=== PATIENT | male | born 1940 | race Caucasian/White ===

== ENCOUNTER 2020-09-26 14:53 | Outpatient (REF) | payer MEDICARE, SELFPAY ==
[2020-09-26 16:48] LABS: MANUAL DIFF FLAG NO
[2020-09-26 16:51] LABS: Basophils Absolute Auto 0.1 X10*3/uL (0.0-0.2); Basophils Percent Auto 0.8 % (0-2); Eosinophils Absolute Auto 0.2 X10*3/uL (0.0-0.4); Hematocrit 45.6 % (42-52); Hemoglobin 14.9 g/dl (14.0-18.0); Imm Gran Abs Auto 0.01 X10*3/uL (0.00-0.03); Imm Gran Pct Auto 0.2 % (0.0-0.4); Lymphocytes Absolute Auto 2.2 X10*3/uL (1.2-4.9); Mean Corpuscular HGB Conc 32.7 g/dl (31.0-36.0); Mean Corpuscular Hemoglobin 32.6 pg (27.0-33.0); Mean Corpuscular Volume 99.8 fL (80-98); Mean Platelet Volume 9.1 fL (9.4-12.4); Monocytes Absolute Auto 0.6 X10*3/uL (0.1-1.2); Monocytes Percent Auto 9.2 % (2-11); Neutrophils Absolute Auto 3.1 X10*3/uL (2.0-8.3); Neutrophils Percent Auto 50.8 % (45-73); Platelet Count 224 X10*3/uL (160-400); Red Blood Count 4.57 X10*6/uL (4.60-5.80); Red Cell Distribution Width 12.8 % (11.0-16.0)
[2020-09-26 17:17] LABS: Alanine Aminotransferase 41 U/L (0-40); Albumin Level 4.3 g/dL (3.5-5.0); Alkaline Phosphatase 56 U/L (39-117); Anion Gap 11 (12-20); Aspartate Amino Transferase 32 U/L (5-37); Bilirubin Total 0.5 mg/dL (0.0-1.0); Blood Urea Nitrogen 21 mg/dL (9-16); Carbon Dioxide 29 mmol/L (22-29); Chloride 105 mmol/L (96-108); Estimated Glomerular Filt Rate > 60; Glucose Random 88 mg/dL (60-115); Potassium 4.4 mmol/l (3.3-5.1); Sodium 141 mmol/L (135-145); Total Protein 6.4 g/dL (6.5-8.0)
[2020-09-26 17:48] LABS: Calcium 9.1 mg/dL (8.4-10.2)
[2020-09-28 13:12] LABS: Free Prostate Spec Ag 1.1 ng/mL; Percent Free Prostate Spec Ag 15 % (calc) (>25); Prostate Specific Ag Total 7.2 ng/mL (< OR = 4.0)
== END 2020-09-26 14:54 | disposition home or self-care (01) ==
LOC: HO.HMGCLDS 14:53
PROVIDERS: PCP Internal Medicine Medical Oncology; Visit Provider Internal Medicine Medical Oncology
DX: E78.2 Mixed hyperlipidemia (principal); I10 Essential (primary) hypertension
CPT/HCPCS: 36415; 80053; 84153; 85025

== ENCOUNTER 2020-10-07 15:23 | Outpatient (REF) | payer MEDICARE, SELFPAY ==
[2020-10-07 17:13] LABS: Blood Urea Nitrogen 25 mg/dL (9-16); Estimated Glomerular Filt Rate > 60
== END 2020-10-07 15:24 | disposition home or self-care (01) ==
LOC: HO.LAB 15:23
PROVIDERS: PCP Internal Medicine Medical Oncology; Visit Provider Urology
DX: N26.1 Atrophy of kidney (terminal) (principal); R97.20 Elevated prostate specific antigen [PSA]; N40.2 Nodular prostate without lower urinary tract symptoms
CPT/HCPCS: 82565; 84520; 99202; 99212

== ENCOUNTER → 2020-10-20 15:26 | Outpatient (BNVA) | payer MEDICARE, SELFPAY | PROVIDERS: PCP Internal Medicine Medical Oncology; Visit Provider Urology | DX: R31.0 Gross hematuria (principal); R97.20 Elevated prostate specific antigen [PSA]; N40.2 Nodular prostate without lower urinary tract symptoms | CPT/HCPCS: 81002; 99212 ==

== ENCOUNTER 2020-11-08 11:26 | Outpatient (REF) | payer MEDICARE, SELFPAY ==
[2020-11-08 11:33] VITALS: BP 159/87; PULSE 76; RESP 16; TEMP 37.1; O2SAT 98
[2020-11-08 11:36] VITALS: BMI 24.3
--- NOTE | 2020-11-08 12:47 | PM.OP ---
Brief Operative Note Date of Service: 11/08/20 Pre-op diagnosis: Prostate Nodule Post-op diagnosis: same Procedure: US guided Measure prostate US duided prostate nerve block US guided prostate biopsy Surgeon: Juan Logan MD Anesthesia: local Estimated blood loss (mL): 0 Pathology: other (12 core biopsy) Condition: stable Disposition: same day
--- NOTE | 2020-11-08 12:49 | W.PM.OPN ---
Operative Note Operative Note Date of Service: 11/08/20 Narrative: Preoperative diagnosis: prostate nodule Postoperative diagnosis: prostate nodule Procedure: 1. transrectal ultrasound measurement of prostate 2. transrectal ultrasound-guided pudendal nerve block 3. transrectal ultrasound-guided prostate biopsy 12 core Surgeon: Dr. Juan Logan Anesthetic: Local Indications for procedure: prostate nodule Procedure: After informed consent was verified, the patient was brought into the procedure area and lay left-hand side down on the table. Patient identity confirmed. Perioperative antibiotics confirmed. Gel was placed per rectum Ultrasound probe was placed per rectum The prostate was measured in 3 dimensions Total volume equals 50 gm There were no cystic structures and no calcifications noted and the prostate was homogeneous in nature A ultrasound-guided pudendal nerve block was performed using 10 cc of 1% lidocaine. 8 cc was placed at the base and 2 cc of the apex. A 12 core biopsy was performed with 6 cores each side. Two cores were taken at the apex, mid and base. Cores were spaced between lateral and medial. He tolerated the procedure well. Was able to ambulate to bathroom after 5 minutes. Printed instructions regarding antibiotic use and common side effects such as low-grade temperature and bleeding were given.
[2020-11-08 12:58] VITALS: BP 143/81; PULSE 87; RESP 16; O2SAT 96
== END 2020-11-08 11:27 | disposition home or self-care (01) ==
LOC: HO.MS 11:26
PROVIDERS: PCP Internal Medicine Medical Oncology; Visit Provider Urology
PROC: (CPT 55700; principal; 2020-11-08 12:00)
DX: C61 Malignant neoplasm of prostate (principal)
CPT/HCPCS: 55700; 76942; 88305; 88344

== ENCOUNTER → 2020-11-17 09:11 | Outpatient (BNVA) | payer MEDICARE, SELFPAY | PROVIDERS: Visit Provider Urology | DX: C61 Malignant neoplasm of prostate (principal) | CPT/HCPCS: Q3014 ==

== ENCOUNTER → 2020-11-30 10:00 | Outpatient (REF) | payer MEDICARE, SELFPAY ==
--- NOTE | 2020-11-30 | NM_ITS ---
EXAMINATION: NM BONE SCAN OF THE WHOLE BODY CLINICAL INFORMATION: Prostate cancer. COMPARISON: None TECHNIQUE: Multiple gamma scintillation camera images of the whole body were performed 3 hours following the intravenous administration of 25 mCi Tc-99m MDP. FINDINGS: There is no abnormal radioisotope activity seen in the skull, neck, the entire spine, bony thorax, upper and lower extremity. There is mild activity seen in both kidneys and excreted urinary activity in the bladder. There is minimal focal activity seen in the left patellar region likely related to DJD. There is no abnormal metastatic activity seen on whole body bone scan. NM/NM bone scan whole body IMPRESSION: Unremarkable whole body bone scan. Especially, there is no abnormal activity seen in the axial or appendicular skeleton to suspect any metastatic disease.
== END ==
LOC: HO.NUCMED 10:00
PROVIDERS: Visit Provider Internal Medicine Medical Oncology
DX: C61 Malignant neoplasm of prostate (principal); M15.9 Polyosteoarthritis, unspecified
CPT/HCPCS: 78306; A9503

== ENCOUNTER → 2020-12-06 14:30 | Outpatient (BNVA) | payer MEDICARE, SELFPAY | PROVIDERS: PCP Internal Medicine Medical Oncology; Visit Provider Urology | DX: C61 Malignant neoplasm of prostate (principal) | CPT/HCPCS: 99212 ==

== ENCOUNTER → 2020-12-21 10:32 | Outpatient (BNVA) | payer MEDICARE, SELFPAY | PROVIDERS: PCP Internal Medicine Medical Oncology; Visit Provider Urology | DX: C61 Malignant neoplasm of prostate (principal) | CPT/HCPCS: 96402; 99212; J9217 ==

== ENCOUNTER → 2020-12-30 08:53 | Outpatient (BNVA) | payer MEDICARE, SELFPAY | PROVIDERS: PCP Internal Medicine Medical Oncology; Visit Provider Urology | DX: C61 Malignant neoplasm of prostate (principal) | CPT/HCPCS: Q3014 ==

== ENCOUNTER 2021-01-31 07:33 | Outpatient (REF) | payer MEDICARE, SELFPAY ==
[2021-01-31 07:40] VITALS: BMI 53.6
[2021-01-31 07:43] VITALS: BP 144/78; PULSE 81; RESP 16; TEMP 35.8; O2SAT 97
--- NOTE | 2021-01-31 08:29 | PM.OP ---
Brief Operative Note Date of Service: 01/31/21 Pre-op diagnosis: prostate cancer Post-op diagnosis: same Procedure: gold seed prostate marker Implants: gold seed marker Surgeon: Juan Logan MD Anesthesia: local Estimated blood loss (mL): 0 Pathology: none sent Condition: stable Disposition: same day
[2021-01-31 08:30] VITALS: BP 151/84; PULSE 76; RESP 16; O2SAT 97
--- NOTE | 2021-01-31 08:31 | W.PM.OPN ---
Operative Note Operative Note Date of Service: 01/31/21 Narrative: Preoperative diagnosis: Prostate cancer Postoperative diagnosis: Prostate cancer Procedure: 1. Transrectal ultrasound-guided pudendal nerve block 2. Transrectal ultrasound-guided gold seed placement Surgeon: Dr. Juan Logan Anesthetic: Local Indications for procedure: Prostate Cancer Procedure: After informed consent was verified, the patient was brought into the procedure area and lay left-hand side down on the table. Patient identity confirmed. Perioperative antibiotics confirmed. Gel was placed per rectum Ultrasound probe was placed per rectum A ultrasound-guided pudendal nerve block was performed using 10 cc of 1% lidocaine. 8 cc was placed at the base and 2 cc of the apex. 3 gold seed markers placed. 2 on the right, 1 on the left. The purpose is for triangulation. He tolerated the procedure well. Was able to ambulate to bathroom after 5 minutes. Printed instructions regarding antibiotic use and common side effects such as low-grade temperature and bleeding were given
== END 2021-01-31 07:34 | disposition home or self-care (01) ==
LOC: HO.MS 07:33
PROVIDERS: PCP Internal Medicine Medical Oncology; Visit Provider Urology
DX: C61 Malignant neoplasm of prostate (principal)
CPT/HCPCS: 55700; 55876

== ENCOUNTER 2021-03-18 10:07 | Outpatient (REF) | payer MEDICARE, SELFPAY ==
[2021-03-18 10:32] LABS: MANUAL DIFF FLAG NO
[2021-03-18 10:36] LABS: Basophils Percent Auto 0.6 % (0-2); Eosinophils Absolute Auto 0.1 X10*3/uL (0.0-0.4); Eosinophils Percent Auto 2.6 % (0-4); Hematocrit 44.4 % (42-52); Imm Gran Abs Auto 0.01 X10*3/uL (0.00-0.03); Imm Gran Pct Auto 0.2 % (0.0-0.4); Lymphocytes Absolute Auto 0.8 X10*3/uL (1.2-4.9); Lymphocytes Percent Auto 16.8 % (20-40); Mean Corpuscular HGB Conc 33.8 g/dl (31.0-36.0); Mean Corpuscular Hemoglobin 33.3 pg (27.0-33.0); Mean Corpuscular Volume 98.4 fL (80-98); Mean Platelet Volume 8.7 fL (9.4-12.4); Monocytes Absolute Auto 0.4 X10*3/uL (0.1-1.2); Monocytes Percent Auto 7.3 % (2-11); Neutrophils Absolute Auto 3.6 X10*3/uL (2.0-8.3); Neutrophils Percent Auto 72.5 % (45-73); Platelet Count 181 X10*3/uL (160-400); Red Blood Count 4.51 X10*6/uL (4.60-5.80); Red Cell Distribution Width 13.1 % (11.0-16.0); White Blood Count 4.9 X10*3/uL (4.8-10.8)
[2021-03-18 11:15] LABS: Alanine Aminotransferase 51 U/L (0-40); Albumin Level 4.7 g/dL (3.5-5.0); Alkaline Phosphatase 55 U/L (39-117); Anion Gap 13 (12-20); Aspartate Amino Transferase 26 U/L (5-37); Bilirubin Total 0.9 mg/dL (0.0-1.0); Blood Urea Nitrogen 21 mg/dL (9-16); Calcium 10.2 mg/dL (8.4-10.2); Carbon Dioxide 29 mmol/L (22-29); Chloride 106 mmol/L (96-108); Cholesterol 186 mg/dL; Estimated Glomerular Filt Rate > 60; Glucose Fasting 104 mg/dL (60-99); HDL Cholesterol 44 mg/dL; LDL Cholesterol Calculated 116 mg/dl; Potassium 4.8 mmol/L (3.3-5.1); Sodium 143 mmol/L (135-145); Total Protein 6.9 g/dL (6.5-8.0); Triglycerides 134 mg/dL
[2021-03-18 11:49] LABS: Free T4 (Free Thyroxine) 0.91 ng/dL (0.71-1.85); Thyroid Stimulating Hormone 0.58 uIU/mL (0.32-4.0)
[2021-03-18 12:57] LABS: Prostate Specific Antigen 0.33 ng/mL (<0.05-4.0)
== END 2021-03-18 10:08 | disposition home or self-care (01) ==
LOC: HO.LAB 10:07
PROVIDERS: Absent Provider Urology; PCP Internal Medicine Medical Oncology; Visit Provider Internal Medicine Medical Oncology
DX: Z12.5 Encounter for screening for malignant neoplasm of prostate (principal); C61 Malignant neoplasm of prostate; E78.2 Mixed hyperlipidemia; E03.9 Hypothyroidism, unspecified; N40.1 Benign prostatic hyperplasia with lower urinary tract symptoms; I10 Essential (primary) hypertension
CPT/HCPCS: 36415; 80053; 80061; 84153; 84439; 84443; 85025

== ENCOUNTER 2021-04-15 10:15 | Outpatient (REF) | payer MEDICARE, SELFPAY ==
[2021-04-15 10:53] LABS: Basophils Percent Auto 0.7 % (0-2); Eosinophils Absolute Auto 0.2 X10*3/uL (0.0-0.4); Eosinophils Percent Auto 4.2 % (0-4); Hematocrit 44.7 % (42-52); Imm Gran Abs Auto 0.01 X10*3/uL (0.00-0.03); Imm Gran Pct Auto 0.2 % (0.0-0.4); Lymphocytes Absolute Auto 0.7 X10*3/uL (1.2-4.9); Lymphocytes Percent Auto 14.9 % (20-40); MANUAL DIFF FLAG SCAN; Mean Corpuscular HGB Conc 33.6 g/dl (31.0-36.0); Mean Corpuscular Hemoglobin 33.3 pg (27.0-33.0); Mean Corpuscular Volume 99.3 fL (80-98); Mean Platelet Volume 8.6 fL (9.4-12.4); Monocytes Absolute Auto 0.3 X10*3/uL (0.1-1.2); Monocytes Percent Auto 6.5 % (2-11); Neutrophils Absolute Auto 3.3 X10*3/uL (2.0-8.3); Neutrophils Percent Auto 73.5 % (45-73); Platelet Count 192 X10*3/uL (160-400); Red Cell Distribution Width 13.3 % (11.0-16.0); SCAN SMEAR FLAG 1; White Blood Count 4.5 X10*3/uL (4.8-10.8)
[2021-04-15 11:22] LABS: Alanine Aminotransferase 52 U/L (0-40); Albumin Level 4.6 g/dL (3.5-5.0); Alkaline Phosphatase 57 U/L (39-117); Anion Gap 11 (12-20); Aspartate Amino Transferase 27 U/L (5-37); Blood Urea Nitrogen 18 mg/dL (9-16); Calcium 10.1 mg/dL (8.4-10.2); Carbon Dioxide 30 mmol/L (22-29); Chloride 106 mmol/L (96-108); Cholesterol 187 mg/dL; Estimated Glomerular Filt Rate > 60; Glucose Fasting 101 mg/dL (60-99); HDL Cholesterol 43 mg/dL; LDL Cholesterol Calculated 116 mg/dl; Potassium 4.9 mmol/L (3.3-5.1); Sodium 142 mmol/L (135-145); Total Protein 6.9 g/dL (6.5-8.0); Triglycerides 142 mg/dL
[2021-04-15 12:16] LABS: SLIDE REVIEW VERIFIED
[2021-04-19 18:12] LABS: Testosterone, Total 17 ng/dL (250-1100)
== END 2021-04-15 10:16 | disposition home or self-care (01) ==
LOC: HO.LAB 10:15
PROVIDERS: PCP Internal Medicine Medical Oncology; Visit Provider Internal Medicine Medical Oncology
DX: I10 Essential (primary) hypertension (principal); E78.2 Mixed hyperlipidemia; C61 Malignant neoplasm of prostate
CPT/HCPCS: 36415; 80053; 80061; 84403; 84439; 84443; 85025

== ENCOUNTER → 2021-06-02 10:56 | Outpatient (BNVA) | payer MEDICARE, SELFPAY | PROVIDERS: PCP Internal Medicine Medical Oncology; Visit Provider Urology | DX: C61 Malignant neoplasm of prostate (principal); N40.1 Benign prostatic hyperplasia with lower urinary tract symptoms; N52.9 Male erectile dysfunction, unspecified | CPT/HCPCS: 99212 ==

== ENCOUNTER → 2021-06-23 11:01 | Outpatient (BNVA) | payer MEDICARE, SELFPAY | PROVIDERS: PCP Internal Medicine Medical Oncology; Visit Provider Urology | DX: C61 Malignant neoplasm of prostate (principal) | CPT/HCPCS: 96402; J9217 ==

== ENCOUNTER 2021-08-29 15:03 | Outpatient (REF) | payer MEDICARE, SELFPAY ==
[2021-08-29 16:11] LABS: Prostate Specific Antigen 0.11 ng/mL (<0.05-4.0)
[2021-09-02 08:12] LABS: Testosterone, Total 15 ng/dL (250-1100)
== END 2021-08-29 15:04 | disposition home or self-care (01) ==
LOC: HO.LAB 15:03
PROVIDERS: Absent Provider Internal Medicine Medical Oncology; PCP Internal Medicine Medical Oncology; Visit Provider Urology
DX: Z12.5 Encounter for screening for malignant neoplasm of prostate (principal); C61 Malignant neoplasm of prostate
CPT/HCPCS: 36415; 84153; 84403

== ENCOUNTER → 2021-09-05 10:43 | Outpatient (BNVA) | payer MEDICARE, SELFPAY | PROVIDERS: PCP Internal Medicine Medical Oncology; Visit Provider Urology | DX: Z13.89 Encounter for screening for other disorder (principal) | CPT/HCPCS: Q3014 ==

== ENCOUNTER 2021-09-25 10:24 | Outpatient (REF) | payer MEDICARE, SELFPAY ==
[2021-09-25 11:27] LABS: MANUAL DIFF FLAG NO
[2021-09-25 11:36] LABS: Basophils Percent Auto 0.7 % (0-2); Eosinophils Absolute Auto 0.2 X10*3/uL (0.0-0.4); Eosinophils Percent Auto 3.7 % (0-4); Hematocrit 44.7 % (42-52); Hemoglobin 14.9 g/dl (14.0-18.0); Imm Gran Abs Auto 0.01 X10*3/uL (0.00-0.03); Imm Gran Pct Auto 0.2 % (0.0-0.4); Lymphocytes Absolute Auto 1.2 X10*3/uL (1.2-4.9); Lymphocytes Percent Auto 23.2 % (20-40); Mean Corpuscular HGB Conc 33.3 g/dl (31.0-36.0); Mean Corpuscular Hemoglobin 32.7 pg (27.0-33.0); Mean Platelet Volume 8.8 fL (9.4-12.4); Monocytes Absolute Auto 0.4 X10*3/uL (0.1-1.2); Neutrophils Absolute Auto 3.4 X10*3/uL (2.0-8.3); Neutrophils Percent Auto 64.2 % (45-73); Platelet Count 220 X10*3/uL (160-400); Red Blood Count 4.56 X10*6/uL (4.60-5.80); Red Cell Distribution Width 12.7 % (11.0-16.0); White Blood Count 5.4 X10*3/uL (4.8-10.8)
[2021-09-25 12:10] LABS: Alanine Aminotransferase 93 U/L (0-40); Albumin Level 4.4 g/dL (3.5-5.0); Alkaline Phosphatase 73 U/L (39-117); Anion Gap 12 (12-20); Aspartate Amino Transferase 42 U/L (5-37); Bilirubin Total 0.8 mg/dL (0.0-1.0); Blood Urea Nitrogen 15 mg/dL (9-16); Calcium 10.1 mg/dL (8.4-10.2); Carbon Dioxide 25 mmol/L (22-29); Chloride 109 mmol/L (96-108); Cholesterol 167 mg/dL; Estimated Glomerular Filt Rate > 60; Glucose Fasting 92 mg/dL (60-99); HDL Cholesterol 38 mg/dL; LDL Cholesterol Calculated 99 mg/dl; Potassium 4.2 mmol/L (3.3-5.1); Sodium 142 mmol/L (135-145); Total Protein 6.7 g/dL (6.5-8.0); Triglycerides 151 mg/dL
[2021-09-25 12:14] LABS: Free T4 (Free Thyroxine) 0.91 ng/dL (0.71-1.85); Thyroid Stimulating Hormone 1.83 uIU/mL (0.32-4.0)
== END 2021-09-25 10:25 | disposition home or self-care (01) ==
LOC: HO.HMGCLDS 10:24
PROVIDERS: PCP Internal Medicine Medical Oncology; Visit Provider Internal Medicine Medical Oncology
DX: C61 Malignant neoplasm of prostate (principal); E03.9 Hypothyroidism, unspecified; E78.2 Mixed hyperlipidemia
CPT/HCPCS: 36415; 80053; 80061; 84439; 84443; 85025

== ENCOUNTER 2021-12-08 14:59 | Outpatient (REF) | payer MEDICARE, SELFPAY ==
[2021-12-08 16:40] LABS: MANUAL DIFF FLAG NO
[2021-12-08 16:47] LABS: Basophils Percent Auto 0.8 % (0-2); Eosinophils Absolute Auto 0.1 X10*3/uL (0.0-0.4); Eosinophils Percent Auto 2.3 % (0-4); Hematocrit 43.5 % (42.0-52.0); Hemoglobin 14.1 g/dl (14.0-18.0); Imm Gran Abs Auto 0.01 X10*3/uL (0.00-0.03); Imm Gran Pct Auto 0.2 % (0.0-0.4); Lymphocytes Absolute Auto 1.1 X10*3/uL (1.2-4.9); Lymphocytes Percent Auto 20.4 % (20-40); Mean Corpuscular HGB Conc 32.4 g/dl (31.0-36.0); Mean Corpuscular Hemoglobin 32.4 pg (27.0-33.0); Mean Platelet Volume 8.8 fL (9.4-12.4); Monocytes Absolute Auto 0.4 X10*3/uL (0.1-1.2); Monocytes Percent Auto 6.7 % (2-11); Neutrophils Absolute Auto 3.6 x10*3/uL (2.0-8.3); Neutrophils Percent Auto 69.6 % (45-73); Platelet Count 225 X10*3/uL (160-400); Red Blood Count 4.35 X10*6/uL (4.60-5.80); Red Cell Distribution Width 12.8 % (11.0-16.0); White Blood Count 5.2 X10*3/uL (4.8-10.8)
[2021-12-08 17:06] LABS: Alanine Aminotransferase 52 U/L (0-40); Albumin Level 4.5 g/dL (3.5-5.0); Alkaline Phosphatase 68 U/L (39-117); Anion Gap 10 (12-20); Aspartate Amino Transferase 33 U/L (5-37); Bilirubin Total 0.7 mg/dL (0.0-1.0); Blood Urea Nitrogen 23 mg/dL (9-16); Calcium 10.1 mg/dL (8.4-10.2); Carbon Dioxide 29 mmol/L (22-29); Chloride 108 mmol/L (96-108); Estimated Glomerular Filt Rate > 60; Glucose Random 88 mg/dL (60-115); Potassium 4.4 mmol/L (3.3-5.1); Sodium 143 mmol/L (135-145); Total Protein 6.8 g/dL (6.5-8.0)
[2021-12-08 18:30] LABS: Prostate Specific Antigen 0.05 ng/mL (<0.05-4.0)
[2021-12-13 17:06] LABS: Testosterone, Total 7 ng/dL (250-1100)
== END 2021-12-08 15:00 | disposition home or self-care (01) ==
LOC: HO.HMGCLDS 14:59
PROVIDERS: Absent Provider Urology; PCP Internal Medicine Medical Oncology; Visit Provider Internal Medicine Medical Oncology
DX: Z12.5 Encounter for screening for malignant neoplasm of prostate (principal); C61 Malignant neoplasm of prostate; E78.2 Mixed hyperlipidemia
CPT/HCPCS: 36415; 80053; 84153; 84403; 85025

== ENCOUNTER → 2021-12-26 11:52 | Outpatient (BNVA) | payer MEDICARE, SELFPAY | PROVIDERS: PCP Internal Medicine Medical Oncology; Visit Provider Urology | DX: R39.15 Urgency of urination (principal); C61 Malignant neoplasm of prostate | CPT/HCPCS: 96402; 99212; J9217 ==

== ENCOUNTER 2022-01-12 08:48 | Outpatient (REF) | payer MEDICARE, SELFPAY ==
--- NOTE | ~2022-01-12 | MM_ITS ---
EXAMINATION: BONE DENSITOMETRY CLINICAL INDICATION: Osteopenia. COMPARISON: This is the patient's baseline examination. TECHNIQUE: Using a [employer] DXA System (software version: 13.1) manufactured by [employer], dual-energy x-ray absorptiometry was performed of the lumbar spine and left hip. The images are of good technical quality. Summary results are attached. FINDINGS: AP SPINE L1-L4: BMD 0.768 g/cm2, Z-score -3.0, T-score -3.8, osteoporosis. LEFT FEMUR, NECK: BMD 0.581 g/cm2, Z-score -2.2, T-score -3.8, osteoporosis. LEFT FEMUR, TOTAL: BMD 0.693 g/cm2, Z-score -1.6, T-score -2.8, osteoporosis. IDENTIFIED RISK FACTORS: Height loss, hypogonadism. HISTORY OF FRACTURE: None listed. MEDICATIONS: Calcium or multivitamin. Vitamin D. MM/XR DEXA axial skeleton IMPRESSION: 1. DIAGNOSIS: Osteoporosis based on the lowest T-score value of -3.8 in the lumbar spine and femur neck applying World Health Organization criteria. 2. 10-YEAR FRACTURE RISK PREDICTION, FRAX: Major osteoporotic fracture (clinical spine, forearm, hip or shoulder) 17.3%. Hip fracture 9.5%. 3. Treatment Recommendations: NOF guidelines recommend consideration for treatment in postmenopausal women and men age 50 and older presenting with the following: -A hip or vertebral (clinical or morphometric) fracture. -T-score less than or equal to -2.5 at the femoral neck or spine after appropriate evaluation to exclude secondary causes. -Low bone mass at the hip or spine and a 10-year fracture probability by FRAX of greater than or equal to 3% for hip fracture or greater than or equal to 20% for major osteoporotic fracture based on the [place] adapted WHO algorithm. 4. Other Recommendations: All treatment decisions require clinical judgment and consideration of individual patient factors, including patient preferences, comorbidities, previous drug use, risk factors not captured in the FRAX model (e.g. frailty, falls, vitamin D deficiency, increased bone turnover, interval significant decline in bone density) and possible under or overestimation of fracture risk by FRAX. Additional medical evaluation for secondary cause of low bone mineral density may be appropriate. FUTURE SCAN RECOMMENDATION: People with diagnosed cases of osteoporosis or at high risk for fracture should have regular bone mineral density tests. For patients eligible for Medicare, routine testing is allowed once every 2 years. The testing frequency can be increased to one year for patients who have rapidly progressing disease, those who are receiving or discontinuing medical therapy to restore bone mass, or have additional risk factors.
== END 2022-01-12 08:49 | disposition home or self-care (01) ==
LOC: HO.MAMMO 08:48
PROVIDERS: PCP Internal Medicine Medical Oncology; Visit Provider Internal Medicine Medical Oncology
DX: Z13.820 Encounter for screening for osteoporosis (principal); M85.89 Other specified disorders of bone density and structure, multiple sites; C61 Malignant neoplasm of prostate; E29.1 Testicular hypofunction; Z79.899 Other long term (current) drug therapy
CPT/HCPCS: 77080

== ENCOUNTER 2022-03-07 16:18 | Outpatient (REF) | payer MEDICARE, SELFPAY ==
[2022-03-07 16:37] LABS: MANUAL DIFF FLAG NO
[2022-03-07 17:30] LABS: Basophils Percent Auto 0.6 % (0-2); Eosinophils Absolute Auto 0.2 X10*3/uL (0.0-0.4); Eosinophils Percent Auto 3.6 % (0-4); Hematocrit 42.4 % (42.0-52.0); Hemoglobin 13.9 g/dl (14.0-18.0); Lymphocytes Absolute Auto 1.2 X10*3/uL (1.2-4.9); Lymphocytes Percent Auto 24.5 % (20-40); Mean Corpuscular HGB Conc 32.8 g/dl (31.0-36.0); Mean Corpuscular Hemoglobin 32.3 pg (27.0-33.0); Mean Corpuscular Volume 98.4 fL (80.0-98.0); Mean Platelet Volume 8.6 fL (9.4-12.4); Monocytes Absolute Auto 0.4 X10*3/uL (0.1-1.2); Monocytes Percent Auto 8.4 % (2-11); Neutrophils Absolute Auto 3.2 x10*3/uL (2.0-8.3); Neutrophils Percent Auto 62.9 % (45-73); Platelet Count 246 X10*3/uL (160-400); Red Blood Count 4.31 X10*6/uL (4.60-5.80); Red Cell Distribution Width 12.8 % (11.0-16.0)
[2022-03-07 17:48] LABS: Alanine Aminotransferase 52 U/L (0-40); Albumin Level 4.3 g/dL (3.5-5.0); Alkaline Phosphatase 71 U/L (39-117); Anion Gap 10 (12-20); Aspartate Amino Transferase 34 U/L (5-37); Bilirubin Total 0.6 mg/dL (0.0-1.0); Blood Urea Nitrogen 23 mg/dL (9-16); Calcium 9.9 mg/dL (8.4-10.2); Carbon Dioxide 27 mmol/L (22-29); Chloride 107 mmol/L (96-108); Estimated Glomerular Filt Rate > 60; Glucose Random 107 mg/dL (60-115); Potassium 4.3 mmol/L (3.3-5.1); Sodium 140 mmol/L (135-145); Total Protein 6.6 g/dL (6.5-8.0)
[2022-03-07 18:15] LABS: PSA,Total (Free>4and<10) < 0.05 ng/mL (0.00-4.00); Vitamin D 25-OH Total 52.1 ng/mL (>30)
[2022-03-14 12:05] LABS: Testosterone, Total 7 ng/dL (250-1100)
== END 2022-03-07 16:19 | disposition home or self-care (01) ==
LOC: HO.LAB 16:18
PROVIDERS: Absent Provider Internal Medicine Medical Oncology; PCP Internal Medicine Medical Oncology; Visit Provider Urology
DX: C61 Malignant neoplasm of prostate (principal); N40.1 Benign prostatic hyperplasia with lower urinary tract symptoms; N13.8 Other obstructive and reflux uropathy; M81.0 Age-related osteoporosis without current pathological fracture; Z12.5 Encounter for screening for malignant neoplasm of prostate
CPT/HCPCS: 36415; 80053; 82306; 84153; 84403; 85025

== ENCOUNTER → 2022-03-28 11:03 | Outpatient (BNVA) | payer MEDICARE, SELFPAY | PROVIDERS: PCP Internal Medicine Medical Oncology; Visit Provider Urology | DX: R31.0 Gross hematuria (principal); C61 Malignant neoplasm of prostate | CPT/HCPCS: 99212 ==

== ENCOUNTER → 2022-05-09 11:01 | Outpatient (BNVA) | payer MEDICARE, SELFPAY | PROVIDERS: PCP Internal Medicine Medical Oncology; Visit Provider Urology | DX: C61 Malignant neoplasm of prostate (principal); R31.0 Gross hematuria | CPT/HCPCS: 52000; 99212 ==

== ENCOUNTER 2022-06-15 16:04 | Outpatient (REF) | payer MEDICARE, SELFPAY ==
[2022-06-15 16:38] LABS: MANUAL DIFF FLAG NO
[2022-06-15 17:10] LABS: Basophils Percent Auto 0.8 % (0-2); Eosinophils Absolute Auto 0.2 X10*3/uL (0.0-0.4); Eosinophils Percent Auto 3.8 % (0-4); Hematocrit 40.5 % (42.0-52.0); Hemoglobin 13.5 g/dl (14.0-18.0); Imm Gran Abs Auto 0.02 X10*3/uL (0.00-0.03); Imm Gran Pct Auto 0.4 % (0.0-0.4); Lymphocytes Absolute Auto 1.2 X10*3/uL (1.2-4.9); Lymphocytes Percent Auto 24.1 % (20-40); Mean Corpuscular HGB Conc 33.3 g/dl (31.0-36.0); Mean Corpuscular Hemoglobin 32.8 pg (27.0-33.0); Mean Corpuscular Volume 98.5 fL (80.0-98.0); Mean Platelet Volume 8.7 fL (9.4-12.4); Monocytes Absolute Auto 0.5 X10*3/uL (0.1-1.2); Monocytes Percent Auto 10.1 % (2-11); Neutrophils Percent Auto 60.8 % (45-73); Platelet Count 230 X10*3/uL (160-400); Red Blood Count 4.11 X10*6/uL (4.60-5.80); Red Cell Distribution Width 13.5 % (11.0-16.0)
[2022-06-15 17:37] LABS: Alanine Aminotransferase 41 U/L (0-40); Albumin Level 4.3 g/dL (3.5-5.0); Alkaline Phosphatase 71 U/L (39-117); Anion Gap 12 (12-20); Aspartate Amino Transferase 29 U/L (5-37); Bilirubin Total 0.5 mg/dL (0.0-1.0); Blood Urea Nitrogen 22 mg/dL (9-16); Calcium 9.4 mg/dL (8.4-10.2); Carbon Dioxide 25 mmol/L (22-29); Chloride 109 mmol/L (96-108); Estimated Glomerular Filt Rate > 60; Glucose Random 120 mg/dL (60-115); Potassium 4.6 mmol/L (3.3-5.1); Sodium 141 mmol/L (135-145); Total Protein 6.5 g/dL (6.5-8.0)
[2022-06-15 18:06] LABS: Prostate Specific Antigen < 0.05 ng/mL (<0.05-4.0)
== END 2022-06-15 16:05 | disposition home or self-care (01) ==
LOC: HO.LAB 16:04
PROVIDERS: PCP Internal Medicine Medical Oncology; Visit Provider Internal Medicine Medical Oncology
DX: Z12.5 Encounter for screening for malignant neoplasm of prostate (principal); C61 Malignant neoplasm of prostate
CPT/HCPCS: 36415; 80053; 84153; 85025

== ENCOUNTER 2022-08-16 14:01 | Outpatient (REF) | payer MEDICARE, SELFPAY ==
[2022-08-16 14:25] LABS: MANUAL DIFF FLAG NO
[2022-08-16 14:45] LABS: Basophils Absolute Auto 0.1 X10*3/uL (0.0-0.2); Basophils Percent Auto 1.1 % (0-2); Eosinophils Absolute Auto 0.2 X10*3/uL (0.0-0.4); Eosinophils Percent Auto 3.4 % (0-4); Hematocrit 43.6 % (42.0-52.0); Hemoglobin 14.5 g/dl (14.0-18.0); Imm Gran Abs Auto 0.01 X10*3/uL (0.00-0.03); Imm Gran Pct Auto 0.2 % (0.0-0.4); Lymphocytes Absolute Auto 1.2 X10*3/uL (1.2-4.9); Mean Corpuscular HGB Conc 33.3 g/dl (31.0-36.0); Mean Corpuscular Volume 96.2 fL (80.0-98.0); Mean Platelet Volume 8.5 fL (9.4-12.4); Monocytes Absolute Auto 0.4 X10*3/uL (0.1-1.2); Monocytes Percent Auto 7.9 % (2-11); Neutrophils Absolute Auto 2.9 x10*3/uL (2.0-8.3); Neutrophils Percent Auto 61.4 % (45-73); Platelet Count 203 X10*3/uL (160-400); Red Blood Count 4.53 X10*6/uL (4.60-5.80); Red Cell Distribution Width 13.2 % (11.0-16.0); White Blood Count 4.7 X10*3/uL (4.8-10.8)
[2022-08-16 15:14] LABS: Alanine Aminotransferase 44 U/L (0-40); Albumin Level 4.3 g/dL (3.5-5.0); Alkaline Phosphatase 68 U/L (39-117); Anion Gap 12 (12-20); Aspartate Amino Transferase 30 U/L (5-37); Bilirubin Total 0.7 mg/dL (0.0-1.0); Blood Urea Nitrogen 19 mg/dL (9-16); Calcium 9.8 mg/dL (8.4-10.2); Carbon Dioxide 27 mmol/L (22-29); Chloride 106 mmol/L (96-108); Estimated Average Glucose 123 mg/dL; Estimated Glomerular Filt Rate > 60; Glucose Random 95 mg/dL (60-115); Hemoglobin A1c % 5.9 %; Potassium 4.4 mmol/L (3.3-5.1); Sodium 141 mmol/L (135-145); Total Protein 6.5 g/dL (6.5-8.0)
[2022-08-16 15:34] LABS: Prostate Specific Antigen < 0.05 ng/mL (<0.05-4.0)
[2022-08-21 15:32] LABS: Testosterone, Total 10 ng/dL (250-1100)
== END 2022-08-16 14:02 | disposition home or self-care (01) ==
LOC: HO.LAB 14:01
PROVIDERS: Absent Provider Internal Medicine Medical Oncology; PCP Internal Medicine Medical Oncology; Visit Provider Urology
DX: C61 Malignant neoplasm of prostate (principal); R31.0 Gross hematuria; N40.1 Benign prostatic hyperplasia with lower urinary tract symptoms; I10 Essential (primary) hypertension; R73.9 Hyperglycemia, unspecified
CPT/HCPCS: 36415; 80053; 83036; 84153; 84403; 85025

== ENCOUNTER → 2022-08-23 08:32 | Outpatient (BNVA) | payer MEDICARE, SELFPAY | PROVIDERS: PCP Internal Medicine Medical Oncology; Visit Provider Urology | DX: C61 Malignant neoplasm of prostate (principal); R39.12 Poor urinary stream; N32.0 Bladder-neck obstruction; R39.15 Urgency of urination; N40.1 Benign prostatic hyperplasia with lower urinary tract symptoms | CPT/HCPCS: Q3014 ==

== ENCOUNTER 2022-10-24 14:55 | Outpatient (REF) | payer MEDICARE, SELFPAY ==
[2022-10-24 15:12] LABS: MANUAL DIFF FLAG NO
[2022-10-24 15:20] LABS: Basophils Absolute Auto 0.1 X10*3/uL (0.0-0.2); Eosinophils Absolute Auto 0.2 X10*3/uL (0.0-0.4); Eosinophils Percent Auto 3.9 % (0-4); Hematocrit 44.9 % (42.0-52.0); Imm Gran Abs Auto 0.01 X10*3/uL (0.00-0.03); Imm Gran Pct Auto 0.2 % (0.0-0.4); Lymphocytes Absolute Auto 1.6 X10*3/uL (1.2-4.9); Lymphocytes Percent Auto 32.8 % (20-40); Mean Corpuscular HGB Conc 33.4 g/dl (31.0-36.0); Mean Corpuscular Hemoglobin 32.7 pg (27.0-33.0); Mean Corpuscular Volume 97.8 fL (80.0-98.0); Mean Platelet Volume 8.7 fL (9.4-12.4); Monocytes Absolute Auto 0.4 X10*3/uL (0.1-1.2); Monocytes Percent Auto 8.4 % (2-11); Neutrophils Absolute Auto 2.6 x10*3/uL (2.0-8.3); Neutrophils Percent Auto 53.7 % (45-73); Platelet Count 226 X10*3/uL (160-400); Red Blood Count 4.59 X10*6/uL (4.60-5.80); Red Cell Distribution Width 13.3 % (11.0-16.0); White Blood Count 4.9 X10*3/uL (4.8-10.8)
[2022-10-24 17:10] LABS: Alanine Aminotransferase 43 U/L (0-40); Albumin Level 4.5 g/dL (3.5-5.0); Alkaline Phosphatase 77 U/L (39-117); Anion Gap 14 (12-20); Aspartate Amino Transferase 32 U/L (5-37); Bilirubin Total 0.8 mg/dL (0.0-1.0); Blood Urea Nitrogen 25 mg/dL (9-16); Calcium 10.1 mg/dL (8.4-10.2); Carbon Dioxide 26 mmol/L (22-29); Chloride 107 mmol/L (96-108); Estimated Glomerular Filt Rate > 60; Glucose Random 99 mg/dL (60-115); Potassium 4.5 mmol/L (3.3-5.1); Prostate Specific Antigen < 0.10 ng/mL (<0.05-4.0); Sodium 142 mmol/L (135-145); Total Protein 6.8 g/dL (6.5-8.0)
[2022-10-29 10:37] LABS: Testosterone, Total 20 ng/dL (250-1100)
== END 2022-10-24 14:56 | disposition home or self-care (01) ==
LOC: HO.LAB 14:55
PROVIDERS: PCP Internal Medicine Medical Oncology; Referring Provider Urology; Visit Provider Internal Medicine Medical Oncology
DX: Z12.5 Encounter for screening for malignant neoplasm of prostate (principal); C61 Malignant neoplasm of prostate; N52.9 Male erectile dysfunction, unspecified
CPT/HCPCS: 36415; 80053; 84153; 84403; 85025

== ENCOUNTER 2022-12-21 14:45 | Outpatient (REF) | payer MEDICARE, SELFPAY ==
[2022-12-21 16:29] LABS: Prostate Specific Antigen < 0.10 ng/mL (<0.05-4.0)
[2022-12-27 13:54] LABS: Testosterone, Total 185 ng/dL (250-1100)
== END 2022-12-21 14:46 | disposition home or self-care (01) ==
LOC: HO.LAB 14:45
PROVIDERS: PCP Internal Medicine Medical Oncology; Visit Provider Urology
DX: Z12.5 Encounter for screening for malignant neoplasm of prostate (principal); C61 Malignant neoplasm of prostate
CPT/HCPCS: 36415; 84153; 84403

== ENCOUNTER → 2022-12-25 12:01 | Outpatient (BNVA) | payer MEDICARE, SELFPAY | PROVIDERS: PCP Internal Medicine Medical Oncology; Visit Provider Urology | DX: C61 Malignant neoplasm of prostate (principal) | CPT/HCPCS: Q3014 ==

== ENCOUNTER 2023-02-25 14:43 | Outpatient (REF) | payer MEDICARE, SELFPAY ==
[2023-02-25 14:54] LABS: MANUAL DIFF FLAG NO
[2023-02-25 15:37] LABS: Basophils Absolute Auto 0.1 X10*3/uL (0.0-0.2); Basophils Percent Auto 0.9 % (0-2); Eosinophils Absolute Auto 0.2 X10*3/uL (0.0-0.4); Eosinophils Percent Auto 3.4 % (0-4); Imm Gran Abs Auto 0.02 X10*3/uL (0.00-0.03); Imm Gran Pct Auto 0.4 % (0.0-0.4); Lymphocytes Absolute Auto 1.4 X10*3/uL (1.2-4.9); Lymphocytes Percent Auto 27.2 % (20-40); Mean Corpuscular HGB Conc 32.6 g/dl (31.0-36.0); Mean Corpuscular Hemoglobin 31.7 pg (27.0-33.0); Mean Corpuscular Volume 97.3 fL (80.0-98.0); Mean Platelet Volume 8.9 fL (9.4-12.4); Monocytes Absolute Auto 0.5 X10*3/uL (0.1-1.2); Monocytes Percent Auto 9.1 % (2-11); Neutrophils Absolute Auto 3.1 x10*3/uL (2.0-8.3); Platelet Count 212 X10*3/uL (160-400); Red Blood Count 4.73 X10*6/uL (4.60-5.80); Red Cell Distribution Width 13.2 % (11.0-16.0); White Blood Count 5.3 X10*3/uL (4.8-10.8)
[2023-02-25 16:20] LABS: Alanine Aminotransferase 35 U/L (0-40); Albumin Level 4.3 g/dL (3.5-5.0); Alkaline Phosphatase 61 U/L (39-117); Anion Gap 13 (12-20); Aspartate Amino Transferase 26 U/L (5-37); Bilirubin Total 0.6 mg/dL (0.0-1.0); Blood Urea Nitrogen 23 mg/dL (9-16); Carbon Dioxide 25 mmol/L (22-29); Chloride 108 mmol/L (96-108); Estimated Glomerular Filt Rate > 60; Glucose Random 97 mg/dL (60-115); Magnesium 2.1 mg/dL (1.6-2.6); Potassium 4.8 mmol/L (3.3-5.1); Sodium 141 mmol/L (135-145); Total Protein 6.4 g/dL (6.5-8.0)
[2023-02-25 16:33] LABS: Prostate Specific Antigen < 0.10 ng/mL (<0.05-4.0); Vitamin D 25-OH Total 53.6 ng/mL (>30)
== END 2023-02-25 14:44 | disposition home or self-care (01) ==
LOC: HO.XRAY 14:43
PROVIDERS: PCP Internal Medicine Medical Oncology; Visit Provider Internal Medicine Medical Oncology
DX: C61 Malignant neoplasm of prostate (principal); R00.2 Palpitations; N40.1 Benign prostatic hyperplasia with lower urinary tract symptoms; I10 Essential (primary) hypertension; E55.9 Vitamin D deficiency, unspecified; Z12.5 Encounter for screening for malignant neoplasm of prostate
CPT/HCPCS: 36415; 80053; 82306; 83735; 84153; 85025

== ENCOUNTER → 2023-03-04 10:06 | Outpatient (REF) | payer MEDICARE, SELFPAY ==
--- NOTE | 2023-03-04 10:10 | HM_ITS ---
* Total monitoring time 2 days. * Underlying rhythm is sinus. Average ventricular rate 72/Min. Range 48 to 98/Min. * Frequent premature ventricular contractions. Frequent trigeminy; some bigeminy; some couplets and triplets. Overall burden is 12.2%. * Very rare supraventricular ectopy. * No significant pauses or AV blocks. * No patient markers or events in diary. MTDD
== END ==
LOC: HO.CARD 10:06
PROVIDERS: PCP Internal Medicine Medical Oncology; Visit Provider Internal Medicine Medical Oncology
DX: R00.2 Palpitations (principal); I10 Essential (primary) hypertension
CPT/HCPCS: 93225

== ENCOUNTER 2023-04-15 15:12 | Outpatient (REF) | payer MEDICARE, SELFPAY ==
[2023-04-15 17:39] LABS: Prostate Specific Antigen < 0.10 ng/mL (<0.05-4.0)
[2023-04-20 15:29] LABS: Testosterone, Total 251 ng/dL (250-1100)
== END 2023-04-15 15:13 | disposition home or self-care (01) ==
LOC: HO.LAB 15:12
PROVIDERS: Visit Provider Urology
DX: C61 Malignant neoplasm of prostate (principal); Z12.5 Encounter for screening for malignant neoplasm of prostate
CPT/HCPCS: 36415; 84153; 84403

== ENCOUNTER → 2023-04-23 13:55 | Outpatient (REF) | payer MEDICARE, SELFPAY ==
--- NOTE | 2023-04-23 13:58 | CA_ITS ---
Transthoracic Echocardiogram Patient (Last, First, Middle): Juan White J Gender: Male Date of : 1940 Age: 82 Procedure Date: 04/23/2023 Procedure Type: Transthoracic Echocardiogram Location: OP Height: 170.18 cm Weight: 79.38 kg BSA: 1.91 m2 Heart Rate: 66 bpm BP: 124 / 80 mmHg Laborer/Grade Check: Referring MD: Neil Alcantara DO Symptoms: R06.02 SOB R00.2 PALPITATIONS Study Quality: Adequate ECG Rhythm: Sinus Conclusions: - The left ventricular systolic function is normal. The calculated ejection fraction is 61% by biplane method. - There is mildly increased left ventricular wall thickness. - Mildly increased right ventricular cavity size. - There is mild calcification of the aortic valve. - No obvious valvular pathology seen on this study. Findings Left Ventricle Normal left ventricular cavity size. There is mildly increased left ventricular wall thickness. The left ventricular systolic function is normal. The calculated ejection fraction is 61% by biplane method. There is no evidence of regional wall motion abnormalities. Diastolic function is normal for age. Right Ventricle Mildly increased right ventricular cavity size. There is normal right ventricular systolic function. Atria Both atria are normal in size. Aortic Valve The aortic valve was not well visualized. There is mild calcification of the aortic valve. There is no aortic valve stenosis. There is no aortic valve regurgitation. Mitral Valve The mitral valve appears normal. There is trace mitral valve regurgitation. There is no mitral valve stenosis. Pulmonic Valve The pulmonic valve is likely normal. Tricuspid Valve Normal tricuspid valve structure. There is trace tricuspid valve regurgitation. There is no evidence of pulmonary hypertension. Great Vessels The aorta was not well visualized. Venous The inferior vena cava is normal in size and collapses greater than 50% with inspiration. Pericardium/Pleural There is no evidence of pericardial effusion. Prior Study Comparison No prior study available for comparison. Recommendations, Care & Conclusions No obvious valvular pathology seen on this study. Measurements 2D Linear Measurements IVSd: 1.10 0.6-0.9/0.6-1.0 cm LVIDd: 3.21 3.9-5.3/4.2-5.9 cm LVIDd Index: 1.68 2.4-3.2/2.2-3.1 cm/m2 LVIDs: 2.15 2.0-3.6 cm LVPWd: 1.13 0.7-1.1 cm LA Diam: 3.50 2.7-3.8/3.0-4.0 cm LAIDs Index: 1.83 1.5-2.3 cm/m2 LV Mass: 133.03 67-162/88-224 g LV Mass Index: 69.65 43-95/49-115 g/m2 LVOT Diam: 2.00 3.0+(-)1.3 cm 2D Systolic Function EF 4C: 58.30 >55% EF 2C: 66.70 >55% EF BiP: 61.00 >55% Mitral Valve MV Pk E: 0.57 MV PK A: 0.87 MV Decel Time: 300.00 E/A: 0.70 E'Lateral: 6.96 E'Medial: 5.87 E/E' Med: 9.80 E/E' Lat: 8.20 PHT: 88.00 MVA PHT: 2.50 Decel Dooly: 1.91 Aortic Valve AoV Pk Javed: 1.46 AoV Mn Javed: 0.86 AoV VTI: 0.29 AoV Pk Grad: 9.00 Aov Mn Grad: 4.00 MARLENI Cont.VTI: 2.46 LVOT LVOT Pk Javed: 1.15 LVOT Mn Javed: 0.70 LVOT VTI: 0.23 LVOT Pk Grad: 5.00 LVOT Mn Grad: 2.00 LVOT Diam: 2.00 LVOT Area: 3.14 Diastolic Function MV Pk E: 0.57 MV Pk A: 0.87 E/A: 0.70 E'Medial: 5.87 E/E' Med: 9.80 E' Laterial: 6.96 E/E' Lat: 8.20 Right Ventricle TAPSE (mm): 22.60 TVS' Javed: 10.30 Tricuspid Valve TR Pk Javed: 2.29 TR Pk Grad: 21.00 RA Press: 8.00 RVSP: 29.00 Pulmonary Valve PV Pk Javed: 1.20 Peak PV Grad: 6.00 Updated in Other Vendor System with Status of Final Brad Banuelos MD electronically signed on 04/24/2023 12:32:22 PM with status of Final
== END ==
LOC: HO.CARD 13:55
PROVIDERS: PCP Internal Medicine Medical Oncology; Visit Provider Internal Medicine Cardiovascular Disease
DX: R00.2 Palpitations (principal); R06.02 Shortness of breath
CPT/HCPCS: 93306

== ENCOUNTER → 2023-04-30 10:31 | Outpatient (BNVA) | payer MEDICARE, SELFPAY | PROVIDERS: PCP Internal Medicine Medical Oncology; Visit Provider Urology | DX: C61 Malignant neoplasm of prostate (principal); N40.0 Benign prostatic hyperplasia without lower urinary tract symptoms | CPT/HCPCS: 51798; 99212 ==

== ENCOUNTER 2023-05-14 11:29 | Outpatient (REF) | payer MEDICARE, SELFPAY ==
[2023-05-14 11:49] LABS: MANUAL DIFF FLAG NO
[2023-05-14 11:55] LABS: Basophils Absolute Auto 0.1 X10*3/uL (0.0-0.2); Eosinophils Absolute Auto 0.2 X10*3/uL (0.0-0.4); Eosinophils Percent Auto 3.7 % (0-4); Hematocrit 45.8 % (42.0-52.0); Hemoglobin 15.2 g/dl (14.0-18.0); Imm Gran Abs Auto 0.01 X10*3/uL (0.00-0.03); Imm Gran Pct Auto 0.2 % (0.0-0.4); Lymphocytes Absolute Auto 1.6 X10*3/uL (1.2-4.9); Lymphocytes Percent Auto 32.7 % (20-40); Mean Corpuscular HGB Conc 33.2 g/dl (31.0-36.0); Mean Corpuscular Hemoglobin 32.6 pg (27.0-33.0); Mean Corpuscular Volume 98.3 fL (80.0-98.0); Mean Platelet Volume 8.5 fL (9.4-12.4); Monocytes Absolute Auto 0.4 X10*3/uL (0.1-1.2); Monocytes Percent Auto 8.9 % (2-11); Neutrophils Absolute Auto 2.6 x10*3/uL (2.0-8.3); Neutrophils Percent Auto 53.5 % (45-73); Platelet Count 206 X10*3/uL (160-400); Red Blood Count 4.66 X10*6/uL (4.60-5.80); Red Cell Distribution Width 13.4 % (11.0-16.0); White Blood Count 4.8 X10*3/uL (4.8-10.8)
[2023-05-14 12:29] LABS: Alanine Aminotransferase 35 U/L (0-40); Albumin Level 4.4 g/dL (3.5-5.0); Alkaline Phosphatase 46 U/L (39-117); Anion Gap 11 (12-20); Aspartate Amino Transferase 29 U/L (5-37); Bilirubin Total 1.2 mg/dL (0.0-1.0); Blood Urea Nitrogen 23 mg/dL (9-16); Calcium 9.7 mg/dL (8.4-10.2); Carbon Dioxide 27 mmol/L (22-29); Chloride 108 mmol/L (96-108); Cholesterol 167 mg/dL; Estimated Glomerular Filt Rate > 60; Glucose Random 100 mg/dL (60-115); HDL Cholesterol 42 mg/dL; LDL Cholesterol Calculated 106 mg/dl; Potassium 4.2 mmol/L (3.3-5.1); Sodium 142 mmol/L (135-145); Triglycerides 98 mg/dL
== END 2023-05-14 11:30 | disposition home or self-care (01) ==
LOC: HO.LAB 11:29
PROVIDERS: PCP Internal Medicine Medical Oncology; Visit Provider Internal Medicine Medical Oncology
DX: C61 Malignant neoplasm of prostate (principal); R97.20 Elevated prostate specific antigen [PSA]; E78.2 Mixed hyperlipidemia; N40.1 Benign prostatic hyperplasia with lower urinary tract symptoms; I10 Essential (primary) hypertension; E66.3 Overweight; I49.3 Ventricular premature depolarization
CPT/HCPCS: 36415; 80053; 80061; 85025

== ENCOUNTER 2023-07-23 10:59 | Outpatient (REF) | payer MEDICARE, SELFPAY ==
[2023-07-23 14:06] LABS: Prostate Specific Antigen < 0.10 ng/mL (<0.05-4.0)
== END 2023-07-23 11:00 | disposition home or self-care (01) ==
LOC: HO.HMGCLDS 10:59
PROVIDERS: PCP Internal Medicine Medical Oncology; Visit Provider Urology
DX: C61 Malignant neoplasm of prostate (principal); Z12.5 Encounter for screening for malignant neoplasm of prostate
CPT/HCPCS: 36415; 84153

== ENCOUNTER 2023-07-30 11:50 | Outpatient (AMB) | payer MEDICARE, SELFPAY ==
--- NOTE | 2023-07-30 11:51 | MHC.OFFVIS ---
Intake Intake Visit Reasons: 3m/PSA(set) Intake Note: Patient is present for Telephone Urology Med: Tolterodine Antibiotic Allergy: None Blood Thinner: None [facility] Allergies acetaminophen [Percocet] Allergy (Unknown, Verified 07/30/23 11:52) nausea and vomiting oxycodone Allergy (Unknown, Verified 07/30/23 11:52) nausea and vomiting Darvocet A500 Allergy (Unknown, Uncoded 07/30/23 11:52) nausea and vomiting Medication List - Last Reconciled 07/30/23 by Juan Logan MD atorvastatin 10 mg PO DAILY bupropion HCl (Wellbutrin SR) 100 mg PO DAILY famotidine 20 mg PO DAILY flu vacc [id number](65yr up)-PF mL IM levothyroxine 50 mcg PO DAILY lithium carbonate 300 mg PO BID omeprazole 20 mg PO DAILY tolterodine ER 4 mg PO DAILY 30 days tranexamic acid 650 mg PO DAILY 14 days HPI HPI Comments History of Present Illness Details Juan is a very pleasant male. He is a patient of Dr. Spaulding. He seen for the following urologic condition - Prostate cancer - hematuria - lower urinary tract symptoms - osteoporosis Telemedicine Evaluation 15 min Consultation [facility] Lidia Video attempted 2 years from intervention Labs - 04/23 PSA <0.1, T 251, 07/24 <0.1 Occasional blood in urine Persistent osteoporosis - Dr. Spaulding managing with Fosamax - Prior fracture Prostate cancer high grade, initial treatment external beam radiation with 18m hormonal therapy EXBRT at [facility] 04/21 PSA - 04/21 0.3, T 17, 08/22 0.11 T 15, 12/23 PSA <0.1, T 7, 03/23 <0.1 T 7, 08/23 <0.1 T 10, 12/24 <0.05 T 20, Adenocarcinoma of the prostate - T2c N? M0, Benjamín score 8, Grade Group 4, PSA at Diagnosis 8.0, NCCN high risk group Prostate cancer was diagnosed Dr Logan - needle biopsy November 2020, volume 70 cc Histologic type: Adenocarcinoma (acinar type) and focal intraductal carcinoma [place] score: 4+4=8 (left mid medial, right mid medial, right apex lateral); 3+4=7 (left base medial, right base lateral, right mid lateral) Tumor quantitation: Number cores positive: 6 Total number of cores: 12 15-20% of all tissue Periprostatic fat inv.: Present. Seminal vesicle inv.: Not identified. Perineural inv.: Present. LVI: Not identified The D'Cesia (NCCN) risk category is - High Risk (PSA > 20, Gl 8+, T3). Initial therapy included Primary treatment. -XRT with hormonal therapy XRT completed April 2021 [facility] - 7800 Gy 39 fractions GnRH administation - Last Shot - 12/23 Imaging included Initial Staging - 10/21 MRI showing PI-RADS lesion on right lateral side, question of 1.2 cm pelvic lymph node and question of L5 spinal lesion, no evidence for RAJIV - 11/20 bone scan reported as negative Associated conditions - erectile dysfunction yes Osteoporosis Evaluation - 01/23 DEXA scan osteoporosis - 10/23 DEXA osteoporosis Therapeutic plan: 4 month lab follow-up Lower urinary tract symptoms Had been on terazosin Ankle swelling Switched to alfuzosin [facility] Medical History Elevated PSA Enlarged prostate without lower urinary tract symptoms (luts) Hematuria Renal stones Thyroid disease Surgical History History of surgery Review of Systems Const All systems reviewed & are unremarkable except as noted in HPI and below Reports no additional complaints Resp Reports no additional complaints GI Reports no additional complaints Reports as per HPI Musc Reports no additional complaints Physical Exam Telemedicine evaluation Appropriate responses Regular breathing rate and rhythm HEENT Head: Yes normal to inspection Ears: hearing grossly normal bilaterally Eyes General: appearance normal, both eyes and all related structures Neck Neck: Yes normal visual inspection Chest Chest palpation & inspection: normal inspection of the chest Resp Effort & Inspection: normal respiratory effort and able to speak in complete sentences Assessment & Plan Assessment & Plan (1) Prostate cancer: Comment: High-grade treatment with external beam radiation hormones 11/20 Code(s): C61 - Malignant neoplasm of prostate (2) BPH loc w urin obs/LUTS: Code(s): N40.1 - Benign prostatic hyperplasia with lower urinary tract symptoms Plan 4m f/u labs tele Orders: Orders Prostate Specific Antigen 4 Months C61 - Malignant neoplasm of prostate Patient Instructions: Imaging studies, laboratory and physical exam results were discussed and reviewed in detail. No major barriers to patient understanding were identified. An opportunity to ask questions regarding the treatment plan was provided. All questions were answered. The patient expressed understanding and agreement with the above treatment plan. The patient is aware they should contact our office by phone for worsening of their current condition or the appearance of new urologic symptoms. Compliance is encouraged with any medications and followup testing that is ordered. It is a privilege to participate in the urologic care of your patient. If you have any questions or concerns regarding treatment for the above conditions, or other urologic issues, please do not hesitate to contact me. The office telephone contact is [phone]. This note is constructed using voice recognition software. While every effort has been made to ensure accuracy advertising assistant manager errors may have been included. Yours sincerely, Dr Juan Logan MD, [facility] - Urology Providers of Expert, Compassionate Care for the Genitourinary System Telehealth Telehealth Location of provider rendering services: practice address Location of patient: address on file Patient Identification confirmed using: Name, : Yes Telehealth method: video Patient verbally consented to treatment: Yes Patient verbally consented to billing insurance company: Yes Patient informed of any privacy concerns related to visit: Yes Coding Level of Care Code Tele Est Pt Level 3 (63858) Diagnoses Prostate cancer C61 BPH loc w urin obs/LUTS N40.1
== END 2023-07-30 14:56 | disposition home or self-care (01) ==
LOC: HO.HUSH 11:50
PROVIDERS: PCP Internal Medicine Medical Oncology; Visit Provider Urology
DX: C61 Malignant neoplasm of prostate (principal); N40.1 Benign prostatic hyperplasia with lower urinary tract symptoms
CPT/HCPCS: 99213

== ENCOUNTER → 2023-07-30 11:50 | Outpatient (BNVA) | payer MEDICARE, SELFPAY | PROVIDERS: PCP Internal Medicine Medical Oncology; Visit Provider Urology | DX: C61 Malignant neoplasm of prostate (principal); N40.1 Benign prostatic hyperplasia with lower urinary tract symptoms; N13.8 Other obstructive and reflux uropathy; M81.0 Age-related osteoporosis without current pathological fracture | CPT/HCPCS: Q3014 ==

== ENCOUNTER 2023-09-17 11:38 | Outpatient (AMB) | payer MEDICARE, SELFPAY ==
--- NOTE | 2023-09-17 11:39 | A.OFFVIS_ITS ---
Intake Intake Visit Reasons: recurrent hematuria Intake Note: Patient is present for Telephone Urology Med: Tolterodine Antibiotic Allergy: None Blood Thinner: None [facility] Tobacco Prevention Health Educator Required: No Accompanied by: Self / Same As Patient Allergies acetaminophen [Percocet] Allergy (Unknown, Verified 09/17/23 11:41) nausea and vomiting oxycodone Allergy (Unknown, Verified 09/17/23 11:41) nausea and vomiting Darvocet A500 Allergy (Unknown, Uncoded 09/17/23 11:41) nausea and vomiting Medication List - Last Reconciled 09/17/23 by Juan Logan MD atorvastatin 10 mg PO DAILY bupropion HCl (Wellbutrin SR) 100 mg PO DAILY famotidine 20 mg PO DAILY flu vacc [id number](65yr up)-PF mL IM levothyroxine 50 mcg PO DAILY lithium carbonate 300 mg PO BID omeprazole 20 mg PO DAILY tolterodine ER 4 mg PO DAILY 30 days HPI HPI Comments History of Present Illness Details Juan is a very pleasant male. He is a patient of Dr. Spaulding. He seen for the following urologic condition - Prostate cancer - hematuria - lower urinary tract symptoms - osteoporosis Telemedicine Evaluation 15 min Consultation [facility] [employer] [facility] Lidia Video attempted Persistent hematuria Improvement with tranexamic acid at once a day Trial of tranexamic acid 2x a day for 3 days Last cystoscopy 07/23 - neovacular at prostate Labs - 04/23 PSA <0.1, T 251, 07/24 <0.1 Occasional blood in urine - particularly with hematuria during exercise Persistent osteoporosis - Dr. Spaulding managing with Fosamax - Prior fracture Prostate cancer high grade, initial treatment external beam radiation with 18m hormonal therapy EXBRT at [facility] 04/21 PSA - 04/21 0.3, T 17, 08/22 0.11 T 15, 12/23 PSA <0.1, T 7, 03/23 <0.1 T 7, 08/23 <0.1 T 10, 12/24 <0.05 T 20, Adenocarcinoma of the prostate - T2c N? M0, [place] score 8, Grade Group 4, PSA at Diagnosis 8.0, NCCN high risk group Prostate cancer was diagnosed Dr Logan - needle biopsy November 2020, volume 70 cc Histologic type: Adenocarcinoma (acinar type) and focal intraductal carcinoma Benjamín score: 4+4=8 (left mid medial, right mid medial, right apex lateral); 3+4=7 (left base medial, right base lateral, right mid lateral) Tumor quantitation: Number cores positive: 6 Total number of cores: 12 15-20% of all tissue Periprostatic fat inv.: Present. Seminal vesicle inv.: Not identified. Tracy neural inv.: Present. LVI: Not identified The D'Cesia (NCCN) risk category is - High Risk (PSA > 20, Gl 8+, T3). Initial therapy included Primary treatment. -XRT with hormonal therapy XRT completed April 2021 [facility] - 7800 Gy 39 fractions GnRH administation - Last Shot - 12/23 Imaging included Initial Staging - 10/21 MRI showing PI-RADS lesion on ri ght lateral side, question of 1.2 cm pelvic lymph node and question of L5 spinal lesion, no evidence for RAJIV - 11/20 bone scan reported as negative Associated conditions - erectile dysfunction yes Osteoporosis Evaluation - 01/23 DEXA scan osteoporosis - 10/23 DEXA osteoporosis Therapeutic plan: Keep November appointment Lower urinary tract symptoms Had been on terazosin Ankle swelling Switched to alfuzosin [facility] Medical History Thyroid disease Hematuria Renal stones Elevated PSA Enlarged prostate without lower urinary tract symptoms (luts) Surgical History History of surgery Review of Systems Const All systems reviewed & are unremarkable except as noted in HPI and below Reports no additional complaints Resp Reports no additional complaints GI Reports no additional complaints Reports as per HPI Musc Reports no additional complaints Physical Exam Telemedicine evaluation Appropriate responses Regular breathing rate and rhythm HEENT Head: Yes normal to inspection Ears: hearing grossly normal bilaterally Eyes General: appearance normal, both eyes and all related structures Neck Neck: Yes normal visual inspection Chest Chest palpation & inspection: normal inspection of the chest Resp Effort & Inspection: normal respiratory effort and able to speak in complete sentences Assessment & Plan Assessment & Plan (1) Prostate cancer: Comment: High-grade treatment with external beam radiation hormones 11/20 Code(s): C61 - Malignant neoplasm of prostate (2) BPH loc w urin obs/LUTS: Code(s): N40.1 - Benign prostatic hyperplasia with lower urinary tract symptoms Plan Followup in November Medications: New tranexamic acid 650 mg PO BID 7 days 14 tabs 0RF N30.01 - Acute cystitis with hematuria Patient Instructions: Imaging studies, laboratory and physical exam results were discussed and reviewed in detail. No major barriers to patient understanding were identified. An opportunity to ask questions regarding the treatment plan was provided. All questions were answered. The patient expressed understanding and agreement with the above treatment plan. The patient is aware they should contact our office by phone for worsening of their current condition or the appearance of new urologic symptoms. Compliance is encouraged with any medications and followup testing that is ordered. It is a privilege to participate in the urologic care of your patient. If you have any questions or concerns regarding treatment for the above conditions, or other urologic issues, please do not hesitate to contact me. The office telephone contact is [phone]. This note is constructed using voice recognition software. While every effort has been made to ensure accuracy quilting supervisor errors may have been included. Yours sincerely, Dr Juan Logan MD, [facility] - Urology Providers of Expert, Compassionate Care for the Genitourinary System Telehealth Telehealth Location of provider rendering services: practice address Location of patient: address on file Patient Identification confirmed using: Name, : Yes Telehealth method: video Patient verbally consented to treatment: Yes Patient verbally consented to billing insurance company: Yes Patient informed of any privacy concerns related to visit: Yes Coding Level of Care Code Tele Est Pt Level 4 (59312) Diagnoses Prostate cancer C61 BPH loc w urin obs/LUTS N40.1
== END 2023-09-17 13:20 | disposition home or self-care (01) ==
LOC: HO.HUSH 11:38
PROVIDERS: PCP Internal Medicine Medical Oncology; Visit Provider Urology
DX: C61 Malignant neoplasm of prostate (principal); N40.1 Benign prostatic hyperplasia with lower urinary tract symptoms
CPT/HCPCS: 99442

== ENCOUNTER → 2023-09-17 11:38 | Outpatient (BNVA) | payer MEDICARE, SELFPAY | PROVIDERS: PCP Internal Medicine Medical Oncology; Visit Provider Urology ==

== ENCOUNTER 2023-10-08 09:19 | Outpatient (AMB) | payer MEDICARE, SELFPAY ==
--- NOTE | 2023-10-08 09:34 | MHC.OFFVIS ---
Intake Intake Visit Reasons: f/u- possible cysto Intake Note: Patient is present for possible cystoscopy Urology Medications: Tolterodine Antibiotic Allergy: None Blood Thinner: None Director Financial Systems Required: No Accompanied by: Spouse Allergies acetaminophen [Percocet] Allergy (Unknown, Verified 10/08/23 09:36) nausea and vomiting oxycodone Allergy (Unknown, Verified 10/08/23 09:36) nausea and vomiting Darvocet A500 Allergy (Unknown, Uncoded 10/08/23 09:36) nausea and vomiting HPI HPI Comments History of Present Illness Details Juan is a very pleasant male. He is a patient of Dr. Spaulding. He seen for the following urologic condition - Prostate cancer - hematuria - lower urinary tract symptoms - osteoporosis Persistent hematuria Improvement but not resolution with TXA Suggest repeat cystoscopy. May benefit from diode/greenlight laser Cystoscopy with bladder stone and neovascularity - recommend laser procedure Last cystoscopy 07/23 - neovacular at prostate Labs - 04/23 PSA <0.1, T 251, 07/24 <0.1 Occasional blood in urine - particularly with hematuria during exercise Persistent osteoporosis - Dr. 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 Seminal vesicle inv.: Not identified. Perineural inv.: Present. LVI: Not identified The D'Cesia (NCCN) risk category is - High Risk (PSA > 20, Gl 8+, T3). Initial therapy included Primary treatment. -XRT with hormonal therapy XRT completed April 2021 [facility] - 7800 Gy 39 fractions GnRH administation - Last Shot - 12/23 Imaging included Initial Staging - 10/21 MRI showing PI-RADS lesion on right lateral side, question of 1.2 cm pelvic lymph node and question of L5 spinal lesion, no evidence for RAJIV - 11/20 bone scan reported as negative Associated conditions - erectile dysfunction yes Osteoporosis Evaluation - 01/23 DEXA scan osteoporosis - 10/23 DEXA osteoporosis Therapeutic plan: Keep November appointment Lower urinary tract symptoms Had been on terazosin Ankle swelling Switched to alfuzosin [facility] Medical History Thyroid disease Hematuria Renal stones Elevated PSA Enlarged prostate without lower urinary tract symptoms (luts) Surgical History History of surgery Review of Systems Const Denies chills and Denies fever(s) Card Reports no additional complaints and Denies syncope Resp Denies cough GI Denies abdominal pain and Denies heartburn Reports as per HPI and Denies change in libido Neuro Denies syncope Psych Denies change in libido Endo Denies change in libido Physical Exam Const General: cooperative, healthy appearing, comfortable and no acute distress Orientation/consciousness: patient oriented x3 HEENT Face and sinus: Yes normal facial exam Mouth: moist mucous membranes Neck Neck: Yes normal visual inspection, Yes full ROM and Yes trachea midline Chest Chest palpation & inspection: normal inspection of the chest Resp Effort & Inspection: normal respiratory effort, able to speak in complete sentences and no respiratory distress GI Inspection: Yes normal to inspection Back/Spine/Pelvis Cervical Spine: normal cervical lordosis Thoracic/Lumbar Spine: thoracic and lumbar spine normal to inspection Skin General skin exam: no rashes or lesions noted Neuro General: patient oriented x3, gait normal, tone normal and moves all extremities Extrem General: Yes normal to inspection and Yes capillary refill normal Office Procedures Cystoscopy Consent Discussed risk and benefit or proposed procedure with the patient. Information consent for procedure given to the patient. Discussed technical aspects, risks, benefits and alternatives in full. Addressed all of the patient's questions and concerns regarding the procedure. The patient demonstrated knowledge and understanding. They wish to proceed with this procedure. Preparation The patient was prepped in the usual manner. A pattern filer was present and in the room. Genitalia was prepped with betadine solution in a sterile manner. Lidocaine Jelly 2% was placed into the urethra and 16Fr flexible Olympus cystoscope was inserted into the meatus after adequate lubrication. Procedure Meatus circumcised Urethra anterior posterior urethra normal Prostatic Urethra stone on right lobe prostate Bladder examination with retroflexion of cystoscope Bladder Orifices normal shape and position Bladder Capacity medium Trabeculations - Cellule Formation - Diverticulum Formation - Mucosal Erythema - Bladder Tumor - 44463-[id number] Procedure code (CPT) selection complete Office Meds lidocaine HCl 2 % mucosal jelly in applicator Performing Provider: KAY Horn Performing Location: [facility] [place] [facility] Documented (not given) by: Juan Logan MD on 10/08/23 10:19 Dose Route Admin Location Dispensed Lot Number Expiration Date NDC Freight Caller 10 mL intra-urethral mL nitrofurantoin monohydrate/macrocrystals 100 mg capsule Performing Provider: KAY Horn Performing Location: [facility] [place] [facility] Documented (not given) by: Juan Logan MD on 10/08/23 10:19 Dose Route Admin Location Dispensed Lot Number Expiration Date NDC Freight Caller 100 mg PO cap naproxen 500 mg tablet Performing Provider: KAY Horn Performing Location: [facility] [place] [facility] Documented (not given) by: Juan Logan MD on 10/08/23 10:19 Dose Route Admin Location Dispensed Lot Number Expiration Date NDC Freight Caller 500 mg PO tab Results AMB Urinalysis, Automated UA Leukoctes 15 Eliza/uL Last Edit by Jumana Fierro on 10/08/23 09:44 UA Nitrite Negative Last Edit by Jumana Fierro on 10/08/23 09:44 UA Urobilinogen 0.2 mg/dL Last Edit by Jumana Fierro on 10/08/23 09:44 UA Protein 30 mg/dL Last Edit by Jumana Fierro on 10/08/23 09:44 UA pH 6.0 Last Edit by Jumana Fierro on 10/08/23 09:44 UA Blood 200 Jose Daniel/uL Last Edit by Jumana Fierro on 10/08/23 09:44 UA Specific [place] 1.020 Last Edit by Wallyjuventinorosita Kleinjeison on 10/08/23 09:44 UA Ketone Negative Last Edit by Jumana Kleinjeison on 10/08/23 09:44 UA Bilirubin 0 mg/dL Last Edit by Wallyviolette Latoyajeison on 10/08/23 09:44 UA Glucose 0 mg/dL Last Edit by Wallyviolette Latoyajeison on 10/08/23 09:44 Results Reviewed Results Reviewed: Laboratory Last Values Urine pH (Auto) 6.0 10/08/23 09:37 Specific [place] (Auto) 1.020 10/08/23 09:37 Urine Protein (Auto) 30 mg/dL 10/08/23 09:37 Glucose (UA)(Auto) 0 mg/dL 10/08/23 09:37 Urine Ketones (Auto) Negative 10/08/23 09:37 Urine Blood (Auto) 200 Jose Daniel/uL 10/08/23 09:37 Urine Nitrite (Auto) Negative 10/08/23 09:37 Urine Bilirubin (Auto) 0 mg/dL 10/08/23 09:37 Urine Urobilinogen (Auto) 0.2 mg/dL 10/08/23 09:37 Leukocyte Esterase (Auto) 15 Eliza/uL 10/08/23 09:37 Assessment & Plan Assessment & Plan (1) Prostate cancer: Comment: High-grade treatment with external beam radiation hormones 11/20 Code(s): C61 - Malignant neoplasm of prostate (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 These include but are not limited to infection, bleeding, damage to local organs and tissues, need for further interventions. Anesthetic risks regarding cardiac arrhythmia, blood clots, and potential mortality were discussed. The patient understands the typical recovery time and the outpatient nature of the procedure. After consideration of these risks the patient gives full informed consent and they wish to move ahead with the procedure. Cystoscopy, bladder stone removal, laser neovascularity Orders: Orders AMB Urinalysis Automated Today Z13.9 - Encounter for screening, unspecified AMB Cystoscopy Today C61 - Malignant neoplasm of prostate Medications: New lidocaine HCl 2% 10 mL intra-urethral ONCE 10 mL 0RF C61 - Malignant neoplasm of prostate nitrofurantoin monohyd/m-cryst 100 mg 100 mg PO ONCE 1 cap 0RF C61 - Malignant neoplasm of prostate naproxen 500 mg PO ONCE 1 tab 0RF C61 - Malignant neoplasm of prostate Patient Instructions: Imaging studies, laboratory and physical exam results were discussed and reviewed in detail. No major barriers to patient understanding were identified. An opportunity to ask questions regarding the treatment plan was provided. All questions were answered. The patient expressed understanding and agreement with the above treatment plan. The patient is aware they should contact our office by phone for worsening of their current condition or the appearance of new urologic symptoms. Compliance is encouraged with any medications and followup testing that is ordered. It is a privilege to participate in the urologic care of your patient. If you have any questions or concerns regarding treatment for the above conditions, or other urologic issues, please do not hesitate to contact me. The office telephone contact is [phone]. This note is constructed using voice recognition software. While every effort has been made to ensure accuracy medical delivery driver errors may have been included. Yours sincerely, Dr Juan Logan MD, [facility] - Urology Providers of Expert, Compassionate Care for the Genitourinary System Coding Level of Care Code Est Pt Level 4 (97206) Diagnoses Prostate cancer C61 Radiation cystitis N30.40 Hemorrhagic cystitis N30.91 CPT Codes Cystoscopy - CPT: 70146-[id number] ([id number]) Time Spent (min) 45
== END 2023-10-08 10:24 | disposition home or self-care (01) ==
PROVIDERS: PCP Internal Medicine Medical Oncology; Visit Provider Nurse Practitioner Family
DX: C61 Malignant neoplasm of prostate (principal); N30.41 Irradiation cystitis with hematuria; Z13.9 Encounter for screening, unspecified
CPT/HCPCS: 52000; 99214

== ENCOUNTER 2023-10-08 09:19 | Outpatient (REF) | payer MEDICARE, SELFPAY ==
[2023-10-08 16:21] LABS: Urine Cytology See Pathology rpt
== END 2023-10-08 09:20 | disposition home or self-care (01) ==
LOC: HO.LNP 09:19
PROVIDERS: PCP Internal Medicine Medical Oncology; Visit Provider Nurse Practitioner Family
DX: R31.0 Gross hematuria (principal); C61 Malignant neoplasm of prostate; N30.40 Irradiation cystitis without hematuria; N30.91 Cystitis, unspecified with hematuria
CPT/HCPCS: 52000; 81003; 88112; 99212

== ENCOUNTER 2023-10-16 13:55 | Outpatient (AMB) | payer MEDICARE, SELFPAY ==
--- NOTE | 2023-10-16 15:10 | MHC.OFFVIS ---
Intake Intake Visit Reasons: Questions on procedure Intake Note: Patient is present for Telephone discussion on procedure Urology Medications: Tolterodine Antibiotic Allergy: None Blood Thinner: None Parking Enforcement Specialist Required: No Accompanied by: Spouse Allergies acetaminophen [Percocet] Allergy (Unknown, Verified 10/08/23 09:36) nausea and vomiting oxycodone Allergy (Unknown, Verified 10/08/23 09:36) nausea and vomiting Darvocet A500 Allergy (Unknown, Uncoded 10/08/23 09:36) nausea and vomiting HPI HPI Comments History of Present Illness Details Juan is a very pleasant male. He is a patient of Dr. Spaulding. He seen for the following urologic condition - Prostate cancer - hematuria - lower urinary tract symptoms - osteoporosis Telemedicine Evaluation 15 min Consultation [place] Lidia Video attempted Discussed upcoming procedure Questions answered 10/24 Cystoscopy with bladder stone and neovascularity - recommend laser procedure Recommend GreenLight laser of neovascularity on bladder strong and prostate. Removal of prostate stone Labs - 04/23 PSA <0.1, T 251, 07/24 <0.1 Occasional blood in urine - particularly with hematuria during exercise Persistent osteoporosis - Dr. Spaulding managing with Fosamax - Prior fracture Prostate cancer high grade, initial treatment external beam radiation with 18m hormonal therapy EXBRT at [facility] 04/21 PSA - 04/21 0.3, T 17, 08/22 0.11 T 15, 12/23 PSA <0.1, T 7, 03/23 <0.1 T 7, 08/23 <0.1 T 10, 12/24 <0.05 T 20, Adenocarcinoma of the prostate - T2c N? M0, Elsa score 8, Grade Group 4, PSA at Diagnosis 8.0, NCCN high risk group Prostate cancer was diagnosed Dr Logan - needle biopsy November 2020, volume 70 cc Histologic type: Adenocarcinoma (acinar type) and focal intraductal carcinoma Benjamín score: 4+4=8 (left mid medial, right mid medial, right apex lateral); 3+4=7 (left base medial, right base lateral, right mid lateral) Tumor quantitation: Number cores positive: 6 Total number of cores: 12 15-20% of all tissue Periprostatic fat inv.: Present. Seminal vesicle inv.: Not identified. Perineural inv.: Present. LVI: Not identified The D'Cesia (NCCN) risk category is - High Risk (PSA > 20, Gl 8+, T3). Initial therapy included Primary treatment. -XRT with hormonal therapy XRT completed April 2021 [facility] - 7800 Gy 39 fractions GnRH administation - Last Shot - 12/23 Imaging included Initial Staging - 10/21 MRI showing PI-RADS lesion on right lateral side, question of 1.2 cm pelvic lymph node and question of L5 spinal lesion, no evidence for RAJIV - 11/20 bone scan reported as negative Associated conditions - erectile dysfunction yes Osteoporosis Evaluation - 01/23 DEXA scan osteoporosis - 10/23 DEXA osteoporosis Therapeutic plan: Keep November appointment Lower urinary tract symptoms Had been on terazosin Ankle swelling Switched to alfuzosin Prior laser and diode procedure to 2018 - does not tolerate catheter well [facility] Medical History Thyroid disease Hematuria Renal stones Elevated PSA Enlarged prostate without lower urinary tract symptoms (luts) Surgical History History of surgery Review of Systems Const All systems reviewed & are unremarkable except as noted in HPI and below Reports no additional complaints Resp Reports no additional complaints GI Reports no additional complaints Reports as per HPI Musc Reports no additional complaints Physical Exam Telemedicine evaluation Appropriate responses Regular breathing rate and rhythm HEENT Head: Yes normal to inspection Ears: hearing grossly normal bilaterally Eyes General: appearance normal, both eyes and all related structures Neck Neck: Yes normal visual inspection Chest Chest palpation & inspection: normal inspection of the chest Resp Effort & Inspection: normal respiratory effort and able to speak in complete sentences Assessment & Plan Assessment & Plan (1) Prostate cancer: Comment: High-grade treatment with external beam radiation hormones 11/20 Code(s): C61 - Malignant neoplasm of prostate (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 These include but are not limited to infection, bleeding, damage to local organs and tissues, need for further interventions. Anesthetic risks regarding cardiac arrhythmia, blood clots, and potential mortality were discussed. The patient understands the typical recovery time and the outpatient nature of the procedure. After consideration of these risks the patient gives full informed consent and they wish to move ahead with the procedure. Patient Instructions: Imaging studies, laboratory and physical exam results were discussed and reviewed in detail. No major barriers to patient understanding were identified. An opportunity to ask questions regarding the treatment plan was provided. All questions were answered. The patient expressed understanding and agreement with the above treatment plan. The patient is aware they should contact our office by phone for worsening of their current condition or the appearance of new urologic symptoms. Compliance is encouraged with any medications and followup testing that is ordered. It is a privilege to participate in the urologic care of your patient. If you have any questions or concerns regarding treatment for the above conditions, or other urologic issues, please do not hesitate to contact me. The office telephone contact is [phone]. This note is constructed using voice recognition software. While every effort has been made to ensure accuracy window installer errors may have been included. Yours sincerely, Dr Juan Logan MD, [facility] - Urology Providers of Expert, Compassionate Care for the Genitourinary System Telehealth Telehealth Location of provider rendering services: practice address Location of patient: address on file Patient Identification confirmed using: Name, : Yes Telehealth method: video Patient verbally consented to treatment: Yes Patient verbally consented to billing insurance company: Yes Patient informed of any privacy concerns related to visit: Yes Coding Level of Care Code Tele Est Pt Level 3 (16038) Diagnoses Prostate cancer C61 Radiation cystitis N30.40
== END 2023-10-16 16:20 | disposition home or self-care (01) ==
LOC: HO.HUSH 13:55
PROVIDERS: PCP Internal Medicine Medical Oncology; Visit Provider Urology
DX: C61 Malignant neoplasm of prostate (principal); N30.40 Irradiation cystitis without hematuria
CPT/HCPCS: 99213

== ENCOUNTER → 2023-10-16 13:55 | Outpatient (BNVA) | payer MEDICARE, SELFPAY | PROVIDERS: PCP Internal Medicine Medical Oncology; Visit Provider Urology ==

== ENCOUNTER 2023-11-11 07:02 | Day surgery (SDC) | payer MEDICARE, SELFPAY ==
[2023-11-07 10:58] VITALS: BMI 26.0
--- NOTE | 2023-11-08 10:50 | P.CONAN_ITS ---
Documented by User: Rosie Perla NP 11/08/23 10:52 HPI - Anesthesia Eval Consult details Narrative: 83yo M for Laser Ablation Prostate w/Green Light,with stone removeal PMFSH Active Problems Active Problems: All Active Problems (Updated 11/07/23 @ 11:02 by Natty Santillan, REBECA) Hemorrhagic cystitis (Acute) Radiation cystitis (Acute) Urinary urgency (Acute) Prostate cancer (Acute) Gross hematuria (Acute) Elevated PSA (Acute) Prostate nodule (Acute) BPH loc w urin obs/LUTS (Acute) Past Medical History Medical History (Updated 11/11/23 @ 07:13 by Janine Dietz, REBECA) Osteoarthritis Depression HTN (hypertension) BPH (benign prostatic hyperplasia) Hearing loss Elevated cholesterol Prostate cancer Thyroid disease Hematuria Renal stones Elevated PSA Enlarged prostate without lower urinary tract symptoms (luts) Surgical History Surgical History (Updated 11/11/23 @ 07:18 by Janine Dietz, REBECA) Hx of right knee surgery Hx of prostate biopsy Hx of hernia repair Hx of cystoscopy Hx of vasectomy Social History Social History Patient Tobacco Use Status: Former Tobacco user Quit Date: age 30 Use of substances other than those prescribed or required for medical reasons: No Are you DNR?: No Advance Directives: No Advance Directives Information Provided: Yes Meds Allergies Allergy/AdvReac Type Severity Reaction Status Date / Time acetaminophen Allergy Intermediate Nausea and Verified 11/07/23 10:54 [From Darvocet-N] Vomiting oxycodone Allergy Intermediate nausea and Verified 11/07/23 10:54 vomiting propoxyphene Allergy Intermediate Nausea and Verified 11/07/23 10:54 [From Darvocet-N] Vomiting Home Medications Medication Instructions Recorded Confirmed Last Taken Type atorvastatin 10 mg tablet 10 mg PO DAILY 10/07/20 11/07/23 Unknown History bupropion HCl 100 mg tablet,12 hr 100 mg PO DAILY 10/07/20 11/07/23 Unknown History sustained-release (Wellbutrin SR) levothyroxine 50 mcg tablet 50 mcg PO DAILY 10/07/20 11/07/23 Unknown History omeprazole 20 mg capsule,delayed 20 mg PO DAILY PRN Gastric Reflux 10/07/20 11/07/23 Unknown History release famotidine 20 mg tablet 20 mg PO BEDTIME 12/26/21 11/11/23 Unknown History Fish Oil 11/11/23 10/28/23 History Exam Height,Weight and Vital Signs: Height 5 ft 8 in Weight 77.564 kg Narrative Narrative: ECHO 04/2023 Conclusions: - The left ventricular systolic function is normal. The calculated ejection fraction is 61% by biplane method. - There is mildly increased left ventricular wall thickness. - Mildly increased right ventricular cavity size. - There is mild calcification of the aortic valve. - No obvious valvular pathology seen on this study. Assessment and Plan Assessment Anesthesia Assessment: Chart Reviewed Documented by User: La José MD 11/11/23 07:45 [facility] Past Medical History Medical History (Updated 11/11/23 @ 07:13 by Janine Dietz RN) Osteoarthritis Depression HTN (hypertension) BPH (benign prostatic hyperplasia) Hearing loss Elevated cholesterol Prostate cancer Thyroid disease Hematuria Renal stones Elevated PSA Enlarged prostate without lower urinary tract symptoms (luts) Family History Family history of problems with anesthesia: No Surgical History Surgical History (Updated 11/11/23 @ 07:18 by Janine Dietz RN) Hx of right knee surgery Hx of prostate biopsy Hx of hernia repair Hx of cystoscopy Hx of vasectomy History of Problems with Anesthesia: No Social History Social History Patient Tobacco Use Status: Former Tobacco user Quit Date: age 30 Use of substances other than those prescribed or required for medical reasons: No Are you DNR?: No Advance Directives: No Advance Directives Information Provided: Yes Meds Allergies Allergy/AdvReac Type Severity Reaction Status Date / Time acetaminophen Allergy Intermediate Nausea and Verified 11/07/23 10:54 [From Darvocet-N] Vomiting oxycodone Allergy Intermediate nausea and Verified 11/07/23 10:54 vomiting propoxyphene Allergy Intermediate Nausea and Verified 11/07/23 10:54 [From Darvocet-N] Vomiting Home Medications Medication Instructions Recorded Confirmed Last Taken Type atorvastatin 10 mg tablet 10 mg PO DAILY 10/07/20 11/07/23 Unknown History bupropion HCl 100 mg tablet,12 hr 100 mg PO DAILY 10/07/20 11/07/23 Unknown History sustained-release (Wellbutrin SR) levothyroxine 50 mcg tablet 50 mcg PO DAILY 10/07/20 11/07/23 Unknown History omeprazole 20 mg capsule,delayed 20 mg PO DAILY PRN Gastric Reflux 10/07/20 11/07/23 Unknown History release famotidine 20 mg tablet 20 mg PO BEDTIME 12/26/21 11/11/23 Unknown History Fish Oil 11/11/23 10/28/23 History Exam Airway Mallampati Class: II (caps laterally ) TM Dist: >3cm Neck ROM: Full Heart: rrr Lungs: cta Assessment and Plan Assessment Anesthesia Assessment: Anesthesia Plan Discussed Final Anesthetic Review Family History of Problems with Anesthesia: No History of Problems with Anesthesia: No NPO: No ASA Class: II Final Preanesthetic Review: No Changes in Pt Med Stat, Meds/Allgs Chart Reviewed and Consent Obtained/Reviewed Patient Risk: Intermediate Procedure Risk: Intermediate Anesthetic Plan Anesthetic Plan: GA Disposition: Standard PACU
[2023-11-11 07:19] VITALS: BMI 25.5
[2023-11-11 07:37] VITALS: BP 173/94; PULSE 78; RESP 16; TEMP 36.7; O2SAT 95
[2023-11-11] MEDS: Lactated Ringers 1,000 ML 100 ML IVCONT (08:02)
--- NOTE | 2023-11-11 09:10 | MHC.SHP ---
Pre-Procedural Eval Section A Date of Service: 11/11/23 The patient is an INPATIENT: No Changes since office visit: No Cold of Flu in the past 2 weeks, No New Medical Problems, No Changes in Medication and No Patient answered all questions The History & Physical has been completed within 30 days and I have reviewed it.: Yes Section B Chief Complaint: Irradiation cystitis without hematuria,prostatic h Details of Present Illness: prostate stone Relevant Social History: None Present Medications: see Short Stay Collaborative assessment Medical History: No relevant PMH History of Previous Operations: Relevant previous surgery/procedure and date(s) Allergies: Allergies Allergy/AdvReac Type Severity Reaction Status Date / Time acetaminophen Allergy Intermediate Nausea and Verified 11/11/23 08:13 [From Darvocet-N] Vomiting oxycodone Allergy Intermediate nausea and Verified 11/11/23 08:13 vomiting propoxyphene Allergy Intermediate Nausea and Verified 11/11/23 08:13 [From Darvocet-N] Vomiting Review of Systems Sugical H&P ROS: Negative: Constitution, Cardiovascular, Respiratory, Neurological, Psychiatric, Hem-Onc, Allergic/Immunologic, Gastrointestinal, Genitourinary, Musculoskeletal, Integumentary, Endocrine and Eyes/Ears/Nose/Throat Exam Surgical H&P Exam: Normal: HEENT, Normal: Heart, Normal: Lungs, Normal: Extremities, Normal: Abdomen, Normal: Skin and Normal: Neurological Plan Diagnosis/Plan: Unchanged I have reviewed the history and physical and performed a pertinent physical examination on my patient. No changes have occurred unless specified. Time Spent With Patient Time: Total time managing care of this patient today ____ minutes.
[2023-11-11 09:45] VITALS: BP 136/80; PULSE 67; RESP 16; TEMP 36.4; O2SAT 97
[2023-11-11 09:50] VITALS: BP 144/74; PULSE 61; RESP 16; O2SAT 98
[2023-11-11 09:55] VITALS: BP 138/76; PULSE 64; RESP 16; O2SAT 97
[2023-11-11 10:00] VITALS: BP 134/79; PULSE 73; RESP 20; TEMP 36.5; O2SAT 96
[2023-11-11] MEDS: traMADoL HCL 50 MG TABLET PO (10:09)
[2023-11-11 10:15] VITALS: BP 130/88; PULSE 67; RESP 20; TEMP 36.4; O2SAT 98
--- NOTE | 2024-01-24 16:52 | W.PM.OPN ---
Operative Note Operative Note Date of Service: 11/11/23 Narrative: PreOperative Diagnosis: Bladder outlet obstruction with bladder stone Post Operative Diagnosis: Bladder outlet obstruction with bladder stone Procedure: GreenLight Laser Enucleation of the prostate CPT 84623 Surgeon: Dr Juan Logan Anesthesia: General History of bladder outlet obstruction. Treated with alpha-dixon and other medications. Still with symptoms. On cystoscopy in office has bladder stone on prosthetic fossa. Recommendation for prostate procedure with laser enucleation of prostate. Risks and benefits have been discussed. Focus was placed on development of retrograde ejaculation which is a normal part of this procedure. Procedure: After informed consent was verified the patient was brought to the operating room and placed in a supine position. Anesthesia was administered per protocol. Patient was placed in modified dorsal lithotomy position and prepped and draped in a sterile fashion. Safety pause time-out was confirmed. Antibiotics have been given. A Twenty-four Tanz[place] laser cystoscope was inserted per urethra. No abnormalities were found of the anterior and bulbar urethra. The bladder was examined and both ureteric orifices were seen in their normal positions away from the area of interest. The stones on the edge of the prostate were knocked off and removed Using a GreenLight laser with settings of 80 w incisions were made at the 5 and 7 o'clock position. The incisions were taken down from the bladder neck down to the level of the veru. These were gradually deepened in order to define the lateral aspects of the median lobe area. Once clearly defined they will also extended in the lateral directions in order to create a deep groove. The median lobe was then ablated and enucleated tissue released into the bladder with the laser power increased to 120 W. Once the median lobe area had been cleared attention was directed to the lateral lobes. Starting with the patient's left lateral lobe. First the 05:00 o'clock groove was further developed. This was moved in the lateral direction to undermine the tissue on the lateral side running from the bladder neck to the prostate apex. Focus was then placed on the laser at the 1 o'clock position to developing a secondary groove down to the level of bladder fibers. The creation of a second deep groove defined a segment of intervening tissue similar to a slice of orange. At the apex of the prostate the 2 grooves were linked the us releasing the intervening tissue. This tissue was then removed with a combination of enucleation and ablation working from the apex toward the bladder neck. A similar procedure was repeated on the patient's right-hand side. The only differences being the position of the lateral groove at he 7 'oclock positioin and the secondary groove at the 11 o'clock position, Otherwise the procedure was developed in a mirror fashion. After the majority of tissue had been debulked remnant tissue was ablated with the side fire laser and the curve of the prostate followed up each side wall clearly defining the anterior remnant strip that remained between the 11 and 1 o'clock positions. When this was had been completed debris and pieces of prostate were removed from the bladder with irrigation. Both ureteric orifices were reviewed again in shown to be patent in away from any areas of energy damage. The apical area was reviewed in any stray ooze was controlled. A 22 [place] 30 cc balloon Snow catheter was placed over a stylet into the bladder. Clear efflux was obtained upopn irrigation with a Jose L piston syringe. 30 cc was placed in the balloon and gentle traction was placed. A snap was used to hold tension on the catheter to control bleeding during patient moved and transported. A drainage bag was placed. Once transportation is complete to the PACU the snap will be removed. The patient tolerated the procedure well, he was extubated in the operating and transferred in a stable condition to the recovery area. Total Power 132 kW Lasing time 22 min Pathology: Prostate tissue Drains: Snow catheter
== END 2023-11-11 11:34 | disposition home or self-care (01) ==
PROVIDERS: PCP Internal Medicine Medical Oncology; Visit Provider Urology
PROC: (CPT 52648; principal; 2023-11-11 08:30)
DX: N30.40 Irradiation cystitis without hematuria (principal); N40.1 Benign prostatic hyperplasia with lower urinary tract symptoms; N32.0 Bladder-neck obstruction; N21.0 Calculus in bladder; Z85.46 Personal history of malignant neoplasm of prostate; I10 Essential (primary) hypertension; E78.5 Hyperlipidemia, unspecified; E07.9 Disorder of thyroid, unspecified; Z87.442 Personal history of urinary calculi; R39.15 Urgency of urination; Z79.899 Other long term (current) drug therapy; Z79.02 Long term (current) use of antithrombotics/antiplatelets; Z87.891 Personal history of nicotine dependence
CPT/HCPCS: 52649; 88300; J1956; J2704; J3010

== ENCOUNTER → 2023-11-11 07:02 | Outpatient (BNV) | payer MEDICARE, SELFPAY | PROVIDERS: PCP Internal Medicine Medical Oncology; Visit Provider Urology | DX: N40.1 Benign prostatic hyperplasia with lower urinary tract symptoms (principal); N21.0 Calculus in bladder | CPT/HCPCS: 52649 ==

== ENCOUNTER → 2023-11-14 08:51 | Outpatient (BNVA) | payer MEDICARE, SELFPAY | PROVIDERS: PCP Internal Medicine Medical Oncology; Visit Provider Urology | DX: N40.1 Benign prostatic hyperplasia with lower urinary tract symptoms (principal); N30.91 Cystitis, unspecified with hematuria | CPT/HCPCS: 51700; 51798 ==

== ENCOUNTER 2023-12-12 10:26 | Outpatient (REF) | payer MEDICARE, SELFPAY ==
[2023-12-12 10:52] LABS: MANUAL DIFF FLAG NO
[2023-12-12 11:02] LABS: Basophils Percent Auto 0.7 % (0-2); Eosinophils Absolute Auto 0.2 X10*3/uL (0.0-0.4); Eosinophils Percent Auto 2.8 % (0-4); Hematocrit 48.7 % (42.0-52.0); Hemoglobin 16.3 g/dl (14.0-18.0); Imm Gran Abs Auto 0.02 X10*3/uL (0.00-0.03); Imm Gran Pct Auto 0.3 % (0.0-0.4); Lymphocytes Absolute Auto 1.5 X10*3/uL (1.2-4.9); Lymphocytes Percent Auto 25.1 % (20-40); Mean Corpuscular HGB Conc 33.5 g/dl (31.0-36.0); Mean Corpuscular Hemoglobin 32.5 pg (27.0-33.0); Mean Corpuscular Volume 97.2 fL (80.0-98.0); Mean Platelet Volume 8.4 fL (9.4-12.4); Monocytes Absolute Auto 0.5 X10*3/uL (0.1-1.2); Monocytes Percent Auto 7.6 % (2-11); Neutrophils Absolute Auto 3.9 x10*3/uL (2.0-8.3); Neutrophils Percent Auto 63.5 % (45-73); Platelet Count 205 X10*3/uL (160-400); Red Blood Count 5.01 X10*6/uL (4.60-5.80); Red Cell Distribution Width 13.3 % (11.0-16.0); White Blood Count 6.1 X10*3/uL (4.8-10.8)
[2023-12-12 11:48] LABS: Alanine Aminotransferase 28 U/L (0-40); Albumin Level 4.6 g/dL (3.5-5.0); Alkaline Phosphatase 44 U/L (39-117); Anion Gap 11 (12-20); Aspartate Amino Transferase 24 U/L (5-37); Bilirubin Total 0.9 mg/dL (0.0-1.0); Blood Urea Nitrogen 18 mg/dL (9-16); Calcium 10.3 mg/dL (8.4-10.2); Carbon Dioxide 29 mmol/L (22-29); Chloride 107 mmol/L (96-108); Cholesterol 188 mg/dL (<200); Estimated Glomerular Filt Rate > 60; Glucose Fasting 101 mg/dL (60-99); HDL Cholesterol 41 mg/dL (>40); LDL Cholesterol Calculated 124 mg/dL (<100); Potassium 4.9 mmol/L (3.3-5.1); Sodium 142 mmol/L (135-145); Total Protein 7.4 g/dL (6.5-8.0); Triglycerides 115 mg/dL (<150)
[2023-12-12 12:07] LABS: Free T4 (Free Thyroxine) 0.92 ng/dL (0.71-1.85); Thyroid Stimulating Hormone 1.07 uIU/mL (0.32-4.0)
[2023-12-12 12:10] LABS: Prostate Specific Antigen < 0.10 ng/mL (<0.05-4.0)
== END 2023-12-12 10:27 | disposition home or self-care (01) ==
LOC: HO.LAB 10:26
PROVIDERS: PCP Internal Medicine Medical Oncology; Visit Provider Internal Medicine Medical Oncology
DX: C61 Malignant neoplasm of prostate (principal); N40.1 Benign prostatic hyperplasia with lower urinary tract symptoms; N13.8 Other obstructive and reflux uropathy; E66.3 Overweight; E03.9 Hypothyroidism, unspecified; Z12.5 Encounter for screening for malignant neoplasm of prostate
CPT/HCPCS: 36415; 80053; 80061; 84153; 84439; 84443; 85025

== ENCOUNTER 2023-12-24 09:30 | Outpatient (AMB) | payer MEDICARE, SELFPAY ==
--- NOTE | 2023-12-24 09:30 | A.OFFVIS_ITS ---
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 Required: No Accompanied by: Self / Same As Patient Allergies acetaminophen [From Darvocet-N] Allergy (Intermediate, Verified 12/24/23 09:36) Nausea and Vomiting oxycodone Allergy (Intermediate, Verified 12/24/23 09:36) nausea and vomiting propoxyphene [From Darvocet-N] Allergy (Intermediate, Verified 12/24/23 09:36) Nausea and Vomiting Medication List - Last Reconciled 12/24/23 by Juan Logan MD [Anti-Gas PO DAILY PRN] ascorbic acid (vitamin C) (Vitamin C) 500 mg PO DAILY atorvastatin 10 mg PO DAILY bupropion HCl (Wellbutrin SR) 100 mg PO DAILY cholecalciferol (vitamin D3) (Vitamin D3) 125 mcg PO DAILY famotidine 20 mg PO BEDTIME [Fish Oil ] lactobacillus comb no.10 (Probiotic) 20,000 mmu cells PO DAILY levothyroxine 50 mcg PO DAILY magnesium glycinate 100 mg PO BEDTIME multivitamin 1 tab PO DAILY [Neuriva Original PO DAILY] omeprazole 20 mg PO DAILY PRN ubiquinol-pyrroloquin quinone 100-10 mg caps PO BEDTIME HPI HPI Comments History of Present Illness Details Juan is a very pleasant male. He is a patient of Dr. Spaulding. He seen for the following urologic condition - Prostate cancer - hematuria - lower urinary tract symptoms - osteoporosis Significant improvement voiding PSA remains low 11/23 Cystoscopy with bladder stone and neovascularity - laser Labs - 04/23 PSA <0.1, T 251, 07/24 <0.1, 12/25 <0.1 Occasional blood in urine - particularly with hematuria during exercise Persistent osteoporosis - Dr. Spaulding managing with Fosamax - Prior fracture Prostate cancer high grade, initial treatment external beam radiation with 18m hormonal therapy EXBRT at 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 Seminal vesicle inv.: Not identified. Perineural inv.: Present. LVI: Not identified The [place] (NCCN) risk category is - High Risk (PSA > 20, Gl 8+, T3). Initial therapy included Primary treatment. -XRT with hormonal therapy XRT completed April 2021 [facility] - 7800 Gy 39 fractions GnRH administation - Last Shot - 12/23 Imaging included Initial Staging - 10/21 MRI showing PI-RADS lesion on ri ght lateral side, question of 1.2 cm pelvic lymph node and question of L5 spinal lesion, no evidence for RAJIV - 11/20 bone scan reported as negative Associated conditions - erectile dysfunction yes Osteoporosis Evaluation - 01/23 DEXA scan osteoporosis - 10/23 DEXA osteoporosis Therapeutic plan: Keep November appointment Lower urinary tract symptoms Had been on terazosin Ankle swelling Switched to alfuzosin Prior laser and diode procedure to 2018 - does not tolerate catheter well PFSH Medical History Osteoarthritis Depression HTN (hypertension) BPH (benign prostatic hyperplasia) Hearing loss Elevated cholesterol Prostate cancer Thyroid disease Hematuria Renal stones Elevated PSA Enlarged prostate without lower urinary tract symptoms (luts) Surgical History Hx of right knee surgery Hx of prostate biopsy Hx of hernia repair Hx of cystoscopy Hx of vasectomy Social History Patient Tobacco Use Status: Former Tobacco user Quit Date: age 30 Review of Systems Const Denies chills and Denies fever(s) Card Reports no additional complaints and Denies syncope Resp Denies cough GI Denies abdominal pain and Denies heartburn Reports as per HPI and Denies change in libido Neuro Denies syncope Psych Denies change in libido Endo Denies change in libido Physical Exam Const General: cooperative, healthy appearing, comfortable and no acute distress Orientation/consciousness: patient oriented x3 HEENT Face and sinus: Yes normal facial exam Mouth: moist mucous membranes Neck Neck: Yes normal visual inspection, Yes full ROM and Yes trachea midline Chest Chest palpation & inspection: normal inspection of the chest Resp Effort & Inspection: normal respiratory effort, able to speak in complete sentences and no respiratory distress GI Inspection: Yes normal to inspection Back/Spine/Pelvis Cervical Spine: normal cervical lordosis Thoracic/Lumbar Spine: thoracic and lumbar spine normal to inspection Skin General skin exam: no rashes or lesions noted Neuro General: patient oriented x3, gait normal, tone normal and moves all extremities Extrem General: Yes normal to inspection and Yes capillary refill normal Office Procedures Post Void Residual Post Residual Void Post Void Residual (PVR): 68 [id number] Void Residual by ultrasound Results AMB Urinalysis, Automated UA Leukoctes 15 Eliza/uL Last Edit by Rosemarie Pelaez CMA on 12/24/23 09:50 UA Nitrite Negative Last Edit by Rosemarie Pelaez CMA on 12/24/23 09: 50 UA Urobilinogen 0.2 mg/dL Last Edit by Rosemarie Pelaez CMA on 4 09:50 UA Protein 30 mg/dL Last Edit by Rosemarie Pelaez CMA on 12/24/23 09:5 0 UA pH 6.0 Last Edit by Rosemarie Pelaez CMA on 12/24/23 09:50 UA Blood 80 Jose Daniel/uL Last Edit by Rosemarie Pelaez CMA on 12/24/23 09:50 UA Specific [place] 1.025 Last Edit by Rosemarie Pelaez CMA on 09:50 UA Ketone Negative Last Edit by Rosemarie Pelaez CMA on 12/24/23 09:5 0 UA Bilirubin 0 mg/dL Last Edit by Rosemarie Pelaez CMA on 12/24/23 09: 50 UA Glucose 0 mg/dL Last Edit by Rosemarie Pelaez CMA on 12/24/23 09:50 Results Reviewed Results Reviewed: Laboratory Last Values Urine pH (Auto) 6.0 12/24/23 09:48 Specific [place] (Auto) 1.025 12/24/23 09:48 Urine Protein (Auto) 30 mg/dL 12/24/23 09:48 Glucose (UA)(Auto) 0 mg/dL 12/24/23 09:48 Urine Ketones (Auto) Negative 12/24/23 09:48 Urine Blood (Auto) 80 Jose Daniel/uL 12/24/23 09:48 Urine Nitrite (Auto) Negative 12/24/23 09:48 Urine Bilirubin (Auto) 0 mg/dL 12/24/23 09:48 Urine Urobilinogen (Auto) 0.2 mg/dL 12/24/23 09:48 Leukocyte Esterase (Auto) 15 Eliza/uL 12/24/23 09:48 Assessment & Plan Assessment & Plan (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 cystitis without hematuria (2) Prostate cancer: Comment: High-grade treatment with external beam radiation hormones 11/20 Code(s): C61 - Malignant neoplasm of prostate (3) Urinary urgency: Code(s): R39.15 - Urgency of urination (4) Hemorrhagic cystitis: Code(s): N30.91 - Cystitis, unspecified with hematuria Plan Four month follow-up PSA Orders: Orders AMB Urinalysis Automated 12/24/23 R33.9 - Retention of urine, unspecified AMB Post Void Residual by ultrasound 12/24/23 R33.9 - Retention of urine, unspecified Prostate Specific Antigen 4 Months C61 - Malignant neoplasm of prostate Patient Instructions: Imaging studies, laboratory and physical exam results were discussed and reviewed in detail. No major barriers to patient understanding were identified. An opportunity to ask questions regarding the treatment plan was provided. All questions were answered. The patient expressed understanding and agreement with the above treatment plan. The patient is aware they should contact our office by phone for worsening of their current condition or the appearance of new urologic symptoms. Compliance is encouraged with any medications and followup testing that is ordered. It is a privilege to participate in the urologic care of your patient. If you have any questions or concerns regarding treatment for the above conditions, or other urologic issues, please do not hesitate to contact me. The office telephone contact is [phone]. This note is constructed using voice recognition software. While every effort has been made to ensure accuracy cutter operator helper errors may have been included. Yours sincerely, Dr Juan Logan MD, [facility] - Urology Providers of Expert, Compassionate Care for the Genitourinary System Coding Level of Care Code Est Pt Level 3 (28161) Diagnoses Radiation cystitis N30.40 Prostate cancer C61 Urinary urgency R39.15 Hemorrhagic cystitis N30.91 CPT Codes Post Residual Void - PVR CPT Code: 68400-Jrlr Void Residual by ultrasound ([id number])
== END 2023-12-24 10:00 | disposition home or self-care (01) ==
LOC: HO.HUSH 09:30
PROVIDERS: PCP Internal Medicine Medical Oncology; Visit Provider Urology
DX: N30.40 Irradiation cystitis without hematuria (principal); C61 Malignant neoplasm of prostate; R39.15 Urgency of urination; N30.91 Cystitis, unspecified with hematuria
CPT/HCPCS: 99213

== ENCOUNTER → 2023-12-24 09:30 | Outpatient (BNVA) | payer MEDICARE, SELFPAY | PROVIDERS: PCP Internal Medicine Medical Oncology; Visit Provider Urology | DX: N30.41 Irradiation cystitis with hematuria (principal); C61 Malignant neoplasm of prostate; R39.15 Urgency of urination | CPT/HCPCS: 51798; 81003; 99212 ==

== ENCOUNTER 2024-04-08 09:11 | Outpatient (REF) | payer MEDICARE, SELFPAY ==
[2024-04-08 09:30] LABS: MANUAL DIFF FLAG NO
[2024-04-08 10:01] LABS: Basophils Absolute Auto 0.1 X10*3/uL (0.0-0.2); Basophils Percent Auto 0.7 % (0-2); Eosinophils Absolute Auto 0.2 X10*3/uL (0.0-0.4); Eosinophils Percent Auto 2.3 % (0-4); Hematocrit 48.2 % (42.0-52.0); Hemoglobin 16.4 g/dl (14.0-18.0); Imm Gran Abs Auto 0.01 X10*3/uL (0.00-0.03); Imm Gran Pct Auto 0.1 % (0.0-0.4); Lymphocytes Absolute Auto 1.6 X10*3/uL (1.2-4.9); Lymphocytes Percent Auto 21.6 % (20-40); Mean Corpuscular Hemoglobin 34.1 pg (27.0-33.0); Mean Corpuscular Volume 100.2 fL (80.0-98.0); Mean Platelet Volume 8.6 fL (9.4-12.4); Monocytes Absolute Auto 0.5 X10*3/uL (0.1-1.2); Monocytes Percent Auto 6.6 % (2-11); Neutrophils Absolute Auto 5.1 x10*3/uL (2.0-8.3); Neutrophils Percent Auto 68.7 % (45-73); Platelet Count 235 X10*3/uL (160-400); Red Blood Count 4.81 X10*6/uL (4.60-5.80); Red Cell Distribution Width 13.2 % (11.0-16.0); White Blood Count 7.4 X10*3/uL (4.8-10.8)
[2024-04-08 10:51] LABS: Alanine Aminotransferase 40 U/L (0-40); Albumin Level 4.4 g/dL (3.5-5.0); Alkaline Phosphatase 54 U/L (39-117); Anion Gap 14 (12-20); Aspartate Amino Transferase 26 U/L (5-37); Bilirubin Total 0.9 mg/dL (0.0-1.0); Blood Urea Nitrogen 18 mg/dL (9-16); Calcium 10.5 mg/dL (8.4-10.2); Carbon Dioxide 26 mmol/L (22-29); Chloride 107 mmol/L (96-108); Cholesterol 156 mg/dL (<200); Estimated Glomerular Filt Rate > 60; Free T4 (Free Thyroxine) 0.97 ng/dL (0.71-1.85); Glucose Fasting 96 mg/dL (60-99); HDL Cholesterol 41 mg/dL (>40); LDL Cholesterol Calculated 97 mg/dL (<100); Potassium 4.6 mmol/L (3.3-5.1); Sodium 142 mmol/L (135-145); Total Protein 7.1 g/dL (6.5-8.0); Triglycerides 93 mg/dL (<150)
[2024-04-08 10:59] LABS: Prostate Specific Antigen < 0.10 ng/mL (<0.05-4.0)
== END 2024-04-08 09:12 | disposition home or self-care (01) ==
LOC: HO.LAB 09:11
PROVIDERS: Absent Provider Urology; PCP Internal Medicine Medical Oncology; Visit Provider Internal Medicine Medical Oncology
DX: C61 Malignant neoplasm of prostate (principal); E03.9 Hypothyroidism, unspecified; N40.1 Benign prostatic hyperplasia with lower urinary tract symptoms; E66.3 Overweight; Z12.5 Encounter for screening for malignant neoplasm of prostate
CPT/HCPCS: 36415; 80053; 80061; 84153; 84439; 85025

== ENCOUNTER 2024-04-24 14:45 | Outpatient (AMB) | payer MEDICARE, SELFPAY ==
--- NOTE | 2024-04-24 14:58 | A.OFFVIS_ITS ---
Intake Visit Reasons: 4m/PSA(set) Intake Note: Patient is Present for Follow Up psa RESULTS Urology Medication:None Antibiotic Allergies: None Blood Thinners: None Datawarehouse Developer Required: No Accompanied by: Self / Same As Patient Allergies acetaminophen [From Darvocet-N] Allergy (Intermediate, Verified 12/24/23 09:36) Nausea and Vomiting oxycodone Allergy (Intermediate, Verified 12/24/23 09:36) nausea and vomiting propoxyphene [From Darvocet-N] Allergy (Intermediate, Verified 12/24/23 09:36) Nausea and Vomiting HPI Comments Details: Juan is a very pleasant male. He is a patient of Dr. Spaulding. He seen for the following urologic condition - Prostate cancer - hematuria - lower urinary tract symptoms - osteoporosis PSA remains low Continue to follow q.6 months 11/23 Cystoscopy with bladder stone and neovascularity - laser Labs - 04/23 PSA <0.1, T 251, 07/24 <0.1, 12/25 <0.1, 04/24 <0.1 Occasional blood in urine - particularly with hematuria during exercise Persistent osteoporosis - Dr. 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 Seminal vesicle inv.: Not identified. Perineural inv.: Present. LVI: Not identified The D'Cesia (NCCN) risk category is - High Risk (PSA > 20, Gl 8+, T3). Initial therapy included Primary treatment. -XRT with hormonal therapy XRT completed April 2021 [facility] - 7800 Gy 39 fractions GnRH administation - Last Shot - 12/23 Imaging included Initial Staging - 10/21 MRI showing PI-RADS lesion on right lateral side, question of 1.2 cm pelvic lymph node and question of L5 spinal lesion, no evidence for RAJIV - 11/20 bone scan reported as negative Associated conditions - erectile dysfunction yes Osteoporosis Evaluation - 01/23 DEXA scan osteoporosis - 10/23 DEXA osteoporosis Therapeutic plan: Keep November appointment Lower urinary tract symptoms Had been on terazosin Ankle swelling Switched to alfuzosin Prior laser and diode procedure to 2019 - does not tolerate catheter well [facility] Medical History Osteoarthritis Depression HTN (hypertension) BPH (benign prostatic hyperplasia) Hearing loss Elevated cholesterol Prostate cancer Thyroid disease Hematuria Renal stones Elevated PSA Enlarged prostate without lower urinary tract symptoms (luts) Surgical History Hx of right knee surgery Hx of prostate biopsy Hx of hernia repair Hx of cystoscopy Hx of vasectomy Social History Patient Tobacco Use Status: Former Tobacco user Quit Date: age 30 Review of Systems Const Denies chills and Denies fever(s) Card Reports no additional complaints and Denies syncope Resp Denies cough GI Denies abdominal pain and Denies heartburn Reports as per HPI and Denies change in libido Neuro Denies syncope Psych Denies change in libido Endo Denies change in libido Physical Exam Const General: cooperative, healthy appearing, comfortable and no acute distress Orientation/consciousness: patient oriented x3 HEENT Face and sinus: Yes normal facial exam Mouth: moist mucous membranes Neck Neck: Yes normal visual inspection, Yes full ROM and Yes trachea midline Chest Chest palpation & inspection: normal inspection of the chest Resp Effort & Inspection: normal respiratory effort, able to speak in complete sentences and no respiratory distress GI Inspection: Yes normal to inspection Back/Spine/Pelvis Cervical Spine: normal cervical lordosis Thoracic/Lumbar Spine: thoracic and lumbar spine normal to inspection Skin General skin exam: no rashes or lesions noted Neuro General: patient oriented x3, gait normal, tone normal and moves all extremities Extrem General: Yes normal to inspection and Yes capillary refill normal Assessment & Plan Assessment & Plan (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 No major barriers to patient understanding were identified. An opportunity to ask questions regarding the treatment plan was provided. All questions were answered. The patient expressed understanding and agreement with the above treatment plan. The patient is aware they should contact our office by phone for worsening of their current condition or the appearance of new urologic symptoms. Compliance is encouraged with any medications and followup testing that is ordered. It is a privilege to participate in the urologic care of your patient. If you have any questions or concerns regarding treatment for the above conditions, or other urologic issues, please do not hesitate to contact me. The office telephone contact is [phone]. This note is constructed using voice recognition software. While every effort has been made to ensure accuracy motocross racer errors may have been included. Yours sincerely, Dr Juan Logan MD, [facility] - Urology Providers of Expert, Compassionate Care for the Genitourinary System Coding Level of Care Code Est Pt Level 3 (83470) Diagnoses Radiation cystitis N30.40 Prostate cancer C61
== END 2024-04-24 15:16 | disposition home or self-care (01) ==
LOC: HO.HUSH 14:45
PROVIDERS: PCP Internal Medicine Medical Oncology; Visit Provider Urology
DX: N30.40 Irradiation cystitis without hematuria (principal); C61 Malignant neoplasm of prostate
CPT/HCPCS: 99213

== ENCOUNTER → 2024-04-24 14:45 | Outpatient (BNVA) | payer MEDICARE, SELFPAY | PROVIDERS: PCP Internal Medicine Medical Oncology; Visit Provider Urology | DX: C61 Malignant neoplasm of prostate (principal); N30.40 Irradiation cystitis without hematuria | CPT/HCPCS: 99212 ==

== ENCOUNTER 2024-08-12 10:51 | Outpatient (REF) | payer MEDICARE, SELFPAY ==
[2024-08-12 13:57] LABS: MANUAL DIFF FLAG NO
[2024-08-12 14:02] LABS: Basophils Absolute Auto 0.1 X10*3/uL (0.0-0.2); Eosinophils Absolute Auto 0.2 X10*3/uL (0.0-0.4); Eosinophils Percent Auto 3.7 % (0-4); Hematocrit 49.2 % (42.0-52.0); Hemoglobin 16.4 g/dl (14.0-18.0); Imm Gran Abs Auto 0.02 X10*3/uL (0.00-0.03); Imm Gran Pct Auto 0.3 % (0.0-0.4); Lymphocytes Absolute Auto 1.5 X10*3/uL (1.2-4.9); Lymphocytes Percent Auto 23.4 % (20-40); Mean Corpuscular HGB Conc 33.3 g/dl (31.0-36.0); Mean Platelet Volume 8.8 fL (9.4-12.4); Monocytes Absolute Auto 0.5 X10*3/uL (0.1-1.2); Neutrophils Percent Auto 63.6 % (45-73); Platelet Count 238 X10*3/uL (160-400); Red Blood Count 4.97 X10*6/uL (4.60-5.80); Red Cell Distribution Width 12.9 % (11.0-16.0); White Blood Count 6.2 X10*3/uL (4.8-10.8)
[2024-08-12 14:56] LABS: Alanine Aminotransferase 38 U/L (0-40); Albumin Level 4.4 g/dL (3.5-5.0); Alkaline Phosphatase 52 U/L (39-117); Anion Gap 12 (12-20); Aspartate Amino Transferase 31 U/L (5-37); Bilirubin Total 0.8 mg/dL (0.0-1.0); Blood Urea Nitrogen 19 mg/dL (9-16); Calcium 10.1 mg/dL (8.4-10.2); Carbon Dioxide 27 mmol/L (22-29); Chloride 108 mmol/L (96-108); Cholesterol 161 mg/dL (<200); Estimated Glomerular Filt Rate > 60; Free T4 (Free Thyroxine) 0.83 ng/dL (0.71-1.85); Glucose Fasting 95 mg/dL (60-99); HDL Cholesterol 35 mg/dL (>40); LDL Cholesterol Calculated 99 mg/dL (<100); Magnesium 2.3 mg/dL (1.6-2.6); Potassium 4.6 mmol/L (3.3-5.1); Sodium 142 mmol/L (135-145); Thyroid Stimulating Hormone 1.45 uIU/mL (0.32-4.0); Triglycerides 136 mg/dL (<150)
[2024-08-12 15:17] LABS: Prostate Specific Antigen 0.13 ng/mL (<0.05-4.0)
== END 2024-08-12 10:52 | disposition home or self-care (01) ==
LOC: HO.HMGCLDS 10:51
PROVIDERS: PCP Internal Medicine Medical Oncology; Referring Provider Urology; Visit Provider Internal Medicine Medical Oncology
DX: Z00.00 Encounter for general adult medical examination without abnormal findings (principal); E03.9 Hypothyroidism, unspecified; E78.2 Mixed hyperlipidemia; E66.3 Overweight; R97.20 Elevated prostate specific antigen [PSA]; Z12.5 Encounter for screening for malignant neoplasm of prostate
CPT/HCPCS: 36415; 80053; 80061; 83735; 84153; 84439; 84443; 85025

== ENCOUNTER 2024-10-21 14:09 | Outpatient (REF) | payer MEDICARE, SELFPAY ==
[2024-10-21 17:16] LABS: Prostate Specific Antigen 0.13 ng/mL (<0.05-4.0)
== END 2024-10-21 14:10 | disposition home or self-care (01) ==
LOC: HO.HMGCLDS 14:09
PROVIDERS: PCP Internal Medicine Medical Oncology; Visit Provider Urology
DX: C61 Malignant neoplasm of prostate (principal); Z12.5 Encounter for screening for malignant neoplasm of prostate
CPT/HCPCS: 36415; 84153

== ENCOUNTER 2024-10-27 15:44 | Outpatient (AMB) | payer MEDICARE, SELFPAY ==
--- NOTE | 2024-10-27 15:47 | MHC.OFFVIS ---
Intake Visit Reasons: 6m/PSA(set) Intake Note: Patient is present for 6M/PSA Urology Medication:NONE Antibiotic Allergy:NONE Blood Thinner:NONE [facility] [employer] [facility] Required: No Allergies acetaminophen [From Darvocet-N] Allergy (Intermediate, Verified 10/27/24 15:48) Nausea and Vomiting oxycodone Allergy (Intermediate, Verified 10/27/24 15:48) nausea and vomiting propoxyphene [From Darvocet-N] Allergy (Intermediate, Verified 10/27/24 15:48) Nausea and Vomiting HPI Comments Details: Juan is a very pleasant male. He is a patient of Dr. Spaulding. He seen for the following urologic condition - Prostate cancer - hematuria - lower urinary tract symptoms - osteoporosis Slight PSA rise, would indicate testosterone recovery 11/23 Cystoscopy with bladder stone and neovascularity - laser Labs - 04/23 PSA <0.1, T 251, 07/24 <0.1, 12/25 <0.1, 04/24 <0.1, 10/25 0.13 Occasional blood in urine - particularly with hematuria during exercise Persistent osteoporosis - Dr. 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 Seminal vesicle inv.: Not identified. Perineural inv.: Present. LVI: Not identified The D'Cesia (NCCN) risk category is - High Risk (PSA > 20, Gl 8+, T3). Initial therapy included Primary treatment. -XRT with hormonal therapy XRT completed April 2021 [facility] - 7800 Gy 39 fractions GnRH administation - Last Shot - 12/23 Imaging included Initial Staging - 10/21 MRI showing PI-RADS lesion on right lateral side, question of 1.2 cm pelvic lymph node and question of L5 spinal lesion, no evidence for RAJIV - 11/20 bone scan reported as negative Associated conditions - erectile dysfunction yes Osteoporosis Evaluation - 01/23 DEXA scan osteoporosis - 10/23 DEXA osteoporosis Therapeutic plan: Keep November appointment Lower urinary tract symptoms Had been on terazosin Ankle swelling Switched to alfuzosin Prior laser and diode procedure to 2019 - does not tolerate catheter well [facility] Medical History Osteoarthritis Depression HTN (hypertension) BPH (benign prostatic hyperplasia) Hearing loss Elevated cholesterol Prostate cancer Thyroid disease Hematuria Renal stones Elevated PSA Enlarged prostate without lower urinary tract symptoms (luts) Surgical History Hx of right knee surgery Hx of prostate biopsy Hx of hernia repair Hx of cystoscopy Hx of vasectomy Social History Patient Tobacco Use Status: Former Tobacco user Results AMB Urinalysis, Automated UA Leukoctes 0 Eliza/uL Last Edit by ANNY Bean on 10/27/24 16:00 UA Nitrite Negative Last Edit by ANNY Bean on 10/27/24 16:00 UA Urobilinogen 0.2 mg/dL Last Edit by ANNY Bean on 10/27/24 16:00 UA Protein 15 mg/dL Last Edit by ANNY Bean on 10/27/24 16:00 UA pH 6.0 Last Edit by ANNY Bean on 10/27/24 16:00 UA Blood 0 Jose Daniel/uL Last Edit by ANNY Bean on 10/27/24 16:00 UA Specific Beulah 1.020 Last Edit by ANNY Bean on 10/27/24 16:00 UA Ketone Negative Last Edit by ANNY Bean on 10/27/24 16:00 UA Bilirubin 0 mg/dL Last Edit by ANNY Bean on 10/27/24 16:00 UA Glucose 0 mg/dL Last Edit by ANNY Bean on 10/27/24 16:00 Results Reviewed Results Reviewed: Laboratory Last Values Urine pH (Auto) 6.0 10/27/24 16:00 Specific Beulah (Auto) 1.020 10/27/24 16:00 Urine Protein (Auto) 15 mg/dL 10/27/24 16:00 Glucose (UA)(Auto) 0 mg/dL 10/27/24 16:00 Urine Ketones (Auto) Negative 10/27/24 16:00 Urine Blood (Auto) 0 Jose Daniel/uL 10/27/24 16:00 Urine Nitrite (Auto) Negative 10/27/24 16:00 Urine Bilirubin (Auto) 0 mg/dL 10/27/24 16:00 Urine Urobilinogen (Auto) 0.2 mg/dL 10/27/24 16:00 Leukocyte Esterase (Auto) 0 Eliza/uL 10/27/24 16:00 Assessment & Plan Assessment & Plan Orders: Orders AMB Urinalysis Automated Today Z13.9 - Encounter for screening, unspecified Coding
== END 2024-10-27 16:30 ==
PROVIDERS: PCP Internal Medicine Medical Oncology; Visit Provider Urology
DX: Z13.9 Encounter for screening, unspecified (principal)

== ENCOUNTER → 2024-10-27 15:44 | Outpatient (BNVA) | payer MEDICARE, SELFPAY | PROVIDERS: PCP Internal Medicine Medical Oncology; Visit Provider Urology | DX: C61 Malignant neoplasm of prostate (principal); N30.40 Irradiation cystitis without hematuria; N52.9 Male erectile dysfunction, unspecified | CPT/HCPCS: 81003; 99212 ==

== ENCOUNTER 2024-12-14 11:29 | Outpatient (REF) | payer MEDICARE, SELFPAY ==
[2024-12-14 13:07] LABS: MANUAL DIFF FLAG NO
[2024-12-14 13:22] LABS: Basophils Absolute Auto 0.1 X10*3/uL (0.0-0.2); Basophils Percent Auto 1.4 % (0-2); Eosinophils Absolute Auto 0.3 X10*3/uL (0.0-0.4); Eosinophils Percent Auto 4.3 % (0-4); Hematocrit 47.4 % (42.0-52.0); Hemoglobin 15.9 g/dl (14.0-18.0); Imm Gran Abs Auto 0.02 X10*3/uL (0.00-0.03); Imm Gran Pct Auto 0.3 % (0.0-0.4); Lymphocytes Absolute Auto 1.5 X10*3/uL (1.2-4.9); Lymphocytes Percent Auto 26.6 % (20-40); Mean Corpuscular HGB Conc 33.5 g/dl (31.0-36.0); Mean Corpuscular Volume 98.3 fL (80.0-98.0); Mean Platelet Volume 8.9 fL (9.4-12.4); Monocytes Absolute Auto 0.5 X10*3/uL (0.1-1.2); Monocytes Percent Auto 8.8 % (2-11); Neutrophils Absolute Auto 3.4 x10*3/uL (2.0-8.3); Neutrophils Percent Auto 58.6 % (45-73); Platelet Count 231 X10*3/uL (160-400); Red Blood Count 4.82 X10*6/uL (4.60-5.80); Red Cell Distribution Width 12.6 % (11.0-16.0); White Blood Count 5.8 X10*3/uL (4.8-10.8)
--- OUTSIDE RECORDS SUMMARY | 2024-12-14 13:35 | XMS_ITS ---
Author Organization Frederick Spaulding III, MD Address [address] [place] [address] Care Team Providers Care Energy Attorney Name Role Phone Frederick Spaulding Primary Care Provider Allergies Allergen (clinical drug [...] Date Provider Diagnosis Frederick Spaulding III, MD [address] [place] [address] [facility] [place] [address] 04/14/2024 Frederick Spaulding Prostate cancer C61 ; [...] Up: 4 Months, Reason: OV Provider Name:Frederick Spaulding, 12/18/2024 02:15:00 PM, [address] [place] [address] [address], [address], Provider Name:Frederick Spualding, 04/19/2025 03:00:00 PM, [address] [place] [address] [place], [address], Progress Notes * Juan DELGADO: [birth year] (83 yo M)Acc No.[id number]:04/14/2024 Progress Notes Patient:?Juan Delgado Provider:?Frederick Spaulding MD :1940???Age:83 Y???Sex:Male Curt e:04/14/2024 Address:[address] [place] [address] , [address] [facility], [id number] Subjective: * Chief Complaints: * ???Annual Exam * HPI: ???Depression Screening:? He returns to the office at the [...] is no longer receiving injections of Eligard. ?PHQ-9?Little interest or pleasure in doing things?Not at all ?Feeling down, depressed, or hopeless?Not at all ?Trouble falling or staying asleep, or sleeping too much?Not at all ?Feeling tired or having little energy?Not at all ?Poor appetite or overeating?Not at all ?Feeling bad about yourself or that you are a failure, or have let yourself or your family down?Not at all ?Trouble concentrating on things, such as reading the newspaper or watching television?Not at all ?Moving or speaking so slowly that other people could have noticed; or the opposite, being so fidgety or restless that you have been moving around a lot more than usual?Not at all ?Thoughts that you would be better off or of hurting yourself in some way?Not at all ?Total Score?0 ???COVID-19 Screening:?Questions?Have you experienced fever, chills, cough, sore throat, shortness of breath, difficulty breathing, muscle aches, loss of taste or smell??No ?Have you been exposed to the virus within the last 10 days??No ?Have you travelled internationally in the last 10 days??No ?Have you been exposed to COVID-19 in the past??No ???SDOH Questions:?SDOH Questions?In the past year have you been worried about losing your housing??No ?In the past year have you or any family members you live with been unable to get any of the following when it was really needed? Check all that apply:?Decline to answer * ROS:?General/Constitutional:?pain?numb heels, otherwise only normal aches and pains.?Chills?denies.?Fatigue?admits.?Fever?denies.?ENT:?Decreased hearing?in both ears.?Respiratory:?Cough?denies.?Cardiovascular:?Chest pain with exertion?denies.?Dyspnea on exertion?denies.?Shortness of breath?denies.?Gastrointestinal:?Constipation?occasional.?Decreased appetite?that is not associated with weight loss.?Diarrhea?denies.?Heartburn?denies.?Nausea?denies.?Rectal bleeding?denies.?Vomiting?denies.?Hematology:?bruising?denies.?petechiae?denies.?Swollen glands?none have been noted.?Genitourinary:?Frequent urination?three times a night.?Musculoskeletal:?Muscle aches?denies.?Painful joints?denies.?Sciatica?denies.?Weakness?denies.?Skin:?Itching?denies.?Rash?denies.?Skin lesion(s)?denies.?Neurologic:?Difficulty speaking?denies.?Dizziness?denies.?Headache?denies.?Low back pain?denies.?Psychiatric:?Depressed mood?which is moderate.? * Medical History:? * Surgical History:?inguinal h ernia repair bilateral direct 09/1987minimal left direct inguinal hernia repair 06/1994vasectomy 1970colonoscopy, ,normal 10/2018knee surgery right 08/2019Molar removed 08/2023 * Hospitalization/Major Diagno stic Procedure:?Denies Past Hospitalization * Family History:?Father: dece ased 57 yrs, Childhood rheumatic fever, coronary artery disease, diagnosed with CVD.?Mother: 92 yrs, Dementia, adult-onset diabetes, myocardial infarction, stroke, diagnosed with CVD, DM.?2 brother(s) - healthy. 1 son(s) , 1 daughter(s) - healthy. .? He has a son and a daughter who are alive and well. He has 3 grandchildren alive and well. The old records indicate today. Daughter had breast cancer. His 1 brothers are healthy and well. Second oldest have Prostate Cancer. He is not aware of any family history of substance use disorder or addiction or mental illness. 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 He was exposed to solvents but not to benzene. He has been to [place] since 1960. He lives in [place], [place]. * Medications:?TakingMagnesium Glycinate 100 MG Capsule as directed Orally [...] reviewed and reconciled with the patient * Allergies:?Simvastatin: body ache - AllergyPercocet: nausea - Allergyno[Allergies Verified] Objective: * Vitals:?Ht: 68, Wt:165, BMI: 25.09, BP:142/82, HR:66, Temp:99.9, Wt-k.84. * ???Past Orders: Lab:Complete Blood Count Aut o Diff [...] (Ref Range: 42.0-52.0 %) Mean Corpuscular Volume 100.2?H (Ref Range: 80.0-98.0 fL) 97.2 (Ref Range: 80.0-98.0 fL) 98.3?H (Ref Range: 80.0-98.0 fL) Mean Corpuscular Hemoglobin 34.1?H (Ref Range: 27.0-33.0 pg) 32.5 (Ref Range: [...] (Ref Range: 160-400 X10*3/uL) Mean Platelet Volume 8.6?L (Ref Range: 9.4-12.4 fL) 8.4?L (Ref Range: 9.4-12.4 fL) 8.5?L (Ref Range: 9.4-12.4 fL) Neutrophils Percent Auto [...] 5-37 U/L) 24 (Ref Range: 5-37 U/L) 42?H (Ref Range: 5-37 U/L) Alanine Aminotransferase 40 (Ref Range: 0-40 U/L) 28 (Ref Range: 0-40 U/L) 93?H (Ref Range: 0-40 U/L) Total Protein 7.1 [...] 96-108 mmol/L) 107 (Ref Range: 96-108 mmol/L) 109?H (Ref Range: 96-108 mmol/L) Carbon Dioxide 26 (Ref Range: 22-29 mmol/L) 29 (Ref Range: 22-29 mmol/L) 25 (Ref Range: 22-29 mmol/L) Anion Gap 14 (Ref Range: 12-20) 11?L (Ref Range: 12-20) 12 (Ref Range: 12-20) Blood Urea Nitrogen 18?H (Ref Range: 9-16 mg/dL) 18?H (Ref Range: 9-16 mg/dL) 15 (Ref Range: 9-16 mg/dL) Creatinine 1.01 (Ref Range: 0.5-1.4 mg/dL) 0.92 (Ref Range: 0.5-1.4 mg/dL) 0.95 (Ref Range: 0.5-1.4 mg/dL) Estimated Glomerular Filt Rate > 60 > 60 > 60 Glucose Fasting 96 (Ref Range: 60-99 mg/dL) 101?H (Ref Range: 60-99 mg/dL) 92 (Ref Range: 60-99 mg/dL) Calcium 10.5?H (Ref Range: 8.4-10.2 mg/dL) 10.3?H (Ref Range: 8.4-10.2 mg/dL) 10.1 (Ref Range: [...] Cholesterol Calculated 97 (Ref Range: <100 mg/dL) 124?H (Ref Range: <100 mg/dL) 106 (Ref Range: mg/dl) HDL Cholesterol 41 (Ref Range: >40 mg/dL) 41 (Ref Range: >40 mg/dL) 42 (Ref Range: mg/dL) * Examination: ???General Examination: ?GENERAL APPEARANCE:?pleasant, well nourished, well developed, in no acute distress, calm and relaxed.?HEAD:?atraumatic, normocephalic.?EYES:?eomi, perrla, anicteric, conjugate.?EARS:?normal.?NOSE:?septum intact.?ORAL CAVITY:?normal, unremarkable.?NECK/THYROID:?no jugular venous distention, no carotid bruit, thyroid normal.?LYMPH NODES:?no enlarged lymph nodes,spleen normal.?SKIN:?no suspicious lesions, anicteric.?HEART:?no clicks, gallops, murmurs, or rubs, regular rhythm, S1, S2 normal, no s3, or vascular bruits.?LUNGS:?clear to auscultation .?BREASTS:??no masses palpable bilaterally.?ABDOMEN:?bowel sounds normal, no ascites, no organomegaly, no mass.?RECTAL EXAM:?not examined.?MUSCULOSKELETAL:?extremities unremarkable, no clubbing, cyanosis or edema.?PERIPHERAL PULSES:?normal.?NEUROLOGIC:?alert and oriented, cranial nerves 2-12 grossly intact, deep tendon reflexes 2+ symmetrical, motor strength normal upper and lower extremities, sensory exam intact.?PSYCH:?alert, oriented.? Assessment: * Assessment: 1.?Acquired hypothyroidism - E03.9, He has been compliant with his medication. Comprehensive blood work with a TSH has been ordered prior to his next visit.?2.?Prostate cancer - C61, His PSA remains undetectable and his testosterone is in the appropriate low level. He testosterone value is not at castrate levels, however. He is going to see his urologist and discuss this in the near future. No change in his regimen was made today.?3.?Mixed hyperlipidemia - E78.2, His lipid values are in their target range and his risk is low.?4.?Overweight - E66.3, He is very slightly overweight. No change in his diet was recommended. I recommended he keep his weight at this level.?5.?Elevated PSA - R97.20, The elevated PSA of 7- lead to a diagnosis of prostate cancer 4+4 equals 8 treated with radiation therapy. He remains in remission at this time.?6.?Hypertension - I10, His blood pressure today was 142/82 and no change in his regimen was necessary today. He will come to the office next visit to have his vital signs measured.?7.?Former smoker - Z87.891, He is highly motivated not to smoke. We discussed gusto plan to prevent relapse in times of stress and illness.?8.?History of depression - Z86.59, He is now on lithium and bupropion. His renal function will be followed.?9.?Osteoporosis, unspecified osteoporosis type, unspecified pathological fracture presence - M81.0, He will stop the alendronate until the issue of the jaw pain is clarified.? Plan: * Treatment: 2.?Prostate cancer? Continue Vitamin D Tablet, 1000 UNIT, 1 tablet, Orally, Once a day;?Continue Vitamin C Capsule, 500 MG, Orally;?Continue Famotidine Tablet, 20 MG, 1 tablet at bedtime, Orally, Once a day; Continue Fish Oil Capsule, 1200 MG, 1 capsule, Orally, Once a day;?Continue Omeprazole Capsule Delayed Release, 20 MG, 1 capsule, Orally, Once a day;?Continue buPROPion HCl Tablet, 100 MG, 1 tablet, Orally, every 3rd day;?Continue Alendronate Sodium Tablet, 70 MG, 1 tablet 30 minutes before the first food, beverage or medicine of the day with plain water, Orally, Once a week.?? 3.?Mixed hyperlipidemia?LAB: PROFILE, FASTING (COMPREHENSIVE METABOLIC) ?LAB: TSH (THYROID STIMULATING HORMONE) ?LAB: PSA, TOTAL ?LAB: CBC WITH AUTO DIFF ?LAB: Magnesium ?LAB: Lipid Panel ?LAB: Free T4 (Free Thyroxine) 4.?Overweight?LAB: PROFILE, FASTING (COMPREHENSIVE METABOLIC) ?LAB: TSH (THYROID STIMULATING HORMONE) ?LAB: PSA, TOTAL ?LAB: CBC WITH AUTO DIFF ?LAB: Magnesium ?LAB: Lipid Panel ?LAB: Free T4 (Free Thyroxine) 5.?Elevated PSA?LAB: PROFILE, FASTING (COMPREHENSIVE METABOLIC) ?LAB: TSH (THYROID STIMULATING HORMONE) ?LAB: PSA, TOTAL ?LAB: CBC WITH AUTO DIFF ?LAB: Magnesium ?LAB: Lipid Panel ?LAB: Free T4 (Free Thyroxine) 6.?Others? Continue Atorvastatin Calcium Tablet, 10 MG, TAKE 1 TABLET BY MOUTH DAILY;?Continue Magnesium Glycinate Capsule, 100 MG, as directed, Orally;?Continue Levothyroxine Sodium Tablet, 50 MCG, TAKE 1 TABLET BY MOUTH IN THE MORNING ON AN EMPTY STOMACH;?Continue buPROPion HCl ER (SR) Tablet Extended Release 12 Hour, 100 MG, 2 tablets, Orally, Once a day.?? * Labs:? * ?Lab: URINE DIP STICK ? Value Reference Range ?SG 1.010 1.005 - 1.025 * ?pH 6.0 5.0 - 9.0 * ?RACHELE Negative Negative - * ?NIT Negative Negative - * ?PRO 15 Negative - Trac e * ?GLU Negative Negative - * ?KET Negative Negative - * ?UBG 0.2 0.1 - 1.8 * ?GRAHAM Negative 0.2 - 1.3 * ?BLD Positive Negative - * Procedure Codes:?05121 URINE -NO MICRO * Preventive Medicine:? ??Counseling:?Care goal follow-up plan:?Counseling for abnormal BMI given?Yes ?Above Normal BMI Follow-up?Dietary management education, guidance, and counseling ?Smoking/Tobacco Use?Patient counseled on the dangers of tobacco use and urged to quit.?04/13/2024 * Follow Up:?4 Months (Reason: OV) * Images: * Sign off status: Completed true * Provider:?Frederick Spaulding MD Date:?04/01 Generated for Printi ng/Maynorg/eTransmitting on:?12/14/2024 01:35 PM EST History and Physical Notes * [...] days?: No Have you travelled internationally in last 10 days?: No Have you been [...]
--- OUTSIDE RECORDS SUMMARY | 2024-12-14 13:35 | XMS_ITS | Patient Health Record ---
Author Organization Frederick Spaulding III, MD Address [address] [facility] [place] [address] Care Team Providers Care Perch Machine Inspector Name Role Phone Frederick Spaulding Primary Care [...] 0.2 - 1.3 BLD Positive Negative - Complete Blood Count Auto Di ff Reviewed date:04/12/2024 06:46:44 AM Interpretation: Performing Lab:[facility], [address] [place] [phone] Notes/Report: White Blood Count 7.4 4.8-10.8 X10*3/uL Red Blood Count 4.81 4.60-5.80 X10*6/uL Hemoglobin 16.4 14.0-18.0 g/dl Hematocrit 48.2 42.0-52.0 % Mean Corpuscular Volume 100.2 80.0-98.0 fL Mean Corpuscular Hemoglobin 34.1 27.0-33.0 pg Mean Corpuscular HGB Conc 34.0 31.0-36.0 g/dl Red Cell Distribution Width 13.2 11.0-16.0 % Platelet Count 235 160-400 X10*3/uL Mean Platelet Volume 8.6 9.4-12.4 fL Neutrophils Percent Auto 68.7 45-73 % Imm Gran Pct Auto 0.1 0.0-0.4 % Lymphocytes Percent Auto 21.6 20-40 % Monocytes Percent Auto 6.6 2-11 % Eosinophils Percent Auto 2.3 0-4 % Basophils Percent Auto 0.7 0-2 % NRBC Pct Auto 0.0 0.0-0.2 /100WBC Neutrophils Absolute Auto 5.1 2.0-8.3 x10*3/u L Imm Gran Abs Auto 0.01 0.00-0.03 X10*3/uL Lymphocytes Absolute Auto 1.6 1.2-4.9 X10*3/u L Monocytes Absolute Auto 0.5 0.1-1.2 X10*3/uL Eosinophils Absolute Auto 0.2 0.0-0.4 X10*3/u L Basophils Absolute Auto 0.1 0.0-0.2 X10*3/uL NRBC Abs Auto 0.000 0.0-0.012 X10*3/uL Comprehensive [place]. Panel Fa st Reviewed date:04/12/2024 06:46:44 AM Interpretation: Performing Lab:[facility], [address] [place] [phone] Notes/Report: Sodium 142 135-145 mmol/L Potassium 4.6 3.3-5.1 mmol/L Chloride 107 96-108 mmol/L Carbon Dioxide 26 22-29 mmol/L Anion Gap 14 12-20 Blood Urea Nitrogen 18 9-16 mg/dL Creatinine 1.01 0.5-1.4 mg/dL Estimated Glomerular Filt Rate > 60 NOTE: For -[place]ian individuals, multiply the result by 1.210. Chronic Kidney Disease: Estimated GFR < 60 mL/min/1.73m2 Severe Kidney Disease: Estimated GFR < 15 mL/min/1.73m2 Glucose Fasting 96 60-99 mg/dL Calcium 10.5 8.4-10.2 mg/dL Bilirubin Total 0.9 0.0-1.0 mg/dL Aspartate Amino Transferase 26 5-37 U/L Alanine Aminotransferase 40 0-40 U/L Total Protein 7.1 6.5-8.0 g/dL Albumin Level 4.4 3.5-5.0 g/dL Alkaline Phosphatase 54 39-117 U/L Lipid Panel Reviewed date:04/12/2024 06:46:44 AM Interpretation: Performing Lab:[facility], [address] [place] [phone] Notes/Report: Triglycerides 93 <150 mg/dL Desirable Triglyceride: less than 150 mg/dL Borderline High Triglyceride 150-199 mg/dL High Triglyceride: 200-499 mg/dL Very High Triglyceride: greater than or equal to 5OO mg/dL Cholesterol 156 <200 mg/dL Desirable Cholesterol: less than 200 mg/dL Borderline High Cholesterol: 200-239 mg/dL High Cholesterol: greater than 239 mg/dL LDL Cholesterol Calculated 97 <100 mg/dL Desirable LDL: less than 100 mg/dL Near Optimal/Above Optimal LDL: 110-129 mg/dL Borderline High LDL: 130-159 mg/dL High LDL: 160-189 mg/dL Very High LDL: greater than or equal to 190 mg/dL HDL Cholesterol 41 >40 mg/dL Desirable HDL: greater than 40 mg/dL Note: This HDL assay may give artificially low results in patients with liver disease. Prostate Specific Antigen Reviewed date:04/12/2024 06:46:44 AM Interpretation: Performing Lab:[address] [phone] Notes/Report: Prostate Specific Antigen < 0.10 <0.05-4.0 ng/mL PSA methodology: [employer] i Chemiluminescent Microparticle Immunoassay (CMIA) Free T4 (Free Thyroxine) Reviewed date:04/12/2024 06:46:44 AM Interpretation: Performing Lab:[facility], [address] [place] [phone] Notes/Report: Free T4 (Free Thyroxine) 0.97 0.71-1.85 ng/dL Complete Blood Count Auto Di ff Reviewed date:08/13/2024 06:56:54 AM Interpretation: Performing Lab:[facility], [address] [place] [phone] Notes/Report: White Blood Count 6.2 4.8-10.8 X10*3/uL Red Blood Count 4.97 4.60-5.80 X10*6/uL Hemoglobin 16.4 14.0-18.0 g/dl Hematocrit 49.2 42.0-52.0 % Mean Corpuscular Volume 99.0 80.0-98.0 fL Mean Corpuscular Hemoglobin 33.0 27.0-33.0 pg Mean Corpuscular HGB Conc 33.3 31.0-36.0 g/dl Red Cell Distribution Width 12.9 11.0-16.0 % Platelet Count 238 160-400 X10*3/uL Mean Platelet Volume 8.8 9.4-12.4 fL Neutrophils Percent Auto 63.6 45-73 % Imm Gran Pct Auto 0.3 0.0-0.4 % Lymphocytes Percent Auto 23.4 20-40 % Monocytes Percent Auto 8.0 2-11 % Eosinophils Percent Auto 3.7 0-4 % Basophils Percent Auto 1.0 0-2 % NRBC Pct Auto 0.0 0.0-0.2 /100WBC Neutrophils Absolute Auto 4.0 2.0-8.3 x10*3/u L Imm Gran Abs Auto 0.02 0.00-0.03 X10*3/uL Lymphocytes Absolute Auto 1.5 1.2-4.9 X10*3/u L Monocytes Absolute Auto 0.5 0.1-1.2 X10*3/uL Eosinophils Absolute Auto 0.2 0.0-0.4 X10*3/u L Basophils Absolute Auto 0.1 0.0-0.2 X10*3/uL NRBC Abs Auto 0.000 0.0-0.012 X10*3/uL Comprehensive [place]. Panel Fa st Reviewed date:08/13/2024 06:56:54 AM Interpretation: Performing Lab:[facility], [address] [place] [phone] Notes/Report: Sodium 142 135-145 mmol/L Potassium 4.6 3.3-5.1 mmol/L Chloride 108 96-108 mmol/L Carbon Dioxide 27 22-29 mmol/L Anion Gap 12 12-20 Blood Urea Nitrogen 19 9-16 mg/dL Creatinine 1.04 0.5-1.4 mg/dL Estimated Glomerular Filt Rate > 60 NOTE: For -Jordanian individuals, multiply the result by 1.210. Chronic Kidney Disease: Estimated GFR < 60 mL/min/1.73m2 Severe Kidney Disease: Estimated GFR < 15 mL/min/1.73m2 Glucose Fasting 95 60-99 mg/dL Calcium 10.1 8.4-10.2 mg/dL Bilirubin Total 0.8 0.0-1.0 mg/dL Aspartate Amino Transferase 31 5-37 U/L Alanine Aminotransferase 38 0-40 U/L Total Protein 7.0 6.5-8.0 g/dL Albumin Level 4.4 3.5-5.0 g/dL Alkaline Phosphatase 52 39-117 U/L Magnesium Reviewed date:08/13/2024 06:56:54 AM Interpretation: Performing Lab:[facility], [address] [place] [phone] Notes/Report: Magnesium 2.3 1.6-2.6 mg/dL Lipid Panel Reviewed date:08/13/2024 06:56:54 AM Interpretation: Performing Lab:[facility], [address] [place] [phone] Notes/Report: Triglycerides 136 <150 mg/dL Desirable Triglyceride: less than 150 mg/dL Borderline High Triglyceride 150-199 mg/dL High Triglyceride: 200-499 mg/dL Very High Triglyceride: greater than or equal to 5OO mg/dL Cholesterol 161 <200 mg/dL Desirable Cholesterol: less than 200 mg/dL Borderline High Cholesterol: 200-239 mg/dL High Cholesterol: greater than 239 mg/dL LDL Cholesterol Calculated 99 <100 mg/dL Desirable LDL: less than 100 mg/dL Near Optimal/Above Optimal LDL: 110-129 mg/dL Borderline High LDL: 130-159 mg/dL High LDL: 160-189 mg/dL Very High LDL: greater than or equal to 190 mg/dL HDL Cholesterol 35 >40 mg/dL Desirable HDL: greater than 40 mg/dL Note: This HDL assay may give artificially low results in patients with liver disease. Prostate Specific Antigen Reviewed date:08/13/2024 06:56:54 AM Interpretation: Performing Lab:[facility], [address] [place] [phone] Notes/Report: Prostate Specific Antigen 0.13 <0.05-4.0 ng/mL PSA methodology: [employer] i Chemiluminescent Microparticle Immunoassay (CMIA) Free T4 (Free Thyroxine) Reviewed date:08/13/2024 06:56:54 AM Interpretation: Performing Lab:[facility], [address] [place] [phone] Notes/Report: Free T4 (Free Thyroxine) 0.83 0.71-1.85 ng/dL Thyroid Stimulating Hormone Reviewed date:08/13/2024 06:56:54 AM Interpretation: Performing Lab:[facility], [address] [place] [phone] Notes/Report: Thyroid Stimulating Hormone 1.45 0.32-4.0 uIU/ mL TSH 3rd Generation ([employer]) Prostate Specific Antigen Reviewed date:10/22/2024 05:05:16 AM Interpretation: Performing Lab:[facility], [address] [place] [phone] Notes/Report: Prostate Specific Antigen 0.13 <0.05-4.0 ng/mL PSA methodology: [employer] i Chemiluminescent Microparticle Immunoassay (CMIA) Complete Blood Count Auto Di ff (Not yet reviewed by provider) Interpretation: Performing Lab:[facility], [address] [place] [phone] Notes/Report: White Blood Count 5.8 4.8-10.8 X10*3/uL Red Blood Count 4.82 4.60-5.80 X10*6/uL Hemoglobin 15.9 14.0-18.0 g/dl Hematocrit 47.4 42.0-52.0 % Mean Corpuscular Volume 98.3 80.0-98.0 fL Mean Corpuscular Hemoglobin 33.0 27.0-33.0 pg Mean Corpuscular HGB Conc 33.5 31.0-36.0 g/dl Red Cell Distribution Width 12.6 11.0-16.0 % Platelet Count 231 160-400 X10*3/uL Mean Platelet Volume 8.9 9.4-12.4 fL Neutrophils Percent Auto 58.6 45-73 % Imm Gran Pct Auto 0.3 0.0-0.4 % Lymphocytes Percent Auto 26.6 20-40 % Monocytes Percent Auto 8.8 2-11 % Eosinophils Percent Auto 4.3 0-4 % Basophils Percent Auto 1.4 0-2 % NRBC Pct Auto 0.0 0.0-0.2 /100WBC Neutrophils Absolute Auto 3.4 2.0-8.3 x10*3/u L Imm Gran Abs Auto 0.02 0.00-0.03 X10*3/uL Lymphocytes Absolute Auto 1.5 1.2-4.9 X10*3/u L Monocytes Absolute Auto 0.5 0.1-1.2 X10*3/uL Eosinophils Absolute Auto 0.3 0.0-0.4 X10*3/u L Basophils Absolute Auto 0.1 0.0-0.2 X10*3/uL NRBC Abs Auto 0.000 0.0-0.012 X10*3/uL Reason For Referral No Information Medications Medication SIG (Take, Route, Frequency, Duration) Notes Start Date End Date Status buPROPion HCl ER (SR) 100 MG 2 [...] at bedtime Orally Once a day Active Magnesium Glycinate 100 MG as directed Orally Active Atorvastatin Calcium 10 MG TAKE 1 TABLET BY MOUTH DAILY Active Vitamin C 500 MG Orally Act renay Vitamin D 1000 UNIT 1 tablet Orally Once a day Active Immunizations Vaccine Route Administration Date Status Comme nts Influenza no Preserv 3 and > Unknown 09/05/2020 Administered Varicella Unknown 06/03/2023 Administered Given [facility] Social History Tobacco Use: Social History Observation Description Date Details (start date - stop date) Former Smoker NA - NA Sex Assigned At : Social History Observation Description Sex Assigned At Male Tobacco Use/Smoking Question Answer Notes Patient is a former smoker How long has it been since you last smoked? > 10 years Additional Findings: Tobacco Non-User Ex-cigaret te smoker Alcohol Screen Question Answer Notes Did you have a drink containing alcohol in the p ast year? No Points 0 Interpretation Negative Problems Problem Type SNOMED Code ICD Code Onset Dates Problem Status W/U Status Risk Notes Problem 3110130 Former smoker (Z87.891) Active confirmed He is highly motivated not to smoke. We discussed gusto plan to prevent relapse in times of stress and illness. Problem 399510152 Overweight (BMI 25.0-29.9) (E66.3) Active confirmed He is very slightly overweight at the age of 83. We will stabilize his weight at this level and continue to consume a healthy Mediterranean diet. Problem 480341823 Overweight (E66.3) Active confirmed He is very slightly overweight. No change in his diet was recommended. I recommended he keep his weight at this level. Problem Hypertension (94891637) Hypertension (I10) Active confirmed His blood pressure today was 142/82 and no change in his regimen was necessary today. He will come to the office next visit to have his vital signs measured. Problem Malignant tumor of prostate (954953147) Prostate cancer (C61) Active confirmed He reports he has finished his Lupron. His PSA has risen to 0.13 but is still less than 1.0. Problem 600550213 Mixed hyperlipidemia (E78.2) Active confirmed His lipids are currently stable and no change in his regimen as needed. Problem 013467428 Acquired hypothyroidism (E03.9) Active confirmed He has been compliant with his medication. Comprehensive blood work with a TSH shows normal thyroid function. 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 He has significant ventricular ectopy including some doublets and triplets. The underlying rhythm was sinus. The average heart rate was 72 with a range of 48-98. The overall burden was 12%. He will see a business unit controller for consultation. Problem 007104520 Benign prostatic hyperplasia with lower urinary tract symptoms (N40.1) Active confirmed He arises from sleep once or twice a night to urinate. We had discussed lifestyle modification as a way to reduce nocturia. Problem 528696886 History of inguinal hernia (Z87.19) Active confirmed There is no sign of inguinal herniation today. Problem 273186105 History of depression (Z86.59) Active confirmed He is now on lithium and bupropion. His renal function will be followed. Problem 643172229 Elevated PSA (R97.20) Active confirmed The elevated PSA of 7-lead to a diagnosis of prostate cancer 4+4 equals 8 treated with radiation therapy. He remains in remission at this time. Problem 792180977 Adenomatous polyps (D36.9) Active confirmed He will continue to have periodic colonoscopies. 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 He is able to accomplish all of the activities of daily living. His current regimen was continued. Problem 37044027 Osteoporosis, unspecified osteoporosis type, unspecified pathological fracture presence (M81.0) Active confirmed He was continued on his current treatment. 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 He purchased his hearing aids at [employer]. He is concerned that his hearing is worse in one year then the other. I have referred him to ENT for evaluation and management. Vital Signs Heart Rate 68 /min 08/18/2024 Temperature 98.6 degrees Fahrenheit 08/18/2024 Blood pressure diastolic 75 mm Hg 08/18/2024 Height 68 in 08/18/2024 Blood pressure systolic 139 mm Hg 08/18/2024 Weight 168 lbs 08/18/2024 BMI 25.54 kg/m2 08/18/2024 Encounters Encounter Location Date Provider Diagnosis Frederick Spaulding III, MD [address] [place] [address] [place] [phone] 02/10/2024 Frederick Spaulding Prostate cancer C61 ; Acquired hypothyroidism E03.9 ; Mixed hyperlipidemia E78.2 ; Benign prostatic hyperplasia with lower urinary tract symptoms N40.1 and Overweight (BMI 25.0-29.9) E66.3 Frederick Spaulding III, MD [address] [place] [address] [place] [phone] 04/14/2024 Frederick Spaulding Prostate cancer C61 ; Acquired hypothyroidism E03.9 ; Mixed hyperlipidemia E78.2 ; Overweight E66.3 ; Elevated PSA R97.20 ; Hypertension I10 ; Former smoker Z87.891 ; History of depression Z86.59 and Osteoporosis, unspecified osteoporosis type, unspecified pathological fracture presence M81.0 Frederick Spaulding III, MD [address] [place] [address] [place] [phone] 08/18/2024 Frederick Spaulding Prostate cancer C61 ; Mixed hyperlipidemia E78.2 ; Overweight (BMI 25.0-29.9) E66.3 ; Osteoporosis, unspecified osteoporosis type, unspecified pathological fracture presence M81.0 ; Acquired hypothyroidism E03.9 ; History of depression Z86.59 and Former smoker Z87.891 Frederick Spaulding III, MD [address] [place] [address] DR [place], [place] [phone] 08/24/2024 Frederick Spaulding Assessments Encounter Date Diagnosis (ICD Code) Assessment Notes Treat ment Notes Treatment Clinical Notes 02/10/2024 Prostate cancer (ICD-10 - C61) His PSA remains undetectable and his testosterone is in the appropriate low level. He testosterone value is not at castrate levels, however. He is going to see his urologist and discuss this in the near future. No change in his regimen was made today. 02/10/2024 Acquired hypothyroidism (ICD-10 - E03.9) He appears to be euthyroid. He is compliant with medications. No changes were made today. 04/14/2024 Prostate cancer (ICD-10 - C61) His [...] been ordered prior to his next visit. 08/18/2024 Prostate cancer (ICD-10 - C61) He reports he has finished his Lupron. His PSA has risen to 0.13 but is still less than 1.0. 08/18/2024 Mixed hyperlipidemia (ICD-10 - E78.2) His lipids are currently stable and no change in his regimen as needed. 02/10/2024 Mixed hyperlipidemia (ICD-10 - E78.2) His lipids are stable. No change in his regimen was made. 04/14/2024 Mixed hyperlipidemia (ICD-10 - E78.2) His lipid values are in their target range and his risk is low. 08/18/2024 Overweight (BMI 25.0-29.9) (ICD-10 - E66.3) He is very slightly overweight at the age of 83. We will stabilize his weight at this level and continue to consume a healthy Mediterranean diet. 02/10/2024 Benign prostatic hyperplasia with lower urinary tract symptoms (ICD-10 - N40.1) He arises from sleep once or twice a night to urinate. We had discussed lifestyle modification as a way to reduce nocturia. 04/14/2024 Overweight (ICD-10 - E66.3) He is very slightly overweight. No change in his diet was recommended. I recommended he keep his weight at this level. 08/18/2024 Osteoporosis, unspecified osteoporosis type, unspecified pathological fracture presence (ICD-10 - M81.0) He was continued on his current treatment. 02/10/2024 Overweight (BMI 25.0-29.9) (ICD-10 - E66.3) He is very slightly overweight. I recommended that he stabilize his weight at this level and and gradually reduce it until his body mass index is 23. 04/14/2024 Elevated PSA (ICD-10 - R97.20) The elevated PSA of 7-lead to a diagnosis of prostate cancer 4+4 equals 8 treated with radiation therapy. He remains in remission at this time. 08/18/2024 Acquired hypothyroidism (ICD-10 - E03.9) He has been compliant with his medication. Comprehensive blood work with a TSH shows normal thyroid function. 04/14/2024 Hypertension (ICD-10 - I10) His blood pressure today was 142/82 and no change in his regimen was necessary today. He will come to the office next visit to have his vital signs measured. 08/18/2024 History of depressio n (ICD-10 - Z86.59) He is now on lithium and bupropion. His renal function will be followed. 04/14/2024 Former smoker (ICD-1 0 - Z87.891) He is highly motivated not to smoke. We discussed gusto plan to prevent relapse in times of stress and illness. 08/18/2024 Former smoker (ICD-1 0 - Z87.891) [...] jaw pain is clarified. Plan Of Treatment Pending Test Test Name Order Date PROFILE, FASTING (COMPREHENSIVE METABOLI C) 09/13/2023 PROFILE, FASTING (COMPREHENSIVE METABOLI C) 07/03/2021 PROFILE, FASTING (COMPREHENSIVE METABOLI C) 02/04/2020 PROFILE, FASTING (COMPREHENSIVE METABOLI C) 10/16/2019 PROFILE, FASTING (COMPREHENSIVE METABOLI C) 05/17/2023 PROFILE, FASTING (COMPREHENSIVE METABOLI C) 03/15/2023 PROFILE, FASTING (COMPREHENSIVE METABOLI C) 08/18/2024 PROFILE, RANDOM (COMPREHENSIVE METABOLIC ) 01/29/2022 PROFILE, RANDOM (COMPREHENSIVE METABOLIC ) 07/01/2020 PROFILE, RANDOM (COMPREHENSIVE METABOLIC ) 12/07/2022 PROFILE, RANDOM (COMPREHENSIVE METABOLIC ) 08/28/2022 PROFILE, RANDOM (COMPREHENSIVE METABOLIC ) 06/19/2022 PROFILE, RANDOM (COMPREHENSIVE METABOLIC ) 02/25/2023 PROFILE, RANDOM (COMPREHENSIVE METABOLIC ) 12/13/2021 PROFILE, RANDOM (COMPREHENSIVE METABOLIC ) 03/20/2022 PROFILE, RANDOM (COMPREHENSIVE METABOLIC ) 10/02/2021 HEMOGLOBIN A1C (GLYCOHEMOGLOBIN) 022 CALCIUM 02/25/2023 MAGNESIUM 02/25/2023 LIPID PANEL 07/03/2021 LIPID PANEL 12/07/2022 LIPID PANEL 02/04/2020 LIPID PANEL 10/16/2019 LIPID PANEL 01/09/2021 LIPID PANEL 03/15/2023 FREE T4 (FT4) 07/03/2021 FREE T4 (FT4) 12/07/2022 FREE T4 (FT4) 10/16/2019 TSH (THYROID STIMULATING HORMONE) 2022 TSH (THYROID STIMULATING HORMONE) 2020 TSH (THYROID STIMULATING HORMONE) 2022 TSH (THYROID STIMULATING HORMONE) 2018 PSA, TOTAL 03/20/2022 PSA, TOTAL 12/07/2022 PSA, TOTAL 03/15/2023 PSA, TOTAL 02/10/2024 PSA, TOTAL 10/02/2021 PSA, TOTAL 01/29/2022 PSA, TOTAL 09/13/2023 PSA, TOTAL 08/28/2022 PSA, TOTAL 02/04/2020 PSA, TOTAL 06/19/2022 PSA, TOTAL 02/25/2023 PSA, TOTAL+FREE 07/01/2020 PSA, TOTAL+FREE 12/13/2021 CBC w DIFF 02/25/2023 CBC w DIFF 10/16/2019 CBC w DIFF 03/20/2022 CBC w DIFF 12/07/2022 CBC w DIFF 03/15/2023 CBC w DIFF 10/02/2021 CBC w DIFF 01/29/2022 CBC w DIFF 07/01/2020 CBC w DIFF 05/17/2023 CBC w DIFF 08/28/2022 CBC w DIFF 07/03/2021 CBC w DIFF 01/09/2021 CBC w DIFF 12/13/2021 CBC w DIFF 02/04/2020 CBC w DIFF 06/19/2022 TESTOSTERONE, TOTAL 06/19/2022 TESTOSTERONE, TOTAL 08/28/2022 BONE DENSITY DEXA 08/28/2022 BONE DENSITY DEXA 08/18/2024 Holter Monitor 02/25/2023 VITAMIN D 25-OH TOTAL 02/25/2023 VITAMIN D 25-OH TOTAL 01/29/2022 CBC WITH AUTO DIFF 08/18/2024 CBC WITH AUTO DIFF 02/10/2024 CBC WITH AUTO DIFF 09/13/2023 Complete Blood Count Auto Diff Lipid Panel 08/18/2024 Lipid Panel 02/10/2024 Lipid Panel 09/13/2023 Lipid Panel 05/17/2023 Vitamin D 25-OH Total 08/18/2024 Free T4 (Free Thyroxine) 02/10/2024 Free T4 (Free Thyroxine) 09/13/2023 Next Appt Details Provider Name:Frederick Spaulding, 12/18/2024 02:15:00 PM, [address] [facility] [place], [place], [phone], Provider Name:Frederick Spaulding, 04/19/2025 03:00:00 PM, [address] [facility] [place], [place], [phone], Insurance Providers Payer Name Payer Address Payer Phone Subscriber Number Group Number Insured Name Patient Relationship to Insured Coverage Start Date Coverage End Date MEDICARE NGS [address] [place] [phone] [id number] CindyJuan Self - patient is the insured [facility] [address] [place], [place] [id number] [phone] [id number] Juan White Self - patient is the insured Medical (General) History Medical History History ICD Code hearing loss-sensorineural Raynauds disease Bursitis right shoulder BPH Hypothroidism irritable bowel syndrome osteoarthritis colonic polyps depression, on lithium 2003 bilateral inguinal hernias former smoker acquired hypothyroidism right shoulder pain Premature ventricular contractions January 2023 Surgical History Surgery Date(Month/Year) Molar removed 08/2023 knee surgery right 08/2019 colonoscopy, ,normal 10/2018 vasectomy 1970 minimal left direct inguinal hernia repa ir 06/1994 inguinal hernia repair bilateral direct 09/1987
--- OUTSIDE RECORDS SUMMARY | 2024-12-14 13:35 | XMS_ITS ---
Author Organization Frederick Spaulding III, MD Address [address] [place] [address] Care Team Providers Care Clinical Project Assistant Name Role Phone Frederick Spaulding Primary Care Provider [phone] Allergies Allergen (clinical drug ingredient) Drug/Non Drug [...] Date Provider Diagnosis Frederick Spaulding III, MD [address] [place] [address] [place] [address] 08/18/2024 Frederick Spaulding Prostate cancer C61 ; [...] day Pending Test Test Name Order Date PROFILE, FASTING (COMPREHENSIVE METABOLI C) 08/18/2024 BONE DENSITY DEXA 08/18/2024 CBC WITH AUTO DIFF 08/18/2024 Lipid Panel 08/18/2024 Vitamin D 25-OH Total 08/18/2024 Next Appt Details Follow Up: 3 Months, Reason: OV Provider Name:Frederick Spaulding, 12/18/2024 02:15:00 PM, [address] [place] [address] [address], [place], [address], Provider Name:Frederick Spaulding, 04/19/2025 03:00:00 PM, [address] [place] [address] [address], [place], [address], Progress Notes * Juan DELGADODOB: [birth year] (83 yo M)Acc No.[id number]:08/18/2024 Progress Notes Patient:?Juan Delgado Virgie Provider:?Frederick Spaulding MD :[id number]???Age:83 Y???Sex:Male Curt e:08/18/2024 Address:[address] [place] [address] , [place] [place]-[id number] Subjective: * Chief Complaints: * ???OverweightHypothyroidHype rlipidemiaHearing lossBPHAnxiety and depressionHypertensionProstate cancerOsteoporosis * HPI: ???COVID-19 Screening:? He returns for medical management of his [...] is up-to-date with his visits to urology. ?Questions?Have you experienced fever, chills, cough, sore throat, shortness of breath, difficulty breathing, muscle aches, loss of taste or smell??No ?Have you been exposed to the virus within the last 10 days??No ?Have you travelled internationally in the last 10 days??No ?Have you been exposed to COVID-19 in the past??No * ROS:?General/Constitutional:?pain?only normal aches and pains.?Chills?denies.?Fatigue?admits.?Fever?denies.?ENT:?Decreased hearing?in both ears.?Respiratory:?Cough?denies.?Cardiovascular:?Chest pain with exertion?denies.?Dyspnea on exertion?denies.?Shortness of breath?denies.?Gastrointestinal:?Constipation?occasional.?Decreased appetite?denies.?Diarrhea?denies.?Heartburn?occasional.?Nausea?denies.?Rectal bleeding?denies.?Vomiting?denies.?Hematology:?bruising?denies.?petechiae?denies.?Swollen glands?none have been noted.?Genitourinary:?Frequent urination?twice a night.?Musculoskeletal:?Muscle aches?denies.?Painful joints?denies.?Sciatica?denies.?Weakness?denies.?Skin:?Itching?denies.?Rash?denies.?Skin lesion(s)?denies.?Neurologic:?Difficulty speaking?denies.?Dizziness?denies.?Headache?denies.?Low back [...] diabetes, myocardial infarction, stroke, diagnosed with DM, CVD.?2 brother(s) - healthy. 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 He was exposed to solvents but not to benzene. He has been to [place] since 1960. He lives in [place], [place]. * Medications:?TakingAtorvasta tin Calcium 10 MG Tablet TAKE 1 TABLET [...] - Allergyno[Allergies Verified] Objective: * Vitals:?Ht: 68, Wt:168, BMI: 25.54, BP:139/75, HR:68, Temp:98.6, Wt-k.2. * ???Past Orders: Lab:Magnesium * Order Date 08/12/2024 02/25/2023 Magnesium 2.3 (Ref Range: 1.6-2.6 mg/dL) 2.1 (Ref Range: 1.6-2.6 mg/dL) * Lab:Comprehensive [place]. Pane l Fast * Order Date 08/12/2024 [...] (Ref Range: 12-20) 14 (Ref Range: 12-20) 11?L (Ref Range: 12-20) Blood Urea Nitrogen 19?H (Ref Range: 9-16 mg/dL) 18?H (Ref Range: 9-16 mg/dL) 18?H (Ref Range: 9-16 mg/dL) Creatinine 1.04 (Ref Range: 0.5-1.4 mg/dL) 1.01 (Ref Range: 0.5-1.4 mg/dL) 0.92 (Ref Range: 0.5-1.4 mg/dL) Estimated Glomerular Filt Rate > 60 > 60 > 60 Glucose Fasting 95 (Ref Range: 60-99 mg/dL) 96 (Ref Range: 60-99 mg/dL) 101?H (Ref Range: 60-99 mg/dL) Calcium 10.1 (Ref Range: 8.4-10.2 mg/dL) 10.5?H (Ref Range: 8.4-10.2 mg/dL) 10.3?H (Ref Range: 8.4-10.2 mg/dL) * Lab:Thyroid Stimulating [...] (Ref Range: 42.0-52.0 %) Mean Corpuscular Volume 99.0?H (Ref Range: 80.0-98.0 fL) 100.2?H (Ref Range: 80.0-98.0 fL) 97.2 (Ref Range: 80.0-98.0 fL) Mean Corpuscular Hemoglobin 33.0 (Ref Range: 27.0-33.0 pg) 34.1?H (Ref Range: 27.0-33.0 pg) 32.5 (Ref [...] (Ref Range: 160-400 X10*3/uL) Mean Platelet Volume 8.8?L (Ref Range: 9.4-12.4 fL) 8.6?L (Ref Range: 9.4-12.4 fL) 8.4?L (Ref Range: 9.4-12.4 fL) Neutrophils Percent Auto [...] - 08/12/2024) (Collection Date - 08/12/2024) ?ValueReference Range?Pohdefmyhysvh595<150 - mg/dL ?Jlgtzjykfbl809<200 - mg/dL?LDL Cholesterol Dflovzvsex44<100 - mg/dL?HDL Twcvnaxogrk87C>40 - mg/dL * Examination: ???General Examination: ?GENERAL APPEARANCE:?pleasant, well nourished, well developed, in no acute distress, calm and relaxed , overweight , elderly man.?HEAD:?atraumatic, normocephalic.?EYES:?eomi, perrla, anicteric, conjugate.?EARS:?normal.?NOSE:?septum intact.?ORAL CAVITY:?normal, unremarkable.?NECK/THYROID:?no jugular venous distention, no carotid bruit, thyroid normal.?LYMPH NODES:?no enlarged lymph nodes,spleen normal.?SKIN:?no suspicious lesions, anicteric.?HEART:?no clicks, gallops, murmurs, or rubs, regular rhythm, S1, S2 normal, no s3, or vascular bruits.?LUNGS:?clear to auscultation .?BREASTS:??no masses palpable bilaterally.?ABDOMEN:?bowel sounds normal, no ascites, no organomegaly, no mass , overweight.?RECTAL EXAM:?not examined.?MUSCULOSKELETAL:?extremities unremarkable, no clubbing, cyanosis or edema, Arthritic changes hands and fingers.?PERIPHERAL PULSES:?normal.?NEUROLOGIC:?alert and oriented, cranial nerves 2-12 grossly intact, deep tendon reflexes 2+ symmetrical, motor strength normal upper and lower extremities, sensory exam intact.?PSYCH:?alert, oriented , anxious appearing , mood depressed.? Assessment: * Assessment: 1.?Prostate cancer - C61 (Pr brooke), He reports he has finished his Lupron. His PSA has risen to 0.13 but is still less than 1.0.?2.?Mixed hyperlipidemia - E78.2, His lipids are currently stable and no change in his regimen as needed.?3.?Overweight (BMI 25.0-29.9) - E66.3, He is very slightly overweight at the age of 83. We will stabilize his weight at this level and continue to consume a healthy Mediterranean diet.?4.?Osteoporosis, unspecified osteoporosis type, unspecified pathological fracture presence - M81.0, He was continued on his current treatment. 5.?Acquired hypothyroidism - E03.9, He has been compliant with his medication. Comprehensive blood work with a TSH shows normal thyroid function.?6.?History of depression - Z86.59, He is now on lithium and bupropion. His renal function will be followed.?7.?Former smoker - Z87.891, He is highly motivated not to smoke. We discussed gusto plan to prevent relapse in times of stress and illness.? Plan: * Treatment: 2.?Mixed hyperlipidemia?LAB: PROFILE, FASTING (COMPREHENSIVE METABOLIC) ?LAB: CBC WITH AUTO DIFF ?LAB: Lipid Panel ?LAB: Vitamin D 25-OH Total 3.?Overweight (BMI 25.0-29.9 )?LAB: PROFILE, FASTING (COMPREHENSIVE METABOLIC) ?LAB: CBC WITH AUTO DIFF ?LAB: Lipid Panel ?LAB: Vitamin D 25-OH Total 4.?Osteoporosis, unspecified osteoporosis type, unspecified pathological fracture presence?LAB: Vitamin D 25-OH Total ?Imaging: BONE DENSITY DEXA 5.?Others? Continue Levothyroxine Sodium Tablet, 50 MCG, TAKE 1 TABLET BY MOUTH IN THE MORNING ON AN EMPTY STOMACH;?Continue Atorvastatin Calcium Tablet, 10 MG, TAKE 1 TABLET BY MOUTH DAILY;?Continue Magnesium Glycinate Capsule, 100 MG, as directed, Orally;?Continue buPROPion HCl ER (SR) Tablet Extended Release 12 Hour, 100 MG, 2 tablets, Orally, Once a day.?? * Procedure Codes:? * Preventive Medicine:? ??Counseling:?Care goal follow-up plan:?Counseling for abnormal BMI given?Yes ?Above Normal BMI Follow-up?Dietary needs education ?Smoking/Tobacco Use?Patient counseled on the dangers of tobacco use and urged to quit.?08/18/2024 * Follow Up:?3 Months (Reason: OV) * Images: * Sign off status: Completed true * Provider:?Frederick Spaulding MD Date:?08/02 Generated for Printi ng/Fadeacong/eTransmitting on:?12/14/2024 01:35 PM EST History and Physical Notes * HPI (History of Present Illness) Category Sub-Category Detail Notes COVID-19 Screening Questions Have you had any new onset fever, chills, cough, congestion, sore throat, shortness of breath, muscle aches?: No Have you been exposed to the virus withi n the last 10 days?: No Have you travelled internationally in [facility] last 10 days?: No Have you been [...]
[2024-12-14 14:00] LABS: Alanine Aminotransferase 42 U/L (0-40); Albumin Level 4.5 g/dL (3.5-5.0); Alkaline Phosphatase 49 U/L (39-117); Anion Gap 9 (12-20); Aspartate Amino Transferase 33 U/L (5-37); Bilirubin Total 0.7 mg/dL (0.0-1.0); Blood Urea Nitrogen 23 mg/dL (9-16); Calcium 9.8 mg/dL (8.4-10.2); Carbon Dioxide 30 mmol/L (22-29); Chloride 108 mmol/L (96-108); Cholesterol 163 mg/dL (<200); Estimated Glomerular Filt Rate > 60; Glucose Fasting 89 mg/dL (60-99); HDL Cholesterol 38 mg/dL (>40); LDL Cholesterol Calculated 102 mg/dL (<100); Potassium 4.2 mmol/L (3.3-5.1); Sodium 143 mmol/L (135-145); Total Protein 7.1 g/dL (6.5-8.0); Triglycerides 117 mg/dL (<150)
[2024-12-14 14:17] LABS: Vitamin D 25-OH Total 78.8 ng/mL (>30)
== END 2024-12-14 11:30 | disposition home or self-care (01) ==
LOC: HO.HMGCLDS 11:29
PROVIDERS: PCP Internal Medicine Medical Oncology; Visit Provider Internal Medicine Medical Oncology
DX: E78.2 Mixed hyperlipidemia (principal); E66.3 Overweight; M81.0 Age-related osteoporosis without current pathological fracture
CPT/HCPCS: 36415; 80053; 80061; 82306; 85025

== ENCOUNTER 2025-04-23 14:43 | Outpatient (REF) | payer MEDICARE, SELFPAY ==
--- OUTSIDE RECORDS SUMMARY | 2025-04-23 14:45 | XMS_ITS ---
Author Organization Frederick Spaulding III, MD Address [address] [place] [address] Care Team Providers Care Wet Inspector Optical Glass Name Role Phone Frederick Spaulding Primary Care Provider [phone] Allergies Allergen (clinical drug ingredient) Drug/Non Drug Allergy documented on EMR Reaction Allergy Type Onset Date Status Simvastatin body ache Drug Allergy Activ e acetaminophen / oxycodone Percocet nausea Drug Allergy [...] 2 tablets Orally Once a day Active Triana Carbonate 150 MG 1 capsule Orall y [...] Date Provider Diagnosis Frederick Spaulding III, MD [address] [place] [address] [address] [place], [place] [address] 04/19/2025 Frederick Spaulding Prostate cancer C61 ; [...] loss. He purchased his hearing aids at [employer]. He is concerned that his hearing is [...] MG 2 tablets Orally Once a day Triana Carbonate 150 MG 1 capsule Orally Twice [...] Up: 3 Months, Reason: OV Provider Name:Frederick Goncalvesrne, 07/20/2025 02:15:00 PM, [address] [facility] [place], [place], [address], Provider Name:Frederick Goncalvesrne, 04/20/2026 03:00:00 PM, [address] [facility] [place], [address], Progress Notes * Juan DELGADODOB: [birth year] (84 yo M)Acc No.[id number]:04/19/2025 Progress Notes Patient:?Juan DELGADO Provider:?Frederick Spaulding MD :1940???Age:84 Y???Sex:Male Curt e:04/19/2025 Address:[address] [place] [address] , [facility] [id number] Subjective: * Chief Complaints: * ???Annual Exam * HPI: ???Depression Screening:?PHQ-9?Little interest or pleasure in doing things?Not at all ?Feeling down, depressed, or hopeless?Not at all ?Trouble falling or staying asleep, or sleeping too much?Several days ?Feeling tired or having little energy?Not at [...] yourself in some way?Not at all ?Total Score?1 ?Interpretation?Minimal Depression ?He returns to the office at the age of 84 for his annual physical examination.? On April 07, 2025.? He had a fall at home and landed on his face.? He had some significant pain in his left anterior chest but that has now resolved.? I have refilled his alendronate.? I have answered all of their questions he had at length.? On examination, he has had a couple of premature ventricular contractions.? His testosterone level is 200 at the urologist. ???COVID-19 Screening:?Questions?Have you had any new onset fever, chills, cough, congestion, sore throat, shortness of breath, muscle aches??No ???SDOH Questions:?SDOH Questions?In the past year have you been worried about losing your housing??No ?In the past year have you or any family members you live with been unable to get any of the following when it was really needed? Check all that apply:?None ???Fall Risk Screening:?Fall History?Have you had any falls with injury in the past year??No ?Have you had two or more falls in the past year??No ?Fall Risk Assessment:?One fall without injury in the past year * ROS:?General/Constitutional:?pain?only normal aches and pains.?Chills?denies.?Fatigue?admits.?Fever?denies.?ENT:?Decreased hearing?mild.?Respiratory:?Cough?denies.?Cardiovascular:?Chest pain with exertion?denies.?Dyspnea on exertion?denies.?Shortness of breath?denies.?Gastrointestinal:?Constipation?denies.?Decreased appetite?denies.?Diarrhea?denies.?Heartburn?denies.?Nausea?denies.?Rectal bleeding?denies.?Vomiting?denies.?Hematology:?bruising?denies.?petechiae?denies.?Swollen glands?none have been noted.?Genitourinary:?Frequent urination?twice a night.?Musculoskeletal:?Muscle aches?denies.?Painful joints?denies.?Sciatica?denies.?Weakness?denies.?Skin:?Itching?denies.?Rash?denies.?Skin lesion(s)?denies.?Neurologic:?Difficulty speaking?denies.?Dizziness?denies.?Headache?denies.?Low back pain?denies.?Psychiatric:?Depressed mood?denies.? * Medical History:? * Surgical History:?inguinal h ernia repair bilateral direct 09/1987minimal left direct inguinal hernia repair 06/1994vasectomy 1970colonoscopy, ,normal 10/2018knee surgery right 08/2019Molar removed 08/2023No history * Hospitalization/Major Diagno stic Procedure:?No history * Family History:?Father: dece ased 57 yrs, Childhood rheumatic fever, coronary artery disease, diagnosed with CVD.?Mother: 92 yrs, Dementia, adult-onset diabetes, myocardial infarction, stroke, diagnosed with CVD, DM.?Son(s): alive.?Siblings: alive.?2 brother(s) - healthy. 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 He worked in [employer] for [employer]. He was exposed to solvents but not to benzene. He has been to [employer] since 1960. He lives in [place], [place]. * Medications:?TakingAlendrona te Sodium 70 MG Tablet 1 tablet 30 [...] Hour 2 tablets Orally Once a day Triana Carbonate 150 MG Capsule 1 capsule Orally [...] 2 tablets Orally Once a day Taking Triana Carbonate 150 MG Capsule 1 capsule Orally [...] - Allergyno[Allergies Verified] Objective: * Vitals:?Ht: 68, Wt:167, BMI: 25.39, BP:131/67, HR:66, Temp:97.9, Wt-k.75. * Examination: ???General Examination: ?GENERAL APPEARANCE:?pleasant, well nourished, well developed, in no acute distress, calm and relaxed, overweight, man.?HEAD:?atraumatic, normocephalic.?EYES:?eomi, perrla, anicteric, conjugate.?EARS:?Normal anatomy with bilateral hearing loss.?NOSE:?septum intact.?ORAL CAVITY:?normal, unremarkable.?NECK/THYROID:?no jugular venous distention, no carotid bruit, thyroid normal.?LYMPH NODES:?no enlarged lymph nodes,spleen normal.?SKIN:?no suspicious lesions, anicteric.?HEART:?no clicks, gallops, murmurs, or rubs, regular rhythm, S1, S2 normal, no s3, or vascular bruits.?LUNGS:?clear to auscultation .?BREASTS:??no masses palpable bilaterally.?ABDOMEN:?bowel sounds normal, no ascites, no organomegaly, no mass, overweight, Right inguinal herniorrhaphy scar.?RECTAL EXAM:?not examined.?MUSCULOSKELETAL:?extremities unremarkable, no clubbing, cyanosis or edema.?PERIPHERAL PULSES:?normal.?NEUROLOGIC:?alert and oriented, cranial nerves 2-12 grossly intact, deep tendon reflexes 2+ symmetrical, motor strength normal upper and lower extremities, sensory exam intact.?PSYCH:?alert, oriented.? Assessment: * Assessment: 1.?Prostate cancer - C61 (Pr brooke)???Notes :He reports he has finished his Lupron. His PSA has risen to 0.13 but is still less than 1.0.It has remained low. The value will be followed periodically. He will continue with urology.???2.?Acquired hypothyroidism - E03.9???Notes :He has been compliant with his medication. Comprehensive blood work with a TSH shows normal thyroid function.???3.?Mixed hyperlipidemia - E78.2???Notes :His lipids are currently stable and no change in his regimen as needed.His total cholesterol is 163.???4.?Sensorineural hearing loss (SNHL) of both ears - H90.3???Notes :He has progressive high frequency hearing loss. He purchased his hearing aids at [employer]. He is concerned that his hearing is worse in one year then the other. I have referred him to ENT for evaluation and management.???5.?Benign prostatic hyperplasia with lower urinary tract symptoms - N40.1???Notes :He arises from sleep once or twice a night to urinate. We had discussed lifestyle modification as a way to reduce nocturia.???6.?History of depression - Z86.59???Notes :He is now on lithium and bupropion. His renal function will be followed.???7.?Osteoarthritis involving multiple joints on both sides of body - M15.9???Notes :He continues to have mild shoulder pain and occasional hip and knee pain. He is able to accomplish all of the activities of daily living. His current regimen was continued.???8.?Former smoker - Z87.891???Notes :He is highly motivated not to smoke. We discussed gusto plan to prevent relapse in times of stress and illness.???9.?History of inguinal hernia - Z87.19???Notes :There is no sign of inguinal herniation today.???10.?Overweight - E66.3???Notes :He is very slightly overweight. No change in his diet was recommended. I recommended he keep his weight at this level.??? Plan: * Treatment: 2.?Others? Continue Atorvastatin Calcium Tablet, 10 MG, TAKE 1 TABLET BY MOUTH DAILY;?Continue Levothyroxine Sodium Tablet, 50 MCG, TAKE 1 TABLET BY MOUTH IN THE MORNING ON AN EMPTY STOMACH;?Continue Magnesium Glycinate Capsule, 100 MG, as directed, Orally;?Continue buPROPion HCl ER (SR) Tablet Extended Release 12 Hour, 100 MG, 2 tablets, Orally, Once a day.?? * Procedure Codes:? * Preventive Medicine:? ??Counseling:?Care goal follow-up plan:?Counseling for abnormal BMI given?Yes ?Above Normal BMI Follow-up?Dietary management education, guidance, and counseling, Dietary needs education ?Smoking/Tobacco Use?Patient counseled on the dangers of tobacco use and urged to quit.?04/19/2025 * Follow Up:?3 Months (Reason: OV) * Images: * Sign off status: Completed true * Provider:?Frederick Spaulding MD Date:?04/01 Generated for Nabil clarke/Elizabeth/Bayitting on:?04/23/2025 02:45 PM EDT History and Physical Notes * HPI (History [...]
[2025-04-30 14:54] LABS: Testosterone, Free 23.3 pg/mL (30.0-135.0); Testosterone, Total 338 ng/dL (250-1100)
== END 2025-04-23 14:44 | disposition home or self-care (01) ==
LOC: HO.LAB 14:43
PROVIDERS: PCP Internal Medicine Medical Oncology; Visit Provider Urology
DX: C61 Malignant neoplasm of prostate (principal); Z12.5 Encounter for screening for malignant neoplasm of prostate
CPT/HCPCS: 36415; 84153; 84402; 84403

== ENCOUNTER 2025-04-27 13:33 | Outpatient (AMB) | payer MEDICARE, SELFPAY ==
--- OUTSIDE RECORDS SUMMARY | 2025-04-27 13:40 | XMS_ITS ---
Author Organization Frederick Spaulding III, MD Address [address] [place] [address] Care Team Providers Care Events Associate Name Role Phone Frederick Spaulding Primary Care Provider [phone] Allergies Allergen (clinical drug ingredient) Drug/Non Drug [...] 2 tablets Orally Once a day Active Wyatt Carbonate 150 MG 1 capsule Orall y [...] Date Provider Diagnosis Frederick Spaulding III, MD [address] [place] [address] [address] [place], [place] [address] 04/19/2025 Frederick Spaulding Prostate cancer C61 ; [...] loss. He purchased his hearing aids at [employer]. He is concerned that his hearing is [...] MG 2 tablets Orally Once a day Wyatt Carbonate 150 MG 1 capsule Orally Twice [...] Provider Name:Frederick Goncalvesrne, 07/20/2025 02:15:00 PM, [address] [facility] [place], [place], [address], Provider Name:Frederick Goncalvesrne, 04/20/2026 03:00:00 PM, [address] [facility] [place], [address], Progress Notes * Juan DELGADODOB: [birth year] (84 yo M)Acc No.[id number]:04/19/2025 Progress Notes Patient:?Juan DELGADO Provider:?Frederick Spaulding MD :1940???Age:84 Y???Sex:Male Curt e:04/19/2025 Address:[address] [place] [address] , [facility] [id number] Subjective: * Chief Complaints: * ???Annual Exam [...] Tobacco Non-User?Ex-cigarette smoker ???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 He worked in [employer] for [employer] He was exposed to solvents but not to benzene. He has been to [place] since 1960. He lives in [place], [place]. * Medications:?TakingAlendrona te Sodium 70 MG [...] Hour 2 tablets Orally Once a day Wyatt Carbonate 150 MG Capsule 1 capsule Orally [...] 2 tablets Orally Once a day Taking Wyatt Carbonate 150 MG Capsule 1 capsule Orally [...] loss. He purchased his hearing aids at [employer]. He is concerned that his hearing is [...] Spaulding MD Date:?04/01 Generated for Nabil clarke/Elizabeth/Bayitting on:?04/27/2025 01:40 PM EDT History and Physical Notes * [...] all Thoughts that you would be b setffanie off or of hurting yourself in some [...]
--- NOTE | 2025-04-27 13:51 | MHC.OFFVIS ---
Intake Visit Reasons: 6m/LABS(LABS?) Intake Note: Patient is present for 6M/PSA Urology Medication:NONE Antibiotic Allergy:NONE Blood Thinner:NONE Cadmium Liquor Maker Required: No Allergies acetaminophen [From Darvocet-N] Allergy (Intermediate, Verified 04/27/25 13:51) Nausea and Vomiting oxycodone Allergy (Intermediate, Verified 04/27/25 13:51) nausea and vomiting propoxyphene [From Darvocet-N] Allergy (Intermediate, Verified 04/27/25 13:51) Nausea and Vomiting HPI Comments Details: Juan is a very pleasant male. He is a patient of Dr. Spaulding. He seen for the following urologic condition - Prostate cancer - hematuria - lower urinary tract symptoms - osteoporosis - nephrolithiasis Telemedicine Evaluation 15 min Consultation [facility] Lidia Video Good urine control No episodes of blood Discussed current results 11/23 Cystoscopy with bladder stone and neovascularity - laser Labs - 04/23 PSA <0.1, T 251, 07/24 <0.1, 12/25 <0.1, 04/24 <0.1, 10/25 0.13, 04/25 0.20 testosterone pending Occasional blood in urine - particularly with hematuria during exercise Persistent osteoporosis - Dr. 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 Seminal vesicle inv.: Not identified. Perineural inv.: Present. LVI: Not identified The [place] (NCCN) risk category is - High Risk (PSA > 20, Gl 8+, T3). Initial therapy included Primary treatment. -XRT with hormonal therapy XRT completed April 2021 [facility] - 7800 Gy 39 fractions GnRH administation - Last Shot - 12/23 Imaging included Initial Staging - 10/21 MRI showing PI-RADS lesion on right lateral side, question of 1.2 cm pelvic lymph node and question of L5 spinal lesion, no evidence for RAJVI - 11/20 bone scan reported as negative Associated conditions - erectile dysfunction yes Osteoporosis Evaluation - 01/23 DEXA scan osteoporosis - 10/23 DEXA osteoporosis Lower urinary tract symptoms - Greenlight incision 01/25 Had been on terazosin Ankle swelling Switched to alfuzosin Prior laser and diode procedure to 2018 - does not tolerate catheter well Greenlight 01/25 PFS Medical History Osteoarthritis Depression HTN (hypertension) BPH (benign prostatic hyperplasia) Hearing loss Elevated cholesterol Prostate cancer Thyroid disease Hematuria Renal stones Elevated PSA Enlarged prostate without lower urinary tract symptoms (luts) Surgical History Hx of right knee surgery Hx of prostate biopsy Hx of hernia repair Hx of cystoscopy Hx of vasectomy Social History Patient Tobacco Use Status: Former Tobacco user Review of Systems Const All systems reviewed & are unremarkable except as noted in HPI and below Reports no additional complaints Resp Reports no additional complaints GI Reports no additional complaints Reports as per HPI Musc Reports no additional complaints Physical Exam Telemedicine evaluation Appropriate responses Regular breathing rate and rhythm HEENT Head: Yes normal to inspection Ears: hearing grossly normal bilaterally Eyes General: appearance normal, both eyes and all related structures Neck Neck: Yes normal visual inspection Chest Chest palpation & inspection: normal inspection of the chest Resp Effort & Inspection: normal respiratory effort and able to speak in complete sentences Telehealth Telehealth Telehealth Platform: Telephone Location of provider rendering services: practice address Location of patient: address on file Patient Identification confirmed using: Name, : Yes Telehealth method: voice only Patient verbally consented to treatment: Yes Patient verbally consented to billing insurance company: Yes Patient informed of any privacy concerns related to visit: Yes Assessment & Plan Assessment & Plan (1) BPH loc w urin obs/LUTS: Code(s): N40.1 - Benign prostatic hyperplasia with lower urinary tract symptoms Category: Medical (2) Prostate cancer: Comment: High-grade treatment with external beam radiation hormones 11/20 Code(s): C61 - Malignant neoplasm of prostate Category: Medical (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 While every effort has been made to ensure accuracy equity sales assistant errors may have been included. Imaging studies, laboratory and physical exam results were discussed and reviewed in detail. No major barriers to patient understanding were identified. An opportunity to ask questions regarding the treatment plan was provided. All questions were answered. The patient expressed understanding and agreement with the above treatment plan. The patient is aware they should contact our office by phone for worsening of their current condition or the appearance of new urologic symptoms. Compliance is encouraged with any medications and followup testing that is ordered. It is a privilege to participate in the urologic care of your patient. If you have any questions or concerns regarding treatment for the above conditions, or other urologic issues, please do not hesitate to contact me. The office telephone contact is [phone]. 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
== END 2025-04-27 14:38 | disposition home or self-care (01) ==
LOC: HO.HUSH 13:33
PROVIDERS: PCP Internal Medicine Medical Oncology; Visit Provider Urology
DX: N40.1 Benign prostatic hyperplasia with lower urinary tract symptoms (principal); C61 Malignant neoplasm of prostate; N30.40 Irradiation cystitis without hematuria
CPT/HCPCS: 99213; G2211

== ENCOUNTER → 2025-04-27 13:33 | Outpatient (BNVA) | payer MEDICARE, SELFPAY | PROVIDERS: PCP Internal Medicine Medical Oncology; Visit Provider Urology ==

== ENCOUNTER 2025-07-14 11:57 | Outpatient (REF) | payer MEDICARE, SELFPAY ==
--- OUTSIDE RECORDS SUMMARY | 2025-03-01 10:27 | XMS_ITS ---
Author Organization Frederick Spaulding III, MD Address [address] [place] [address] [place] [address] Care Team Providers Care Dead Mail Checker Name Role Phone Frederick Spaulding Primary Care Provider [phone] REASON FOR VISIT Restarting Alendronate Sodium 70mg tablet Social History Sex Assigned At : Social History Observation Description Sex Assigned At Male Encounters Encounter Location Date Provider Diagnosis Frederick Spaulding III, MD [address] [place] [address] [place] [address] 03/01/2025 Frederick Spaulding Plan Of Treatment Next Appt Details Provider Name:Frederick Spaulding, 07/20/2025 02:15:00 PM, [address] [place] [address] [place], [address], Provider Name:Frederick Spaulding, 04/20/2026 03:00:00 PM, [address] [place] [address] [place], [address], Progress Notes * Juan DELGADODOB: [birth year] (84 yo M)Acc No.[id number]:03/01/2025 Patient: Juan JORDAN :1940 A ge:84 Y S ex:Male Address:[address] [place] [address] [address] [place], [phone] * true * Date: Generated for Printi ng/Faxing/eTransmitting on: 0 07/14/2025 12:46 PM EDT
[2025-07-14 12:12] LABS: MANUAL DIFF FLAG NO
[2025-07-14 12:33] LABS: Hematocrit 44.5 % (42.0-52.0); Hemoglobin 15.1 g/dl (14.0-18.0); Imm Gran Abs Auto 0.02 X10*3/uL (0.00-0.03); Imm Gran Pct Auto 0.3 % (0.0-0.4); Lymphocytes Absolute Auto 1.3 X10*3/uL (1.2-4.9); Mean Corpuscular HGB Conc 33.9 g/dl (31.0-36.0); Mean Corpuscular Hemoglobin 32.3 pg (27.0-33.0); Mean Corpuscular Volume 95.3 fL (80.0-98.0); NRBC Abs Auto 0.000 X10*3/uL (0.0-0.012); NRBC Pct Auto 0.0 /100WBC (0.0-0.2); Platelet Count 226 X10*3/uL (160-400); Red Blood Count 4.67 X10*6/uL (4.60-5.80); White Blood Count 6.0 X10*3/uL (4.8-10.8)
--- OUTSIDE RECORDS SUMMARY | 2025-07-14 12:46 | XMS_ITS | Encounter Summary ---
Author Organization [facility] Address [address] [facility] [address] [place] [address] Phone Care Team Providers Care Cardiovascular Radiologic Technologist Name Role Phone Frederick Spaulding MD Primary Care Provider [phone] Encounter Details Date Type Department Care Team (Late st Contact Info) Description 12/14/2020 Ancillary Orders [facility] [place],Outside Imaging [address] [place] [address] System, Provider Not In, PhD [address] [address] Social History Tobacco Use Types Packs/Day Years Used Date Smoking Tobacco: Never Assessed Sex and Gender Information Value Date Recorded Sex Assigned at Male 04/11/2023 2:47 PM EDT Legal Sex Male 10:12 PM EDT Gender Identity Male 04/11/2023 2:47 PM EDT Sexual Orientation Not on file documented as of this encounter Plan of Treatment Upcoming Encounters Date Type Department Care Team (Late st Contact Info) Description 06/07/2026 1:45 PM EDT Office Visit [facility] [address] [facility] [address] Floor, [address] [place], [place] [id number] Neil Alcantara DO [address] [facility] [address] [place] [id number] [email or web address] documented as of this encounter Results * NM Bone Outside (No Interpretation) (11/30/2020 12:00 AM EST) Narrative SYSTEMGENERATED, DOCUMENTATION - 12/14/2020 11:00 AM EST This study is for PACS storage only and not for interpretation. us Provider Not In System PhD IMG OUTSIDE IMAGING W /OUT INTERPRETATION Final Result * US Pelvis Outside (No Interpretation) (11/08/2020 12:00 AM EST) Narrative SYSTEMGENERATED, DOCUMENTATION - 12/14/2020 11:01 AM EST This study is for PACS storage only and not for interpretation. us Provider Not In System PhD IMG OUTSIDE IMAGING W /OUT INTERPRETATION Final Result documented in this encounter Visit Diagnoses Not on filedocumented in this encounter Care Teams Cardiovascular Radiologic Technologist Relationship Specialty Start Date End Date Frederick Spaulding MD [address] [place] [address] PCP - General Medical Oncology 12/09/20 documented as of this encounter Additional Source Comments The information contained in this document represents components of the legal health record. It is not the complete legal health record.[facility]
[2025-07-14 12:58] LABS: Alanine Aminotransferase 48 U/L (0-40); Albumin Level 4.7 g/dL (3.5-5.0); Alkaline Phosphatase 45 U/L (39-117); Anion Gap 11 (12-20); Aspartate Amino Transferase 36 U/L (5-37); Blood Urea Nitrogen 24 mg/dL (9-16); Calcium 9.5 mg/dL (8.4-10.2); Carbon Dioxide 27 mmol/L (22-29); Chloride 110 mmol/L (96-108); Cholesterol 177 mg/dL (<200); Estimated Glomerular Filt Rate > 60; HDL Cholesterol 44 mg/dL (>40); Potassium 4.8 mmol/L (3.3-5.1); Sodium 143 mmol/L (135-145); Total Protein 7.0 g/dL (6.5-8.0); Triglycerides 80 mg/dL (<150)
[2025-07-14 13:18] LABS: Prostate Specific Antigen 0.21 ng/mL (<0.05-4.0)
== END 2025-07-14 11:58 | disposition home or self-care (01) ==
LOC: HO.LAB 11:57
PROVIDERS: Visit Provider Internal Medicine Medical Oncology
DX: C61 Malignant neoplasm of prostate (principal); Z13.6 Encounter for screening for cardiovascular disorders; Z12.5 Encounter for screening for malignant neoplasm of prostate
CPT/HCPCS: 36415; 80053; 80061; 84153; 85025

== ENCOUNTER 2025-10-06 16:37 | Outpatient (REF) | payer MEDICARE, SELFPAY ==
--- OUTSIDE RECORDS SUMMARY | 2024-04-14 10:00 | XMS_ITS ---
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 Frederick Spaulding III Primary Care Provider Allergies Allergen (clinical drug ingredient) Drug/Non Drug Allergy documented on EMR Reaction Allergy Type Onset Date Status simvastatin Simvastatin body ache Drug Allergy Act renay acetaminophen / oxycodone Percocet nausea Drug Allergy Active Results Component Value Reference Range Notes URINE DIP STICK Reviewed date:04/14/2024 03:07:19 PM Interpretation: Performing Lab: Notes/Report: SG 1.010 1.005 - 1.025 pH 6.0 5.0 - 9.0 RACHELE Negative Negative - NIT Negative Negative - PRO 15 Negative - Trace GLU Negative Negative - KET Negative Negative - UBG 0.2 0.1 - 1.8 GRAHAM Negative 0.2 - 1.3 BLD Positive Negative - REASON FOR VISIT Annual Exam Medications Medication SIG (Take, Route, Frequency, Duration) Notes Start Date End Date Status Alendronate Sodium 70 MG 1 tablet 30 min utes before the first food, beverage or medicine of the day with plain water Orally Once a week 11/07/2022 Active Levothyroxine Sodium 50 MCG TAKE 1 TABLE T BY MOUTH IN THE MORNING ON AN EMPTY STOMACH Active Omeprazole 20 MG 1 capsule Orally Onc e a day Active buPROPion HCl 100 MG 1 tablet Orally rosanna ry 3rd day Active buPROPion HCl ER (SR) 100 MG 2 tablets O rally Once a day Active Famotidine 20 MG 1 tablet at bedtime Orally Once a day Active Fish Oil 1200 MG 1 capsule Orally Onc e a day Active Vitamin D 1000 UNIT 1 tablet Orally Once a day Active Vitamin C 500 MG Orally Act renay Magnesium Glycinate 100 MG as directed Orally Active Atorvastatin Calcium 10 MG TAKE 1 TABLET BY MOUTH DAILY Active Social History Tobacco Use: Social History Observation Description Date Details (start date - stop date) Former Smoker NA - NA Sex Assigned At : Social History Observation Description Sex Assigned At Male Tobacco Use/Smoking Question Answer Notes Patient is a former smoker How long has it been since you last smoked? > 10 years Additional Findings: Tobacco Non-User Ex-cigaret te smoker Vital Signs Temperature 99.9 degrees Fahrenheit 04/14/20 24 Blood pressure systolic 142 mm Hg 04/14/20 24 Blood pressure diastolic 82 mm Hg 024 Heart Rate 66 /min 04/14/2024 Height 68 in 04/14/2024 Weight 165 lbs 04/14/2024 BMI 25.09 kg/m2 04/14/2024 Encounters Encounter Location Date Provider Diagnosis Frederick Spaulding III, MD [address] [place] [address] [place] [id number] 04/14/2024 Frederick Spaulding Prostate cancer C61 ; Acquired hypothyroidism E03.9 ; Mixed hyperlipidemia E78.2 ; Overweight E66.3 ; Elevated PSA R97.20 ; Hypertension I10 ; Former smoker Z87.891 ; History of depression Z86.59 and Osteoporosis, unspecified osteoporosis type, unspecified pathological fracture presence M81.0 Assessments Encounter Date Diagnosis (ICD Code) Assessment Notes Treat ment Notes Treatment Clinical Notes 04/14/2024 Prostate cancer (ICD-10 - C61) His PSA remains undetectable and his testosterone is in the appropriate low level. He testosterone value is not at castrate levels, however. He is going to see his urologist and discuss this in the near future. No change in his regimen was made today. 04/14/2024 Acquired hypothyroidism (ICD-10 - E03.9) He has been compliant with his medication. Comprehensive blood work with a TSH has been ordered prior to his next visit. 04/14/2024 Mixed hyperlipidemia (ICD-10 - E78.2) His lipid values are in their target range and his risk is low. 04/14/2024 Overweight (ICD-10 - E66.3) He is very slightly overweight. No change in his diet was recommended. I recommended he keep his weight at this level. 04/14/2024 Elevated PSA (ICD-10 - R97.20) The elevated PSA of 7-lead to a diagnosis of prostate cancer 4+4 equals 8 treated with radiation therapy. He remains in remission at this time. 04/14/2024 Hypertension (ICD-10 - I10) His blood pressure today was 142/82 and no change in his regimen was necessary today. He will come to the office next visit to have his vital signs measured. 04/14/2024 Former smoker (ICD-1 0 - Z87.891) He is highly motivated not to smoke. We discussed gusto plan to prevent relapse in times of stress and illness. 04/14/2024 History of depressio n (ICD-10 - Z86.59) He is now on lithium and bupropion. His renal function will be followed. 04/14/2024 Osteoporosis, unspecified osteoporosis type, unspecified pathological fracture presence (ICD-10 - M81.0) He will stop the alendronate until the issue of the jaw pain is clarified. Plan Of Treatment Medication Medication Name Sig Start Date Stop Date Notes Alendronate Sodium 70 MG 1 tablet 30 min utes before the first food, beverage or medicine of the day with plain water Orally Once a week 11/07/2022 Levothyroxine Sodium 50 MCG TAKE 1 TABLE T BY MOUTH IN THE MORNING ON AN EMPTY STOMACH Omeprazole 20 MG 1 capsule Orally Once a day buPROPion HCl 100 MG 1 tablet Orally every 3rd day buPROPion HCl ER (SR) 100 MG 2 tablets Orally Once a day Famotidine 20 MG 1 tablet at bedtime Orally Once a day Fish Oil 1200 MG 1 capsule Orally Once a day Vitamin D 1000 UNIT 1 tablet Orally Once a day Vitamin C 500 MG Orally Magnesium Glycinate 100 MG as directed Orally Atorvastatin Calcium 10 MG TAKE 1 TABLET BY MOUTH DAILY Next Appt Details Follow Up: 4 Months, Reason: OV Provider Name:Frederick Spaulding , 11/03/2025 02:00:00 PM, [address] [place] [address] [address], [place], [id number], Provider Name:Frederick Spaulding , 04/20/2026 03:00:00 PM, [address] [place] [address] [address], [place], [phone], Progress Notes * Juan DELGADO JDOB: [birth year] (83 yo M)Acc No.[id number]:04/14/2024 Progress Notes Patient: Juan Colon Provider: Sinai Spaulding MD :1940 A ge:83 Y S ex:Male Date:04/14/2024 Address:[address] [place] [address] , [facility], [id number] Subjective: * Chief Complaints: * A nnual Exam * HPI: D epression Screening: He returns to the office at the age of 83, for his annual physical examination. He looks and feels well today. In November of 2023. He had a another laser prostatectomy and was slow to recover. He still urinates 2 or 3 times a night but does not have a catheter. His anxiety and depression have iimproved. His psychiatrist has discontinued the liithium. His had no bleeding or chest pain.His hearing loss is unchanged. His depression is sttable. His arthritis is stable and he is not smoking. His blood pressure was normal today. He has been compliant with all of his medications. He says he is no longer receiving injections of Eligard. PHQ-9 L ittle interest or pleasure in doing things?Not at all F eeling down, depressed, or hopeless N ot at all T rouble falling or staying asleep, or sleeping too much N ot at all F eeling tired or having little energy N ot at all P oor appetite or overeating N ot at all F eeling bad about yourself or that you are a failure, or have let yourself or your family down N ot at all T rouble concentrating on things, such as reading the newspaper or watching television N ot at all M oving or speaking so slowly that other people could have noticed; or the opposite, being so fidgety or restless that you have been moving around a lot more than usual N ot at all T houghts that you would be better off or of hurting yourself in some way N ot at all T otal Score 0 C OVID-19 Screening: Questions H ave you experienced fever, chills, cough, sore throat, shortness of breath, difficulty breathing, muscle aches, loss of taste or smell? N o H ave you been exposed to the virus within the last 10 days? N o H ave you travelled internationally in the last 10 days? N o H ave you been exposed to COVID-19 in the past? N o S [place] Questions: SDOH Questions I n the past year have you been worried about losing your housing? N o I n the past year have you or any family members you live with been unable to get any of the following when it was really needed? Check all that apply: D ecline to answer * ROS: G eneral/Constitutional: pain n umb heels, otherwise only normal aches and pains.?Chills d enies. F atigue a dmits. F ever d enies. E NT: Decreased hearing i n both ears. R espiratory: Cough d enies. C ardiovascular: Chest pain with exertion d enies. D yspnea on exertion?denies. S hortness of breath d enies. G astrointestinal: Constipation o ccasional. D ecreased appetite t hat is not associated with weight loss. D iarrhea d enies. H eartburn d enies. N ausea d enies. R ectal bleeding d enies. V omiting d enies. H ematology: bruising d enies. p etechiae d enies. S wollen glands n one have been noted. G enitourinary: Frequent urination t hree times a night. M usculoskeletal: Muscle aches d enies. P ainful joints d enies. S ciatica d enies. W eakness d enies. S kin: Itching d enies. R june d enies. S kin lesion(s)?denies. N eurologic: Difficulty speaking d enies. D izziness d enies.?Headache d enies. L ow back pain d enies. P sychiatric: Depressed mood w hich is moderate. * Medical History: * Surgical History: i nguinal hernia repair bilateral direct 09/1987minimal left direct inguinal hernia repair 06/1994vasectomy 1970colonoscopy, ,normal 10/2018knee surgery right 08/2019Molar removed 08/2023 * Hospitalization/Major Diagno stic Procedure: D enmarisol Past Hospitalization * Family History: F ather: 57 yrs, Childhood rheumatic fever, coronary artery disease, diagnosed with CVD. M other: 92 yrs, Dementia, adult-onset diabetes, myocardial infarction, stroke, diagnosed with CVD, DM. 2 brother(s) - healthy. 1 son(s) , 1 daughter(s) - healthy. . He has a son and a daughter who are alive and well. He has 3 grandchildren alive and well. The old records indicate today. Daughter had breast cancer. His 1 brothers are healthy and well. Second oldest have Prostate Cancer. He is not aware of any family history of substance use disorder or addiction or mental illness. 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 He worked in [employer] and [employer] for [employer]. He was exposed to solvents but not to benzene. He has been to [place] since 1960. He lives in [place], [place]. * Medications: T akingMagnesium Glycinate 100 MG Capsule as directed Orally Vitamin D 1000 UNIT Tablet 1 tablet Orally Once a dayVitamin C 500 MG Capsule Orally Famotidine 20 MG Tablet 1 tablet at bedtime Orally Once a dayFish Oil 1200 MG Capsule 1 capsule Orally Once a dayOmeprazole 20 MG Capsule Delayed Release 1 capsule Orally Once a daybuPROPion HCl 100 MG Tablet 1 tablet Orally every 3rd dayAlendronate Sodium 70 MG Tablet 1 tablet 30 minutes before the first food, beverage or medicine of the day with plain water Orally Once a weekLevothyroxine Sodium 50 MCG Tablet TAKE 1 TABLET BY MOUTH IN THE MORNING ON AN EMPTY STOMACH buPROPion HCl ER (SR) 100 MG Tablet Extended Release 12 Hour 2 tablets Orally Once a dayAtorvastatin Calcium 10 MG Tablet TAKE 1 TABLET BY MOUTH DAILY Medication List reviewed and reconciled with the patientTaking Magnesium Glycinate 100 MG Capsule as directed Orally Taking Vitamin D 1000 UNIT Tablet 1 tablet Orally Once a dayTaking Vitamin C 500 MG Capsule Orally Taking Famotidine 20 MG Tablet 1 tablet at bedtime Orally Once a dayTaking Fish Oil 1200 MG Capsule 1 capsule Orally Once a dayTaking Omeprazole 20 MG Capsule Delayed Release 1 capsule Orally Once a dayTaking buPROPion HCl 100 MG Tablet 1 tablet Orally every 3rd dayTaking Alendronate Sodium 70 MG Tablet 1 tablet 30 minutes before the first food, beverage or medicine of the day with plain water Orally Once a weekTaking Levothyroxine Sodium 50 MCG Tablet TAKE 1 TABLET BY MOUTH IN THE MORNING ON AN EMPTY STOMACH Taking buPROPion HCl ER (SR) 100 MG Tablet Extended Release 12 Hour 2 tablets Orally Once a dayTaking Atorvastatin Calcium 10 MG Tablet TAKE 1 TABLET BY MOUTH DAILY Medication List reviewed and reconciled with the patient * Allergies: S imvastatin: body ache - AllergyPercocet: nausea - Allergyno[Allergies Verified] Objective: * Vitals: H t: 68, Wt:165, BMI:25.09, BP:142/82, HR:66, Temp:99.9, Wt-k.84. * P ast Orders: Lab:Complete Blood Count Aut o Diff * Order Date 04/08/2024 12/12/2023 05/14/2023 White Blood Count 7.4 (Ref Range: 4.8-10.8 X10*3/uL) 6.1 (Ref Range: 4.8-10.8 X10*3/uL) 4.8 (Ref Range: 4.8-10.8 X10*3/uL) Red Blood Count 4.81 (Ref Range: 4.60-5.80 X10*6/uL) 5.01 (Ref Range: 4.60-5.80 X10*6/uL) 4.66 (Ref Range: 4.60-5.80 X10*6/uL) Hemoglobin 16.4 (Ref Range: 14.0-18.0 g/dl) 16.3 (Ref Range: 14.0-18.0 g/dl) 15.2 (Ref Range: 14.0-18.0 g/dl) Hematocrit 48.2 (Ref Range: 42.0-52.0 %) 48.7 (Ref Range: 42.0-52.0 %) 45.8 (Ref Range: 42.0-52.0 %) Mean Corpuscular Volume 100.2 H (Ref Range: 80.0-98.0 fL) 97.2 (Ref Range: 80.0-98.0 fL) 98.3 H (Ref Range: 80.0-98.0 fL) Mean Corpuscular Hemoglobin 34.1 H (Ref Range: 27.0-33.0 pg) 32.5 (Ref Range: 27.0-33.0 pg) 32.6 (Ref Range: 27.0-33.0 pg) Mean Corpuscular HGB Conc 34.0 (Ref Range: 31.0-36.0 g/dl) 33.5 (Ref Range: 31.0-36.0 g/dl) 33.2 (Ref Range: 31.0-36.0 g/dl) Red Cell Distribution Width 13.2 (Ref Range: 11.0-16.0 %) 13.3 (Ref Range: 11.0-16.0 %) 13.4 (Ref Range: 11.0-16.0 %) Platelet Count 235 (Ref Range: 160-400 X10*3/uL) 205 (Ref Range: 160-400 X10*3/uL) 206 (Ref Range: 160-400 X10*3/uL) Mean Platelet Volume 8.6 L (Ref Range: 9.4-12.4 fL) 8.4 L (Ref Range: 9.4-12.4 fL) 8.5 L (Ref Range: 9.4-12.4 fL) Neutrophils Percent Auto 68.7 (Ref Range: 45-73 %) 63.5 (Ref Range: 45-73 %) 53.5 (Ref Range: 45-73 %) Imm Gran Pct Auto 0.1 (Ref Range: 0.0-0.4 %) 0.3 (Ref Range: 0.0-0.4 %) 0.2 (Ref Range: 0.0-0.4 %) Lymphocytes Percent Auto 21.6 (Ref Range: 20-40 %) 25.1 (Ref Range: 20-40 %) 32.7 (Ref Range: 20-40 %) Monocytes Percent Auto 6.6 (Ref Range: 2-11 %) 7.6 (Ref Range: 2-11 %) 8.9 (Ref Range: 2-11 %) Eosinophils Percent Auto 2.3 (Ref Range: 0-4 %) 2.8 (Ref Range: 0-4 %) 3.7 (Ref Range: 0-4 %) Basophils Percent Auto 0.7 (Ref Range: 0-2 %) 0.7 (Ref Range: 0-2 %) 1.0 (Ref Range: 0-2 %) NRBC Pct Auto 0.0 (Ref Range: 0.0-0.2 /100WBC) 0.0 (Ref Range: 0.0-0.2 /100WBC) 0.0 (Ref Range: 0.0-0.2 /100WBC) Neutrophils Absolute Auto 5.1 (Ref Range: 2.0-8.3 x10*3/uL) 3.9 (Ref Range: 2.0-8.3 x10*3/uL) 2.6 (Ref Range: 2.0-8.3 x10*3/uL) Imm Gran Abs Auto 0.01 (Ref Range: 0.00-0.03 X10*3/uL) 0.02 (Ref Range: 0.00-0.03 X10*3/uL) 0.01 (Ref Range: 0.00-0.03 X10*3/uL) Lymphocytes Absolute Auto 1.6 (Ref Range: 1.2-4.9 X10*3/uL) 1.5 (Ref Range: 1.2-4.9 X10*3/uL) 1.6 (Ref Range: 1.2-4.9 X10*3/uL) Monocytes Absolute Auto 0.5 (Ref Range: 0.1-1.2 X10*3/uL) 0.5 (Ref Range: 0.1-1.2 X10*3/uL) 0.4 (Ref Range: 0.1-1.2 X10*3/uL) Eosinophils Absolute Auto 0.2 (Ref Range: 0.0-0.4 X10*3/uL) 0.2 (Ref Range: 0.0-0.4 X10*3/uL) 0.2 (Ref Range: 0.0-0.4 X10*3/uL) Basophils Absolute Auto 0.1 (Ref Range: 0.0-0.2 X10*3/uL) 0.0 (Ref Range: 0.0-0.2 X10*3/uL) 0.1 (Ref Range: 0.0-0.2 X10*3/uL) NRBC Abs Auto 0.000 (Ref Range: 0.0-0.012 X10*3/uL) 0.000 (Ref Range: 0.0-0.012 X10*3/uL) 0.000 (Ref Range: 0.0-0.012 X10*3/uL) * Lab:[facility]. Ricardo l Fast * Order Date 04/08/2024 12/12/2023 09/25/2021 Sodium 142 (Ref Range: 135-145 mmol/L) 142 (Ref Range: 135-145 mmol/L) 142 (Ref Range: 135-145 mmol/L) Bilirubin Total 0.9 (Ref Range: 0.0-1.0 mg/dL) 0.9 (Ref Range: 0.0-1.0 mg/dL) 0.8 (Ref Range: 0.0-1.0 mg/dL) Aspartate Amino Transferase 26 (Ref Range: 5-37 U/L) 24 (Ref Range: 5-37 U/L) 42 H (Ref Range: 5-37 U/L) Alanine Aminotransferase 40 (Ref Range: 0-40 U/L) 28 (Ref Range: 0-40 U/L) 93 H (Ref Range: 0-40 U/L) Total Protein 7.1 (Ref Range: 6.5-8.0 g/dL) 7.4 (Ref Range: 6.5-8.0 g/dL) 6.7 (Ref Range: 6.5-8.0 g/dL) Albumin Level 4.4 (Ref Range: 3.5-5.0 g/dL) 4.6 (Ref Range: 3.5-5.0 g/dL) 4.4 (Ref Range: 3.5-5.0 g/dL) Alkaline Phosphatase 54 (Ref Range: 39-117 U/L) 44 (Ref Range: 39-117 U/L) 73 (Ref Range: 39-117 U/L) Potassium 4.6 (Ref Range: 3.3-5.1 mmol/L) 4.9 (Ref Range: 3.3-5.1 mmol/L) 4.2 (Ref Range: 3.3-5.1 mmol/L) Chloride 107 (Ref Range: 96-108 mmol/L) 107 (Ref Range: 96-108 mmol/L) 109 H (Ref Range: 96-108 mmol/L) Carbon Dioxide 26 (Ref Range: 22-29 mmol/L) 29 (Ref Range: 22-29 mmol/L) 25 (Ref Range: 22-29 mmol/L) Anion Gap 14 (Ref Range: 12-20) 11 L (Ref Range: 12-20) 12 (Ref Range: 12-20) Blood Urea Nitrogen 18 H (Ref Range: 9-16 mg/dL) 18 H (Ref Range: 9-16 mg/dL) 15 (Ref Range: 9-16 mg/dL) Creatinine 1.01 (Ref Range: 0.5-1.4 mg/dL) 0.92 (Ref Range: 0.5-1.4 mg/dL) 0.95 (Ref Range: 0.5-1.4 mg/dL) Estimated Glomerular Filt Rate > 60 > 60 > 60 Glucose Fasting 96 (Ref Range: 60-99 mg/dL) 101 H (Ref Range: 60-99 mg/dL) 92 (Ref Range: 60-99 mg/dL) Calcium 10.5 H (Ref Range: 8.4-10.2 mg/dL) 10.3 H (Ref Range: 8.4-10.2 mg/dL) 10.1 (Ref Range: 8.4-10.2 mg/dL) * Lab:Prostate Specific Antige n * Order Date 04/08/2024 12/12/2023 07/23/2023 Prostate Specific Antigen < 0.10 (Ref Range: <0.05-4.0 ng/mL) < 0.10 (Ref Range: <0.05-4.0 ng/mL) < 0.10 (Ref Range: <0.05-4.0 ng/mL) * Lab:Free T4 (Free Thyroxine) * Order Date 04/08/2024 12/12/2023 09/25/2021 Free T4 (Free Thyroxine) 0.97 (Ref Range: 0.71-1.85 ng/dL) 0.92 (Ref Range: 0.71-1.85 ng/dL) 0.91 (Ref Range: 0.71-1.85 ng/dL) * Lab:Lipid Panel * Order Date 04/08/2024 12/12/2023 05/14/2023 Triglycerides 93 (Ref Range: <150 mg/dL) 115 (Ref Range: <150 mg/dL) 98 (Ref Range: mg/dL) Cholesterol 156 (Ref Range: <200 mg/dL) 188 (Ref Range: <200 mg/dL) 167 (Ref Range: mg/dL) LDL Cholesterol Calculated 97 (Ref Range: <100 mg/dL) 124 H (Ref Range: <100 mg/dL) 106 (Ref Range: mg/dl) HDL Cholesterol 41 (Ref Range: >40 mg/dL) 41 (Ref Range: >40 mg/dL) 42 (Ref Range: mg/dL) * Examination: G eneral Examination: GENERAL APPEARANCE: p leasant, well nourished, well developed, in no acute distress, calm and relaxed. HEAD: a traumatic, normocephalic. EYES: e francine, perrla, anicteric, conjugate. EARS: n ormal. NOSE: s eptum intact. ORAL CAVITY: n ormal, unremarkable. NECK/THYROID: n o jugular venous distention, no carotid bruit, thyroid normal. LYMPH NODES: n o enlarged lymph nodes,spleen normal. SKIN: n o suspicious lesions, anicteric. HEART: n o clicks, gallops, murmurs, or rubs, regular rhythm, S1, S2 normal, no s3, or vascular bruits. LUNGS: c lear to auscultation . BREASTS: no masses palpable bilaterally. ABDOMEN: b owel sounds normal, no ascites, no organomegaly, no mass. RECTAL EXAM: n ot examined. MUSCULOSKELETAL: e xtremities unremarkable, no clubbing, cyanosis or edema. PERIPHERAL PULSES: n ormal. NEUROLOGIC: a lert and oriented, cranial nerves 2-12 grossly intact, deep tendon reflexes 2+ symmetrical, motor strength normal upper and lower extremities, sensory exam intact. PSYCH: a lert, oriented. Assessment: * Assessment: 1. A cquired hypothyroidism - E03.9, He has been compliant with his medication. Comprehensive blood work with a TSH has been ordered prior to his next visit. 2 . P rostate cancer - C61, His PSA remains undetectable and his testosterone is in the appropriate low level. He testosterone value is not at castrate levels, however. He is going to see his urologist and discuss this in the near future. No change in his regimen was made today. 3 . M ixed hyperlipidemia - E78.2, His lipid values are in their target range and his risk is low. 4 . O verweight - E66.3, He is very slightly overweight. No change in his diet was recommended. I recommended he keep his weight at this level. 5 . E levated PSA - R97.20, The elevated PSA of 7-lead to a diagnosis of prostate cancer 4+4 equals 8 treated with radiation therapy. He remains in remission at this time. 6 .?Hypertension - I10, His blood pressure today was 142/82 and no change in his regimen was necessary today. He will come to the office next visit to have his vital signs measured. 7 . F ormer smoker - Z87.891, He is highly motivated not to smoke. We discussed josemanuelo plan to prevent relapse in times of stress and illness. 8 . H istory of depression - Z86.59, He is now on lithium and bupropion. His renal function will be followed. 9 . O steoporosis, unspecified osteoporosis type, unspecified pathological fracture presence - M81.0, He will stop the alendronate until the issue of the jaw pain is clarified. Plan: * Treatment: 2. P rostate cancer Continue Vitamin D Tablet, 1000 UNIT, 1 tablet, Orally, Once a day; C ontinue Vitamin C Capsule, 500 MG, Orally; C ontinue Famotidine Tablet, 20 MG, 1 tablet at bedtime, Orally, Once a day; Continue Fish Oil Capsule, 1200 MG, 1 capsule, Orally, Once a day; C ontinue Omeprazole Capsule Delayed Release, 20 MG, 1 capsule, Orally, Once a day; C ontinue buPROPion HCl Tablet, 100 MG, 1 tablet, Orally, every 3rd day; C ontinue Alendronate Sodium Tablet, 70 MG, 1 tablet 30 minutes before the first food, beverage or medicine of the day with plain water, Orally, Once a week.? 3. M ixed hyperlipidemia L AB: PROFILE, FASTING (COMPREHENSIVE METABOLIC) L AB: TSH (THYROID STIMULATING HORMONE) L AB: PSA, TOTAL L AB: CBC WITH AUTO DIFF L AB: Magnesium L AB: Lipid Panel L AB: Free T4 (Free Thyroxine) 4. O verweight L AB: PROFILE, FASTING (COMPREHENSIVE METABOLIC) L AB: TSH (THYROID STIMULATING HORMONE) L AB: PSA, TOTAL L AB: CBC WITH AUTO DIFF L AB: Magnesium L AB: Lipid Panel L AB: Free T4 (Free Thyroxine) 5. E levated PSA L AB: PROFILE, FASTING (COMPREHENSIVE METABOLIC) L AB: TSH (THYROID STIMULATING HORMONE) L AB: PSA, TOTAL L AB: CBC WITH AUTO DIFF L AB: Magnesium L AB: Lipid Panel L AB: Free T4 (Free Thyroxine) 6. O thers Continue Atorvastatin Calcium Tablet, 10 MG, TAKE 1 TABLET BY MOUTH DAILY; C ontinue Magnesium Glycinate Capsule, 100 MG, as directed, Orally; C ontinue Levothyroxine Sodium Tablet, 50 MCG, TAKE 1 TABLET BY MOUTH IN THE MORNING ON AN EMPTY STOMACH; C ontinue buPROPion HCl ER (SR) Tablet Extended Release 12 Hour, 100 MG, 2 tablets, Orally, Once a day. * Labs: * L ab: URINE DIP STICK Value Reference Range S G 1.010 1.005 - 1.025 * p H 6.0 5.0 - 9.0 * L EU Negative Negative - * N IT Negative Negative - * P RO 15 Negative - Trace * G MELO Negative Negative - * K ET Negative Negative - * U BG 0.2 0.1 - 1.8 * B IL Negative 0.2 - 1.3 * B LD Positive Negative - * Procedure Codes: 8 1002 URINE-NO MICRO * Preventive Medicine: Counseling: C are goal follow-up plan: Counseling for abnormal BMI given Y es Above Normal BMI Follow-up D ietary management education, guidance, and counseling S moking/Tobacco Use Patient counseled on the dangers of tobacco use and urged to quit. 0 04/13/2024 * Follow Up: 4 Months (Reason: OV) * Images: * Sign off status: Completed true * Provider: Sinai Spaulding MD Date: 0 04/14/2024 Generated for Nabil clarke/Elizabeth/Quynh on: 12/06/2024 07:06 PM EST History and Physical Notes * HPI (History of Present Illness) Category Sub-Category Detail Notes Depression Screening PHQ-9 Little inte rest or pleasure in doing things: Not at all Feeling down, depressed, or hopeless: No t at all Trouble falling or staying asleep, or sl eeping too much: Not at all Feeling tired or having little energy: N ot at all Poor appetite or overeating: Not at all Feeling bad about yourself o r that you are a failure, or have let yourself or your family down: Not at all Trouble concentrating on thi ngs, such as reading the newspaper or watching television: Not at all Moving or speaking so slowly that other people could have noticed; or the opposite, being so fidgety or restless that you have been moving around a lot more than usual: Not at all Thoughts that you would be b steffanie off or of hurting yourself in some way: Not at all Total Score: 0 COVID-19 Screening Questions Have you had any new onset fever, chills, cough, congestion, sore throat, shortness of breath, muscle aches?: No Have you been exposed to the virus with n the last 10 days?: No Have you travelled internationally in [facility] hospital last 10 days?: No Have you been exposed to COVID-19 in the past?: No SDOH Questions SDOH Questions In the past year have you been worried about losing your housing?: No In the past year have you or any family members you live with been unable to get any of the following when it was really needed? Check all that apply:: Decline to answer Examination Category Sub-Category Detail Notes General Examination GENERAL APPEARANCE: pleasant , well nourished, well developed, in no acute distress, calm and relaxed HEAD: atraumatic, normocep halic EYES: eomi, perrla, anicte cheng, conjugate EARS: normal NOSE: septum intact NECK/THYROID: no jugular venous di stention, no carotid bruit, thyroid normal HEART: no clicks, gallops, murmurs, or rubs, regular rhythm, S1, S2 normal, no s3, or vascular bruits LUNGS: clear to auscultatio n ABDOMEN: bowel sounds normal, no ascites, no organomegaly, no mass NEUROLOGIC: alert and oriented, cranial nerves 2-12 grossly intact, deep tendon reflexes 2+ symmetrical, motor strength normal upper and lower extremities, sensory exam intact SKIN: no suspicious lesion s, anicteric PERIPHERAL PULSES: normal BREASTS: no masses palpable b ilaterally MUSCULOSKELETAL: extremities unremark able, no clubbing, cyanosis or edema LYMPH NODES: no enlarged lymph no krish,spleen normal RECTAL EXAM: not examined PSYCH: alert, oriented ORAL CAVITY: normal, unremarkable
--- OUTSIDE RECORDS SUMMARY | 2024-08-18 09:30 | XMS_ITS ---
Author Organization Frederick Spaulding III, MD Address [address] [place] [address] Care Team Providers Care Soa Architect Name Role Phone Dr. Frederick Spaulding III Primary Care Provider [phone] Allergies Allergen (clinical drug ingredient) Drug/Non Drug Allergy documented on EMR Reaction Allergy Type Onset Date Status simvastatin Simvastatin body ache Drug Allergy Act renay acetaminophen / oxycodone Percocet nausea Drug Allergy Active REASON FOR [...] Date Provider Diagnosis Frederick Spaulding III, MD [address] [place] [address] [place] [address] 08/18/2024 Frederick Spaulding Prostate cancer C61 ; [...] Provider Name:Frederick Spaulding , 11/03/2025 02:00:00 PM, [address] [place] [address] [address], [place], [address], Provider Name:Frederick Spaulding , 04/20/2026 03:00:00 PM, [address] [place] [address] [address], [place], [address], Progress Notes * SANDYJuanDOB: [birth year] (83 yo M)Acc No.[id number]:08/18/2024 Progress Notes Patient: Juan Colon Provider: Sinai Spaulding MD :1940 A ge:83 Y S ex:Male Date:08/18/2024 Address:[address] [place] [address] , [address], [id number] Subjective: * Chief Complaints: * O verweightHypothyroidHyperlipidemiaHearing [...] x-cigarette smoker 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 He worked in [employer] and [employer] for [employer]. He was exposed to solvents but not to benzene. He has been to [employer] since 1960. He lives in [place], [place]. * Medications: T akingAtorvastatin Calcium 10 [...] 2.1 (Ref Range: 1.6-2.6 mg/dL) * Lab:Comprehensive [place]. Pane l Fast * Order Date 08/12/2024 [...] - 08/12/2024) (Collection Date - 08/12/2024) ?ValueReference Range?Tkqzjwgigcfab021<150 - mg/dL ?Rxvhijfkwzh980<200 - mg/dL?LDL Cholesterol Jicfbbdvor61<100 - mg/dL?HDL Qoylykmtyue64X>40 - mg/dL * Examination: G eneral Examination: [...] Sign off status: Completed true * Provider: Sniai Spaulding MD Date: 0 08/18/2024 Generated for Printi ng/Maynorg/eTransmitting on: 1 12/06/2024 07:06 PM EST History and Physical Notes * HPI (History of Present Illness) Category Sub-Category Detail Notes COVID-19 Screening Questions Have you had any new onset fever, chills, cough, congestion, sore throat, shortness of breath, muscle aches?: No Have you been exposed to the virus withi n the last 10 days?: No Have you travelled internationally in [facility] last 10 days?: No Have you [...]
--- OUTSIDE RECORDS SUMMARY | 2024-08-24 10:47 | XMS_ITS ---
Author Organization Frederick Spaulding III, MD Address [address] [place] [address] [place] [address] Care Team Providers Care Select Banker Name Role Phone Dr. Frederick Spaulding III Primary Care Provider [phone] REASON FOR VISIT Message Social History Sex Assigned At : Social History Observation Description Sex Assigned At Male Encounters Encounter Location Date Provider Diagnosis Frederick Spaulding III, MD [address] [place] [address] [place] [address] 08/24/2024 Frederick Spaulding Plan Of Treatment Next Appt Details Provider Name:Frederick Spaulding , 11/03/2025 02:00:00 PM, [address] [place] [address] [place], [address], Provider Name:Frederick Spaulding , 04/20/2026 03:00:00 PM, [address] [place] [address] [place], [address], Progress Notes * Juan DELGADODOB: [birth year] (83 yo M)Acc No.[id number]:08/24/2024 Patient: Juan Colon :1940 A ge:83 Y S ex:Male Address:[address] [place] [address] [address] [place], [phone] * true * Date: Generated for Printi ng/Faxing/eTransmitting on: 12/06/2024 07:05 PM EST
--- OUTSIDE RECORDS SUMMARY | 2024-12-18 09:15 | XMS_ITS ---
Author Organization Frederick Spaulding III, MD Address [address] [place] [address] Care Team Providers Care Yacht Captain Name Role Phone Dr. Frederick Spaulding III [...] capsule Orally Onc e a day Active Parlier Carbonate 150 MG 1 capsule Orall y [...] Date Provider Diagnosis Frederick Spaulding III, MD [address] [place] [address] [place] [address] 12/18/2024 Frederick Spaulding Prostate cancer C61 ; [...] MG 1 capsule Orally Once a day Parlier Carbonate 150 MG 1 capsule Orally Twice a day Omeprazole 20 MG 1 capsule Orally Once a day Vitamin C 500 MG Orally Famotidine 20 MG 1 tablet at bedtime Orally Once a day Next Appt Details Follow Up: As Scheduled, Renée son: OV, Annual Exam Provider Name:Frederick Spaulding , 11/03/2025 02:00:00 PM, [address] [place] [address] [address], [place], [address], Provider Name:Frederick Spaulding , 04/20/2026 03:00:00 PM, [address] [place] [address] [address], [facility], [address], Progress Notes * Juan DELGADODOB: [birth year] (84 yo M)Acc No.[id number]:12/18/2024 Progress Notes Patient: Juan JORDAN Provider: Sinai Spaulding MD :1940 A ge:84 Y S ex:Male Date:12/18/2024 Address:[address] [place] [address] , [address] [place] [id number] Subjective: * Chief Complaints: * D epressionProstate [...] smoker 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 He was exposed to solvents but not to benzene. He has been to [employer] since 1960. He lives in [place], [place]. * Medications: T akingLithium Carbonate 150 [...] List reviewed and reconciled with the patientTaking Parlier Carbonate 150 MG Capsule 1 capsule Orally [...] 0.000 (Ref Range: 0.0-0.012 X10*3/uL) * Lab:Quinton JiménezAnnalise pretty Fast * Collection Date 12/14/2024 08/12/2024 04/08/2024 [...] Spaulding MD Date: 0 12/18/2024 Generated for Nabil clarke/Elizabeth/Quynh on: 12/06/2024 07:07 PM EST History and Physical Notes * [...]
--- OUTSIDE RECORDS SUMMARY | 2025-03-01 09:27 | XMS_ITS ---
Author Organization Frederick Spaulding III, MD Address [address] [place] [address] [place] [address] Care Team Providers Care Oceanographic Meteorologist Name Role Phone Dr. Frederick Spaulding III Primary Care Provider REASON FOR VISIT Restarting Alendronate Sodium 70mg tablet Social History Sex Assigned At : Social History Observation Description Sex Assigned At Male Encounters Encounter Location Date Provider Diagnosis Frederick Spaulding III, MD [address] [place] [address] [place] [address] 03/01/2025 Frederick Spaulding Plan Of Treatment Next Appt Details Provider Name:Frederick Spaulding , 11/03/2025 02:00:00 PM, [address] [place] [address] [place], [address], Provider Name:Frederick Spaulding , 04/20/2026 03:00:00 PM, [address] [place] [address] [place], [address], Progress Notes * Juan DELGADODOB: [birth year] (84 yo M)Acc No.[id number]:03/01/2025 Patient: Donovan MARRYJuan ANTON :1940 A ge:84 Y S ex:Male Address:[address] [place] [address] [facility] [place], [address] * true * Date: Generated for Printi ng/Faxing/eTransmitting on: 12/06/2024 07:04 PM EST
--- OUTSIDE RECORDS SUMMARY | 2025-04-19 10:00 | XMS_ITS ---
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 Frederick Spaulding III Primary Care Provider [phone] Allergies Allergen (clinical drug ingredient) Drug/Non Drug Allergy documented on EMR Reaction Allergy Type Onset Date Status simvastatin Simvastatin body ache Drug Allergy Act renay acetaminophen / oxycodone Percocet nausea Drug Allergy Active REASON FOR VISIT Annual Exam Medications Medication SIG (Take, Route, Frequency, Duration) Notes Start Date End Date Status Alendronate Sodium 70 MG 1 tablet 30 min utes before the first food, beverage or medicine of the day with plain water Orally weekly for 90 days 04/19/2025 04/14/2026 Active Atorvastatin Calcium 10 MG TAKE 1 TABLET BY MOUTH DAILY Active Alendronate Sodium 70 MG 1 tablet 30 min utes before the first food, beverage or medicine of the day with plain water Orally once a week Active Co Q 10 100 MG as directed Orally Active Famotidine 20 MG 1 tablet at bedtime Orally Once a day Active Fish Oil 1200 MG 1 capsule Orally Onc e a day Active Omeprazole 20 MG 1 capsule Orally Onc e a day Active buPROPion HCl ER (SR) 100 MG 2 tablets Orally Once a day Active Rosenberg Carbonate 150 MG 1 capsule Orall y Twice a day Active Magnesium Glycinate 100 MG as directed Orally Active Vitamin D 1000 UNIT 1 tablet Orally Once a day Active Vitamin C 500 MG Orally Act renay Levothyroxine Sodium 50 MCG TAKE 1 TABLE T BY MOUTH IN THE MORNING ON AN EMPTY STOMACH Active Social History Tobacco Use: Social History [...] Non-User Ex-cigaret te smoker Vital Signs Temperature 97.9 degrees Fahrenheit 04/19/20 25 Blood pressure systolic 131 mm Hg 04/19/20 25 Blood pressure diastolic 67 mm Hg 025 Heart Rate 66 /min 04/19/2025 Height 68 in 04/19/2025 Weight 167 lbs 04/19/2025 BMI 25.39 kg/m2 04/19/2025 Encounters Encounter Location Date Provider Diagnosis Frederick Spaulding III, MD [address] [place] [address] [place] [address] 04/19/2025 Frederick Spaulding Prostate cancer C61 ; Acquired hypothyroidism E03.9 ; Mixed hyperlipidemia E78.2 ; 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 His PSA has risen to 0.13 but is still less than 1.0.It has remained low. The value will be followed periodically. He will continue with urology. 04/19/2025 Acquired hypothyroidism (ICD-10 - E03.9) He has been compliant with his medication. Comprehensive blood work with a TSH shows normal thyroid function. 04/19/2025 Mixed hyperlipidemia (ICD-10 - E78.2) His lipids are currently stable and no change in his regimen as needed.His total cholesterol is 163. 04/19/2025 Sensorineural hearin g loss (SNHL) of both ears (ICD-10 - H90.3) He has progressive high frequency hearing loss. He purchased his hearing aids at [employer]. He is concerned that his hearing is worse in one year then the other. I have referred him to ENT for evaluation and management. 04/19/2025 Benign prostatic hyperplasia with lower urinary tract symptoms (ICD-10 - N40.1) He arises from sleep once or twice a night to urinate. We had discussed lifestyle modification as a way to reduce nocturia. 04/19/2025 History of depressio n (ICD-10 - Z86.59) He is now on lithium and bupropion. His renal function will be followed. 04/19/2025 Osteoarthritis involving multiple joints on both sides of body (ICD-10 - M15.9) He continues to have mild shoulder pain and occasional hip and knee pain. He is able to accomplish all of the activities of daily living. His current regimen was continued. 04/19/2025 Former smoker (ICD-1 0 - Z87.891) He is highly motivated not to smoke. We discussed gusto plan to prevent relapse in times of stress and illness. 04/19/2025 History of inguinal hernia (ICD-10 - Z87.19) There is no sign of inguinal herniation today. 04/19/2025 Overweight (ICD-10 - E66.3) He is very slightly overweight. No change in his diet was recommended. I recommended he keep his weight at this level. Plan Of Treatment Medication Medication Name Sig Start Date Stop Date Notes Alendronate Sodium 70 MG 1 tablet 30 min utes before the first food, beverage or medicine of the day with plain water Orally weekly for 90 days 04/19/2025 04/14/2026 Atorvastatin Calcium 10 MG TAKE 1 TABLET BY MOUTH DAILY Alendronate Sodium 70 MG 1 tablet 30 min utes before the first food, beverage or medicine of the day with plain water Orally once a week Co Q 10 100 MG as directed Orally Famotidine 20 MG 1 tablet at bedtime Orally Once a day Fish Oil 1200 MG 1 capsule Orally Once a day Omeprazole 20 MG 1 capsule Orally Once a day buPROPion HCl ER (SR) 100 MG 2 tablets Orally Once a day Rosenberg Carbonate 150 MG 1 capsule Orally Twice a day Magnesium Glycinate 100 MG as directed Orally Vitamin D 1000 UNIT 1 tablet Orally Once a day Vitamin C 500 MG Orally Levothyroxine Sodium 50 MCG TAKE 1 TABLE T BY MOUTH IN THE MORNING ON AN EMPTY STOMACH Pending Test Test Name Order Date PROFILE, FASTING (COMPREHENSIVE METABOLI C) 04/19/2025 PSA, TOTAL 04/19/2025 CBC w DIFF 04/19/2025 Lipid Panel 04/19/2025 Next Appt Details Follow Up: 3 Months, Reason: OV Provider Name:Frederick Goncalvesrne , 11/03/2025 02:00:00 PM, [address] [facility] [address], [place], [address], Provider Name:Frederick Gandara Jasson , 04/20/2026 03:00:00 PM, [address] [facility] [address] [place], [place], [address], Progress Notes * Juan DELGADO VirgieDOB: [birth year] (84 yo M)Acc No.[id number]:04/19/2025 Progress Notes Patient: Juan JORDAN Provider: Sinai Spaulding MD :1940 A ge:84 Y S ex:Male Date:04/19/2025 Address:[address] [place] [address] , [facility] [place], [id number] Subjective: * Chief Complaints: * A nnual Exam * HPI: D epression Screening: PHQ-9 L ittle interest or pleasure in doing things?Not at all F eeling down, depressed, or hopeless N ot at all T rouble falling or staying asleep, or sleeping too much S everal days F eeling tired or having little energy [...] N ot at all T otal Score 1 I nterpretation M inimal Depression H rosita returns to the office at the age of 84 for his annual physical examination. On April 07, 2025. He had a fall at home and landed on his face. He had some significant pain in his left anterior chest but that has now resolved. I have refilled his alendronate. I have answered all of their questions he had at length. On examination, he has had a couple of premature ventricular contractions. His testosterone level is 200 at the urologist. C OVID-19 Screening: Questions H ave you had any new onset fever, chills, cough, congestion, sore throat, shortness of breath, muscle aches? N o S LASHELL Questions: SDOH Questions I n the past year have you been worried about losing your housing? N o I n the past year have you or any family members you live with been unable to get any of the following when it was really needed? Check all that apply: N one F all Risk Screening: Fall History H ave you had any falls with injury in the past year? N o H ave you had two or more falls in the past year? N o F all Risk Assessment: O ne fall without injury in the past year * ROS: G eneral/Constitutional: pain o nly normal aches and pains. C hills d enies.?Fatigue a dmits. F ever d enies. E NT: Decreased hearing m ild. R espiratory: Cough d enies. C ardiovascular: Chest pain with exertion d enies. D yspnea on exertion?denies. S hortness of breath d enies. G astrointestinal: Constipation d enies. D ecreased appetite d enies.?Diarrhea d enies. H eartburn d enies. N ausea d enies. R ectal bleeding?denies. V omiting d enies. H ematology: bruising [...] pain d enies. P sychiatric: Depressed mood d enies. * Medical History: * Surgical History: i [...] myocardial infarction, stroke, diagnosed with CVD, DM. S on(s): alive. S iblings: alive. 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 He was exposed to solvents but not to benzene. He has been to [place] since 1960. He lives in [place], [place]. * Medications: T akingAlendronate Sodium 70 MG Tablet 1 tablet 30 minutes before the first food, beverage or medicine of the day with plain water Orally once a week Co Q 10 100 MG Capsule as directed Orally Levothyroxine Sodium 50 MCG Tablet TAKE 1 TABLET BY MOUTH IN THE MORNING ON AN EMPTY STOMACH Vitamin D 1000 UNIT Tablet 1 tablet [...] Hour 2 tablets Orally Once a day Rosenberg Carbonate 150 MG Capsule 1 capsule Orally Twice a day Atorvastatin Calcium 10 MG Tablet 1/2 tab daily Orally Once a day Taking Alendronate Sodium 70 MG Tablet 1 tablet 30 minutes before the first food, beverage or medicine of the day with plain water Orally once a week Taking Co Q 10 100 MG Capsule as directed Orally Taking Levothyroxine Sodium 50 MCG Tablet TAKE 1 TABLET BY MOUTH IN THE MORNING ON AN EMPTY STOMACH Taking Vitamin D 1000 UNIT Tablet 1 [...] Hour 2 tablets Orally Once a day Taking Rosenberg Carbonate 150 MG Capsule 1 capsule Orally Twice a day Taking Atorvastatin Calcium 10 MG Tablet 1/2 tab daily Orally Once a day DiscontinuedMagnesium Glycinate 100 MG Capsule as directed Orally Medication List reviewed and reconciled with the patientDiscontinued Magnesium Glycinate 100 MG Capsule as directed Orally Medication List reviewed and reconciled with the patient * Allergies: S imvastatin: body ache - AllergyPercocet: nausea - Allergyno[Allergies Verified] Objective: * Vitals: H t: 68, Wt:167, BMI:25.39, BP:131/67, HR:66, Temp:97.9, Wt-k.75. * Examination: G eneral Examination: GENERAL APPEARANCE: p leasant, well nourished, well developed, in no acute distress, calm and relaxed, overweight, man. HEAD: a traumatic, normocephalic. EYES: e [...] normal, no ascites, no organomegaly, no mass, overweight, Right inguinal herniorrhaphy scar. RECTAL EXAM: n ot examined. MUSCULOSKELETAL: e xtremities unremarkable, no clubbing, cyanosis or edema. PERIPHERAL PULSES: n ormal. NEUROLOGIC: a lert and oriented, cranial nerves 2-12 grossly intact, deep tendon reflexes 2+ symmetrical, motor strength normal upper and lower extremities, sensory exam intact. PSYCH: a lert, oriented. Assessment: * Assessment: 1. P rostate cancer - C61 (Primary) N otes :He reports he has finished his Lupron. His PSA has risen to 0.13 but is still less than 1.0.It has remained low. The value will be followed periodically. He will continue with urology. 2 . A cquired hypothyroidism - E03.9 N otes :He has been compliant with his medication. Comprehensive blood work with a TSH shows normal thyroid function. 3 . M ixed hyperlipidemia - E78.2 N otes :His lipids are currently stable and no change in his regimen as needed.His total cholesterol is 163. 4 . S ensorineural hearing loss (SNHL) of both ears - H90.3 N otes :He has progressive high frequency hearing loss. He purchased his hearing aids at [employer]. He is concerned that his hearing is worse in one year then the other. I have referred him to ENT for evaluation and management. 5 . B enign prostatic hyperplasia with lower urinary tract symptoms - N40.1? Notes :He arises from sleep once or twice a night to urinate. We had discussed lifestyle modification as a way to reduce nocturia. 6 . H istory of depression - Z86.59 N otes :He is now on lithium and bupropion. His renal function will be followed. 7 . O steoarthritis involving multiple joints on both sides of body - M15.9? Notes :He continues to have mild shoulder pain and occasional hip and knee pain. He is able to accomplish all of the activities of daily living. His current regimen was continued. 8 . F ormer smoker - Z87.891 N otes :He is highly motivated not to smoke. We discussed gusto plan to prevent relapse in times of stress and illness. 9 . H istory of inguinal hernia - Z87.19 N otes :There is no sign of inguinal herniation today. 1 0. O verweight - E66.3 N otes :He is very slightly overweight. No change in his diet was recommended. I recommended he keep his weight at this level. Plan: * Treatment: 2. O thers Continue Atorvastatin Calcium Tablet, 10 MG, TAKE 1 TABLET BY MOUTH DAILY; C ontinue Levothyroxine Sodium Tablet, 50 MCG, TAKE 1 TABLET BY MOUTH IN THE MORNING ON AN EMPTY STOMACH; C ontinue Magnesium Glycinate Capsule, 100 MG, [...] tobacco use and urged to quit. 0 04/19/2025 * Follow Up: 3 Months (Reason: OV) * Images: * Sign off status: Completed true * Provider: Sinai Spaulding MD Date: 0 04/19/2025 Generated for Nabil clarke/Elizabeth/Anjelicasmitting on: 1 12/06/2024 07:05 PM EST History and Physical Notes * HPI (History of Present Illness) Category Sub-Category Detail Notes Depression Screening PHQ-9 Little inte rest or pleasure in doing things: Not at all Feeling down, depressed, or hopeless: No t at all Trouble falling or staying asleep, or sl eeping too much: Several days Feeling tired or having little energy: N [...] some way: Not at all Total Score: 1 Interpretation: Minimal Depression Fall Risk Screening Fall History Have you had any falls with injury in the past year?: No Have you had two or more falls in the st year?: No Fall Risk Assessment:: One fall without injury in the past year COVID-19 Screening Questions Have you had any new onset fever, chills, cough, congestion, sore throat, shortness of breath, muscle aches?: No SDOH Questions SDOH Questions In the past year have you been worried about losing your housing?: No In the past year have you or any family members you live with been unable to get any of the following when it was really needed? Check all that apply:: None Examination Category Sub-Category Detail Notes General Examination GENERAL APPEARANCE: pleasant , well nourished, well developed, in no acute distress, calm and relaxed, overweight, man HEAD: atraumatic, normocep halic EYES: eomi, [...] normal, no ascites, no organomegaly, no mass, overweight, Right inguinal herniorrhaphy scar NEUROLOGIC: alert and oriented, cranial nerves 2-12 [...]
--- OUTSIDE RECORDS SUMMARY | 2025-07-20 09:15 | XMS_ITS ---
Author Organization Frederick Spaulding III, MD Address [address] [place] [address] Care Team Providers Care Equities Trader Name Role Phone Dr. Frederick Spaulding III Primary Care Provider Allergies Allergen (clinical drug ingredient) Drug/Non Drug Allergy documented on EMR Reaction Allergy Type Onset Date Status simvastatin Simvastatin body ache Drug Allergy Act renay acetaminophen / oxycodone Percocet nausea Drug Allergy Active REASON FOR VISIT Recent falls, Unsteadiness, Prostate cancer, Hypothyroid, Hyperlipidemia, Hearing loss, Depression,Benign prostatic hypertrophy, Hypertension, Osteoporosis Medications Medication SIG (Take, Route, Frequency, Duration) Notes Start Date End Date Status Alendronate Sodium 70 MG 1 tablet 30 min utes before the first food, beverage or medicine of the day with plain water Orally weekly 04/19/2025 Active Alendronate Sodium 70 MG 1 tablet 30 min utes before the first food, beverage or medicine of the day with plain water Orally once a week Active Co Q 10 100 MG as directed Orally Active buPROPion HCl ER (SR) 100 MG 2 tablets O rally Once a day Active [place] Carbonate 150 MG 1 capsule Orall y Twice a day Active Vitamin D 1000 UNIT 1 tablet Orally Once a day Active Fish Oil 1200 MG 1 capsule Orally Onc e a day Active Omeprazole 20 MG 1 capsule Orally Onc e a day Active Vitamin C 500 MG Orally Act renay Famotidine 20 MG 1 tablet at bedtime Orally Once a day Active Atorvastatin Calcium 10 MG TAKE 1 TABLET BY MOUTH DAILY Active Magnesium Glycinate 100 MG as directed Orally Active Levothyroxine Sodium 50 MCG 1 tablet rosanna ry morning on an empty stomach Orally Once a day Active Social History [...] Non-User Ex-cigaret te smoker Vital Signs Temperature 99 degrees Fahrenheit 07/20/2025 Blood pressure systolic 140 mm Hg 07/20/20 25 Blood pressure diastolic 74 mm Hg 025 Heart Rate 69 /min 07/20/2025 Height 68 in 07/20/2025 Weight 170 lbs 07/20/2025 BMI 25.85 kg/m2 07/20/2025 Encounters Encounter Location Date Provider Diagnosis Frederick Spaulding III, MD [address] [place] [address] [place] [address] 07/20/2025 Frederick Spaulding Prostate cancer C61 ; Former smoker Z87.891 ; Overweight E66.3 ; Acquired hypothyroidism E03.9 ; Mixed hyperlipidemia E78.2 ; 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 The value will be followed periodically. He will continue with urology. 07/20/2025 Former smoker (ICD-1 0 - Z87.891) He is highly motivated not to smoke. We discussed gusto plan to prevent relapse in times of stress and illness. 07/20/2025 Overweight (ICD-10 - E66.3) He is very slightly overweight. No change in his diet was recommended. I recommended he keep his weight at this level. 07/20/2025 Acquired hypothyroidism (ICD-10 - E03.9) He has been compliant with his medication. Comprehensive blood work with a TSH shows normal thyroid function. 07/20/2025 Mixed hyperlipidemia (ICD-10 - E78.2) His lipids are currently stable and no change in his regimen as needed.His total cholesterol is 163. 07/20/2025 Sensorineural hearin g loss (SNHL) of both ears (ICD-10 - H90.3) He has progressive high frequency hearing loss. He purchased his hearing aids at [employer]. He is concerned that his hearing is worse in one year then the other. I have referred him to ENT for evaluation and management. 07/20/2025 Benign prostatic hyperplasia with lower urinary tract symptoms (ICD-10 - N40.1) He arises from sleep once or twice a night to urinate. We had discussed lifestyle modification as a way to reduce nocturia. 07/20/2025 History of depressio n (ICD-10 - Z86.59) He is now on lithium and bupropion. His renal function will be followed. 07/20/2025 Osteoporosis, unspecified osteoporosis type, unspecified pathological fracture presence (ICD-10 - M81.0) He was continued on his current treatment.His recent bone density test shows a 3% improvement. Current therapy was ccontinued. 07/20/2025 Hypertension (ICD-10 - I10) His blood pressure today was 140/76 and no change in his regimen was necessary today. He will come to the office next visit to have his vital signs measured.His blood pressure remains at 140 systolic he will have the option of taking more medication. Plan Of Treatment Medication Medication Name Sig Start Date Stop Date Notes Alendronate Sodium 70 MG 1 tablet 30 min utes before the first food, beverage or medicine of the day with plain water Orally weekly 04/19/2025 Alendronate Sodium 70 MG 1 tablet 30 min utes before the first food, beverage or medicine of the day with plain water Orally once a week Co Q 10 100 MG as directed Orally buPROPion HCl ER (SR) 100 MG 2 tablets Orally Once a day [place] Carbonate 150 MG 1 capsule Orally Twice a day Vitamin D 1000 UNIT 1 tablet Orally Once a day Fish Oil 1200 MG 1 capsule Orally Once a day Omeprazole 20 MG 1 capsule Orally Once a day Vitamin C 500 MG Orally Famotidine 20 MG 1 tablet at bedtime Orally Once a day Atorvastatin Calcium 10 MG TAKE 1 TABLET BY MOUTH DAILY Magnesium Glycinate 100 MG as directed Orally Levothyroxine Sodium 50 MCG 1 tablet rosanna morning on an empty stomach Orally Once a day Next Appt Details Follow Up: 1 Week, Reason: O V Provider Name:Frederick Spaulding , 11/03/2025 02:00:00 PM, [address] [place] [address] [address], [place], [address], Provider Name:Frederick Spaulding , 04/20/2026 03:00:00 PM, [address] [place] [address] [address], [place], [address], Progress Notes * Juan DELGADODOB: [birth year] (84 yo M)Acc No.[id number]:07/20/2025 Progress Notes Patient: Juan JORDAN Provider: Sinai Spaulding MD :1940 A ge:84 Y S ex:Male Date:07/20/2025 Address:[address] [place] [address] , [id number] Subjective: * Chief Complaints: * R ecent fallsUnsteadinessProstate cancerHypothyroidHyperlipidemiaHearing lossDepressionBenign prostatic hypertrophyHypertensionOsteoporosis * HPI: C OVID-19 Screening: He returns to the office for routine scheduled medical management. He has been feeling unsteady lately. He had a fall recently when getting out of bed and bruised several toes on his left foot but did not fracture a bone. This has happened only once. He says he is developing upper body weakness for 6 months. He has begun to exercise. He is taking alendronate for his osteoporosis with vitamin D and calcium. His examination today was unremarkable.? His gait was intact and he walked without a device. His neurologic examination was unremarkable. His anxiety is unchanged. Questions H ave you had any new onset fever, chills, cough, congestion, sore throat, shortness of breath, muscle aches? N o * ROS: G eneral/Constitutional: pain B ruised toes. C hills d enies. F atigue?admits. F ever d enies. E NT: Decreased hearing d enies. R espiratory: Cough d enies. C ardiovascular: [...] have been noted. G enitourinary: Frequent urination o nce a night. M usculoskeletal: Muscle aches d [...] PhD in physical chemistry. He worked in [employer] for a [employer]. He was exposed to solvents but not to benzene. He has been to [employer] since 1960. He lives in [place], [place]. * Medications: T akingAtorvastatin Calcium 10 [...] Hour 2 tablets Orally Once a day [place] Carbonate 150 MG Capsule 1 capsule Orally Twice a day Alendronate Sodium 70 MG Tablet 1 tablet 30 minutes before the first food, beverage or medicine of the day with plain water Orally weekly , stop date 04/14/2026lendronate Sodium 70 MG Tablet 1 tablet 30 minutes before the first food, beverage or medicine of the day with plain water Orally once a week Co Q 10 100 MG Capsule as directed Orally Levothyroxine Sodium 50 MCG Tablet 1 tablet every morning on an empty stomach Orally Once a day Medication List reviewed and reconciled with the patientTaking Atorvastatin Calcium 10 MG Tablet TAKE 1 [...] 2 tablets Orally Once a day Taking [place] Carbonate 150 MG Capsule 1 capsule Orally Twice a day Taking Alendronate Sodium 70 MG Tablet 1 tablet 30 minutes before the first food, beverage or medicine of the day with plain water Orally weekly , stop date 04/14/2026Taking Alendronate Sodium 70 MG Tablet 1 tablet 30 minutes before the first food, beverage or medicine of the day with plain water Orally once a week Taking Co Q 10 100 MG Capsule as directed Orally Taking Levothyroxine Sodium 50 MCG Tablet 1 tablet every morning on an empty stomach Orally Once a day Medication List reviewed and reconciled with the patient * Allergies: S imvastatin: body ache - AllergyPercocet: nausea - Allergyno[Allergies Verified] Objective: * Vitals: H t: 68, Wt:170, BMI:25.85, BP:140/74, HR:69, Temp:99, Wt-k.11. * P ast Orders: Lab:Prostate Specific Antige n * Collection Date 07/14/2025 04/23/2025 10/21/2024 Collection Time 12:10 PM 03:03 PM 02:12 PM Order Date 07/14/2025 04/23/2025 10/21/2024 Prostate Specific Antigen 0.21 (Ref Range: <0.05-4.0 ng/mL) 0.20 (Ref Range: <0.05-4.0 ng/mL) 0.13 (Ref Range: <0.05-4.0 ng/mL) * Lab:Complete Blood Count Aut o Diff * Collection Date 07/14/2025 12/14/2024 08/12/2024 Collection Time 12:10 PM 11:32 AM 11:00 AM Order Date 07/14/2025 12/14/2024 08/12/2024 White Blood Count 6.0 (Ref Range: 4.8-10.8 X10*3/uL) 5.8 (Ref Range: 4.8-10.8 X10*3/uL) 6.2 (Ref Range: 4.8-10.8 X10*3/uL) Red Blood Count 4.67 (Ref Range: 4.60-5.80 X10*6/uL) 4.82 (Ref Range: 4.60-5.80 X10*6/uL) 4.97 (Ref Range: 4.60-5.80 X10*6/uL) Hemoglobin 15.1 (Ref Range: 14.0-18.0 g/dl) 15.9 (Ref Range: 14.0-18.0 g/dl) 16.4 (Ref Range: 14.0-18.0 g/dl) Hematocrit 44.5 (Ref Range: 42.0-52.0 %) 47.4 (Ref Range: 42.0-52.0 %) 49.2 (Ref Range: 42.0-52.0 %) Mean Corpuscular Volume 95.3 (Ref Range: 80.0-98.0 fL) 98.3 H (Ref Range: 80.0-98.0 fL) 99.0 H (Ref Range: 80.0-98.0 fL) Mean Corpuscular Hemoglobin 32.3 (Ref Range: 27.0-33.0 pg) 33.0 (Ref Range: 27.0-33.0 pg) 33.0 (Ref Range: 27.0-33.0 pg) Mean Corpuscular HGB Conc 33.9 (Ref Range: 31.0-36.0 g/dl) 33.5 (Ref Range: 31.0-36.0 g/dl) 33.3 (Ref Range: 31.0-36.0 g/dl) Red Cell Distribution Width 13.1 (Ref Range: 11.0-16.0 %) 12.6 (Ref Range: 11.0-16.0 %) 12.9 (Ref Range: 11.0-16.0 %) Platelet Count 226 (Ref Range: 160-400 X10*3/uL) 231 (Ref Range: 160-400 X10*3/uL) 238 (Ref Range: 160-400 X10*3/uL) Mean Platelet Volume 8.5 L (Ref Range: 9.4-12.4 fL) 8.9 L (Ref Range: 9.4-12.4 fL) 8.8 L (Ref Range: 9.4-12.4 fL) Neutrophils Percent Auto 67.5 (Ref Range: 45-73 %) 58.6 (Ref Range: 45-73 %) 63.6 (Ref Range: 45-73 %) Imm Gran Pct Auto 0.3 (Ref Range: 0.0-0.4 %) 0.3 (Ref Range: 0.0-0.4 %) 0.3 (Ref Range: 0.0-0.4 %) Lymphocytes Percent Auto 22.3 (Ref Range: 20-40 %) 26.6 (Ref Range: 20-40 %) 23.4 (Ref Range: 20-40 %) Monocytes Percent Auto 6.4 (Ref Range: 2-11 %) 8.8 (Ref Range: 2-11 %) 8.0 (Ref Range: 2-11 %) Eosinophils Percent Auto 2.7 (Ref Range: 0-4 %) 4.3 H (Ref Range: 0-4 %) 3.7 (Ref Range: 0-4 %) Basophils Percent Auto 0.8 (Ref Range: 0-2 %) 1.4 (Ref Range: 0-2 %) 1.0 (Ref Range: 0-2 %) NRBC Pct Auto 0.0 (Ref Range: 0.0-0.2 /100WBC) 0.0 (Ref Range: 0.0-0.2 /100WBC) 0.0 (Ref Range: 0.0-0.2 /100WBC) Neutrophils Absolute Auto 4.0 (Ref Range: 2.0-8.3 x10*3/uL) 3.4 (Ref Range: 2.0-8.3 x10*3/uL) 4.0 (Ref Range: 2.0-8.3 x10*3/uL) Imm Gran Abs Auto 0.02 (Ref Range: 0.00-0.03 X10*3/uL) 0.02 (Ref Range: 0.00-0.03 X10*3/uL) 0.02 (Ref Range: 0.00-0.03 X10*3/uL) Lymphocytes Absolute Auto 1.3 (Ref Range: 1.2-4.9 X10*3/uL) 1.5 (Ref Range: 1.2-4.9 X10*3/uL) 1.5 (Ref Range: 1.2-4.9 X10*3/uL) Monocytes Absolute Auto 0.4 (Ref Range: 0.1-1.2 X10*3/uL) 0.5 (Ref Range: 0.1-1.2 X10*3/uL) 0.5 (Ref Range: 0.1-1.2 X10*3/uL) Eosinophils Absolute Auto 0.2 (Ref Range: 0.0-0.4 X10*3/uL) 0.3 (Ref Range: 0.0-0.4 X10*3/uL) 0.2 (Ref Range: 0.0-0.4 X10*3/uL) Basophils Absolute Auto 0.1 (Ref Range: 0.0-0.2 X10*3/uL) 0.1 (Ref Range: 0.0-0.2 X10*3/uL) 0.1 (Ref Range: 0.0-0.2 X10*3/uL) NRBC Abs Auto 0.000 (Ref Range: 0.0-0.012 X10*3/uL) 0.000 (Ref Range: 0.0-0.012 X10*3/uL) 0.000 (Ref Range: 0.0-0.012 X10*3/uL) * Lab:[facility] Jim[facility]nez. Ricardo l Fast * Collection Date 07/14/2025 12/14/2024 08/12/2024 Collection Time 12:10 PM 11:32 AM 11:00 AM Order Date 07/14/2025 12/14/2024 08/12/2024 Sodium 143 (Ref Range: 135-145 mmol/L) 143 (Ref Range: 135-145 mmol/L) 142 (Ref Range: 135-145 mmol/L) Bilirubin Total 0.8 (Ref Range: 0.0-1.0 mg/dL) 0.7 (Ref Range: 0.0-1.0 mg/dL) 0.8 (Ref Range: 0.0-1.0 mg/dL) Aspartate Amino Transferase 36 (Ref Range: 5-37 U/L) 33 (Ref Range: 5-37 U/L) 31 (Ref Range: 5-37 U/L) Alanine Aminotransferase 48 H (Ref Range: 0-40 U/L) 42 H (Ref Range: 0-40 U/L) 38 (Ref Range: 0-40 U/L) Total Protein 7.0 (Ref Range: 6.5-8.0 g/dL) 7.1 (Ref Range: 6.5-8.0 g/dL) 7.0 (Ref Range: 6.5-8.0 g/dL) Albumin Level 4.7 (Ref Range: 3.5-5.0 g/dL) 4.5 (Ref Range: 3.5-5.0 g/dL) 4.4 (Ref Range: 3.5-5.0 g/dL) Alkaline Phosphatase 45 (Ref Range: 39-117 U/L) 49 (Ref Range: 39-117 U/L) 52 (Ref Range: 39-117 U/L) Potassium 4.8 (Ref Range: 3.3-5.1 mmol/L) 4.2 (Ref Range: 3.3-5.1 mmol/L) 4.6 (Ref Range: 3.3-5.1 mmol/L) Chloride 110 H (Ref Range: 96-108 mmol/L) 108 (Ref Range: 96-108 mmol/L) 108 (Ref Range: 96-108 mmol/L) Carbon Dioxide 27 (Ref Range: 22-29 mmol/L) 30 H (Ref Range: 22-29 mmol/L) 27 (Ref Range: 22-29 mmol/L) Anion Gap 11 L (Ref Range: 12-20) 9 L (Ref Range: 12-20) 12 (Ref Range: 12-20) Blood Urea Nitrogen 24 H (Ref Range: 9-16 mg/dL) 23 H (Ref Range: 9-16 mg/dL) 19 H (Ref Range: 9-16 mg/dL) Creatinine 0.82 (Ref Range: 0.5-1.4 mg/dL) 0.92 (Ref Range: 0.5-1.4 mg/dL) 1.04 (Ref Range: 0.5-1.4 mg/dL) Estimated Glomerular Filt Rate > 60 > 60 > 60 Glucose Fasting 100 H (Ref Range: 60-99 mg/dL) 89 (Ref Range: 60-99 mg/dL) 95 (Ref Range: 60-99 mg/dL) Calcium 9.5 (Ref Range: 8.4-10.2 mg/dL) 9.8 (Ref Range: 8.4-10.2 mg/dL) 10.1 (Ref Range: 8.4-10.2 mg/dL) * Lab:Lipid Panel * Collection Date 07/14/2025 12/14/2024 08/12/2024 Collection Time 12:10 PM 11:32 AM 11:00 AM Order Date 07/14/2025 12/14/2024 08/12/2024 Triglycerides 80 (Ref Range: <150 mg/dL) 117 (Ref Range: <150 mg/dL) 136 (Ref Range: <150 mg/dL) Cholesterol 177 (Ref Range: <200 mg/dL) 163 (Ref Range: <200 mg/dL) 161 (Ref Range: <200 mg/dL) LDL Cholesterol Calculated 117 H (Ref Range: <100 mg/dL) 102 H (Ref Range: <100 mg/dL) 99 (Ref Range: <100 mg/dL) HDL Cholesterol 44 (Ref Range: >40 mg/dL) 38 L (Ref Range: >40 mg/dL) 35 L (Ref Range: >40 mg/dL) * Examination: G eneral Examination: GENERAL APPEARANCE: p martin, well nourished, well developed, in no acute distress, calm and relaxed: overweight: man. HEAD: a traumatic, normocephalic. EYES: e francine, perrla, anicteric, conjugate. EARS: : Normal anatomy with bilateral hearing loss. NOSE: s [...] sounds normal, no ascites, no organomegaly, no mass: overweight. RECTAL EXAM: n ot examined. MUSCULOSKELETAL: e xtremities unremarkable, no clubbing, cyanosis or edema. PERIPHERAL PULSES: n ormal. NEUROLOGIC: a lert and oriented, cranial nerves 2-12 grossly intact, deep tendon reflexes 2+ symmetrical, motor strength normal upper and lower extremities, sensory exam intact. PSYCH: a lert, oriented. Assessment: * Assessment: 1. P rostate cancer - C61 (Primary) N otes :His PSA remains low at 0.23. The value will be followed periodically. He will continue with urology. 2 . F ormer smoker - Z87.891 N otes :He is highly motivated not to smoke. We discussed gusto plan to prevent relapse in times of stress and illness. 3 . O verweight - E66.3 N otes :He is very slightly overweight. No change in his diet was recommended. I recommended he keep his weight at this level. 4 . A cquired hypothyroidism - E03.9 N otes :He has been compliant with his medication. Comprehensive blood work with a TSH shows normal thyroid function. 5 . M ixed hyperlipidemia - E78.2 N otes :His lipids are currently stable and no change in his regimen as needed.His total cholesterol is 163. 6 . S ensorineural hearing loss (SNHL) of both ears - H90.3 N otes :He has progressive high frequency hearing loss. He purchased his hearing aids at [employer]. He is concerned that his hearing is worse in one year then the other. I have referred him to ENT for evaluation and management. 7 . B enign prostatic hyperplasia with lower urinary tract symptoms - N40.1? Notes :He arises from sleep once or twice a night to urinate. We had discussed lifestyle modification as a way to reduce nocturia. 8 . H istory of depression - Z86.59 N otes :He is now on lithium and bupropion. His renal function will be followed. 9 . O steoporosis, unspecified osteoporosis type, unspecified pathological fracture presence - M81.0 N otes :He was continued on his current treatment.His recent bone density test shows a 3% improvement. Current therapy was ccontinued. 1 0. H ypertension - I10 N otes :His blood pressure today was 140/76 and no change in his regimen was necessary today. He will come to the office next visit to have his vital signs measured.His blood pressure remains at 140 systolic he will have the option of taking more medication. Plan: * Treatment: 2. O thers Continue Levothyroxine Sodium Tablet, 50 MCG, 1 tablet every morning on an empty stomach, Orally, Once a day; C ontinue Atorvastatin Calcium Tablet, 10 MG, [...] tobacco use and urged to quit. 0 07/20/2025 * Follow Up: 1 Week (Reason: OV) * Images: * Sign off status: Completed true * Provider: Sinai Spaulding MD Date: 0 07/20/2025 Generated for Santai tricia/Elizabeth/eTransmitting on: 1 12/06/2024 07:04 PM EST History and Physical Notes * HPI (History of Present Illness) Category Sub-Category Detail Notes COVID-19 Screening Questions Have you had any new onset fever, chills, cough, congestion, sore throat, shortness of breath, muscle aches?: No Examination Category Sub-Category Detail Notes General Examination GENERAL APPEARANCE: pleasant , well nourished, well developed, in no acute distress, calm and relaxed: overweight: man HEAD: atraumatic, normocep halic EYES: eomi, perrla, anicte cheng, conjugate EARS: : Normal anatomy wit h bilateral hearing loss NOSE: septum intact NECK/THYROID: no jugular venous di stention, no carotid bruit, thyroid normal HEART: no clicks, gallops, murmurs, or rubs, regular rhythm, S1, S2 normal, no s3, or vascular bruits LUNGS: clear to auscultatio n ABDOMEN: bowel sounds normal, no ascites, no organomegaly, no mass: overweight NEUROLOGIC: alert and oriented, cranial nerves [...]
--- OUTSIDE RECORDS SUMMARY | 2025-07-30 08:30 | XMS_ITS ---
Author Organization Frederick Spaulding III, MD Address [address] [place] [address] Care Team Providers Care Compound Specialist Name Role Phone Dr. Frederick Spaulding III [...] empty stomach Orally Once a day Active [employer] Carbonate 150 MG 1 capsule Orall y [...] Problem Status W/U Status Risk Notes Problem [id number] Synovial cyst of left popliteal space (M71.22) Active confirmed Vital Signs Temperature 100.8 degrees Fahrenheit 025 Blood pressure systolic 139 mm Hg 07/30/20 25 Blood pressure diastolic 66 mm Hg 025 Heart Rate 74 /min 07/30/2025 Height 68 in 07/30/2025 Weight 171 lbs 07/30/2025 BMI 26 kg/m2 07/30/2025 Encounters Encounter Location Date Provider Diagnosis Frederick Spaulding III, MD [address] [place] [address] [place] [address] 07/30/2025 Frederick Spaulding Prostate cancer C61 ; [...] an empty stomach Orally Once a day [employer] Carbonate 150 MG 1 capsule Orally Twice a day buPROPion HCl ER (SR) 100 MG 2 tablets Orally Once a day Omeprazole 20 MG 1 capsule Orally Once a day Fish Oil 1200 MG 1 capsule Orally Once a day Pending Test Test Name Order Date PROFILE, FASTING (COMPREHENSIVE METABOLI C) 07/30/2025 PSA, TOTAL 07/30/2025 CBC w DIFF 07/30/2025 Lipid Panel 07/30/2025 [employer] 07/30/2025 Next Appt Details Follow Up: 3 Months, Reason: OV Provider Name:Frederick Spaulding , 11/03/2025 02:00:00 PM, [address] [place] [address] [address], [place], [id number], Provider Name:Frederick Spaulding , 04/20/2026 03:00:00 PM, [address] [place] [address] [address] [place], [phone], Progress Notes * Juan DELGADODOB: [birth year] (84 yo M)Acc No.[id number]:07/30/2025 Progress Notes Patient: Donovan TUTTLEJuan Provider: Sinai Spaulding MD :1940 A ge:84 Y S ex:Male Date:07/30/2025 Address:[address] [place] [address] , [id number] Subjective: * Chief Complaints: * L eft [...] seen an orthopedist in the past at [facility] but did not wish a referral at [...] enies. S kin: Itching d enies. R juen d enies. S kin lesion(s)?denies. 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 He was exposed to solvents but not to benzene. He has been to [place] since 1960. He lives in [place], [place]. * Medications: T akingLevothyroxine Sodium 50 [...] Hour 2 tablets Orally Once a day [employer] Carbonate 150 MG Capsule 1 capsule Orally [...] 2 tablets Orally Once a day Taking [employer] Carbonate 150 MG Capsule 1 capsule Orally [...] a day. * Labs: * L ab: [employer] * Procedure Codes: * Preventive Medicine: Counseling: [...] MD Date: 0 07/30/2025 Generated for Nabil clarke/Elizabeth/Quynh on: 12/06/2024 07:06 [...]
[2025-10-06 17:29] LABS: Prostate Specific Antigen 0.20 ng/mL (<0.05-4.0)
--- OUTSIDE RECORDS SUMMARY | 2025-10-06 19:05 | XMS_ITS | Encounter Summary ---
Author Organization [facility] Address [address] [facility] [address] [place] [address] Phone Care Team Providers Care Technology Services Manager Name Role Phone Frederick Spaulding MD Primary Care Provider +1- [phone] Encounter Details Date Type Department Care Team (Late st Contact Info) Description 12/14/2020 Ancillary Orders [facility],Outside Imaging [address] [place] [address] System, Provider Not In, PhD [address] [address] Social History Tobacco Use Types Packs/Day Years [...] Description 06/07/2026 1:45 PM EDT Office Visit [facility] [address] [facility] [address] Floor, [address] [place], [place] [id number] Neil Alcantara DO [address] [facility] [address] [place] [address] [email or web address] documented as of this encounter Results * [...] on filedocumented in this encounter Care Teams Technology Services Manager Relationship Specialty Start Date End Date Frederick Spaulding MD [address] [place] [address] [place] [address] PCP - General Medical Oncology 12/09/20 documented as of this encounter Additional Source Comments The information contained in this document represents components of the legal health record. It is not the complete legal health record.[facility]
--- OUTSIDE RECORDS SUMMARY | 2025-10-06 19:05 | XMS_ITS | Encounter Summary ---
Author Organization [facility] Address [address] [facility] [address] [place] [address] Phone Care Team Providers Care Tub Rider Name Role Phone Frederick Spaulding MD Primary Care Provider +1- [phone] Encounter Details Date Type Department Care Team (Late Contact Info) Description 09/06/2022 Transcribe Orders Virtual Department [address] [place] [address] Frederick Spaulding MD [address] [place] [address] [place] [address] Osteoporosis, unspecified osteoporosis type, unspecified pathological fracture presence (Primary Dx) Social History Tobacco Use Types Packs/Day Years Used Date Smoking Tobacco: Never Smokeless Tobacco: Never Sex and Gender Information Value Date Recorded Sex Assigned at Male 04/11/2023 2:47 PM EDT Legal Sex Male 10:12 PM EDT Gender Identity Male 04/11/2023 2:47 PM EDT Sexual Orientation Not on file documented as of this encounter Plan of Treatment Upcoming Encounters Date Type Department Care Team (Late Contact Info) Description 06/07/2026 1:45 PM EDT Office Visit [facility] [address] [facility] 3rd Floor, [address] [place] [address] Neil Alcantara DO [address] [facility] [address] [place] [address] [email or web address] documented as of this encounter Visit Diagnoses Diagnosis Osteoporosis, unspecified osteoporosis type, unspecified pathological fracture presence- Primary documented in this encounter Care Teams Tub Rider Relationship Specialty Start Date End Date Frederick Spaulding MD [address] [place] [address] [place] [address] PCP - General Medical Oncology 12/09/20 documented as of this encounter Additional Source Comments The information contained in this document represents components of the legal health record. It is not the complete legal health record.[facility]
--- OUTSIDE RECORDS SUMMARY | 2025-10-06 19:07 | XMS_ITS | Patient Health Record ---
Author Organization Frederick Spaulding III, MD Address [address] [place] [address] Care Team Providers Care Building Appraiser Name Role Phone Dr. rFederick Spaulding III Primary Care Provider [phone] Allergies Allergen (clinical drug ingredient) Drug/Non Drug Allergy documented on EMR Reaction Allergy Type Onset Date Status simvastatin Simvastatin body ache Drug Allergy Act renay acetaminophen / oxycodone Percocet nausea Drug Allergy Active Results Component Value Reference Range Notes Prostate Specific Antigen Reviewed date:10/22/2024 05:05:16 AM Interpretation: Performing Lab:[address] [address] Notes/Report: Prostate Specific Antigen 0.13 <0.05-4.0 ng/mL PSA methodology: Medeiros Alinity i Chemiluminescent Microparticle Immunoassay (CMIA) Complete Blood Count Auto Di ff Reviewed date:12/17/2024 01:30:12 PM Interpretation: Performing Lab:[facility], [address] [place] [phone] Notes/Report: White Blood Count 5.8 4.8-10.8 X10*3/uL [...] NRBC Abs Auto 0.000 0.0-0.012 X10*3/uL Comprehensive [place]. Panel Fa st Reviewed date:12/17/2024 01:30:12 PM Interpretation: Performing Lab:[facility], [address] [place] [phone] Notes/Report: Sodium 143 135-145 mmol/L Potassium 4.2 3.3-5.1 mmol/L Chloride 108 96-108 mmol/L Carbon Dioxide 30 22-29 mmol/L Anion Gap 9 12-20 Blood Urea Nitrogen 23 9-16 mg/dL Creatinine 0.92 0.5-1.4 mg/dL Estimated Glomerular Filt Rate > 60 Chronic Kidney Disease: Estimated GFR < 60 mL/min/1.73m2 Severe Kidney Disease: Estimated GFR < 15 mL/min/1.73m2 Glucose Fasting 89 60-99 mg/dL Calcium 9.8 8.4-10.2 mg/dL Bilirubin Total 0.7 0.0-1.0 mg/dL Aspartate Amino Transferase 33 5-37 U/L Alanine Aminotransferase 42 0-40 U/L Total Protein 7.1 6.5-8.0 g/dL Albumin Level 4.5 3.5-5.0 g/dL Alkaline Phosphatase 49 39-117 U/L Lipid Panel Reviewed date:12/17/2024 01:30:12 PM Interpretation: Performing Lab:[address] [phone] Notes/Report: Triglycerides 117 <150 mg/dL Desirable Triglyceride: less than 150 mg/dL Borderline High Triglyceride 150-199 mg/dL High Triglyceride: 200-499 mg/dL Very High Triglyceride: greater than or equal to 5OO mg/dL Cholesterol 163 <200 mg/dL Desirable Cholesterol: less than 200 mg/dL Borderline High Cholesterol: 200-239 mg/dL High Cholesterol: greater than 239 mg/dL LDL Cholesterol Calculated 102 <100 mg/dL Desirable LDL: less than 100 mg/dL Near Optimal/Above Optimal LDL: 110-129 mg/dL Borderline High LDL: 130-159 mg/dL High LDL: 160-189 mg/dL Very High LDL: greater than or equal to 190 mg/dL HDL Cholesterol 38 >40 mg/dL Desirable HDL: greater than 40 mg/dL Note: This HDL assay may give artificially low results in patients with liver disease. Vitamin D 25-OH Total Reviewed date:12/17/2024 01:30:12 PM Interpretation: Performing Lab:[address] [phone] Notes/Report: Vitamin D 25-OH Total 78.8 >30 ng/mL Health Based Reference Values* < 20 ng/mL Deficient 20-30 ng/mL Insufficient > 30 ng/mL Sufficient *Gilson NAVA. N Engl J Med. 2007;357:266-280 Care must be taken in interpreting Vitamin D results from different laboratories and methodologies. Published data demonstrated that results from patients undergoing hemodialysis may show a negative bias when tested with various automated 25-OH vitamin D assays when compared to LC-MS/MS. When testing samples from patients whose predominant form of Vitamin D is Vitamin D2, such as patients receiving Vitamin D2 supplementation, results that are subtherapeutic should be confirmed with another method such as LC-MS/MS. Prostate Specific Antigen Reviewed date:04/27/2025 05:07:33 PM Interpretation: Performing Lab:[address] [phone] Notes/Report: Prostate Specific Antigen 0.20 <0.05-4.0 ng/mL PSA methodology: Medeiros Alinity i Chemiluminescent Microparticle Immunoassay (CMIA) Complete Blood Count Auto Di ff Reviewed date:07/20/2025 02:31:02 PM Interpretation: Performing Lab:[address] [phone] Notes/Report: White Blood Count 6.0 4.8-10.8 X10*3/uL Red Blood Count 4.67 4.60-5.80 X10*6/uL Hemoglobin 15.1 14.0-18.0 g/dl Hematocrit 44.5 42.0-52.0 % Mean Corpuscular Volume 95.3 80.0-98.0 fL Mean Corpuscular Hemoglobin 32.3 27.0-33.0 pg Mean Corpuscular HGB Conc 33.9 31.0-36.0 g/dl Red Cell Distribution Width 13.1 11.0-16.0 % Platelet Count 226 160-400 X10*3/uL Mean Platelet Volume 8.5 9.4-12.4 fL Neutrophils Percent Auto 67.5 45-73 % Imm Gran Pct Auto 0.3 0.0-0.4 % Lymphocytes Percent Auto 22.3 20-40 % Monocytes Percent Auto 6.4 2-11 % Eosinophils Percent Auto 2.7 0-4 % Basophils Percent Auto 0.8 0-2 % NRBC Pct Auto 0.0 0.0-0.2 /100WBC Neutrophils Absolute Auto 4.0 2.0-8.3 x10*3/u L Imm Gran Abs Auto 0.02 0.00-0.03 X10*3/uL Lymphocytes Absolute Auto 1.3 1.2-4.9 X10*3/u L Monocytes Absolute Auto 0.4 0.1-1.2 X10*3/uL Eosinophils Absolute Auto 0.2 0.0-0.4 X10*3/u L Basophils Absolute Auto 0.1 0.0-0.2 X10*3/uL NRBC Abs Auto 0.000 0.0-0.012 X10*3/uL Comprehensive [place]. Panel Fa st Reviewed date:07/20/2025 02:31:02 PM Interpretation: Performing Lab:[facility], [address] [place] [phone] Notes/Report: Sodium 143 135-145 mmol/L Potassium 4.8 3.3-5.1 mmol/L Chloride 110 96-108 mmol/L Carbon Dioxide 27 22-29 mmol/L Anion Gap 11 12-20 Blood Urea Nitrogen 24 9-16 mg/dL Creatinine 0.82 0.5-1.4 mg/dL Estimated Glomerular Filt Rate > 60 Chronic Kidney Disease: Estimated GFR < 60 mL/min/1.73m2 Severe Kidney Disease: Estimated GFR < 15 mL/min/1.73m2 Glucose Fasting 100 60-99 mg/dL A fasting glucose from 100-125 mg/dl is considered impaired (pre-diabetes). Calcium 9.5 8.4-10.2 mg/dL Bilirubin Total 0.8 0.0-1.0 mg/dL Aspartate Amino Transferase 36 5-37 U/L Alanine Aminotransferase 48 0-40 U/L Total Protein 7.0 6.5-8.0 g/dL Albumin Level 4.7 3.5-5.0 g/dL Alkaline Phosphatase 45 39-117 U/L Lipid Panel Reviewed date:07/20/2025 02:31:02 PM Interpretation: Performing Lab:[address] [phone] Notes/Report: Triglycerides 80 <150 mg/dL Desirable Triglyceride: less than 150 mg/dL Borderline High Triglyceride 150-199 mg/dL High Triglyceride: 200-499 mg/dL Very High Triglyceride: greater than or equal to 5OO mg/dL Cholesterol 177 <200 mg/dL Desirable Cholesterol: less than 200 mg/dL Borderline High Cholesterol: 200-239 mg/dL High Cholesterol: greater than 239 mg/dL LDL Cholesterol Calculated 117 <100 mg/dL Desirable LDL: less than 100 mg/dL Near Optimal/Above Optimal LDL: 110-129 mg/dL Borderline High LDL: 130-159 mg/dL High LDL: 160-189 mg/dL Very High LDL: greater than or equal to 190 mg/dL HDL Cholesterol 44 >40 mg/dL Desirable HDL: greater than 40 mg/dL Note: This HDL assay may give artificially low results in patients with liver disease. Prostate Specific Antigen Reviewed date:07/20/2025 02:31:02 PM Interpretation: Performing Lab:[address] [phone] Notes/Report: Prostate Specific Antigen 0.21 <0.05-4.0 ng/mL PSA methodology: Medeiros Alinity i Chemiluminescent Microparticle Immunoassay (CMIA) Prostate Specific Antigen (N ot yet reviewed by provider) Interpretation: Performing Lab:[facility], [address] [place] [address] Notes/Report: Prostate Specific Antigen 0.20 <0.05-4.0 ng/mL PSA methodology: Medeiros Alinity i Chemiluminescent Microparticle Immunoassay (CMIA) Reason For Referral No Information Medications Medication [...] empty stomach Orally Once a day Active [place] Carbonate 150 MG 1 capsule Orall y Twice a day Active buPROPion HCl ER (SR) 100 MG 2 tablets O rally Once a day Active Omeprazole 20 MG 1 capsule Orally Onc e a day Active Fish Oil 1200 MG 1 capsule Orally Onc e a day Active Famotidine 20 MG 1 tablet at bedtime Orally Once a day Active Immunizations Vaccine Route Administration Date Status Comme nts Influenza no Preserv 3 and > Unknown 09/05/2020 Administered Varicella Unknown 06/03/2023 Administered Given by [facility] Social History Tobacco Use: Social History Observation [...] Problem Status W/U Status Risk Notes Problem 5641360 Former smoker (Z87.891) Active confirmed He is highly motivated not to smoke. We discussed gusto plan to prevent relapse in times of stress and illness. Problem 814174116 Overweight (E66.3) Active confirmed He is slightly overweight. I recommended stabilizing his weight at this level followed by the consumption healthy low-sodium Mediterranean diet Problem Hypertension (94835430) Hypertension (I10) Active confirmed His blood pressure today was 140/76 and no change in his regimen was necessary today. He will come to the office next visit to have his vital signs measured.His blood pressure remains at 140 systolic he will have the option of taking more medication. Problem Malignant tumor of prostate (113141216) Prostate cancer (C61) Active confirmed His PSA remains low at 0.21. The value will be followed periodically. He will continue with urology. Problem 735586695 Mixed hyperlipidemia (E78.2) Active confirmed His lipids are currently stable and on target. No change in his regimen as needed. Problem 378241025 Acquired hypothyroidism (E03.9) Active confirmed He has been compliant with his medication. Comprehensive blood work with a TSH shows normal thyroid function. Problem Erectile dysfunction (240599563) Erectile dysfunction (N52.9) Active confirmed Problem 685937046 Benign prostatic hyperplasia with lower urinary tract symptoms (N40.1) Active confirmed Has been rising from sleep to urinate about once a night. We discussed modifications in his life so that he could make that would reduce nocturia. Problem 992408916 History of inguinal hernia (Z87.19) Active confirmed There is no sign of inguinal herniation today. Problem 012847619 History of depression (Z86.59) Active confirmed He is now on lithium and bupropion. His renal function will be followed. Problem 951733575 Adenomatous polyps (D36.9) Active confirmed He will continue to have periodic colonoscopies. Problem 396561372 Osteoarthritis involving multiple joints on both sides of body (M15.9) Active confirmed He continues to have mild shoulder pain and occasional hip and knee pain. He is able to accomplish all of the activities of daily living. His current regimen was continued. Problem 88158151 Osteoporosis, unspecified osteoporosis type, unspecified pathological fracture presence (M81.0) Active confirmed He was continued on his current treatment.His recent bone density test shows a 3% improvement. Current therapy was ccontinued. Problem 712511886 Sensorineural hearing loss (SNHL) of both ears (H90.3) Active confirmed He has progressive high frequency hearing loss. He purchased his hearing aids at [employer]. He is concerned that his hearing is worse in one year then the other. I have referred him to ENT for evaluation and management. Problem 5247202852 Synovial cyst of left popliteal space (M71.22) Active confirmed Vital Signs Heart Rate 74 /min 07/30/2025 Temperature 100.8 degrees Fahrenheit 07/30/2025 Blood pressure diastolic 66 mm Hg 07/30/2025 Height 68 in 07/30/2025 Blood pressure systolic 139 mm Hg 07/30/2025 Weight 171 lbs 07/30/2025 BMI 26 kg/m2 07/30/2025 Encounters Encounter Location Date Provider Diagnosis Frederick Spaulding III, MD [address] [place] [address] [address] [place] [phone] 12/18/2024 Frederick Spaulding Prostate cancer C61 ; Hypertension I10 ; Benign prostatic hyperplasia with lower urinary tract symptoms N40.1 ; Former smoker Z87.891 ; History of depression Z86.59 ; Mixed hyperlipidemia E78.2 ; Osteoporosis, unspecified osteoporosis type, unspecified pathological fracture presence M81.0 and Overweight E66.3 Frederick Spaulding III, MD [address] [place] [address] [place] [address] 04/19/2025 Frederick Spaulding Prostate cancer C61 ; Acquired hypothyroidism E03.9 ; Mixed hyperlipidemia E78.2 ; Sensorineural hearing loss (SNHL) of both ears H90.3 ; Benign prostatic hyperplasia with lower urinary tract symptoms N40.1 ; History of depression Z86.59 ; Osteoarthritis involving multiple joints on both sides of body M15.9 ; Former smoker Z87.891 ; History of inguinal hernia Z87.19 and Overweight E66.3 Frederick Spaulding III, MD [address] [place] [address] [place] [address] 07/20/2025 Frederick Spaulding Prostate cancer C61 ; Former smoker Z87.891 ; Overweight E66.3 ; Acquired hypothyroidism E03.9 ; Mixed hyperlipidemia E78.2 ; Sensorineural hearing loss (SNHL) of both ears H90.3 ; Benign prostatic hyperplasia with lower urinary tract symptoms N40.1 ; History of depression Z86.59 ; Osteoporosis, unspecified osteoporosis type, unspecified pathological fracture presence M81.0 and Hypertension I10 Frederick Spaulding III, MD [address] [place] [address] [address] [place] [address] 07/30/2025 Frederick Spaulding Prostate cancer C61 ; Mixed hyperlipidemia E78.2 ; Overweight E66.3 ; Benign prostatic hyperplasia with lower urinary tract symptoms N40.1 and Former smoker Z87.891 Frederick Spaulding III, MD [address] [place] [address] [address] [place] [address] 03/01/2025 Frederick Spaulding Assessments Encounter Date Diagnosis (ICD Code) Assessment Notes Treat ment Notes Treatment Clinical Notes 12/18/2024 Hypertension (ICD-10 - I10) His blood pressure today was 140/76 and no change in his regimen was necessary today. He will come to the office next visit to have his vital signs measured.His blood pressure remains at 140 systolic he will have the option of taking more medication. 12/18/2024 Prostate cancer (ICD-10 - C61) He reports he has finished his Lupron. His PSA has risen to 0.13 but is still less than 1.0.It has remained low. The value will be followed periodically. He will continue with urology. 04/19/2025 Prostate cancer (ICD-10 - C61) He reports he has finished his Lupron. His PSA has risen to 0.13 but is still less than 1.0.It has remained low. The value will be followed periodically. He will continue with urology. 04/19/2025 Acquired hypothyroidism (ICD-10 - E03.9) He has been compliant with his medication. Comprehensive blood work with a TSH shows normal thyroid function. 07/20/2025 Former smoker (ICD-1 0 - Z87.891) He is highly motivated not to smoke. We discussed gusto plan to prevent relapse in times of stress and illness. 07/20/2025 Prostate cancer (ICD-10 - C61) His PSA remains low at 0.23. The value will be followed periodically. He will continue with urology. 07/30/2025 Prostate cancer (ICD-10 - C61) His PSA remains low at 0.21. The value will be followed periodically. He will continue with urology. 07/30/2025 Mixed hyperlipidemia (ICD-10 - E78.2) His lipids are currently stable and on target. No change in his regimen as needed. 12/18/2024 Benign prostatic hyperplasia with lower urinary tract symptoms (ICD-10 - N40.1) He arises from sleep once or twice a night to urinate. We had discussed lifestyle modification as a way to reduce nocturia. 04/19/2025 Mixed hyperlipidemia (ICD-10 - E78.2) His lipids are currently stable and no change in his regimen as needed.His total cholesterol is 163. 07/20/2025 Overweight (ICD-10 - E66.3) He is very slightly overweight. No change in his diet was recommended. I recommended he keep his weight at this level. 07/30/2025 Overweight (ICD-10 - E66.3) He is slightly overweight. I recommended stabilizing his weight at this level followed by the consumption healthy low-sodium Mediterranean diet 12/18/2024 Former smoker (ICD-1 0 - Z87.891) He is highly motivated not to smoke. We discussed gusto plan to prevent relapse in times of stress and illness. 04/19/2025 Sensorineural hearin g loss (SNHL) of both ears (ICD-10 - H90.3) He has progressive high frequency hearing loss. He purchased his hearing aids at [employer]. He is concerned that his hearing is worse in one year then the other. I have referred him to ENT for evaluation and management. 07/20/2025 Acquired hypothyroidism (ICD-10 - E03.9) He has been compliant with his medication. Comprehensive blood work with a TSH shows normal thyroid function. 07/30/2025 Benign prostatic hyperplasia with lower urinary tract symptoms (ICD-10 - N40.1) Has been rising from sleep to urinate about once a night. We discussed modifications in his life so that he could make that would reduce nocturia. 12/18/2024 History of depressio n (ICD-10 - Z86.59) He is now on lithium and bupropion. His renal function will be followed. 04/19/2025 Benign prostatic hyperplasia with lower urinary tract symptoms (ICD-10 - N40.1) He arises from sleep once or twice a night to urinate. We had discussed lifestyle modification as a way to reduce nocturia. 07/20/2025 Mixed hyperlipidemia (ICD-10 - E78.2) His lipids are currently stable and no change in his regimen as needed.His total cholesterol is 163. 07/30/2025 Former smoker (ICD-1 0 - Z87.891) He is highly motivated not to smoke. We discussed gusto plan to prevent relapse in times of stress and illness. 12/18/2024 Mixed hyperlipidemia (ICD-10 - E78.2) His lipids are currently stable and no change in his regimen as needed.His total cholesterol is 163. 04/19/2025 History of depressio n (ICD-10 - Z86.59) He is now on lithium and bupropion. His renal function will be followed. 07/20/2025 Sensorineural hearin g loss (SNHL) of both ears (ICD-10 - H90.3) He has progressive high frequency hearing loss. He purchased his hearing aids at [employer]. He is concerned that his hearing is worse in one year then the other. I have referred him to ENT for evaluation and management. 12/18/2024 Osteoporosis, unspecified osteoporosis type, unspecified pathological fracture presence (ICD-10 - M81.0) He was continued on his current treatment.His recent bone density test shows a 3% improvement. Current therapy was ccontinued. 04/19/2025 Osteoarthritis involving multiple joints on both sides of body (ICD-10 - M15.9) He continues to have mild shoulder pain and occasional hip and knee pain. He is able to accomplish all of the activities of daily living. His current regimen was continued. 07/20/2025 Benign prostatic hyperplasia with lower urinary tract symptoms (ICD-10 - N40.1) He arises from sleep once or twice a night to urinate. We had discussed lifestyle modification as a way to reduce nocturia. 12/18/2024 Overweight (ICD-10 - E66.3) He is very slightly overweight. No change in his diet was recommended. I recommended he keep his weight at this level. 04/19/2025 Former smoker (ICD-1 0 - Z87.891) He is highly motivated not to smoke. We discussed gusto plan to prevent relapse in times of stress and illness. 07/20/2025 History of depressio n (ICD-10 - Z86.59) He is now on lithium and bupropion. His renal function will be followed. 04/19/2025 History of inguinal hernia (ICD-10 - Z87.19) There is no sign of inguinal herniation today. 07/20/2025 Osteoporosis, unspecified osteoporosis type, unspecified pathological fracture presence (ICD-10 - M81.0) He was continued on his current treatment.His recent bone density test shows a 3% improvement. Current therapy was ccontinued. 04/19/2025 Overweight (ICD-10 - E66.3) He is very slightly overweight. No change in his diet was recommended. I recommended he keep his weight at this level. 07/20/2025 Hypertension (ICD-10 - I10) His blood pressure today was 140/76 and no change in his regimen was necessary today. He will come to the office next visit to have his vital signs measured.His blood pressure remains at 140 systolic he will have the option of taking more medication. Plan Of Treatment Pending Test Test Name Order Date PROFILE, FASTING (COMPREHENSIVE METABOLI C) 02/04/2020 PROFILE, FASTING (COMPREHENSIVE METABOLI C) 10/16/2019 PROFILE, FASTING (COMPREHENSIVE METABOLI C) 05/17/2023 PROFILE, FASTING (COMPREHENSIVE METABOLI C) 03/15/2023 PROFILE, FASTING (COMPREHENSIVE METABOLI C) 07/30/2025 PROFILE, FASTING (COMPREHENSIVE METABOLI C) 09/13/2023 PROFILE, FASTING (COMPREHENSIVE METABOLI C) 07/03/2021 PROFILE, FASTING (COMPREHENSIVE METABOLI C) 04/19/2025 PROFILE, RANDOM (COMPREHENSIVE METABOLIC ) 12/07/2022 PROFILE, RANDOM (COMPREHENSIVE METABOLIC ) 08/28/2022 PROFILE, RANDOM (COMPREHENSIVE METABOLIC ) 06/19/2022 PROFILE, RANDOM (COMPREHENSIVE METABOLIC ) 02/25/2023 PROFILE, RANDOM (COMPREHENSIVE METABOLIC ) 12/13/2021 PROFILE, RANDOM (COMPREHENSIVE METABOLIC ) 03/20/2022 PROFILE, RANDOM (COMPREHENSIVE METABOLIC ) 10/02/2021 PROFILE, RANDOM (COMPREHENSIVE METABOLIC ) 01/29/2022 PROFILE, RANDOM (COMPREHENSIVE METABOLIC ) 07/01/2020 HEMOGLOBIN A1C (GLYCOHEMOGLOBIN) 022 CALCIUM 02/25/2023 MAGNESIUM 02/25/2023 LIPID PANEL 07/03/2021 LIPID PANEL 12/07/2022 LIPID PANEL 02/04/2020 LIPID PANEL 10/16/2019 LIPID PANEL 01/09/2021 LIPID PANEL 03/15/2023 FREE T4 (FT4) 07/03/2021 FREE T4 (FT4) 12/07/2022 FREE T4 (FT4) 10/16/2019 TSH (THYROID STIMULATING HORMONE) 2022 TSH (THYROID STIMULATING HORMONE) 2020 TSH (THYROID STIMULATING HORMONE) 2022 TSH (THYROID STIMULATING HORMONE) 2018 PSA, TOTAL 02/10/2024 PSA, TOTAL 10/02/2021 PSA, TOTAL 04/19/2025 PSA, TOTAL 01/29/2022 PSA, TOTAL 09/13/2023 PSA, TOTAL 08/28/2022 PSA, TOTAL 02/04/2020 PSA, TOTAL 06/19/2022 PSA, TOTAL 02/25/2023 PSA, TOTAL 07/30/2025 PSA, TOTAL 03/20/2022 PSA, TOTAL 12/07/2022 PSA, TOTAL 03/15/2023 PSA, TOTAL+FREE 07/01/2020 PSA, TOTAL+FREE 12/13/2021 CBC w DIFF 02/25/2023 CBC w DIFF 10/16/2019 CBC w DIFF 03/20/2022 CBC w DIFF 12/07/2022 CBC w DIFF 03/15/2023 CBC w DIFF 07/30/2025 CBC w DIFF 10/02/2021 CBC w DIFF 04/19/2025 CBC w DIFF 01/29/2022 CBC w DIFF 07/01/2020 CBC w DIFF 05/17/2023 CBC w DIFF 08/28/2022 CBC w DIFF 07/03/2021 CBC w DIFF 01/09/2021 CBC w DIFF 12/13/2021 CBC w DIFF 02/04/2020 CBC w DIFF 06/19/2022 TESTOSTERONE, TOTAL 06/19/2022 TESTOSTERONE, TOTAL 08/28/2022 BONE DENSITY DEXA 08/18/2024 BONE DENSITY DEXA 08/28/2022 Holter Monitor 02/25/2023 VITAMIN D 25-OH TOTAL 02/25/2023 VITAMIN D 25-OH TOTAL 01/29/2022 CBC WITH AUTO DIFF 02/10/2024 CBC WITH AUTO DIFF 09/13/2023 Lipid Panel 07/30/2025 Lipid Panel 02/10/2024 Lipid Panel 04/19/2025 Lipid Panel 09/13/2023 Lipid Panel 05/17/2023 Prostate Specific Antigen 10/06/2025 Free T4 (Free Thyroxine) 02/10/2024 Free T4 (Free Thyroxine) 09/13/2023 [place] 07/30/2025 Next Appt Details Provider Name:Frederick Spaulding , 11/03/2025 02:00:00 PM, [address] [facility] [place], [place], [address], Provider Name:Frederick Spaulding , 04/20/2026 03:00:00 PM, [address] [place] [address] [place], [place], [address], Insurance Providers Payer Name Payer Address Payer Phone Subscriber Number Group Number Insured Name Patient Relationship to Insured Coverage Start Date Coverage End Date MEDICARE NGS [address] [place] [address] [id number] Juan White Self - patient is the insured [facility] [address] [place], [place] [id number] Juan White Self - patient is the insured Medical (General) History Medical History History ICD Code hearing loss-sensorineural Raynauds disease Bursitis right shoulder BPH Hypothroidism irritable bowel syndrome osteoarthritis colonic polyps depression, on lithium 2003 bilateral inguinal hernias former smoker acquired hypothyroidism right shoulder pain Premature ventricular contractions January 2023 Left popliteal cyst Surgical History Surgery Date(Month/Year) No history Molar removed 08/2023 knee surgery right 08/[address] ,normal 10/2018 vasectomy 1970 minimal left direct inguinal hernia repa ir 06/1994 inguinal hernia repair bilateral direct 09/1987 Hospitalization History Reason Date(Month/Year) No history
--- OUTSIDE RECORDS SUMMARY | 2025-10-06 19:07 | XMS_ITS | Clinical Summary ---
Author Organization [facility] Address [address] [place] [address] Phone Care Team Providers Care Hotel Services Sales Representative Name Role Phone Frederick Spaulding MD Primary Care Provider +1- [phone] Allergies Active Allergy Reactions Criticality Noted Date Comments Propoxyphene N-Acetaminophen 021 Oxycodone 12/21/2020 Oxycodone-Acetaminophen 12/21/2020 Simvastatin 06/02/2024 Other Reaction(s): body ache Medications levothyroxine (SYNTHROID, LEVOTHROID) 50 MCG tablet Take 50 mcg by mouth every morning. Active famotidine (PEPCID) 20 MG tablet Take 20 mg by mouth nightly at bedtime as needed for heartburn. Active ibuprofen (ADVIL,MOTRIN) 200 MG tablet Take 200 mg by mouth every 6 (six) hours as needed for pain (specific location in comments). Active lactobacillus rhamnosus GG-inulin (CULTURELLE PROBIOTIC) 10 billion cell -200 mg CpSP Take 200 mg by mouth daily. Active cholecalcifero l (VITAMIN D3) 2,000 unit capsule Take 2,000 Units by mouth daily. Active ascorbic acid, vitamin C, (VITAMIN C) 500 MG tablet Take 500 mg by mouth daily. Active atorvastatin (LIPITOR) 10 MG tablet Take 0.5 tablets by mouth daily. Active buPROPion (WELLBUTRIN SR) 100 MG SR 12 hr tablet 1-2 tablets depending on season Active lithium carbonate 150 mg capsule Take 100 mg by mouth every morning. 1-2 tablets depending on the season 05/04/20 24 Active alendronate (FOSAMAX) 70 MG tablet 04/19/20 25 Active omeprazole (PRILOSEC) 20 MG capsuleIndicat ions:Gastroeso phageal reflux disease TAKE 1 CAPSULE BY MOUTH ONCE DAILY 90 capsule 3 09/21/20 25 Active omeprazole (PRILOSEC) 20 MG capsule Take 20 mg by mouth daily. 025 Discontinued Active Problems Problem Noted Date Diagnosed Date Varicose veins of bilateral lower extremities with other complications 06/09/2025 Assessment & Plan (06/09/2025 1:49 PM EDT): Really no symptoms to speak of I will just follow-up in a year Shortness of breath 04/12/2023 Assessment & Plan (06/02/2024 12:48 PM EDT): Currently asymptomatic Assessment & Plan (08/27/2023 12:01 PM EDT): Completely asymptomatic with no shortness of breath he has no structural heart disease by echo Palpitations 04/12/2023 Assessment & Plan (06/09/2025 1:48 PM EDT): Currently asymptomatic from a PVC standpoint Assessment & Plan (06/02/2024 12:48 PM EDT): No more complaints of PVCs ECG today shows no evidence of premature beats at all Assessment & Plan (04/12/2023 9:42 AM EDT): A monitor for 48 hours showed 12% PVCs I have ordered him a longer monitor and asked him to carry out usual activities I also ordered him an echo to ensure he has not had any cardiomyopathy from it Localized edema 04/12/2023 Assessment & Plan (06/02/2024 12:48 PM EDT): He has significant reflux in the left great saphenous vein but this does not bother him so we will treat this conservatively. Assessment & Plan (08/27/2023 12:01 PM EDT): He has 5 seconds of reflux in the left great saphenous vein but this is not that symptomatic I will reevaluate when I see him next Assessment & Plan (04/12/2023 9:42 AM EDT): This patient is developing significant varicose veins I ordered him a venous reflux study I will see him thereafter in follow-up. Benign essential hypertension 04/12/2023 Assessment & Plan (06/09/2025 1:49 PM EDT): His blood pressure was minimally elevated today but recheck was normal goal should be less than 130 mmHg Assessment & Plan (08/27/2023 12:01 PM EDT): Probably not adequately controlled if this is elevated when he sees you next I would escalate his antihypertensive medications which can be done in a variety of ways which I am sure you are aware of Assessment & Plan (04/12/2023 9:41 AM EDT): As mentioned we will reevaluate this next visit if it is still high more than likely we will start a beta-dixon and have him create a blood pressure log Gross hematuria 04/19/2022 S/P TURP (transurethral resection of prostate) 0 04/19/2022 Prostate cancer 12/23/2020 Assessment & Plan (06/09/2025 1:48 PM EDT): This was treated Assessment & Plan (04/12/2023 9:41 AM EDT): He was undergoing active therapy for this Encounters Date Type Department Care Team Description 09/21/2025 Refill [facility] [address] [place] [address] Pablo Shine MD Medication Refill from Last 3 Months Social History Tobacco Use Types Packs/Day Years Used Date Smoking Tobacco: Never Smokeless Tobacco: Never Tobacco Cessation:Counseling Given: Not Answered Education Answer Date Recorded Are you interested in more education? Not on slaas e 03/29/2023 Are you concerned about learning? Not on file 03/29/2023 No 03/29/2023 No 03/29/2023 Digital Access Answer Date Recorded No 04/29/2023 No 04/29/2023 Reliable internet access at home? Not on file 04/29/2023 Device with a working camera? Not on file Sex and Gender Information Value Date Recorded Sex Assigned at Male 04/11/2023 2:47 PM EDT Legal Sex Male 10:12 PM EDT Gender Identity Male 04/11/2023 2:47 PM EDT Sexual Orientation Not on file Last Filed Vital Signs Vital Sign Reading Time Taken Comments Blood Pressure 142/76 06/09/2025 1:36 PM EDT Pulse 71 06/09/2025 1:36 PM EDT Temperature 36.7 C (98.1 F) 12/22/2020 2:06 PM EST Respiratory Rate - - Oxygen Saturation 98% 04/12/2023 9:29 AM EDT Inhaled Oxygen Concentration - - Weight 76.2 kg (168 lb) 06/09/2025 1:36 PM EDT Height 172.7 cm (5' 7.99 ) 06/09/2025 1:36 PM ED T Body Mass Index 25.55 06/09/2025 1:36 PM EDT Plan of Treatment Upcoming Encounters Date Type Department Care Team (Late st Contact Info) Description 06/07/2026 1:45 PM EDT Office Visit [facility] [address] [place] [address] [address]rd [facility], [address] [place] [address] Neil Alcantara DO [address] [place] [address] [email or web address] Health Maintenance Due Date Last Done Comments Adult Td,Tdap Booster 1940 CREATININE LEVEL 1940 LITHIUM LEVEL 1940 TSH LEVEL 1940 DEPRESSION SCREENING 1952 ZOSTER VACCINES (1 of 2) 08/08/2013 06/13/2013 RSV VACCINE (1 - 1-dose 75+ series) 2015 PNEUMOCOCCAL VACCINES (50+ years) (2 of 2 - PPSV23) 06/20/2019 04/25/2019 INFLUENZA VACCINE (#1) 2025 , 09/05/2020, 09/20/2019, Additional history exists COVID-19 VACCINE ( season) 2025 08/26/2021 BLOOD PRESSURE 12/10/2025 06/09/2025 HEPATITIS A VACCINES Aged Out No long er eligible based on patient's age to complete this topic HIB VACCINES Aged Out No longer eligi ble based on patient's age to complete this topic MENINGOCOCCAL VACCINES (ACWY) Aged Out No longer eligible based on patient's age to complete this topic MENINGOCOCCAL VACCINES (B) Aged Out N o longer eligible based on patient's age to complete this topic Medical Devices Not [place] [address] MEDICARE PART A & B [facility] [place] [address] MEDICARE PART A & B Member Subscriber Plan / Payer (Ef fective 2005-) Name:Minerva Delgado Member ID:[id number] Relation to Subscriber:Self Name:Minerva Delgado Subscriber ID:[id number] Payer ID:[id number] Group ID:Not on file Type:Medicare Address: [facility] [employer]Box [address] [employer] [place] [address] MEDICARE PART A & B [employer] MEDEX SUPPLEMENT MEDICARE PART A & B [employer] MEDEX SUPPLEMENT MEDICARE PART A & B [employer] MEDEX SUPPLEMENT MEDICARE PART A & B [employer] MEDEX SUPPLEMENT MEDICARE PART A & B [employer] [place] [address] MEDICARE PART A & [place] [address] MEDICARE PART A & B [employer] MEDEX SUPPLEMENT Care Teams Hotel Services Sales Representative Relationship Specialty Start Date End Date Frederick Spaulding MD [address] [place] [address] [place] [address] PCP - General Medical Oncology 12/09/20 Additional Source Comments The information contained in this document represents components of the legal health record. It is not the complete legal health record.[facility]
== END 2025-10-06 16:38 | disposition home or self-care (01) ==
LOC: HO.LAB 16:37
PROVIDERS: PCP Internal Medicine Medical Oncology; Visit Provider Urology
DX: Z12.5 Encounter for screening for malignant neoplasm of prostate (principal); C61 Malignant neoplasm of prostate
CPT/HCPCS: 36415; 84153; 84403

== ENCOUNTER 2025-10-30 10:25 | Outpatient (REF) | payer MEDICARE, SELFPAY ==
--- OUTSIDE RECORDS SUMMARY | 2024-08-18 09:30 | XMS_ITS ---
Author Organization Frederick Spaulding III, MD Address [address] [place] [address] Care Team Providers Care Hat Block Bench Hand Name Role Phone Dr. Frederick Spaulding III Primary Care Provider Allergies Allergen (clinical drug ingredient) Drug/Non Drug Allergy documented on EMR Reaction Allergy Type Onset Date Status Information temporarily unavailable Simvastatin body ache Drug Allergy Active Information temporarily unavailable Percocet nausea Drug Allergy Active REASON FOR VISIT Overweight, Hypothyroid, Hyperlipidemia, Hearing loss, BPH, Anxiety and depression, Hypertension, Prostate cancer, Osteoporosis Medications Medication SIG (Take, Route, Frequency, Duration) Notes Start Date End Date Status Levothyroxine Sodium 50 MCG TAKE 1 TABLE T BY MOUTH IN THE MORNING ON AN EMPTY STOMACH Active Magnesium Glycinate 100 MG as directed Orally Active Atorvastatin Calcium 10 MG TAKE 1 TABLET BY MOUTH DAILY Active Vitamin C 500 MG Orally Act renay Vitamin D 1000 UNIT 1 tablet Orally Once a day Active buPROPion HCl ER (SR) 100 MG 2 tablets O rally Once a day Active Alendronate Sodium 70 MG 1 tablet 30 min utes before the first food, beverage or medicine of the day with plain water Orally Once a week 11/07/2022 Active Omeprazole 20 MG 1 capsule Orally Onc e a day Active Fish Oil 1200 MG 1 capsule Orally Onc e a day Active Famotidine 20 MG 1 tablet at bedtime Orally Once a day Active Social History Tobacco Use: Social History [...] Non-User Ex-cigaret te smoker Vital Signs Temperature 98.6 degrees Fahrenheit 08/18/20 24 Blood pressure systolic 139 mm Hg 08/18/20 24 Blood pressure diastolic 75 mm Hg 024 Heart Rate 68 /min 08/18/2024 Height 68 in 08/18/2024 Weight 168 lbs 08/18/2024 BMI 25.54 kg/m2 08/18/2024 Encounters Encounter Location Date Provider Diagnosis Frederick Spaulding III, MD [address] [place] [address] [place] [address] 08/18/2024 Frederick Spaulding Prostate cancer C61 ; Mixed hyperlipidemia E78.2 ; Overweight (BMI 25.0-29.9) E66.3 ; Osteoporosis, unspecified osteoporosis type, unspecified pathological fracture presence M81.0 ; Acquired hypothyroidism E03.9 ; History of depression Z86.59 and Former smoker Z87.891 Assessments Encounter Date Diagnosis (ICD Code) Assessment Notes Treat ment Notes Treatment Clinical Notes 08/18/2024 Prostate cancer (ICD-10 - C61) He reports he has finished his Lupron. His PSA has risen to 0.13 but is still less than 1.0. 08/18/2024 Mixed hyperlipidemia (ICD-10 - E78.2) His lipids are currently stable and no change in his regimen as needed. 08/18/2024 Overweight (BMI 25.0-29.9) (ICD-10 - E66.3) He is very slightly overweight at the age of 83. We will stabilize his weight at this level and continue to consume a healthy Mediterranean diet. 08/18/2024 Osteoporosis, unspecified osteoporosis type, unspecified pathological fracture presence (ICD-10 - M81.0) He was continued on his current treatment. 08/18/2024 Acquired hypothyroidism (ICD-10 - E03.9) He has been compliant with his medication. Comprehensive blood work with a TSH shows normal thyroid function. 08/18/2024 History of depressio n (ICD-10 - Z86.59) He is now on lithium and bupropion. His renal function will be followed. 08/18/2024 Former smoker (ICD-1 0 - Z87.891) He is highly motivated not to smoke. We discussed gusto plan to prevent relapse in times of stress and illness. Plan Of Treatment Medication Medication Name Sig Start Date Stop Date Notes Levothyroxine Sodium 50 MCG TAKE 1 TABLE T BY MOUTH IN THE MORNING ON AN EMPTY STOMACH Magnesium Glycinate 100 MG as directed Orally Atorvastatin Calcium 10 MG TAKE 1 TABLET BY MOUTH DAILY Vitamin C 500 MG Orally Vitamin D 1000 UNIT 1 tablet Orally Once a day buPROPion HCl ER (SR) 100 MG 2 tablets Orally Once a day Alendronate Sodium 70 MG 1 tablet 30 min utes before the first food, beverage or medicine of the day with plain water Orally Once a week 11/07/2022 Omeprazole 20 MG 1 capsule Orally Once a day Fish Oil 1200 MG 1 capsule Orally Once a day Famotidine 20 MG 1 tablet at bedtime Orally Once a day Pending Test Test Name Order Date BONE DENSITY DEXA 08/18/2024 Next Appt Details Follow Up: 3 Months, Reason: OV Provider Name:Frederick Spaulding , 11/03/2025 02:00:00 PM, [address] [place] [address] [address], [place], [phone], Provider Name:Frederick Spaulding , 04/20/2026 03:00:00 PM, [address] [place] [address] [address], [place], [address], Progress Notes * SANDYJuanDOB: [birth year] (83 yo M)Acc No.[id number]:08/18/2024 Progress Notes Patient: Juan Colon Provider: Sinai Spaulding MD :1940 A ge:83 Y S ex:Male Date:08/18/2024 Address:[address] [place] [address] , [address], [id number] Subjective: * Chief Complaints: * O verweightHypothyroidHyperlipidemiaHearing lossBPHAnxiety and depressionHypertensionProstate cancerOsteoporosis * HPI: C OVID-19 Screening: He returns for medical management of his multiple issues. His depression is well controlled but his anxiety remains. He has been compliant with all of his medications. He has completed 18 months of Lupron therapy. His PSA is 0.13. He was treated with radiation therapy as primary treatment for prostate cancer. He denies any bone pain. He is due for a bone density test. This was ordered. His erectile dysfunction has been successfully treated with medication. His blood pressure was stable today. He is up-to-date with his visits to urology. Questions H ave you experienced fever, chills, cough, sore throat, shortness of breath, difficulty breathing, muscle aches, loss of taste or smell? N o H ave you been exposed to the virus within the last 10 days? N o H ave you travelled internationally in the last 10 days? N o H ave you been exposed to COVID-19 in the past? N o * ROS: G eneral/Constitutional: pain o nly normal aches and pains. C hills d enies.?Fatigue a dmits. F ever d enies. E NT: Decreased hearing i n both ears. R espiratory: Cough d enies. C ardiovascular: Chest pain with exertion d enies. D yspnea on exertion?denies. S hortness of breath d enies. G astrointestinal: Constipation o ccasional. D ecreased appetite d enies. D iarrhea d enies. H eartburn o ccasional. N ausea d enies. R ectal bleeding d enies. V omiting d enies. H ematology: bruising d enies. p etechiae d enies. S wollen glands n one have been noted. G enitourinary: Frequent urination t wice a night. M usculoskeletal: Muscle aches d [...] adult-onset diabetes, myocardial infarction, stroke, diagnosed with DM, CVD. 2 brother(s) - healthy. 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 He worked in [employer] and [employer] for [employer]. He was exposed to solvents but not to benzene. He has been to [facility] since 1960. He lives in [place], [place]. * Medications: T akingAtorvastatin Calcium 10 MG Tablet TAKE 1 TABLET BY MOUTH DAILY Magnesium Glycinate 100 MG Capsule as directed Orally Vitamin D 1000 UNIT Tablet 1 tablet Orally Once a dayVitamin C 500 MG Capsule Orally Famotidine 20 MG Tablet 1 tablet at bedtime Orally Once a dayFish Oil 1200 MG Capsule 1 capsule Orally Once a dayOmeprazole 20 MG Capsule Delayed Release 1 capsule Orally Once a dayAlendronate Sodium 70 MG Tablet 1 tablet 30 minutes before the first food, beverage or medicine of the day with plain water Orally Once a weekbuPROPion HCl ER (SR) 100 MG Tablet Extended Release 12 Hour 2 tablets Orally Once a dayLevothyroxine Sodium 50 MCG Tablet TAKE 1 TABLET BY MOUTH IN THE MORNING ON AN EMPTY STOMACH Taking Atorvastatin Calcium 10 MG Tablet TAKE 1 TABLET BY MOUTH DAILY Taking Magnesium Glycinate 100 MG Capsule as directed Orally Taking Vitamin D 1000 UNIT Tablet 1 tablet Orally Once a dayTaking Vitamin C 500 MG Capsule Orally Taking Famotidine 20 MG Tablet 1 tablet at bedtime Orally Once a dayTaking Fish Oil 1200 MG Capsule 1 capsule Orally Once a dayTaking Omeprazole 20 MG Capsule Delayed Release 1 capsule Orally Once a dayTaking Alendronate Sodium 70 MG Tablet 1 tablet 30 minutes before the first food, beverage or medicine of the day with plain water Orally Once a weekTaking buPROPion HCl ER (SR) 100 MG Tablet Extended Release 12 Hour 2 tablets Orally Once a dayTaking Levothyroxine Sodium 50 MCG Tablet TAKE 1 TABLET BY MOUTH IN THE MORNING ON AN EMPTY STOMACH DiscontinuedbuPROPion HCl 100 MG Tablet 1 tablet Orally every 3rd dayMedication List reviewed and reconciled with the patientDiscontinued buPROPion HCl 100 MG Tablet 1 tablet Orally every 3rd dayMedication List reviewed and reconciled with the patient * Allergies: S imvastatin: body ache - AllergyPercocet: nausea - Allergyno[Allergies Verified] Objective: * Vitals: H t: 68, Wt:168, BMI:25.54, BP:139/75, HR:68, Temp:98.6, Wt-k.2. * P ast Orders: Lab:Magnesium * Order Date 08/12/2024 02/25/2023 Magnesium 2.3 (Ref Range: 1.6-2.6 mg/dL) 2.1 (Ref Range: 1.6-2.6 mg/dL) * Lab:Comprehensive [place]. Pane l Fast * Order Date 08/12/2024 04/08/2024 12/12/2023 Sodium 142 (Ref Range: 135-145 mmol/L) 142 (Ref Range: 135-145 mmol/L) 142 (Ref Range: 135-145 mmol/L) Bilirubin Total 0.8 (Ref Range: 0.0-1.0 mg/dL) 0.9 (Ref Range: 0.0-1.0 mg/dL) 0.9 (Ref Range: 0.0-1.0 mg/dL) Aspartate Amino Transferase 31 (Ref Range: 5-37 U/L) 26 (Ref Range: 5-37 U/L) 24 (Ref Range: 5-37 U/L) Alanine Aminotransferase 38 (Ref Range: 0-40 U/L) 40 (Ref Range: 0-40 U/L) 28 (Ref Range: 0-40 U/L) Total Protein 7.0 (Ref Range: 6.5-8.0 g/dL) 7.1 (Ref Range: 6.5-8.0 g/dL) 7.4 (Ref Range: 6.5-8.0 g/dL) Albumin Level 4.4 (Ref Range: 3.5-5.0 g/dL) 4.4 (Ref Range: 3.5-5.0 g/dL) 4.6 (Ref Range: 3.5-5.0 g/dL) Alkaline Phosphatase 52 (Ref Range: 39-117 U/L) 54 (Ref Range: 39-117 U/L) 44 (Ref Range: 39-117 U/L) Potassium 4.6 (Ref Range: 3.3-5.1 mmol/L) 4.6 (Ref Range: 3.3-5.1 mmol/L) 4.9 (Ref Range: 3.3-5.1 mmol/L) Chloride 108 (Ref Range: 96-108 mmol/L) 107 (Ref Range: 96-108 mmol/L) 107 (Ref Range: 96-108 mmol/L) Carbon Dioxide 27 (Ref Range: 22-29 mmol/L) 26 (Ref Range: 22-29 mmol/L) 29 (Ref Range: 22-29 mmol/L) Anion Gap 12 (Ref Range: 12-20) 14 (Ref Range: 12-20) 11 L (Ref Range: 12-20) Blood Urea Nitrogen 19 H (Ref Range: 9-16 mg/dL) 18 H (Ref Range: 9-16 mg/dL) 18 H (Ref Range: 9-16 mg/dL) Creatinine 1.04 (Ref Range: 0.5-1.4 mg/dL) 1.01 (Ref Range: 0.5-1.4 mg/dL) 0.92 (Ref Range: 0.5-1.4 mg/dL) Estimated Glomerular Filt Rate > 60 > 60 > 60 Glucose Fasting 95 (Ref Range: 60-99 mg/dL) 96 (Ref Range: 60-99 mg/dL) 101 H (Ref Range: 60-99 mg/dL) Calcium 10.1 (Ref Range: 8.4-10.2 mg/dL) 10.5 H (Ref Range: 8.4-10.2 mg/dL) 10.3 H (Ref Range: 8.4-10.2 mg/dL) * Lab:Thyroid Stimulating Horm one * Order Date 08/12/2024 12/12/2023 09/25/2021 Thyroid Stimulating Hormone 1.45 (Ref Range: 0.32-4.0 uIU/mL) 1.07 (Ref Range: 0.32-4.0 uIU/mL) 1.83 (Ref Range: 0.32-4.0 uIU/mL) * Lab:Complete Blood Count Aut o Diff * Order Date 08/12/2024 04/08/2024 12/12/2023 White Blood Count 6.2 (Ref Range: 4.8-10.8 X10*3/uL) 7.4 (Ref Range: 4.8-10.8 X10*3/uL) 6.1 (Ref Range: 4.8-10.8 X10*3/uL) Red Blood Count 4.97 (Ref Range: 4.60-5.80 X10*6/uL) 4.81 (Ref Range: 4.60-5.80 X10*6/uL) 5.01 (Ref Range: 4.60-5.80 X10*6/uL) Hemoglobin 16.4 (Ref Range: 14.0-18.0 g/dl) 16.4 (Ref Range: 14.0-18.0 g/dl) 16.3 (Ref Range: 14.0-18.0 g/dl) Hematocrit 49.2 (Ref Range: 42.0-52.0 %) 48.2 (Ref Range: 42.0-52.0 %) 48.7 (Ref Range: 42.0-52.0 %) Mean Corpuscular Volume 99.0 H (Ref Range: 80.0-98.0 fL) 100.2 H (Ref Range: 80.0-98.0 fL) 97.2 (Ref Range: 80.0-98.0 fL) Mean Corpuscular Hemoglobin 33.0 (Ref Range: 27.0-33.0 pg) 34.1 H (Ref Range: 27.0-33.0 pg) 32.5 (Ref Range: 27.0-33.0 pg) Mean Corpuscular HGB Conc 33.3 (Ref Range: 31.0-36.0 g/dl) 34.0 (Ref Range: 31.0-36.0 g/dl) 33.5 (Ref Range: 31.0-36.0 g/dl) Red Cell Distribution Width 12.9 (Ref Range: 11.0-16.0 %) 13.2 (Ref Range: 11.0-16.0 %) 13.3 (Ref Range: 11.0-16.0 %) Platelet Count 238 (Ref Range: 160-400 X10*3/uL) 235 (Ref Range: 160-400 X10*3/uL) 205 (Ref Range: 160-400 X10*3/uL) Mean Platelet Volume 8.8 L (Ref Range: 9.4-12.4 fL) 8.6 L (Ref Range: 9.4-12.4 fL) 8.4 L (Ref Range: 9.4-12.4 fL) Neutrophils Percent Auto 63.6 (Ref Range: 45-73 %) 68.7 (Ref Range: 45-73 %) 63.5 (Ref Range: 45-73 %) Imm Gran Pct Auto 0.3 (Ref Range: 0.0-0.4 %) 0.1 (Ref Range: 0.0-0.4 %) 0.3 (Ref Range: 0.0-0.4 %) Lymphocytes Percent Auto 23.4 (Ref Range: 20-40 %) 21.6 (Ref Range: 20-40 %) 25.1 (Ref Range: 20-40 %) Monocytes Percent Auto 8.0 (Ref Range: 2-11 %) 6.6 (Ref Range: 2-11 %) 7.6 (Ref Range: 2-11 %) Eosinophils Percent Auto 3.7 (Ref Range: 0-4 %) 2.3 (Ref Range: 0-4 %) 2.8 (Ref Range: 0-4 %) Basophils Percent Auto 1.0 (Ref Range: 0-2 %) 0.7 (Ref Range: 0-2 %) 0.7 (Ref Range: 0-2 %) NRBC Pct Auto 0.0 (Ref Range: 0.0-0.2 /100WBC) 0.0 (Ref Range: 0.0-0.2 /100WBC) 0.0 (Ref Range: 0.0-0.2 /100WBC) Neutrophils Absolute Auto 4.0 (Ref Range: 2.0-8.3 x10*3/uL) 5.1 (Ref Range: 2.0-8.3 x10*3/uL) 3.9 (Ref Range: 2.0-8.3 x10*3/uL) Imm Gran Abs Auto 0.02 (Ref Range: 0.00-0.03 X10*3/uL) 0.01 (Ref Range: 0.00-0.03 X10*3/uL) 0.02 (Ref Range: 0.00-0.03 X10*3/uL) Lymphocytes Absolute Auto 1.5 (Ref Range: 1.2-4.9 X10*3/uL) 1.6 (Ref Range: 1.2-4.9 X10*3/uL) 1.5 (Ref Range: 1.2-4.9 X10*3/uL) Monocytes Absolute Auto 0.5 (Ref Range: 0.1-1.2 X10*3/uL) 0.5 (Ref Range: 0.1-1.2 X10*3/uL) 0.5 (Ref Range: 0.1-1.2 X10*3/uL) Eosinophils Absolute Auto 0.2 (Ref Range: 0.0-0.4 X10*3/uL) 0.2 (Ref Range: 0.0-0.4 X10*3/uL) 0.2 (Ref Range: 0.0-0.4 X10*3/uL) Basophils Absolute Auto 0.1 (Ref Range: 0.0-0.2 X10*3/uL) 0.1 (Ref Range: 0.0-0.2 X10*3/uL) 0.0 (Ref Range: 0.0-0.2 X10*3/uL) NRBC Abs Auto 0.000 (Ref Range: 0.0-0.012 X10*3/uL) 0.000 (Ref Range: 0.0-0.012 X10*3/uL) 0.000 (Ref Range: 0.0-0.012 X10*3/uL) * Lab:Free T4 (Free Thyroxine) * Order Date 08/12/2024 04/08/2024 12/12/2023 Free T4 (Free Thyroxine) 0.83 (Ref Range: 0.71-1.85 ng/dL) 0.97 (Ref Range: 0.71-1.85 ng/dL) 0.92 (Ref Range: 0.71-1.85 ng/dL) * Lab:Prostate Specific Antige n * Order Date 08/12/2024 04/08/2024 12/12/2023 Prostate Specific Antigen 0.13 (Ref Range: <0.05-4.0 ng/mL) < 0.10 (Ref Range: <0.05-4.0 ng/mL) < 0.10 (Ref Range: <0.05-4.0 ng/mL) ???Lab:Lipid Panel (Order Date - 08/12/2024) (Collection Date - 08/12/2024) ?ValueReference Range?Jxzhfnusltdud632<150 - mg/dL ?Uwzieadsjym483<200 - mg/dL?LDL Cholesterol Phtxrnizbs42<100 - mg/dL?HDL Dkdxakjhdny37L>40 - mg/dL * Examination: G eneral Examination: GENERAL APPEARANCE: p leasant, well nourished, well developed, in no acute distress, calm and relaxed , overweight , elderly man. HEAD: a traumatic, normocephalic. EYES: e francine, [...] normal, no ascites, no organomegaly, no mass , overweight. RECTAL EXAM: n ot examined. MUSCULOSKELETAL: e xtremities unremarkable, no clubbing, cyanosis or edema, Arthritic changes hands and fingers. PERIPHERAL PULSES: n ormal. NEUROLOGIC: a lert and oriented, cranial nerves 2-12 grossly intact, deep tendon reflexes 2+ symmetrical, motor strength normal upper and lower extremities, sensory exam intact. PSYCH: a lert, oriented , anxious appearing , mood depressed. Assessment: * Assessment: 1. P rostate cancer - C61 (Primary), He reports he has finished his Lupron. His PSA has risen to 0.13 but is still less than 1.0. 2 . M ixed hyperlipidemia - E78.2, His lipids are currently stable and no change in his regimen as needed. 3 . O verweight (BMI 25.0-29.9) - E66.3, He is very slightly overweight at the age of 83. We will stabilize his weight at this level and continue to consume a healthy Mediterranean diet. 4 . O steoporosis, unspecified osteoporosis type, unspecified pathological fracture presence - M81.0, He was continued on his current treatment. 5. A cquired hypothyroidism - E03.9, He has been compliant with his medication. Comprehensive blood work with a TSH shows normal thyroid function. 6 . H istory of depression - Z86.59, He is now on lithium and bupropion. His renal function will be followed. 7 . F ormer smoker - Z87.891, He is highly motivated not to smoke. We discussed gusto plan to prevent relapse in times of stress and illness. Plan: * Treatment: 2. M ixed hyperlipidemia L AB: PROFILE, FASTING (COMPREHENSIVE METABOLIC) L AB: CBC WITH AUTO DIFF L AB: Lipid Panel L AB: Vitamin D 25-OH Total 3. O verweight (BMI 25.0-29.9) L AB: PROFILE, FASTING (COMPREHENSIVE METABOLIC) L AB: CBC WITH AUTO DIFF L AB: Lipid Panel L AB: Vitamin D 25-OH Total 4. O steoporosis, unspecified osteoporosis type, unspecified pathological fracture presence L AB: Vitamin D 25-OH Total I maging: BONE DENSITY DEXA 5. O thers Continue Levothyroxine Sodium Tablet, 50 MCG, TAKE 1 TABLET BY MOUTH IN THE MORNING ON AN EMPTY STOMACH; C ontinue Atorvastatin Calcium Tablet, 10 MG, TAKE 1 TABLET BY MOUTH DAILY; C ontinue Magnesium Glycinate Capsule, 100 MG, as directed, Orally; C ontinue buPROPion HCl ER (SR) Tablet Extended Release 12 Hour, 100 MG, 2 tablets, Orally, Once a day. * Procedure Codes: * Preventive Medicine: Counseling: C are goal follow-up plan: Counseling for abnormal BMI given Y es Above Normal BMI Follow-up D ietary needs education S moking/Tobacco Use Patient counseled on the dangers of tobacco use and urged to quit. 0 08/18/2024 * Follow Up: 3 Months (Reason: OV) * Images: * Sign off status: Completed true * Provider: Sinai Spaulding MD Date: 0 08/18/2024 Generated for Printi ng/Fadeacong/eTransmitting on: 1 12/30/2024 10:30 AM EST History and Physical Notes * HPI (History of Present Illness) Category Sub-Category Detail Notes COVID-19 Screening Questions Have you had any new onset fever, chills, cough, congestion, sore throat, shortness of breath, muscle aches?: No Have you been exposed to the virus withi n the last 10 days?: No Have you travelled internationally in [facility] last 10 days?: No Have you been exposed to COVID-19 in the past?: No Examination Category Sub-Category Detail Notes General Examination GENERAL APPEARANCE: pleasant , well nourished, well developed, in no acute distress, calm and relaxed , overweight , elderly man HEAD: atraumatic, normocep halic EYES: eomi, perrla, anicte cheng, conjugate EARS: normal NOSE: septum intact NECK/THYROID: no jugular venous di stention, no carotid bruit, thyroid normal HEART: no clicks, gallops, murmurs, or rubs, regular rhythm, S1, S2 normal, no s3, or vascular bruits LUNGS: clear to auscultatio n ABDOMEN: bowel sounds normal, no ascites, no organomegaly, no mass , overweight NEUROLOGIC: alert and oriented, cranial nerves 2-12 grossly intact, deep tendon reflexes 2+ symmetrical, motor strength normal upper and lower extremities, sensory exam intact SKIN: no suspicious lesion s, anicteric PERIPHERAL PULSES: normal BREASTS: no masses palpable b ilaterally MUSCULOSKELETAL: extremities unremark able, no clubbing, cyanosis or edema, Arthritic changes hands and fingers LYMPH NODES: no enlarged lymph no krish,spleen normal RECTAL EXAM: not examined PSYCH: alert, oriented , an xious appearing , mood depressed ORAL CAVITY: normal, unremarkable
--- OUTSIDE RECORDS SUMMARY | 2024-08-24 10:47 | XMS_ITS ---
Author Organization Frederick Spaulding III, MD Address [address] [place] [address] [place] [address] Care Team Providers Care Complaint Adjuster Name Role Phone Dr. Frederick Spaulding III Primary Care Provider REASON FOR VISIT Message Social History Sex Assigned At : Social History Observation Description Sex Assigned At Male Encounters Encounter Location Date Provider Diagnosis Frederick Spaulding III, MD [address] [place] [address] [place] [address] 08/24/2024 Frederick Spaulding Plan Of Treatment Next Appt Details Provider Name:Frederick Spaulding , 11/03/2025 02:00:00 PM, [address] [place] [address] [place], [address], Provider Name:Frederick Spaulding , 04/20/2026 03:00:00 PM, [address] [place] [address] [place], [address], Progress Notes * Juan DELGADODOB: [birth year] (83 yo M)Acc No.[id number]:08/24/2024 Patient: Juan Colon :1940 A ge:83 Y S ex:Male Address:[address] [place] [address] [address] [facility] [place], [phone] * true * Date: Generated for Printi ng/Faxing/eTransmitting on: 12/30/2024 10:30 AM EST
--- OUTSIDE RECORDS SUMMARY | 2024-12-18 09:15 | XMS_ITS ---
Author Organization Frederick Spaulding III, MD Address [address] [address] Care Team Providers Care Knuckler Name Role Phone Dr. Frederick Spaulding III Primary Care Provider Allergies Allergen (clinical drug ingredient) Drug/Non Drug Allergy documented on EMR Reaction Allergy Type Onset Date Status Information temporarily unavailable Simvastatin body ache Drug Allergy Active Information temporarily unavailable Percocet nausea Drug Allergy Active REASON FOR VISIT Depression, Prostate cancer, Hearing loss, Hypothyroid, Benign prostatic hypertrophy, Hypertension,Osteoporosis Medications Medication SIG (Take, Route, Frequency, Duration) Notes Start Date End Date Status Magnesium Glycinate 100 MG as directed Orally Active Vitamin D 1000 UNIT 1 tablet Orally Once a day Active Levothyroxine Sodium 50 MCG TAKE 1 TABLE T BY MOUTH IN THE MORNING ON AN EMPTY STOMACH Active Atorvastatin Calcium 10 MG TAKE 1 TABLET BY MOUTH DAILY Active buPROPion HCl ER (SR) 100 MG 2 tablets O rally Once a day Active Fish Oil 1200 MG 1 capsule Orally Onc e a day Active [place] Carbonate 150 MG 1 capsule Orall y Twice a day Active Omeprazole 20 MG 1 capsule Orally Onc e a day Active Vitamin C 500 MG Orally Act renay Famotidine 20 MG 1 tablet at bedtime [...] Non-User Ex-cigaret te smoker Vital Signs Temperature 97.3 degrees Fahrenheit 12/18/19 25 Blood pressure systolic 140 mm Hg 12/18/19 25 Blood pressure diastolic 76 mm Hg 025 Heart Rate 70 /min 12/18/2024 Height 68 in 12/18/2024 Weight 170 lbs 12/18/2024 BMI 25.85 kg/m2 12/18/2024 Encounters Encounter Location Date Provider Diagnosis Frederick Spaulding III, MD [address] [place] [address] [address] [place], [place] [address] 12/18/2024 Frederick Spaulding Prostate cancer C61 ; Hypertension I10 ; Benign prostatic hyperplasia with lower urinary tract symptoms N40.1 ; Former smoker Z87.891 ; History of depression Z86.59 ; Mixed hyperlipidemia E78.2 ; Osteoporosis, unspecified osteoporosis type, unspecified pathological fracture presence M81.0 and Overweight E66.3 Assessments Encounter Date Diagnosis (ICD Code) Assessment Notes Treat ment Notes Treatment Clinical Notes 12/18/2024 Prostate cancer (ICD-10 - C61) He reports he has finished his Lupron. His PSA has risen to 0.13 but is still less than 1.0.It has remained low. The value will be followed periodically. He will continue with urology. 12/18/2024 Hypertension (ICD-10 - I10) His blood pressure today was 140/76 and no change in his regimen was necessary today. He will come to the office next visit to have his vital signs measured.His blood pressure remains at 140 systolic he will have the option of taking more medication. 12/18/2024 Benign prostatic hyperplasia with lower urinary tract symptoms (ICD-10 - N40.1) He arises from sleep once or twice a night to urinate. We had discussed lifestyle modification as a way to reduce nocturia. 12/18/2024 Former smoker (ICD-1 0 - Z87.891) He is highly motivated not to smoke. We discussed gusto plan to prevent relapse in times of stress and illness. 12/18/2024 History of depressio n (ICD-10 - Z86.59) He is now on lithium and bupropion. His renal function will be followed. 12/18/2024 Mixed hyperlipidemia (ICD-10 - E78.2) His lipids are currently stable and no change in his regimen as needed.His total cholesterol is 163. 12/18/2024 Osteoporosis, unspecified osteoporosis type, unspecified pathological fracture presence (ICD-10 - M81.0) He was continued on his current treatment.His recent bone density test shows a 3% improvement. Current therapy was ccontinued. 12/18/2024 Overweight (ICD-10 - E66.3) He is very slightly overweight. No change in his diet was recommended. I recommended he keep his weight at this level. Plan Of Treatment Medication Medication Name Sig Start Date Stop Date Notes Magnesium Glycinate 100 MG as directed Orally Vitamin D 1000 UNIT 1 tablet Orally Once a day Levothyroxine Sodium 50 MCG TAKE 1 TABLE T BY MOUTH IN THE MORNING ON AN EMPTY STOMACH Atorvastatin Calcium 10 MG TAKE 1 TABLET BY MOUTH DAILY buPROPion HCl ER (SR) 100 MG 2 tablets Orally Once a day Fish Oil 1200 MG 1 capsule Orally Once a day Chatsworth Carbonate 150 MG 1 capsule Orally Twice a day Omeprazole 20 MG 1 capsule Orally Once a day Vitamin C 500 MG Orally Famotidine 20 MG 1 tablet at bedtime Orally Once a day Next Appt Details Follow Up: As Scheduled, Renée son: OV, Annual Exam Provider Name:Frederick Spaulding , 11/03/2025 02:00:00 PM, [address] [place] [address] [address], [place], [address], Provider Name:Frederick Spaulding , 04/20/2026 03:00:00 PM, [address] [place] [address] [address], [facility] [place], [address], Progress Notes * Juan DELGADODOB: [birth year] (84 yo M)Acc No.[id number]:12/18/2024 Progress Notes Patient: Juan JORDAN Provider: Sinai Spaulding MD :1940 A ge:84 Y S ex:Male Date:12/18/2024 Address:[address] [place] [address] , [place], [id number] Subjective: * Chief Complaints: * D epressionProstate cancerHearing lossHypothyroidBenign prostatic hypertrophyHypertensionOsteoporosis * HPI: C OVID-19 Screening: Questions H ave you had any new onset fever, chills, cough, congestion, sore throat, shortness of breath, muscle aches? N o * : The patient, an 84-year-old male, reported a decline in his hearing and word recognition. He has recently had his hearing tested and is getting new hearing aids. He also mentioned a condition that seems to be affecting his hearing, but no specific details were provided. The patient has been taking Alendronate for osteoporosis, which has shown improvement in his bone density by 3.4%. However, he mentioned a growth that has stopped but not reduced, requiring dental intervention. He also reported a spiky feeling in his veins when sitting down, which goes away upon movement or standing. * ROS: G eneral/Constitutional: pain A rthritis of shoulders hips and knees, otherwise only normal aches and pains. C hills d enies. F atigue a dmits. F ever d enies.? E NT: Decreased hearing i n both ears. R espiratory: Cough d enies. C ardiovascular: Chest pain with exertion d enies. D yspnea on exertion?denies. S hortness of breath d enies. G astrointestinal: Constipation o ccasional. D ecreased appetite d enies. D iarrhea d enies. H eartburn d enies. N ausea d enies. R ectal bleeding d enies. V omiting d enies. H ematology: bruising d enies. p etechiae d enies. S wollen glands n one have been noted. G enitourinary: Frequent urination t wice a night. M usculoskeletal: Muscle aches d enies. P ainful joints S houlders hips and knees. S ciatica d enies. W eakness d enies. S kin: Itching d enies. R june d enies. S kin lesion(s)?denies. N eurologic: Difficulty speaking d enies. D izziness d enies.?Headache d enies. L ow back pain d enies. P sychiatric: Depressed mood w hich is mild. * Medical History: * Surgical History: i nguinal hernia repair bilateral direct 09/1987minimal left direct inguinal hernia repair 06/1994vasectomy 1970colonoscopy, ,normal 10/2018knee surgery right 08/2019Molar removed 08/2023No history * Hospitalization/Major Diagno stic Procedure: N o history * Family History: F ather: 57 yrs, Childhood rheumatic fever, coronary artery disease, diagnosed with CVD. M other: 92 yrs, Dementia, adult-onset diabetes, myocardial infarction, stroke, diagnosed with DM, CVD. S on(s): alive. S iblings: alive. 2 brother(s) - healthy. 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 He was exposed to solvents but not to benzene. He has been to [employer] since 1960. He lives in [place], [place]. * Medications: T akingLithium Carbonate 150 MG Capsule 1 capsule Orally Twice a day Levothyroxine Sodium 50 MCG Tablet TAKE 1 TABLET BY MOUTH IN THE MORNING ON AN EMPTY STOMACH Atorvastatin Calcium 10 MG Tablet TAKE 1 TABLET BY MOUTH DAILY Vitamin D 1000 UNIT Tablet 1 tablet Orally Once a day Vitamin C 500 MG Capsule Orally Famotidine 20 MG Tablet 1 tablet at bedtime Orally Once a day Fish Oil 1200 MG Capsule 1 capsule Orally Once a day Omeprazole 20 MG Capsule Delayed Release 1 capsule Orally Once a day buPROPion HCl ER (SR) 100 MG Tablet Extended Release 12 Hour 2 tablets Orally Once a day Medication List reviewed and reconciled with the patientTaking Chatsworth Carbonate 150 MG Capsule 1 capsule Orally Twice a day Taking Levothyroxine Sodium 50 MCG Tablet TAKE 1 TABLET BY MOUTH IN THE MORNING ON AN EMPTY STOMACH Taking Atorvastatin Calcium 10 MG Tablet TAKE 1 TABLET BY MOUTH DAILY Taking Vitamin D 1000 UNIT Tablet 1 tablet Orally Once a day Taking Vitamin C 500 MG Capsule Orally Taking Famotidine 20 MG Tablet 1 tablet at bedtime Orally Once a day Taking Fish Oil 1200 MG Capsule 1 capsule Orally Once a day Taking Omeprazole 20 MG Capsule Delayed Release 1 capsule Orally Once a day Taking buPROPion HCl ER (SR) 100 MG Tablet Extended Release 12 Hour 2 tablets Orally Once a day Medication List reviewed and reconciled with the patient * Allergies: S imvastatin: body ache - AllergyPercocet: nausea - Allergyno[Allergies Verified] Objective: * Vitals: H t: 68, Wt:170, BMI:25.85, BP:140/76, HR:70, Temp:97.3, Wt-k.11. * P ast Orders: Lab:Complete Blood Count Aut o Diff * Collection Date 12/14/2024 08/12/2024 04/08/2024 Collection Time 11:32 AM 11:00 AM 09:29 AM Order Date 12/14/2024 08/12/2024 04/08/2024 White Blood Count 5.8 (Ref Range: 4.8-10.8 X10*3/uL) 6.2 (Ref Range: 4.8-10.8 X10*3/uL) 7.4 (Ref Range: 4.8-10.8 X10*3/uL) Red Blood Count 4.82 (Ref Range: 4.60-5.80 X10*6/uL) 4.97 (Ref Range: 4.60-5.80 X10*6/uL) 4.81 (Ref Range: 4.60-5.80 X10*6/uL) Hemoglobin 15.9 (Ref Range: 14.0-18.0 g/dl) 16.4 (Ref Range: 14.0-18.0 g/dl) 16.4 (Ref Range: 14.0-18.0 g/dl) Hematocrit 47.4 (Ref Range: 42.0-52.0 %) 49.2 (Ref Range: 42.0-52.0 %) 48.2 (Ref Range: 42.0-52.0 %) Mean Corpuscular Volume 98.3 H (Ref Range: 80.0-98.0 fL) 99.0 H (Ref Range: 80.0-98.0 fL) 100.2 H (Ref Range: 80.0-98.0 fL) Mean Corpuscular Hemoglobin 33.0 (Ref Range: 27.0-33.0 pg) 33.0 (Ref Range: 27.0-33.0 pg) 34.1 H (Ref Range: 27.0-33.0 pg) Mean Corpuscular HGB Conc 33.5 (Ref Range: 31.0-36.0 g/dl) 33.3 (Ref Range: 31.0-36.0 g/dl) 34.0 (Ref Range: 31.0-36.0 g/dl) Red Cell Distribution Width 12.6 (Ref Range: 11.0-16.0 %) 12.9 (Ref Range: 11.0-16.0 %) 13.2 (Ref Range: 11.0-16.0 %) Platelet Count 231 (Ref Range: 160-400 X10*3/uL) 238 (Ref Range: 160-400 X10*3/uL) 235 (Ref Range: 160-400 X10*3/uL) Mean Platelet Volume 8.9 L (Ref Range: 9.4-12.4 fL) 8.8 L (Ref Range: 9.4-12.4 fL) 8.6 L (Ref Range: 9.4-12.4 fL) Neutrophils Percent Auto 58.6 (Ref Range: 45-73 %) 63.6 (Ref Range: 45-73 %) 68.7 (Ref Range: 45-73 %) Imm Gran Pct Auto 0.3 (Ref Range: 0.0-0.4 %) 0.3 (Ref Range: 0.0-0.4 %) 0.1 (Ref Range: 0.0-0.4 %) Lymphocytes Percent Auto 26.6 (Ref Range: 20-40 %) 23.4 (Ref Range: 20-40 %) 21.6 (Ref Range: 20-40 %) Monocytes Percent Auto 8.8 (Ref Range: 2-11 %) 8.0 (Ref Range: 2-11 %) 6.6 (Ref Range: 2-11 %) Eosinophils Percent Auto 4.3 H (Ref Range: 0-4 %) 3.7 (Ref Range: 0-4 %) 2.3 (Ref Range: 0-4 %) Basophils Percent Auto 1.4 (Ref Range: 0-2 %) 1.0 (Ref Range: 0-2 %) 0.7 (Ref Range: 0-2 %) NRBC Pct Auto 0.0 (Ref Range: 0.0-0.2 /100WBC) 0.0 (Ref Range: 0.0-0.2 /100WBC) 0.0 (Ref Range: 0.0-0.2 /100WBC) Neutrophils Absolute Auto 3.4 (Ref Range: 2.0-8.3 x10*3/uL) 4.0 (Ref Range: 2.0-8.3 x10*3/uL) 5.1 (Ref Range: 2.0-8.3 x10*3/uL) Imm Gran Abs Auto 0.02 (Ref Range: 0.00-0.03 X10*3/uL) 0.02 (Ref Range: 0.00-0.03 X10*3/uL) 0.01 (Ref Range: 0.00-0.03 X10*3/uL) Lymphocytes Absolute Auto 1.5 (Ref Range: 1.2-4.9 X10*3/uL) 1.5 (Ref Range: 1.2-4.9 X10*3/uL) 1.6 (Ref Range: 1.2-4.9 X10*3/uL) Monocytes Absolute Auto 0.5 (Ref Range: 0.1-1.2 X10*3/uL) 0.5 (Ref Range: 0.1-1.2 X10*3/uL) 0.5 (Ref Range: 0.1-1.2 X10*3/uL) Eosinophils Absolute Auto 0.3 (Ref Range: 0.0-0.4 X10*3/uL) 0.2 (Ref Range: 0.0-0.4 X10*3/uL) 0.2 (Ref Range: 0.0-0.4 X10*3/uL) Basophils Absolute Auto 0.1 (Ref Range: 0.0-0.2 X10*3/uL) 0.1 (Ref Range: 0.0-0.2 X10*3/uL) 0.1 (Ref Range: 0.0-0.2 X10*3/uL) NRBC Abs Auto 0.000 (Ref Range: 0.0-0.012 X10*3/uL) 0.000 (Ref Range: 0.0-0.012 X10*3/uL) 0.000 (Ref Range: 0.0-0.012 X10*3/uL) * Lab:[facility] Silva [facility] de jes[facility] Fast * Collection Date 12/14/2024 08/12/2024 04/08/2024 Collection Time 11:32 AM 11:00 AM 09:29 AM Order Date 12/14/2024 08/12/2024 04/08/2024 Sodium 143 (Ref Range: 135-145 mmol/L) 142 (Ref Range: 135-145 mmol/L) 142 (Ref Range: 135-145 mmol/L) Bilirubin Total 0.7 (Ref Range: 0.0-1.0 mg/dL) 0.8 (Ref Range: 0.0-1.0 mg/dL) 0.9 (Ref Range: 0.0-1.0 mg/dL) Aspartate Amino Transferase 33 (Ref Range: 5-37 U/L) 31 (Ref Range: 5-37 U/L) 26 (Ref Range: 5-37 U/L) Alanine Aminotransferase 42 H (Ref Range: 0-40 U/L) 38 (Ref Range: 0-40 U/L) 40 (Ref Range: 0-40 U/L) Total Protein 7.1 (Ref Range: 6.5-8.0 g/dL) 7.0 (Ref Range: 6.5-8.0 g/dL) 7.1 (Ref Range: 6.5-8.0 g/dL) Albumin Level 4.5 (Ref Range: 3.5-5.0 g/dL) 4.4 (Ref Range: 3.5-5.0 g/dL) 4.4 (Ref Range: 3.5-5.0 g/dL) Alkaline Phosphatase 49 (Ref Range: 39-117 U/L) 52 (Ref Range: 39-117 U/L) 54 (Ref Range: 39-117 U/L) Potassium 4.2 (Ref Range: 3.3-5.1 mmol/L) 4.6 (Ref Range: 3.3-5.1 mmol/L) 4.6 (Ref Range: 3.3-5.1 mmol/L) Chloride 108 (Ref Range: 96-108 mmol/L) 108 (Ref Range: 96-108 mmol/L) 107 (Ref Range: 96-108 mmol/L) Carbon Dioxide 30 H (Ref Range: 22-29 mmol/L) 27 (Ref Range: 22-29 mmol/L) 26 (Ref Range: 22-29 mmol/L) Anion Gap 9 L (Ref Range: 12-20) 12 (Ref Range: 12-20) 14 (Ref Range: 12-20) Blood Urea Nitrogen 23 H (Ref Range: 9-16 mg/dL) 19 H (Ref Range: 9-16 mg/dL) 18 H (Ref Range: 9-16 mg/dL) Creatinine 0.92 (Ref Range: 0.5-1.4 mg/dL) 1.04 (Ref Range: 0.5-1.4 mg/dL) 1.01 (Ref Range: 0.5-1.4 mg/dL) Estimated Glomerular Filt Rate > 60 > 60 > 60 Glucose Fasting 89 (Ref Range: 60-99 mg/dL) 95 (Ref Range: 60-99 mg/dL) 96 (Ref Range: 60-99 mg/dL) Calcium 9.8 (Ref Range: 8.4-10.2 mg/dL) 10.1 (Ref Range: 8.4-10.2 mg/dL) 10.5 H (Ref Range: 8.4-10.2 mg/dL) * Lab:Lipid Panel * Collection Date 12/14/2024 08/12/2024 04/08/2024 Collection Time 11:32 AM 11:00 AM 09:29 AM Order Date 12/14/2024 08/12/2024 04/08/2024 Triglycerides 117 (Ref Range: <150 mg/dL) 136 (Ref Range: <150 mg/dL) 93 (Ref Range: <150 mg/dL) Cholesterol 163 (Ref Range: <200 mg/dL) 161 (Ref Range: <200 mg/dL) 156 (Ref Range: <200 mg/dL) LDL Cholesterol Calculated 102 H (Ref Range: <100 mg/dL) 99 (Ref Range: <100 mg/dL) 97 (Ref Range: <100 mg/dL) HDL Cholesterol 38 L (Ref Range: >40 mg/dL) 35 L (Ref Range: >40 mg/dL) 41 (Ref Range: >40 mg/dL) * Lab:Vitamin D 25-OH Total * Collection Date 12/14/2024 02/25/2023 03/07/2022 Collection Time 11:32 AM 02:53 PM 04:35 PM Order Date 12/14/2024 02/25/2023 03/07/2022 Vitamin D 25-OH Total 78.8 (Ref Range: >30 ng/mL) 53.6 (Ref Range: >30 ng/mL) 52.1 (Ref Range: >30 ng/mL) * Lab:Prostate Specific Antige n * Collection Date 10/21/2024 08/12/2024 04/08/2024 Collection Time 02:12 PM 11:00 AM 09:29 AM Order Date 10/21/2024 08/12/2024 04/08/2024 Prostate Specific Antigen 0.13 (Ref Range: <0.05-4.0 ng/mL) 0.13 (Ref Range: <0.05-4.0 ng/mL) < 0.10 (Ref Range: <0.05-4.0 ng/mL) * Examination: G eneral Examination: GENERAL APPEARANCE: p leasant, well nourished, well developed, in no acute distress, calm and relaxed, overweight, elderly man. HEAD: a traumatic, normocephalic. EYES: e francine, perrla, anicteric, conjugate. EARS: N ormal anatomy with bilateral hearing loss. NOSE: s eptum intact. ORAL CAVITY: n [...] sounds normal, no ascites, no organomegaly, no mass, overweight. RECTAL EXAM: n ot examined. MUSCULOSKELETAL: e xtremities unremarkable, no clubbing, cyanosis or edema. PERIPHERAL PULSES: n ormal. NEUROLOGIC: a lert and oriented, cranial nerves 2-12 grossly intact, deep tendon reflexes 2+ symmetrical, motor strength normal upper and lower extremities, sensory exam intact. PSYCH: a lert, oriented, anxious appearing, mood depressed, cognitive function intact, good eye contact, cooperative with exam. Assessment: * Assessment: 1. P rostate cancer - C61 (Primary) N otes :He reports he has finished his Lupron. His PSA has risen to 0.13 but is still less than 1.0.It has remained low. The value will be followed periodically. He will continue with urology. 2 . H ypertension - I10 N otes :His blood pressure today was 140/76 and no change in his regimen was necessary today. He will come to the office next visit to have his vital signs measured.His blood pressure remains at 140 systolic he will have the option of taking more medication. 3 . B enign prostatic hyperplasia with lower urinary tract symptoms - N40.1? Notes :He arises from sleep once or twice a night to urinate. We had discussed lifestyle modification as a way to reduce nocturia. 4 . F ormer smoker - Z87.891 N otes :He is highly motivated not to smoke. We discussed gusto plan to prevent relapse in times of stress and illness. 5 . H istory of depression - Z86.59 N otes :He is now on lithium and bupropion. His renal function will be followed. 6 . M ixed hyperlipidemia - E78.2 N otes :His lipids are currently stable and no change in his regimen as needed.His total cholesterol is 163. 7 . O steoporosis, unspecified osteoporosis type, unspecified pathological fracture presence - M81.0 N otes :He was continued on his current treatment.His recent bone density test shows a 3% improvement. Current therapy was ccontinued. 8 . O verweight - E66.3 N otes :He is very slightly overweight. No change in his diet was recommended. I recommended he keep his weight at this level. Plan: * Treatment: 2. O thers Continue Levothyroxine Sodium Tablet, 50 [...] Follow-up D ietary management education, guidance, and counseling, Dietary needs education S moking/Tobacco Use Patient counseled on the dangers of tobacco use and urged to quit. 0 12/18/2024 * Follow Up: A s Scheduled (Reason: OV, Annual Exam) * Images: * Sign off status: Completed true * Provider: Sinai Spaulding MD Date: 0 12/18/2024 Generated for Santai tricia/Elizabeth/Bayitting on: 12/30/2024 10:30 AM EST History and Physical Notes * HPI (History of Present Illness) Category Sub-Category Detail Notes COVID-19 Screening Questions Have you had any new onset fever, chills, cough, congestion, sore throat, shortness of breath, muscle aches?: No Examination Category Sub-Category Detail Notes General Examination GENERAL APPEARANCE: pleasant , well nourished, well developed, in no acute distress, calm and relaxed, overweight, elderly man HEAD: atraumatic, normocep halic EYES: eomi, perrla, anicte cheng, conjugate EARS: Normal anatomy with bilateral hearing loss NOSE: septum intact NECK/THYROID: no jugular venous di stention, no carotid bruit, thyroid normal HEART: no clicks, gallops, murmurs, or rubs, regular rhythm, S1, S2 normal, no s3, or vascular bruits LUNGS: clear to auscultatio n ABDOMEN: bowel sounds normal, no ascites, no organomegaly, no mass, overweight NEUROLOGIC: alert and oriented, cranial nerves 2-12 grossly intact, deep tendon reflexes 2+ symmetrical, motor strength normal upper and lower extremities, sensory exam intact SKIN: no suspicious lesion s, anicteric PERIPHERAL PULSES: normal BREASTS: no masses palpable b ilaterally MUSCULOSKELETAL: extremities unremark able, no clubbing, cyanosis or edema LYMPH NODES: no enlarged lymph no krish,spleen normal RECTAL EXAM: not examined PSYCH: alert, oriented, anx ious appearing, mood depressed, cognitive function intact, good eye contact, cooperative with exam ORAL CAVITY: normal, unremarkable
--- OUTSIDE RECORDS SUMMARY | 2025-03-01 09:27 | XMS_ITS ---
Author Organization Frederick Spaulding III, MD Address [address] [place] [address] [place] [address] Care Team Providers Care Nail Expert Name Role Phone Dr. Frederick Spaulding III Primary Care Provider REASON FOR VISIT Restarting Alendronate Sodium 70mg tablet Social History Sex Assigned At : Social History Observation Description Sex Assigned At Male Encounters Encounter Location Date Provider Diagnosis Frederick Spaulding III, MD [address] [place] [address] [place] [address] 03/01/2025 Frederick Spaulding Plan Of Treatment Next Appt Details Provider Name:Frederick Spaulding , 11/03/2025 02:00:00 PM, [address] [place] [address] [place], [address], Provider Name:Frederick Spaulding , 04/20/2026 03:00:00 PM, [address] [place] [address] [place], [address], Progress Notes * Juan DELGADODOB: [birth year] (84 yo M)Acc No.[id number]:03/01/2025 Patient: Donovan MARRYJuan ANTON :1940 A ge:84 Y S ex:Male Address:[address] [place] [address] [address] [facility] [place], [address] * true * Date: Generated for Printi ng/Faxing/eTransmitting on: 12/30/2024 10:29 AM EST
--- OUTSIDE RECORDS SUMMARY | 2025-04-19 10:00 | XMS_ITS ---
Author Organization Frederick Spaulding III, MD Address [address] [facility] [place] [address] Care Team Providers Care Publishing Director Name Role Phone Dr. Frederick Spaulding III [...] 2 tablets Orally Once a day Active Buchtel Carbonate 150 MG 1 capsule Orall y [...] Date Provider Diagnosis Frederick Spaulding III, MD [address] [place] [address] [address] [place], [place] [address] 04/19/2025 Frederick Spaulding Prostate cancer C61 ; [...] loss. He purchased his hearing aids at [employer]. He is concerned that his hearing is [...] MG 2 tablets Orally Once a day Buchtel Carbonate 150 MG 1 capsule Orally Twice [...] Up: 3 Months, Reason: OV Provider Name:Frederick Line , 11/03/2025 02:00:00 PM, [address] [facility] [address], [place], [address], Provider Name:Frederick Goncalvesrne , 04/20/2026 03:00:00 PM, [address] [place] [address] [address], [place], [address], Progress Notes * SANDY Juan GarvinDOB: [birth year] (84 yo M)Acc No.[id number]:04/19/2025 Progress Notes Patient: Juan JORDAN Provider: Sinai Spaulding MD :1940 A ge:84 Y S ex:Male Date:04/19/2025 Address:[address] [place] [address] , [facility] [id number] Subjective: * Chief Complaints: * A nnual [...] Findings: Tobacco Non-User E x-cigarette smoker 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 He was exposed to solvents but not to benzene. He has been to [place] since 1960. He lives in [place], [place]. * Medications: T akingAlendronate Sodium 70 [...] Hour 2 tablets Orally Once a day Buchtel Carbonate 150 MG Capsule 1 capsule Orally [...] 2 tablets Orally Once a day Taking Buchtel Carbonate 150 MG Capsule 1 capsule Orally [...] loss. He purchased his hearing aids at [employer]. He is concerned that his hearing is [...] 04/19/2025 Generated for Nabil clarke/Elizabeth/Anjelicasmitting on: 1 12/30/2024 10:29 AM EST History and Physical Notes * [...] had two or more falls in the year?: No Fall Risk Assessment:: One fall [...]
--- OUTSIDE RECORDS SUMMARY | 2025-07-20 09:15 | XMS_ITS ---
Author Organization Frederick Spaulding III, MD Address [address] [place] [address] Care Team Providers Care Timber Estimator Name Role Phone Dr. Frederick Spaulding III [...] tablets O rally Once a day Active [place] Carbonate 150 MG 1 capsule Orall y [...] Date Provider Diagnosis Frederick Spaulding III, MD [address] [place] [address] [place] [address] 07/20/2025 Frederick Spaulding Prostate cancer C61 ; [...] loss. He purchased his hearing aids at [employer]. He is concerned that his hearing is [...] MG 2 tablets Orally Once a day [place] Carbonate 150 MG 1 capsule Orally Twice [...] Provider Name:Frederick Spaulding , 11/03/2025 02:00:00 PM, [address] [place] [address] [address], [place], [address], Provider Name:Frederick Spaulding , 04/20/2026 03:00:00 PM, [address] [place] [address] [address], [place], [address], Progress Notes * Juan DELGADODOB: [birth year] (84 yo M)Acc No.[id number]:07/20/2025 Progress Notes Patient: Juan JORDAN Provider: Sinai Spaulding MD :1940 A ge:84 Y S ex:Male Date:07/20/2025 Address:[address] [place] [address] , [place], [id number] Subjective: * Chief Complaints: * R ecent [...] x-cigarette smoker 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 He worked in [employer] for a [employer]. He was exposed to solvents but not to benzene. He has been to [employer] since 1960. He lives in [place], [place]. * Medications: T akingAtorvastatin Calcium 10 [...] Hour 2 tablets Orally Once a day [place] Carbonate 150 MG Capsule 1 capsule Orally [...] 2 tablets Orally Once a day Taking [place] Carbonate 150 MG Capsule 1 capsule Orally [...] (Ref Range: 0.0-0.012 X10*3/uL) * Lab:[facility]inton Jiménez. [place] l Fast * Collection Date 07/14/2025 12/14/2024 [...] loss. He purchased his hearing aids at [employer]. He is concerned that his hearing is [...] Spaulding MD Date: 0 07/20/2025 Generated for Nabil clarke/Elizabeth/Anjelicasmitting on: 1 12/30/2024 [...]
--- OUTSIDE RECORDS SUMMARY | 2025-07-30 08:30 | XMS_ITS ---
Author Organization Frederick Spaulding III, MD Address [address] [place] [address] Care Team Providers Care Passenger Service Representative Name Role Phone Dr. Frederick Spaulding III Primary Care Provider Allergies Allergen (clinical drug ingredient) Drug/Non Drug Allergy documented on EMR Reaction Allergy Type Onset Date Status Information temporarily unavailable Simvastatin body ache Drug Allergy Active Information temporarily unavailable Percocet nausea Drug Allergy Active REASON FOR VISIT Left foot injury second and third toes, Prostate cancer, Hypothyroid, Hearing loss, Hypertension, Benign prostatic hypertrophy Medications Medication SIG (Take, Route, Frequency, Duration) Notes Start Date End Date Status Vitamin C 500 MG Orally Act renay Vitamin D 1000 UNIT 1 tablet Orally Once a day Active Magnesium Glycinate 100 MG as directed Orally Active Atorvastatin Calcium 10 MG TAKE 1 TABLET BY MOUTH DAILY Active Famotidine 20 MG 1 tablet at bedtime Orally Once a day Active Alendronate Sodium 70 MG 1 tablet 30 min utes before the first food, beverage or medicine of the day with plain water Orally weekly 04/19/2025 Active Co Q 10 100 MG as directed Orally Active Levothyroxine Sodium 50 MCG 1 tablet rosanna ry morning on an empty stomach Orally Once a day Active [place] Carbonate 150 MG 1 capsule Orall y Twice a day Active buPROPion HCl ER (SR) 100 MG 2 tablets O rally Once a day Active Omeprazole 20 MG 1 capsule Orally Onc e a day Active Fish Oil 1200 MG 1 capsule Orally Onc e a day Active Social History Tobacco Use: [...] Additional Findings: Tobacco Non-User Ex-cigaret te smoker Problems Problem Type SNOMED Code ICD Code Onset Dates Problem Status W/U Status Risk Notes Problem [id number] Synovial cyst of left popliteal space (M71.22) Active confirmed Vital Signs Temperature 100.8 degrees Fahrenheit 025 Blood pressure systolic 139 mm Hg 07/30/20 25 Blood pressure diastolic 66 mm Hg 025 Heart Rate 74 /min 07/30/2025 Height 68 in 07/30/2025 Weight 171 lbs 07/30/2025 BMI 26 kg/m2 07/30/2025 Encounters Encounter Location Date Provider Diagnosis Frederick Spaulding III, MD [address] [place] [address] [place] [address] 07/30/2025 Frederick Spaulding Prostate cancer C61 ; Mixed hyperlipidemia E78.2 ; Overweight E66.3 ; Benign prostatic hyperplasia with lower urinary tract symptoms N40.1 and Former smoker Z87.891 Assessments Encounter Date Diagnosis (ICD Code) Assessment Notes Treat ment Notes Treatment Clinical Notes 07/30/2025 Prostate cancer (ICD-10 - C61) His PSA remains low at 0.21. The value will be followed periodically. He will continue with urology. 07/30/2025 Mixed hyperlipidemia (ICD-10 - E78.2) His lipids are currently stable and on target. No change in his regimen as needed. 07/30/2025 Overweight (ICD-10 - E66.3) He is slightly overweight. I recommended stabilizing his weight at this level followed by the consumption healthy low-sodium Mediterranean diet 07/30/2025 Benign prostatic hyperplasia with lower urinary tract symptoms (ICD-10 - N40.1) Has been rising from sleep to urinate about once a night. We discussed modifications in his life so that he could make that would reduce nocturia. 07/30/2025 Former smoker (ICD-1 0 - Z87.891) He is highly motivated not to smoke. We discussed gusto plan to prevent relapse in times of stress and illness. Plan Of Treatment Medication Medication Name Sig Start Date Stop Date Notes Vitamin C 500 MG Orally Vitamin D 1000 UNIT 1 tablet Orally Once a day Magnesium Glycinate 100 MG as directed Orally Atorvastatin Calcium 10 MG TAKE 1 TABLET BY MOUTH DAILY Famotidine 20 MG 1 tablet at bedtime Orally Once a day Alendronate Sodium 70 MG 1 tablet 30 min utes before the first food, beverage or medicine of the day with plain water Orally weekly 04/19/2025 Co Q 10 100 MG as directed Orally Levothyroxine Sodium 50 MCG 1 tablet rosanna ry morning on an empty stomach Orally Once a day [place] Carbonate 150 MG 1 capsule Orally Twice a day buPROPion HCl ER (SR) 100 MG 2 tablets Orally Once a day Omeprazole 20 MG 1 capsule Orally Once a day Fish Oil 1200 MG 1 capsule Orally Once a day Pending Test Test Name Order Date PROFILE, FASTING (COMPREHENSIVE METABOLI C) 07/30/2025 PSA, TOTAL 07/30/2025 CBC w DIFF 07/30/2025 Lipid Panel 07/30/2025 [place] 07/30/2025 Next Appt Details Follow Up: 3 Months, Reason: OV Provider Name:Frederick Spaulding , 11/03/2025 02:00:00 PM, [address] [place] [address] [address], [place], [phone], Provider Name:Frederick Spaulding , 04/20/2026 03:00:00 PM, [address] [place] [address] [address], [place], [phone], Progress Notes * Juan DELGADODOB: [birth year] (84 yo M)Acc No.[id number]:07/30/2025 Progress Notes Patient: Juan JORDAN Virgie Provider: Sinai Spaulding MD :1940 A ge:84 Y S ex:Male Date:07/30/2025 Address:[address] [place] [address] , [address] [id number] Subjective: * Chief Complaints: * L eft foot injury second and third toesProstate cancerHypothyroidHearing lossHypertensionBenign prostatic hypertrophy * HPI: C OVID-19 Screening: He returns to monitor the healing of the crush injury of the left foot second and third toes. On the previous visit they were completely swollen and ecchymotic decreased range of motion and pain. Most of the ecchymosis has resolved and there is still some edema distally but there is major improvement. He says he can walk and wear normal shoes without pain. He will continue his current treatment another week. His vital signs were stable. His nocturia is unchanged. He has been compliant with all of his medications. He noticed a swelling in the back of his left knee and called my attention. He appears to have a moderate sized Faith's cyst in the popliteal fossa of the left leg. We discussed the nature of this problem. He has seen an orthopedist in the past at [facility] but did not wish a referral at this time.? The cyst is mostly asymptomatic. If it becomes painful he agreed to go to orthopedics. Questions H ave you had any new onset fever, chills, cough, congestion, sore throat, shortness of breath, muscle aches? 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 He was exposed to solvents but not to benzene. He has been to [employer] since 1960. He lives in [place], [place]. * Medications: T akingLevothyroxine Sodium 50 MCG Tablet 1 tablet every morning on an empty stomach Orally Once a day Atorvastatin Calcium 10 MG Tablet TAKE 1 [...] Hour 2 tablets Orally Once a day [place] Carbonate 150 MG Capsule 1 capsule Orally Twice a day Co Q 10 100 MG Capsule as directed Orally Alendronate Sodium 70 MG Tablet 1 tablet 30 minutes before the first food, beverage or medicine of the day with plain water Orally weekly Taking Levothyroxine Sodium 50 MCG Tablet 1 tablet every morning on an empty stomach Orally Once a day Taking Atorvastatin Calcium 10 MG Tablet TAKE [...] 2 tablets Orally Once a day Taking [place] Carbonate 150 MG Capsule 1 capsule Orally Twice a day Taking Co Q 10 100 MG Capsule as directed Orally Taking Alendronate Sodium 70 MG Tablet 1 tablet 30 minutes before the first food, beverage or medicine of the day with plain water Orally weekly DiscontinuedAlendronate Sodium 70 MG Tablet 1 tablet 30 minutes before the first food, beverage or medicine of the day with plain water Orally once a week Medication List reviewed and reconciled with the patientDiscontinued Alendronate Sodium 70 MG Tablet 1 tablet 30 minutes before the first food, beverage or medicine of the day with plain water Orally once a week Medication List reviewed and reconciled with the patient * Allergies: S imvastatin: body ache - AllergyPercocet: nausea - Allergyno[Allergies Verified] Objective: * Vitals: H t: 68, Wt:171, BMI:26, BP:139/66, HR:74, Temp:100.8, Wt-k.56. * P ast Orders: Lab:Complete Blood Count [...] 35 L (Ref Range: >40 mg/dL) * Lab:Prostate Specific Antige n * Collection Date 07/14/2025 04/23/2025 10/21/2024 Collection Time 12:10 PM 03:03 PM 02:12 PM Order Date 07/14/2025 04/23/2025 10/21/2024 Prostate Specific Antigen 0.21 (Ref Range: <0.05-4.0 ng/mL) 0.20 (Ref Range: <0.05-4.0 ng/mL) 0.13 (Ref Range: <0.05-4.0 ng/mL) * Examination: G eneral Examination: GENERAL APPEARANCE: p leasant, well nourished, well developed, in no acute distress, calm and relaxed: overweight: elderly man. HEAD: a traumatic, normocephalic. EYES: [...] overweight. RECTAL EXAM: n ot examined. MUSCULOSKELETAL: S econd and third toes left foot less swollen and ecchymotic, distal portion still edematous with range of motion of those toes much improved, able to walk without pain. PERIPHERAL PULSES: n ormal. NEUROLOGIC: a lert and oriented, cranial nerves 2-12 grossly intact, deep tendon reflexes 2+ symmetrical, motor strength normal upper and lower extremities, sensory exam intact. PSYCH: a lert, oriented: anxious appearing: mood depressed.? Assessment: * Assessment: 1. P rostate cancer - C61 (Primary) N otes :His PSA remains low at 0.21. The value will be followed periodically. He will continue with urology. 2 . M ixed hyperlipidemia - E78.2 N otes :His lipids are currently stable and on target. No change in his regimen as needed. 3 . O verweight - E66.3 N otes :He is slightly overweight. I recommended stabilizing his weight at this level followed by the consumption healthy low-sodium Mediterranean diet 4 . B enign prostatic hyperplasia with lower urinary tract symptoms - N40.1? Notes :Has been rising from sleep to urinate about once a night. We discussed modifications in his life so that he could make that would reduce nocturia. 5 . F ormer smoker - Z87.891 N otes :He is highly motivated not to smoke. We discussed gusto plan to prevent relapse in times of stress and illness. Plan: * Treatment: 2. M ixed hyperlipidemia L AB: PROFILE, FASTING (COMPREHENSIVE METABOLIC) L AB: PSA, TOTAL L AB: CBC w DIFF L AB: Lipid Panel 3. O verweight L AB: PROFILE, FASTING (COMPREHENSIVE METABOLIC) L AB: PSA, TOTAL L AB: CBC w DIFF L AB: Lipid Panel 4. B enign prostatic hyperplasia with lower urinary tract symptoms L AB: PROFILE, FASTING (COMPREHENSIVE METABOLIC) L AB: PSA, TOTAL L AB: CBC w DIFF L AB: Lipid Panel 5. O thers Continue Levothyroxine Sodium Tablet, [...] a day. * Labs: * L ab: [place] * Procedure Codes: * Preventive Medicine: Counseling: C are goal follow-up plan: Counseling for abnormal BMI given Y es Above Normal BMI Follow-up D ietary management education, guidance, and counseling S moking/Tobacco Use Patient counseled on the dangers of tobacco use and urged to quit. 0 07/30/2025 * Follow Up: 3 Months (Reason: OV) * Images: * Sign off status: Completed true * Provider: Sinai Spaulding MD Date: 0 07/30/2025 Generated for Nabil clarke/Elizabeth/Bayitting on: 1 12/30/2024 10:30 AM EST History [...] no acute distress, calm and relaxed: overweight: elderly man HEAD: atraumatic, normocep halic EYES: [...] BREASTS: no masses palpable b ilaterally MUSCULOSKELETAL: Second and third toe s left foot less swollen and ecchymotic, distal portion still edematous with range of motion of those toes much improved, able to walk without pain LYMPH NODES: no enlarged lymph no krish,spleen normal RECTAL EXAM: not examined PSYCH: alert, oriented: anx ious appearing: mood depressed ORAL CAVITY: normal, unremarkable
--- OUTSIDE RECORDS SUMMARY | 2025-10-30 10:30 | XMS_ITS | Encounter Summary ---
Author Organization [facility] Address [address] [facility] [address] [place] [address] Phone Care Team Providers Care Mix Maker Name Role Phone Frederick Spaulding MD Primary Care Provider +1- [phone] Encounter Details Date Type Department Care Team (Late st Contact Info) Description 12/14/2020 Ancillary Orders [facility],Outside Imaging [address] [place] [address] System, Provider Not In, PhD [address] [address] Social History Tobacco Use Types Packs/Day Years [...] Description 06/07/2026 1:45 PM EDT Office Visit [facility] [address] [facility] 3rd Floor, [address] [place], [place] [phone] Neil Alcantara DO [address] [facility] [address] [place] [address] [email or web address] documented as of this encounter Results * [...] on filedocumented in this encounter Care Teams Mix Maker Relationship Specialty Start Date End Date Frederick Spaulding MD [address] [place] [address] [place] [address] PCP - General Medical Oncology 12/09/20 documented as of this encounter Additional Source Comments The information contained in this document represents components of the legal health record. It is not the complete legal health record.[facility]
--- OUTSIDE RECORDS SUMMARY | 2025-10-30 10:30 | XMS_ITS | Encounter Summary ---
Author Organization [facility] Address [address] [facility] [address] [place] [address] Phone Care Team Providers Care Otr Driver Name Role Phone Frederick Spaulding MD Primary Care Provider +1- [phone] Encounter Details Date Type Department Care Team (Late Contact Info) Description 09/06/2022 Transcribe Orders Virtual Department [address] [place] [address] Frederick Spaulding MD [address] [place] [address] [place] [address] Osteoporosis, unspecified osteoporosis type, unspecified pathological fracture [...] Description 06/07/2026 1:45 PM EDT Office Visit [facility] [address] [facility] 3rd Floor, [address] [place] [address] Neil Alcantara DO [address] [facility] [address] [place] [address] [email or web address] documented as of this encounter Visit Diagnoses Diagnosis Osteoporosis, unspecified osteoporosis type, unspecified pathological fracture presence- Primary documented in this encounter Care Teams Otr Driver Relationship Specialty Start Date End Date Frederick Spaulding MD [address] [place] [address] [place] [address] PCP - General Medical Oncology 12/09/20 documented as of this encounter Additional Source Comments The information contained in this document represents components of the legal health record. It is not the complete legal health record.[facility]
--- OUTSIDE RECORDS SUMMARY | 2025-10-30 10:30 | XMS_ITS | Clinical Summary ---
Author Organization [facility] Address [address] [place] [address] Phone Care Team Providers Care Motor And Controls Tester Name Role Phone Frederick Spaulding MD Primary Care Provider +1- [phone] Allergies Active Allergy Reactions Criticality Noted Date [...] Take 200 mg by mouth daily. Active cholecalciferol (VITAMIN D3) 2,000 unit capsule Take 2,000 [...] morning. 1-2 tablets depending on the season 4 Active alendronate (FOSAMAX) 70 MG tablet 5 Active omeprazole (PRILOSEC) 20 MG capsuleIndicati ons:Gastroesoph ageal reflux disease TAKE 1 CAPSULE BY MOUTH ONCE DAILY 90 capsule 3 5 Active Active Problems Problem Noted Date Diagnosed Date [...] Type Department Care Team Description 09/21/2025 Refill [facility] [address] [place] [address] Pablo Shine MD Medication Refill from Last 3 Months Social History Tobacco Use Types Packs/Day Years Used Date Smoking Tobacco: Never Smokeless Tobacco: Never Tobacco Cessation:Counseling Given: Not Answered Education Answer Date Recorded Are you interested in more education? Not on salas e 03/29/2023 Are you concerned about learning? [...] Description 06/07/2026 1:45 PM EDT Office Visit [facility] [address] [facility] 3rd Floor, [address] [place] [address] Neil Alcantara DO 22 [facility] [address] [place] [address] [email or web address] Health Maintenance Due Date Last Done Comments Adult Td,Tdap Booster 1940 CREATININE LEVEL 1940 LITHIUM LEVEL 1940 TSH LEVEL 1940 DEPRESSION SCREENING 1952 ZOSTER VACCINES (1 of 2) 08/08/2013 06/13/2013 RSV VACCINE (1 - 1-dose 75+ series) 2015 PNEUMOCOCCAL VACCINES (50+ years) (2 of 2 - PPSV23, PCV20, or PCV21) 06/20/2019 04/25/2019 INFLUENZA VACCINE (#1) 2025 1, 09/05/2020, 09/20/2019, Additional history exists COVID-19 VACCINE [...] [place] [address] MEDICARE PART A & B [facility] [place] [address] MEDICARE PART A & B [employer] [place] [address] MEDICARE PART A & B [employer] [place] [address] MEDICARE PART A & B [employer] MEDEX SUPPLEMENT MEDICARE PART A & B [employer] MEDEX SUPPLEMENT MEDICARE PART A & B [employer] [place] [address] MEDICARE PART A & B [employer] SUPPLEMENT MEDICARE PART A & B [employer] MED[employer] SUPPLEMENT MEDICARE PART A & B [employer] MEDEX SUPPLEMENT Care Teams Motor And Controls Tester Relationship Specialty Start Date End Date Frederick Spaulding MD [address] [place] [address] [place] [address] PCP - General Medical Oncology 12/09/20 Additional Source Comments The information contained in this document represents components of the legal health record. It is not the complete legal health record.[facility]
--- OUTSIDE RECORDS SUMMARY | 2025-10-30 10:30 | XMS_ITS | Patient Health Record ---
Author Organization Frederick Spaulding III, MD Address [address] [place] [address] Care Team Providers Care Pay Station Collector Name Role Phone Dr. Frederick Spaulding III Primary Care Provider Allergies Allergen (clinical drug ingredient) Drug/Non Drug Allergy documented on EMR Reaction Allergy Type Onset Date Status Information temporarily unavailable Simvastatin body ache Drug Allergy Active Information temporarily unavailable Percocet nausea Drug Allergy Active Results Component Value Reference Range Notes Complete Blood Count Auto Di ff Reviewed date:12/17/2024 01:30:12 PM Interpretation: Performing Lab:[facility], [address] [place] [phone] Notes/Report: White Blood Count 5.8 4.8-10.8 X10*3/uL [...] NRBC Abs Auto 0.000 0.0-0.012 X10*3/uL Comprehensive [place]. Panel Fa st Reviewed date:12/17/2024 01:30:12 PM Interpretation: Performing Lab:[facility], [address] [place] [phone] Notes/Report: Sodium 143 135-145 mmol/L Potassium 4.2 [...] Panel Reviewed date:12/17/2024 01:30:12 PM Interpretation: Performing Lab:[facility], [address] [place] [phone] Notes/Report: Triglycerides 117 <150 mg/dL Desirable Triglyceride: [...] Total Reviewed date:12/17/2024 01:30:12 PM Interpretation: Performing Lab:[facility], [address] [place] [phone] Notes/Report: Vitamin D 25-OH Total 78.8 >30 [...] Antigen Reviewed date:04/27/2025 05:07:33 PM Interpretation: Performing Lab:[facility], [address] [place] [phone] Notes/Report: Prostate Specific Antigen 0.20 <0.05-4.0 ng/mL PSA methodology: Medeiros Alinity i Chemiluminescent Microparticle Immunoassay (CMIA) Complete Blood Count Auto Di ff Reviewed date:07/20/2025 02:31:02 PM Interpretation: Performing Lab:[facility], [address] [place] [phone] Notes/Report: White Blood Count 6.0 4.8-10.8 X10*3/uL [...] NRBC Abs Auto 0.000 0.0-0.012 X10*3/uL Comprehensive [place]. Panel Fa st Reviewed date:07/20/2025 02:31:02 PM Interpretation: Performing Lab:[facility], [address] [place] [phone] Notes/Report: Sodium 143 135-145 mmol/L Potassium 4.8 [...] Panel Reviewed date:07/20/2025 02:31:02 PM Interpretation: Performing Lab:[address] [phone] Notes/Report: Triglycerides 80 <150 mg/dL Desirable Triglyceride: [...] Antigen Reviewed date:07/20/2025 02:31:02 PM Interpretation: Performing Lab:[address] [phone] Notes/Report: Prostate Specific Antigen 0.21 <0.05-4.0 ng/mL PSA methodology: Medeiros Alinity i Chemiluminescent Microparticle Immunoassay (CMIA) Prostate Specific Antigen Reviewed date:10/08/2025 05:25:04 AM Interpretation: Performing Lab:[address] [phone] Notes/Report: Prostate Specific Antigen 0.20 <0.05-4.0 ng/mL PSA methodology: Medeiros Alinity i Chemiluminescent Microparticle Immunoassay (CMIA) Testosterone, Total Reviewed date:10/11/2025 09:13:27 AM Interpretation: Performing Lab:[facility], [address], [place] [address] Notes/Report: Testosterone, Total 053 202-1790 ng/dL Men with clinically significant hypogonadal symptoms and testosterone values repeatedly in the range of the 200-300 ng/dL or less, may benefit from testosterone treatment after adequate risk and benefits counseling. For additional information, please refer to http://education.Cryoocyte.ThisClicks/faq/ [email or web address] (This link is being provided for informational/ educational purposes only.) This test was developed and its analytical performance characteristics have been determined by [facility] [place], [place]. It has not been cleared or approved by the U.S. Food and Drug Administration. This assay has been validated pursuant to the CLIA regulations and is used for clinical purposes. THIS TEST WAS PERFORMED AT: [facility] [address] [address] HEATHER TAVERA MD,PHD Reason For Referral No Information Medications Medication [...] empty stomach Orally Once a day Active Byars Carbonate 150 MG 1 capsule Orall y [...] Administered Varicella Unknown 06/03/2023 [facility] Social History Tobacco Use: Social History Observation [...] Problem Status W/U Status Risk Notes Problem 2687942 Former smoker (Z87.891) Active confirmed He is highly motivated not to smoke. We discussed gusto plan to prevent relapse in times of stress and illness. Problem 141001936 Overweight (E66.3) Active confirmed He is slightly overweight. I recommended stabilizing his weight at this level followed by the consumption healthy low-sodium Mediterranean diet Problem Information temporarily unavailable Hypertension (I10) Active confirmed His blood pressure today was 140/76 and no change in his regimen was necessary today. He will come to the office next visit to have his vital signs measured.His blood pressure remains at 140 systolic he will have the option of taking more medication. Problem Information temporarily unavailable Prostate cancer (C61) Active confirmed His PSA remains low at 0.21. The value will be followed periodically. He will continue with urology. Problem 044963866 Mixed hyperlipidemia (E78.2) Active confirmed His lipids are currently stable and on target. No change in his regimen as needed. Problem 149481344 Acquired hypothyroidism (E03.9) Active confirmed He has been compliant with his medication. Comprehensive blood work with a TSH shows normal thyroid function. Problem Information temporarily unavailable Erectile dysfunction (N52.9) Active confirmed Problem 789868277 Benign prostatic hyperplasia with lower urinary tract symptoms (N40.1) Active confirmed Has been rising from sleep to urinate about once a night. We discussed modifications in his life so that he could make that would reduce nocturia. Problem 530279857 History of inguinal hernia (Z87.19) Active confirmed There is no sign of inguinal herniation today. Problem 282843629 History of depression (Z86.59) Active confirmed He is now on lithium and bupropion. His renal function will be followed. Problem 834241167 Adenomatous polyps (D36.9) Active confirmed He will continue to have periodic colonoscopies. 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 He is able to accomplish all of the activities of daily living. His current regimen was continued. Problem 14239841 Osteoporosis, unspecified osteoporosis type, unspecified pathological fracture presence (M81.0) Active confirmed He was continued on his current treatment.His recent bone density test shows a 3% improvement. Current therapy was ccontinued. 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 He purchased his hearing aids at [facility]. He is concerned that his hearing is worse in one year then the other. I have referred him to ENT for evaluation and management. Problem 5632375296 Synovial cyst of left popliteal space (M71.22) Active confirmed Vital Signs Heart Rate 74 /min 07/30/2025 Temperature 100.8 degrees Fahrenheit 07/30/2025 Blood pressure diastolic 66 mm Hg 07/30/2025 Height 68 in 07/30/2025 Blood pressure systolic 139 mm Hg 07/30/2025 Weight 171 lbs 07/30/2025 BMI 26 kg/m2 07/30/2025 Encounters Encounter Location Date Provider Diagnosis Frederick Spaulding III, MD [address] [place] [address] [place] [address] 12/18/2024 Frederick Spaulding Prostate cancer C61 ; Hypertension I10 ; Benign prostatic hyperplasia with lower urinary tract symptoms N40.1 ; Former smoker Z87.891 ; History of depression Z86.59 ; Mixed hyperlipidemia E78.2 ; Osteoporosis, unspecified osteoporosis type, unspecified pathological fracture presence M81.0 and Overweight E66.3 Frederick Spaulding III, MD [address] [place] [address] [place] [phone] 04/19/2025 Frederick Spaulding Prostate cancer C61 ; [...] and Overweight E66.3 Frederick Spaulding III, MD [address] [place] [address] [place] [address] 07/20/2025 Frederick Spaulding Prostate cancer C61 ; Former smoker Z87.891 ; Overweight E66.3 ; Acquired hypothyroidism E03.9 ; Mixed hyperlipidemia E78.2 ; Sensorineural hearing loss (SNHL) of both ears H90.3 ; Benign prostatic hyperplasia with lower urinary tract symptoms N40.1 ; History of depression Z86.59 ; Osteoporosis, unspecified osteoporosis type, unspecified pathological fracture presence M81.0 and Hypertension I10 Frederick Spaulding III, MD [address] [place] [address] [place] [address] 07/30/2025 Frederick Spaulding Prostate cancer C61 ; Mixed hyperlipidemia E78.2 ; Overweight E66.3 ; Benign prostatic hyperplasia with lower urinary tract symptoms N40.1 and Former smoker Z87.891 Frederick Spaudling III, MD [address] [place] [address] [place] [address] 03/01/2025 Frederick Spaulding Assessments Encounter Date Diagnosis [...] loss. He purchased his hearing aids at [facility]. He is concerned that his hearing is [...] loss. He purchased his hearing aids at [facility]. He is concerned that his hearing is [...] 04/19/2025 Lipid Panel 09/13/2023 Lipid Panel 05/17/2023 Free T4 (Free Thyroxine) 02/10/2024 Free T4 (Free Thyroxine) 09/13/2023 Byars 07/30/2025 Next Appt Details Provider Name:Frederick Spaulding , 11/03/2025 02:00:00 PM, [address] [place] [address] [address], [place], [phone], Provider Name:Frederick Spaulding , 04/20/2026 03:00:00 PM, [address] [place] [address] [address], [place], [phone], Insurance Providers Payer Name Payer Address Payer Phone Subscriber Number Group Number Insured Name Patient Relationship to Insured Coverage Start Date Coverage End Date MEDICARE NGS [address] [place] [phone] [id number] Juan White Self - patient is the insured [facility] [address] [place], [place] [id number] [phone] [id number] Juan White Self - patient is [...]
[2025-10-30 10:51] LABS: MANUAL DIFF FLAG NO
[2025-10-30 11:34] LABS: Hematocrit 46.1 % (42.0-52.0); Hemoglobin 15.5 g/dl (14.0-18.0); Imm Gran Abs Auto 0.05 X10*3/uL (0.00-0.03); Imm Gran Pct Auto 0.8 % (0.0-0.4); Lymphocytes Absolute Auto 1.7 X10*3/uL (1.2-4.9); Mean Corpuscular HGB Conc 33.6 g/dl (31.0-36.0); Mean Corpuscular Hemoglobin 32.2 pg (27.0-33.0); Mean Corpuscular Volume 95.8 fL (80.0-98.0); NRBC Abs Auto 0.000 X10*3/uL (0.0-0.012); NRBC Pct Auto 0.0 /100WBC (0.0-0.2); Platelet Count 229 X10*3/uL (160-400); Red Blood Count 4.81 X10*6/uL (4.60-5.80); White Blood Count 6.5 X10*3/uL (4.8-10.8)
[2025-10-30 12:13] LABS: Alanine Aminotransferase 50 U/L (0-40); Albumin Level 4.8 g/dL (3.5-5.0); Alkaline Phosphatase 46 U/L (39-117); Anion Gap 11 (12-20); Aspartate Amino Transferase 34 U/L (5-37); Blood Urea Nitrogen 21 mg/dL (9-16); Calcium 9.8 mg/dL (8.4-10.2); Carbon Dioxide 28 mmol/L (22-29); Chloride 108 mmol/L (96-108); Cholesterol 175 mg/dL (<200); Estimated Glomerular Filt Rate > 60; HDL Cholesterol 39 mg/dL (>40); Potassium 4.3 mmol/L (3.3-5.1); Sodium 143 mmol/L (135-145); Total Protein 7.2 g/dL (6.5-8.0); Triglycerides 135 mg/dL (<150)
[2025-10-30 12:33] LABS: Prostate Specific Antigen 0.22 ng/mL (<0.05-4.0)
== END 2025-10-30 10:26 | disposition home or self-care (01) ==
LOC: HO.LAB 10:25
PROVIDERS: PCP Internal Medicine Medical Oncology; Visit Provider Internal Medicine Medical Oncology
DX: C61 Malignant neoplasm of prostate (principal); E78.2 Mixed hyperlipidemia; E66.3 Overweight; N40.1 Benign prostatic hyperplasia with lower urinary tract symptoms; Z12.5 Encounter for screening for malignant neoplasm of prostate
CPT/HCPCS: 36415; 80053; 80061; 84153; 85025

== ENCOUNTER 2025-11-02 11:08 | Outpatient (AMB) | payer MEDICARE, SELFPAY ==
--- NOTE | 2025-11-02 11:09 | A.OFFVIS_ITS ---
Intake Visit Reasons: 6m follow up/ labs (UA SET) Intake Note: Patient is present for 6 mo Telehealth follow up Urology Medication:VIT-C Antibiotic Allergy:NONE Blood Thinner:NONE Labs done 10/06/25 PSA 0.20, Total Testosterone : 234 Commercial Lending Assistant Required: No Accompanied by: Self / Same As Patient Allergies acetaminophen (From Darvocet-N) Allergy (Intermediate, Verified 11/02/25 11:10) Nausea and Vomiting oxycodone Allergy (Intermediate, Verified 11/02/25 11:10) nausea and vomiting propoxyphene (From Darvocet-N) Allergy (Intermediate, Verified 11/02/25 11:10) Nausea and Vomiting HPI Comments Details: Juan is a very pleasant male. He is a patient of Dr. Spaulding. He seen for the following urologic condition - Prostate cancer - hematuria - lower urinary tract symptoms - osteoporosis - nephrolithiasis Telemedicine Evaluation 15 min Consultation Doximity Lidia Video Good urine control No episodes of blood Discussed current results 11/23 Cystoscopy with bladder stone and neovascularity - laser Labs - 04/23 PSA <0.1, T 251, 07/24 <0.1, 12/25 <0.1, 04/24 <0.1, 10/25 0.13, 04/25 0.20 334, 10/26 0.22 234 Occasional blood in urine - particularly with hematuria during exercise Persistent osteoporosis - Dr. 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 Seminal vesicle inv.: Not identified. Perineural inv.: Present. LVI: Not identified The D'Cesia (NCCN) risk category is - High Risk (PSA > 20, Gl 8+, T3). Initial therapy included Primary treatment. -XRT with hormonal therapy XRT completed April 2021 [facility] - 7800 Gy 39 fractions GnRH administation - Last Shot - 12/23 Imaging included Initial Staging - 10/21 MRI showing PI-RADS lesion on right lateral side, question of 1.2 cm pelvic lymph node and question of L5 spinal lesion, no evidence for RAJIV - 11/20 bone scan reported as negative Associated conditions - erectile dysfunction yes Osteoporosis Evaluation - 01/23 DEXA scan osteoporosis - 10/23 DEXA osteoporosis Lower urinary tract symptoms - Greenlight incision 01/25 Had been on terazosin Ankle swelling Switched to alfuzosin Prior laser and diode procedure to 2018 - does not tolerate catheter well Greenlight 01/25 PFSH Medical History Osteoarthritis Depression HTN (hypertension) BPH (benign prostatic hyperplasia) Hearing loss Elevated cholesterol Prostate cancer Thyroid disease Hematuria Renal stones Elevated PSA Enlarged prostate without lower urinary tract symptoms (luts) Surgical History Hx of right knee surgery Hx of prostate biopsy Hx of hernia repair Hx of cystoscopy Hx of vasectomy Social History Patient Tobacco Use Status: Former Tobacco user Review of Systems Const All systems reviewed & are unremarkable except as noted in HPI and below Reports no additional complaints Resp Reports no additional complaints GI Reports no additional complaints Reports as per HPI Musc Reports no additional complaints Physical Exam Telemedicine evaluation Appropriate responses Regular breathing rate and rhythm HEENT Head: Yes normal to inspection Ears: hearing grossly normal bilaterally Eyes General: appearance normal, both eyes and all related structures Neck Neck: Yes normal visual inspection Chest Chest palpation & inspection: normal inspection of the chest Resp Effort & Inspection: normal respiratory effort and able to speak in complete sentences Telehealth Telehealth [facility] Location of provider rendering services: practice address Location of patient: address on file Patient Identification confirmed using: Name, : Yes Telehealth method: video Patient verbally consented to treatment: Yes Patient verbally consented to billing insurance company: Yes Patient informed of any privacy concerns related to visit: Yes Minutes spent on Phone/Video with Pt.: 15 Assessment & Plan Assessment & Plan (1) Prostate cancer: Comment: High-grade treatment with external beam radiation hormones 11/20 Code(s): C61 - Malignant neoplasm of prostate Category: Medical (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 While every effort has been made to ensure accuracy sack sewer machine errors may have been included. Imaging studies, laboratory and physical exam results were discussed and reviewed in detail. No major barriers to patient understanding were identified. An opportunity to ask questions regarding the treatment plan was provided. All questions were answered. The patient expressed understanding and agreement with the above treatment plan. The patient is aware they should contact our office by phone for worsening of their current condition or the appearance of new urologic symptoms. Compliance is encouraged with any medications and followup testing that is ordered. It is a privilege to participate in the urologic care of your patient. If you have any questions or concerns regarding treatment for the above conditions, or other urologic issues, please do not hesitate to contact me. The office telephone contact is [phone]. Sincerely, Dr Juan Logan MD, [facility] - Urology Compassionate Specialist Care for the Genitourinary System Coding Level of Care Code Tele Est Pt Level 3 (97617) Complex visit Add On G2211 Diagnoses Prostate cancer C61 Radiation cystitis N30.40
== END 2025-11-02 14:38 | disposition home or self-care (01) ==
LOC: HO.HUSH 11:08
PROVIDERS: PCP Internal Medicine Medical Oncology; Visit Provider Urology
DX: C61 Malignant neoplasm of prostate (principal); N30.40 Irradiation cystitis without hematuria
CPT/HCPCS: 99213; G2211